=== PATIENT | female | born 1970 | race Hispanic/Latino ===

== ENCOUNTER 2023-11-03 17:12 | Emergency (ER) | payer BC ==
--- OUTSIDE RECORDS SUMMARY | 2023-11-03 17:32 | XMS REPORT | Continuity of Care Document ---
Author Name Unknown Address [address] [facility] [address] [place] [address] [facility] thconnect Address [address] [facility] [place] [address] Care Team Providers Care [employer] Lead Name Role Phone PCP, PATIENT DOES NOT HAVE A Primary Care Physic alida Unavailable DERRICK JIN Attending Clinician Unavailable Derrick Jin NP Attending Clinician SUDHA REICH Attending Clinician Unavailable DERRICK JIN Admitting Clinician Unavailable Payers Payer Name Policy Type Policy Number Effective Date Expirati on Date Source [employer] OUT OF NETWORK [id number] 2020 00:00:00 [employer] [place] - OUT OF STATE [id number] 2018 00:00:00 Problems Condition Name Condition Details Condition Category Status Onset Date Resolution Date Last Treatment Date Treating Clinician Comments Source Pain in or around eye left eye Pain in or around eye left eye Disease Active 2016-06 00:00: 00 [facility] Glaucoma suspect of both eyes Glaucoma suspect of both eyes Disease Active 2016-06 00:00: 00 [facility] Refractive error Refractive error Disease Active 2016-06 00:00: 00 [facility] Bone marrow donor Bone marrow donor Disease Active 2-13 00:00: 00 [facility] Need for prophylact ic immunother apy Need for prophylact ic immunother apy Disease Active 20 00:00: 00 [facility] Multiparit y Multiparit y Disease Active 10-28 00:00: 00 [facility] First degree perineal laceration during delivery First degree perineal laceration during delivery Disease Active 10-27 00:00: 00 Overview: Formattin g of this note might be different from the original. ICD10 Diagnosis Term Shirt Folder Utility [facility] Allergies, Adverse Reactions, Alerts Allergy Name Allergy Type Status Severity Reaction(s) Onset Date Inactive Date Treating Clinician Comments Source Jardianc e - Oral Propensi ty to adverse reaction to drug Active 02-15 00:00: 00 Eduardo Love Mesna - Intraven ous Propensi ty to adverse reaction to drug Active 12-19 00:00: 00 Eduardo Love NO KNOWN ALLERGIE S Drug Class Active [facility] Social History Social Habit Start Date Stop Date Quantity Comments [facility] 2023-03-18 00:00:00 2023-03-18 00:00:00 Current non-drinker of alcohol (finding) [facility] History of Social function 2018-12-19 00:00:00 2018-12-19 00:00:00 [facility] Tobacco use and exposure 2017-12-06 00:00:00 2017-12-06 00:00:00 Smokeless tobacco non-user [facility] Sex Assigned At 1970 00:00:00 1970 00:00:00 [facility] Smoking Status Start Date Stop Date Source Never smoked tobacco [facility] Medications Ordered Medication Name Filled Medication Name Start Date Stop Date Current Medication? Ordering Clinician Indication Dosage Frequency Signature (SIG) Comments Components Source Macrobid 100 mg capsule 10-25 00:00: 00 Yes 1mg Eduardo Love TAKE 1 TABLET AT BEDTIME. 09-05 00:00: 00 Yes 80 Eduardo Love Farxiga 5 mg tablet - 00:00: 00 Yes 1mg Eduardo Love TAKE 1 TABLET EVERY 6 TO 8 HOURS NEEDED. -16 00:00: 09-13 00:00 :00 No 600 Eduardo Love TAKE 1 TABLET 3 TIMES DAILY NEEDED FOR MUSCLE SPASM. 07-17 00:00: 00 09-13 00:00 :00 No 10 Eduardo Efren Love TAKE 1 TABLET BY MOUTH EVERY MORNING 2022-06 00:00: 00 09-13 00:00 :00 No 5 Eduardo F Ivan START 0.6 MG SC QD X1WK, THEN INCREASE TO 1.2 MG SC QD 2022-06 00:00: 00 09-13 00:00 :00 No 183 Eduardo F Ivan TAKE 1 TABLET BY MOUTH AT BEDTIME 2022-06 00:00: 00 09-13 00:00 :00 No 40 Eduardo F Ivan TAKE 1 TABLET BY MOUTH AT BEDTIME 2022-06 00:00: 00 09-13 00:00 :00 No 40 Eduardo F Ivan TAKE 1 TABLET BY MOUTH EVERY MORNING 2022-06 00:00: 00 09-13 00:00 :00 No 5 Eduardo Efren Love APPLY SPARINGLY TO AFFECTED AREA(S) TWICE DAILY 2022-06 00:00: 00 09-13 00:00 :00 No 2 Eduardo Love TAKE 1 TABLET 3 TIMES DAILY WITH FOOD NEEDED. 2022-06 0- 00:00: 00 09-13 00:00 :00 No 800 Eduardo Love ibuprofen (IBU) tablet 600 mg 2022-06 20:30: 00 03-18 20:37 :00 No 600mg 600 mg, Oral, ONCE, 1 dose[facility], extended release 24 hr 2022-06 00:00: 00 Yes mg Eduardo Love TAKE 1 TABLET DAILY. 2022-06 00:00: 00 09-13 00:00 :00 No 10 Eduardo Love TAKE 5 ML BY MOUTH EVERY 6 HOURS NEEDED 03-09 00:00: 00 Yes Eduardo F Ivan TAKE DIRECTED. 03-09 00:00: 00 09-13 00:00 :00 No Eduardo Love TAKE 5 ML EVERY 6 HOURS NEEDED. 9-29 00:00: 00 09-13 00:00 :00 No [id number] Eduardo Love CLINDAMYCIN PHOSPHATE 2 % CREAM 8-15 00:00: 00 Yes Eduardo Love ATORVASTATI N CALCIUM 40 MG 815 00:00: 00 Yes Eduardo Love GLIPIZIDE ER 10 MG EXTENDED RELEASE 24 HOUR 815 00:00: 00 Yes Eduardo Love TAKE 1 TABLET BY MOUTH EVERY MORNING 815 00:00: 00 09-13 00:00 :00 No 5 Eduardo Love INSERT 1 APPLICATORF UL INTRAVAGINA LLY AT BEDTIME NIGHTLY. 01-23 00:00: 00 09-13 00:00 :00 No 2 Eduardo Love TAKE ONE NOW AND REPEAT IN 3 DAYS 01-23 00:00: 00 09-13 00:00 :00 No 150 Eduardo Love GLIPIZIDE ER 10 MG EXTENDED RELEASE 24 HOUR 7- 00:00: 00 Yes Eduardo Love TAKE 1 CAPSULE AT BEDTIME. 4-27 00:00: 00 09-13 00:00 :00 No 300 Eduardo Love TAKE 1 TABLET BY MOUTH EVERY MORNING 0 4-24 00:00: 00 09-13 00:00 :00 No 5 Eduardo Love TAKE 1 TABLET BY MOUTH TWICE DAILY 0 3-10 00:00: 00 Yes Eduardo Love TAKE 1 TWICE A DAY 0 3-08 00:00: 00 09-13 00:00 :00 No 10 Eduardo Love TAKE 1 TABLET BID NEEDED 1-21 00:00: 00 09-13 00:00 :00 No 600 Eduardo Love TAKE 1 TABLET BY MOUTH AT BEDTIME 0 1-11 00:00: 00 09-13 00:00 :00 No 40 Eduardo Efren Love RINSE WITH 5 MILLILITERS BY MOUTH TWICE A DAY DIRECTED. SPIT DO NOT SWALLOW 2021-06 2-16 00:00: 00 Yes Eduardo Love TAKE 1 TWICE A DAY 2021-06 216 00:00: 00 09-13 00:00 :00 No Eduardo Efren Love 1 TABLET BY MOUTH TWICE DAILY 2021-06 216 00:00: 00 09-13 00:00 :00 No 5unit Eduardo Efren Love APPLY SPARINGLY TO THE AFFECTED AREA(S) TWICE DAILY. 2021-06 00:00: 00 09-13 00:00 :00 No unit Eduardo Efren Love TAKE 1 TABLET BY MOUTH ONCE DAILY 2021-06 00:00: 00 09-13 00:00 :00 No Eduardo Efren Love TAKE 1 TABLET BY MOUTH EVERY NIGHT 2021-06 00:00: 00 09-13 00:00 :00 No 40 Eduardo Efren Love TAKE 1 TABLET BY MOUTH TWICE DAILY 2021-06 00:00: 00 09-13 00:00 :00 No 5 Eduardo Efren Love TAKE 1 CAPSULE BY MOUTH 2 TIMES A DAY FOR 10 DAYS 2021-0616 00:00: 00 09-13 00:00 :00 No 100 Eduardo Efren Love Dose Unknown 2021-06 00:00: 00 09-13 00:00 :00 No Eduardo Efren Love APPLY TO LIDS 2 TIMES A DAY IN BOTH EYES FOR 1 WEEK 2021-06 00:00: 00 09-13 00:00 :00 No Eduardo Efren Ivan METFORMIN HYDROCHLORI DE E 750 MG EXTENDED RELEASE 24 HOUR 2021-06-14 00:00: 00 Yes Eduardo Efren Love ATORVASTATI N CALCIUM 40 MG 2021-06 1-14 00:00: 00 Yes Eduardo Efren Ivan METFORMIN HYDROCHLORI DE E 750 MG EXTENDED RELEASE 24 HOUR 2021-06 0-21 00:00: 00 Yes Eduardo Efren Love ATORVASTATI N CALCIUM 40 MG 2021-06 0-18 00:00: 00 Yes Eduardo Efren Love METFORMIN HYDROCHLORI DE E 500 MG EXTENDED RELEASE 24 HOUR 2021-06 0-13 00:00: 00 Yes Eduardo Efren Love TAKE 1 TABLET BY MOUTH TWICE A DAY TAKE 30 MINUTES BEFORE BREAKFAST AND DINNER. STOP ATORVASTATI N 03-08 00:00: 00 No TAKE 1 TABLET BY MOUTH TWICE A DAY TAKE 30 MINUTES BEFORE BREAKFAST AND DINNER. STOP ATORVASTATI N 03-08 00:00: 00 09-13 00:00 :00 No Eduardo Love TAKE 1 TABLET BY MOUTH TWICE A DAY TAKE 30 MINUTES BEFORE BREAKFAST AND DINNER. STOP ATORVASTATI N 01-31 00:00: 00 Yes 600 Eduardo Love TAKE 1 TABLET BY MOUTH TWICE A DAY TAKE 30 MINUTES BEFORE BREAKFAST AND DINNER. STOP ATORVASTATI N 01-31 00:00: 00 No 600 TAKE 1 TABLET BY MOUTH TWICE A DAY TAKE 30 MINUTES BEFORE BREAKFAST AND DINNER. STOP ATORVASTATI N 01-31 00:00: 00 No 600 TAKE 1 TABLET BY MOUTH TWICE A DAY TAKE 30 MINUTES BEFORE BREAKFAST AND DINNER. STOP ATORVASTATI N 01-31 00:00: 00 No 600 TAKE 1 TABLET BY MOUTH TWICE A DAY TAKE 30 MINUTES BEFORE BREAKFAST AND DINNER. STOP ATORVASTATI N 01-31 00:00: 00 No 600 prednisone 20 mg tablet 12-19 00:00: 00 Yes mg Eduardo Love azithromyci n 250 mg tablet 12-19 00:00: 00 Yes mg Eduardo Love prednisone 20 mg tablet 12-19 00:00: 00 No mg azithromyci n 250 mg tablet 12-19 00:00: 00 No mg prednisone 20 mg tablet 12-19 00:00: 00 No mg azithromyci n 250 mg tablet 12-19 00:00: 00 No mg prednisone 20 mg tablet 12-19 00:00: 00 No mg azithromyci n 250 mg tablet 12-19 00:00: 00 No mg prednisone 20 mg tablet 12-19 00:00: 00 No mg azithromyci n 250 mg tablet 12-19 00:00: 00 No mg ATORVASTATI N CALCIUM 40 MG 12-09 00:00: 00 Yes Eduardo Love bupropion HCl 150 mg tablet,12 hr sustained-r elease(smok ing deterrent) 0 - 00:00: 00 Yes 1mg Eduardo Love glipizide ER 5 mg tablet, extended release 24 hr 0 -18 00:00: 00 Yes 1mg Edurado Love atorvastati n 40 mg tablet 0 - 00:00: 00 Yes 1mg Eduardo Love bupropion HCl 150 mg tablet,12 hr sustained-r elease(smok ing deterrent) 0 - 00:00: 00 No 1mg glipizide ER 5 mg tablet, extended release 24 hr 0 10-26 00:00: 00 No 1mg atorvastati n 40 mg tablet 10-26 00:00: 00 No 1mg bupropion HCl 150 mg tablet,12 hr sustained-r elease(smok ing deterrent) 10-26 00:00: 00 No 1mg glipizide ER 5 mg tablet, extended release 24 hr 0 10-26 00:00: 00 No 1mg atorvastati n 40 mg tablet 0 10-26 00:00: 00 No 1mg bupropion HCl 150 mg tablet,12 hr sustained-r elease(smok ing deterrent) 10-26 00:00: 00 No 1mg glipizide ER 5 mg tablet, extended release 24 hr 10-26 00:00: 00 No 1mg atorvastati n 40 mg tablet 0 - 00:00: 00 No 1mg bupropion HCl 150 mg tablet,12 hr sustained-r elease(smok ing deterrent) 10-26 00:00: 00 No 1mg glipizide ER 5 mg tablet, extended release 24 hr 0 10-26 00:00: 00 No 1mg atorvastati n 40 mg tablet 0 -18 00:00: 00 No 1mg atorvastati n 40 mg tablet 0 - 00:00: 00 No 1mg atorvastati n 40 mg tablet 0 - 00:00: 00 No 1mg atorvastati n 40 mg tablet 2022-0 5-06 00:00: 00 No 1mg atorvastati n 40 mg tablet 2-0 5-06 00:00: 00 No 1mg atorvastati n 40 mg tablet 2-0 5-06 00:00: 00 Yes 1mg Eduardo Love glipizide ER 5 mg tablet, extended release 24 hr 2-0 4-29 00:00: 00 No 1mg glipizide ER 5 mg tablet, extended release 24 hr 2022-0 4-29 00:00: 00 No 1mg glipizide ER 5 mg tablet, extended release 24 hr 2022-0 4-29 00:00: 00 No 1mg glipizide ER 5 mg tablet, extended release 24 hr 2022-0 4-29 00:00: 00 No 1mg glipizide ER 5 mg tablet, extended release 24 hr 2022-0 4-29 00:00: 00 Yes 1mg Eduardo Love NEOMYCIN/PO LYMYXIN/DEX CARMEL [id number] .[id number] OINTMENT 2021-0 4-27 00:00: 00 Yes Eduardo Love DOXYCYCLINE HYCLATE 100 MG CAPSULE 2021-0 4-27 00:00: 00 Yes Eduardo Love Dose Unknown 2021-0 4-14 00:00: 00 No Dose Unknown 2-0 4-14 00:00: 00 No Dose Unknown 2-0 4-14 00:00: 00 No Dose Unknown 2-0 4-14 00:00: 00 No Dose Unknown 2-0 4-14 00:00: 00 No Dose Unknown 2022-0 4-14 00:00: 00 No Dose Unknown 2-0 4-14 00:00: 00 No Dose Unknown 2022-0 4-14 00:00: 00 No Dose Unknown 2022-0 4-14 00:00: 00 Yes Eduardo Love Dose Unknown 2-0 4-14 00:00: 00 Yes Eduardo Love Dose Unknown 2021-0 4-13 00:00: 00 No Dose Unknown 2022-0 4-13 00:00: 00 No Dose Unknown 2022-0 4-13 00:00: 00 No Dose Unknown 2-0 4-13 00:00: 00 No Dose Unknown 2022-0 4-13 00:00: 00 No Dose Unknown 0 4-13 00:00: 00 No Dose Unknown 0 4-13 00:00: 00 No Dose Unknown 0 4- 00:00: 00 No Dose Unknown 0 4- 00:00: 00 Yes Eduardo Love Dose Unknown 0 4-13 00:00: 00 Yes Eduardo Love atorvastati n 40 mg tablet 0 4-05 00:00: 00 No 1mg atorvastati n 40 mg tablet 0 4-05 00:00: 00 No 1mg atorvastati n 40 mg tablet 0 4-05 00:00: 00 No 1mg atorvastati n 40 mg tablet 0 4-05 00:00: 00 No 1mg atorvastati n 40 mg tablet 0 4-05 00:00: 00 Yes 1mg Eduardo Love glipizide ER 5 mg tablet, extended release 24 hr 2021-0 2-12 00:00: 00 No 1mg atorvastati n 40 mg tablet 0 2-12 00:00: 00 No 1mg glipizide ER 5 mg tablet, extended release 24 hr 2021-0 2-12 00:00: 00 No 1mg atorvastati n 40 mg tablet 0 2-12 00:00: 00 No 1mg glipizide ER 5 mg tablet, extended release 24 hr 2021-0 2-12 00:00: 00 No 1mg atorvastati n 40 mg tablet 2021-0 2-12 00:00: 00 No 1mg glipizide ER 5 mg tablet, extended release 24 hr 2021-0 2-12 00:00: 00 No 1mg atorvastati n 40 mg tablet 2021-0 2-12 00:00: 00 No 1mg glipizide ER 5 mg tablet, extended release 24 hr 2021-0 2-12 00:00: 00 Yes 1mg Eduardo Love atorvastati n 40 mg tablet 2021-0 2-12 00:00: 00 Yes 1mg Eduardo Love atorvastati n 40 mg tablet 2021-0 1-31 00:00: 00 No 1mg atorvastati n 40 mg tablet 07-11 00:00: 00 No 1mg atorvastati n 40 mg tablet 07-11 00:00: 00 No 1mg atorvastati n 40 mg tablet 07-11 00:00: 00 No 1mg atorvastati n 40 mg tablet 07-11 00:00: 00 Yes 1mg Eduardo Love atorvastati n 40 mg tablet 2020-06 00:00: 00 No 1mg atorvastati n 40 mg tablet 2020-06 00:00: 00 No 1mg atorvastati n 40 mg tablet 2020-06 00:00: 00 No 1mg atorvastati n 40 mg tablet 2020-06 00:00: 00 No 1mg atorvastati n 40 mg tablet 2020-06 00:00: 00 Yes 1mg Eduardo Love glipizide ER 5 mg tablet, extended release 24 hr 2020-06 00:00: 00 No 1mg gemfibrozil 600 mg tablet 2020-06 00:00: 00 No 1mg glipizide ER 5 mg tablet, extended release 24 hr 2020-06 00:00: 00 No 1mg gemfibrozil 600 mg tablet 2020-06 00:00: 00 No 1mg glipizide ER 5 mg tablet, extended release 24 hr 2020-06 00:00: 00 No 1mg gemfibrozil 600 mg tablet 2020-06 00:00: 00 No 1mg glipizide ER 5 mg tablet, extended release 24 hr 2020-06 00:00: 00 No 1mg gemfibrozil 600 mg tablet 2020-06 00:00: 00 No 1mg glipizide ER 5 mg tablet, extended release 24 hr 2020-06 00:00: 00 Yes 1mg Eduardo Love gemfibrozil 600 mg tablet 2020-06 00:00: 00 Yes 1mg Eduardo Love triamcinolo ne acetonide 0.1 % topical cream 11-17 00:00: 00 No 1% triamcinolo ne acetonide 0.1 % topical cream 11-17 00:00: 00 No 1% triamcinolo ne acetonide 0.1 % topical cream 11-17 00:00: 00 No 1% Dose Unknown 11-17 00:00: 00 No triamcinolo ne acetonide 0.1 % topical cream 11-17 00:00: 00 Yes 1% Eduardo Love glipizide ER 5 mg tablet, extended release 24 hr 11-11 00:00: 00 No 1mg gemfibrozil 600 mg tablet 11-11 00:00: 00 No 1mg glipizide ER 5 mg tablet, extended release 24 hr 11-11 00:00: 00 No 1mg gemfibrozil 600 mg tablet 11-11 00:00: 00 No 1mg glipizide ER 5 mg tablet, extended release 24 hr 11-11 00:00: 00 No 1mg gemfibrozil 600 mg tablet 11-11 00:00: 00 No 1mg glipizide ER 5 mg tablet, extended release 24 hr 11-11 00:00: 00 No 1mg gemfibrozil 600 mg tablet 11-11 00:00: 00 No 1mg glipizide ER 5 mg tablet, extended release 24 hr 11-11 00:00: 00 Yes 1mg Eduardo Love gemfibrozil 600 mg tablet 11-11 00:00: 00 Yes 1mg Eduardo Efren Ivan gemfibrozil 600 mg tablet 08-04 00:00: 00 No 1mg cholecalcif telma (vitamin D3) 1,250 mcg (50,000 unit) capsule 2-24 00:00: 00 No 1(50,00 0 unit) gemfibrozil 600 mg tablet 2- 00:00: 00 No 1mg cholecalcif telma (vitamin D3) 1,250 mcg (50,000 unit) capsule 2-24 00:00: 00 No 1(50,00 0 unit) gemfibrozil 600 mg tablet 2-24 00:00: 00 No 1mg cholecalcif telma (vitamin D3) 1,250 mcg (50,000 unit) capsule 2-24 00:00: 00 No 1(50,00 0 unit) gemfibrozil 600 mg tablet 2-24 00:00: 00 No 1mg cholecalcif telma (vitamin D3) 1,250 mcg (50,000 unit) capsule 2-24 00:00: 00 No 1(50,00 0 unit) gemfibrozil 600 mg tablet 2-24 00:00: 00 Yes 1mg Eduardo Love cholecalcif telma (vitamin D3) 1,250 mcg (50,000 unit) capsule - 00:00: 00 Yes 1(50,00 0 unit) Eduardo Efren Ivan glipizide ER 5 mg tablet, extended release 24 hr - 00:00: 00 No 1mg glipizide ER 5 mg tablet, extended release 24 hr - 00:00: 00 No 1mg glipizide ER 5 mg tablet, extended release 24 hr - 00:00: 00 No 1mg glipizide ER 5 mg tablet, extended release 24 hr - 00:00: 00 No 1mg glipizide ER 5 mg tablet, extended release 24 hr - 00:00: 00 Yes 1mg Eduardo Love atorvastati n 40 mg tablet 2019-06 2 00:00: 00 No 1mg atorvastati n 40 mg tablet 2019-06 00:00: 00 No 1mg atorvastati n 40 mg tablet 2019-06 2 00:00: 00 No 1mg atorvastati n 40 mg tablet 2019-06- 00:00: 00 No 1mg atorvastati n 40 mg tablet 2019-06 00:00: 00 Yes 1mg Eduardo Love metformin 500 mg tablet 2019-06- 00:00: 00 No 1mg metformin 500 mg tablet 2019-06- 00:00: 00 No 1mg metformin 500 mg tablet 2019-06 00:00: 00 No 1mg metformin 500 mg tablet 2019-06 00:00: 00 No 1mg metformin 500 mg tablet 2019-06 00:00: 00 Yes 1mg Eduardo Love atorvastati n 40 mg tablet 2019-06 00:00: 00 No 1mg atorvastati n 40 mg tablet 2019-06 00:00: 00 No 1mg atorvastati n 40 mg tablet 2019-06 00:00: 00 No 1mg atorvastati n 40 mg tablet 2019-06 00:00: 00 No 1mg atorvastati n 40 mg tablet 2019-06 00:00: 00 Yes 1mg Eduardo Love atorvastati n 40 mg tablet 11-25 00:00: 00 No 1mg atorvastati n 40 mg tablet 11-25 00:00: 00 No 1mg atorvastati n 40 mg tablet 11-25 00:00: 00 No 1mg atorvastati n 40 mg tablet 11-25 00:00: 00 No 1mg atorvastati n 40 mg tablet 11-25 00:00: 00 Yes 1mg Eduardo Love diclofenac 1 % topical gel 11-19 00:00: 00 No % triamcinolo ne acetonide 0.1 % topical cream 11-19 00:00: 00 No 1% diclofenac 1 % topical gel 11-19 00:00: 00 No % triamcinolo ne acetonide 0.1 % topical cream 11-19 00:00: 00 No 1% diclofenac 1 % topical gel 11-19 00:00: 00 No % triamcinolo ne acetonide 0.1 % topical cream 11-19 00:00: 00 No 1% diclofenac 1 % topical gel 11-19 00:00: 00 No % triamcinolo ne acetonide 0.1 % topical cream 11-19 00:00: 00 No 1% diclofenac 1 % topical gel 11-19 00:00: 00 Yes % Eduardo Efren Ivan triamcinolo ne acetonide 0.1 % topical cream 11-19 00:00: 00 Yes 1% Eduardo Love clindamycin HCl 300 mg capsule 10-19 00:00: 00 No 1mg clindamycin HCl 300 mg capsule 10-19 00:00: 00 No 1mg clindamycin HCl 300 mg capsule 10-19 00:00: 00 No 1mg clindamycin HCl 300 mg capsule 10-19 00:00: 00 No 1mg clindamycin HCl 300 mg capsule 10-19 00:00: 00 Yes 1mg Eduardo Love sertraline 25 mg tablet 10-17 00:00: 00 No 1mg Flagyl 500 mg tablet 10-17 00:00: 00 No 1mg sertraline 25 mg tablet 10-17 00:00: 00 No 1mg Flagyl 500 mg tablet 10-17 00:00: 00 No 1mg sertraline 25 mg tablet 10-17 00:00: 00 No 1mg Flagyl 500 mg tablet 10-17 00:00: 00 No 1mg sertraline 25 mg tablet 10-17 00:00: 00 No 1mg Flagyl 500 mg tablet 10-17 00:00: 00 No 1mg sertraline 25 mg tablet 10-17 00:00: 00 Yes 1mg Eduardo Love Flagyl 500 mg tablet 10-17 00:00: 00 Yes 1mg Eduardo Love pravastatin 20 mg tablet 09-09 00:00: 00 No 1mg pravastatin 20 mg tablet 09-09 00:00: 00 No 1mg pravastatin 20 mg tablet 09-09 00:00: 00 No 1mg pravastatin 20 mg tablet 09-09 00:00: 00 No 1mg pravastatin 20 mg tablet 09-09 00:00: 00 Yes 1mg Eduardo Love pravastatin 20 mg tablet 07-13 00:00: 00 No 1mg pravastatin 20 mg tablet 07-13 00:00: 00 No 1mg pravastatin 20 mg tablet 07-13 00:00: 00 No 1mg pravastatin 20 mg tablet 07-13 00:00: 00 No 1mg pravastatin 20 mg tablet 07-13 00:00: 00 Yes 1mg Eduardo Love methylPREDN ISolone (MEDROL, ARSLAN,) 4 mg tablets 12-06 00:00: 00 Yes 84mg Take 21 tablets by mouth SEE-INSTRU CTIONS. follow package directions [facility] naproxen 500 mg tablet 11-21 00:00: 00 No 1mg naproxen 500 mg tablet 11-21 00:00: 00 No 1mg naproxen 500 mg tablet 11-21 00:00: 00 No 1mg naproxen 500 mg tablet 11-21 00:00: 00 No 1mg naproxen 500 mg tablet 11-21 00:00: 00 Yes 1mg Eduardo Love Tamiflu 75 mg capsule 08-08 00:00: 00 No 1mg Tamiflu 75 mg capsule 08-08 00:00: 00 No 1mg Tamiflu 75 mg capsule 08-08 00:00: 00 No 1mg Tamiflu 75 mg capsule 08-08 00:00: 00 No 1mg Tamiflu 75 mg capsule 08-08 00:00: 00 Yes 1mg Eduardo Love Vitamin D2 50,000 unit capsule 2016-06 00:00: 00 No 1unit Vitamin D2 50,000 unit capsule 2016-06 00:00: 00 No 1unit Vitamin D2 50,000 unit capsule 2016-06 00:00: 00 No 1unit Vitamin D2 50,000 unit capsule 2016-06 00:00: 00 No 1unit Vitamin D2 50,000 unit capsule 2016-06 00:00: 00 Yes 1unit Eduardo Love fluorometho lone 0.1 % ophthalmic suspension drops 2016-06 00:00: 00 Yes 1[drp] Place 1 Drop in left eye 3 (three) times daily. [facility] prednisone 10 mg tablet 02-14 00:00: 00 No mg azithromyci n 250 mg tablet 02-14 00:00: 00 No mg promethazin e-DM 6.25 mg-15 mg/5 mL syrup 02-14 00:00: 00 No 5mg/5 mL prednisone 10 mg tablet 02-14 00:00: 00 No mg azithromyci n 250 mg tablet 02-14 00:00: 00 No mg promethazin e-DM 6.25 mg-15 mg/5 mL syrup 02-14 00:00: 00 No 5mg/5 mL prednisone 10 mg tablet 02-14 00:00: 00 No mg azithromyci n 250 mg tablet 02-14 00:00: 00 No mg promethazin e-DM 6.25 mg-15 mg/5 mL syrup 02-14 00:00: 00 No 5mg/5 mL prednisone 10 mg tablet 02-14 00:00: 00 No mg azithromyci n 250 mg tablet 02-14 00:00: 00 No mg promethazin e-DM 6.25 mg-15 mg/5 mL syrup 02-14 00:00: 00 No 5mg/5 mL prednisone 10 mg tablet 02-14 00:00: 00 Yes mg Eduardo Love azithromyci n 250 mg tablet 02-14 00:00: 00 Yes mg Eduardo Love promethazin e-DM 6.25 mg-15 mg/5 mL syrup 02-14 00:00: 00 Yes 5mg/5 mL Eduardo Love triamcinolo ne acetonide 0.1 % cream 01-15 00:00: 00 Yes Apply to area(s) 2 (two) times daily. [facility] azithromyci n 250 mg tablet 07-28 00:00: 00 No mg azithromyci n 250 mg tablet 07-28 00:00: 00 No mg azithromyci n 250 mg tablet 07-28 00:00: 00 No mg azithromyci n 250 mg tablet 07-28 00:00: 00 No mg azithromyci n 250 mg tablet 07-28 00:00: 00 Yes mg Eduardo Love meclizine (MOTION SICKNESS RELIEF II) 25 mg tablet 2015-06 00:00: 00 Yes 25mg Take 1 tablet by mouth every 6 (six) hours. [facility] cyclobenzap rine 10 mg tablet 2015-06 00:00: 00 No 1mg Bactrim DS 800 mg-160 mg tablet 2015-06 00:00: 00 No 1mg cyclobenzap rine 10 mg tablet 2015-06 00:00: 00 No 1mg Bactrim DS 800 mg-160 mg tablet 2015-06 00:00: 00 No 1mg cyclobenzap rine 10 mg tablet 2015-06 00:00: 00 No 1mg Bactrim DS 800 mg-160 mg tablet 2015-06 00:00: 00 No 1mg cyclobenzap rine 10 mg tablet 2015-06 00:00: 00 No 1mg Bactrim DS 800 mg-160 mg tablet 2015-06 00:00: 00 No 1mg cyclobenzap rine 10 mg tablet 2015-06 00:00: 00 Yes 1mg Eduardo Love Bactrim DS 800 mg-160 mg tablet 2015-06 00:00: 00 Yes 1mg Eduardo Love amoxicillin 500 mg tablet 02-27 00:00: 00 No 1mg amoxicillin 500 mg tablet 02-27 00:00: 00 No 1mg amoxicillin 500 mg tablet 02-27 00:00: 00 No 1mg amoxicillin 500 mg tablet 02-27 00:00: 00 No 1mg amoxicillin 500 mg tablet 02-27 00:00: 00 Yes 1mg Eduardo Love azithromyci n 250 mg tablet 09-22 00:00: 00 No 1mg azithromyci n 250 mg tablet 09-22 00:00: 00 No 1mg azithromyci n 250 mg tablet 09-22 00:00: 00 No 1mg azithromyci n 250 mg tablet 09-22 00:00: 00 No 1mg azithromyci n 250 mg tablet 09-22 00:00: 00 Yes 1mg Eduardo Love Bromfed DM 2 mg-30 mg-10 mg/5 mL syrup 07-16 00:00: 00 No 10mg/5 mL Bromfed DM 2 mg-30 mg-10 mg/5 mL syrup 07-16 00:00: 00 No 10mg/5 mL Bromfed DM 2 mg-30 mg-10 mg/5 mL syrup 07-16 00:00: 00 No 10mg/5 mL Bromfed DM 2 mg-30 mg-10 mg/5 mL syrup 07-16 00:00: 00 No 10mg/5 mL Bromfed DM 2 mg-30 mg-10 mg/5 mL syrup 07-16 00:00: 00 Yes 10mg/5 mL Eduardo Love Macrobid 100 mg capsule 2014-06 00:00: 00 No 1mg Macrobid 100 mg capsule 2014-06 00:00: 00 No 1mg Macrobid 100 mg capsule 2014-06 00:00: 00 No 1mg Macrobid 100 mg capsule 2014-06 00:00: 00 No 1mg Macrobid 100 mg capsule 2014-06 00:00: 00 Yes 1mg Eduardo Efren Ivan Cipro 500 mg tablet 2014-06 00:00: 00 No 1mg Cipro 500 mg tablet 2014-06 00:00: 00 No 1mg Cipro 500 mg tablet 2014-06 00:00: 00 No 1mg Cipro 500 mg tablet 2014-06 00:00: 00 No 1mg Cipro 500 mg tablet 2014-06 00:00: 00 Yes 1mg Eduardo Love cetirizine 10 mg tablet 10-01 00:00: 00 No 1mg cetirizine 10 mg tablet 10-01 00:00: 00 No 1mg cetirizine 10 mg tablet 10-01 00:00: 00 No 1mg cetirizine 10 mg tablet 10-01 00:00: 00 No 1mg cetirizine 10 mg tablet 10-01 00:00: 00 Yes 1mg Eduardo Love Immunizations Ordered Immunization Name Filled Immunization Name Date Status Comments Source Influenza, injectable, [place] [place] Canine Kidney, preservative-free, quadrivalent Influenza, injectable, [facility] [place] Canine Kidney, preservative-free, quadrivalent 2023-03-25 00:00:00 Completed Eduardo Love influenza, injectable influenza, injectable 2022-02-23 00:00:00 Completed Eduardo Love SHINGRIX VACCINE 2022-02-03 00:00:00 Completed SHINGRIX VACCINE 2022-02-03 00:00:00 Completed SHINGRIX VACCINE 2022-02-03 00:00:00 Completed SH[facility]RI[facility] VACCINE SHINGRIX VACCINE 2022-02-03 00:00:00 Completed Eduardo Love SHINGRIX VACCINE 2021-07-28 00:00:00 Completed SHINGRIX VACCINE 2021-07-28 00:00:00 Completed SHINGRIX VACCINE 2021-07-28 00:00:00 Completed SHINGRIX VACCINE 2021-07-28 00:00:00 Completed SHINGRIX VACCINE SHINGRIX VACCINE 2021-07-28 00:00:00 Completed Eduardo Love influenza, injectable influenza, injectable 2021-04-01 00:00:00 Completed Eduardo Love Moderna COVID-19 Vaccine 2020-08-21 00:00:00 Completed Moderna COVID-19 Vaccine 2020-08-21 00:00:00 Completed Moderna COVID-19 Vaccine 2020-08-21 00:00:00 Completed Moderna COVID-19 Vaccine 2020-08-21 00:00:00 Completed Moderna COVID-19 Vaccine Moderna COVID-19 Vaccine 2020-08-21 00:00:00 Completed Eduardo Love Moderna COVID-19 Vaccine 2020-07-16 00:00:00 Completed Moderna COVID-19 Vaccine 2020-07-16 00:00:00 Completed Moderna COVID-19 Vaccine 2020-07-16 00:00:00 Completed Moderna COVID-19 Vaccine 2020-07-16 00:00:00 Completed Moderna COVID-19 Vaccine Moderna COVID-19 Vaccine 2020-07-16 00:00:00 Completed Eduardo Love Influenza, seasonal, inj 2020-04-12 00:00:00 Completed Influenza, seasonal, inj 2020-04-12 00:00:00 Completed Influenza, seasonal, inj 2020-04-12 00:00:00 Completed Influenza, seasonal, inj 2020-04-12 00:00:00 Completed Influenza, seasonal, inj Influenza, seasonal, inj 2020-04-12 00:00:00 Completed Eduardo Efren Love Influenza, seasonal, inj 2018-07-12 00:00:00 Completed Tdap 2018-07-12 00:00:00 Completed Influenza, seasonal, inj 2018-07-12 00:00:00 Completed Tdap 2018-07-12 00:00:00 Completed Influenza, seasonal, inj 2018-07-12 00:00:00 Completed Tdap 2018-07-12 00:00:00 Completed Influenza, seasonal, inj 2018-07-12 00:00:00 Completed Tdap 2018-07-12 00:00:00 Completed Influenza, seasonal, inj Influenza, seasonal, inj 2018-07-12 00:00:00 Completed Eduardo Schwartz Ivan Tdap Tdap 2018-07-12 00:00:00 Completed Eduardomariam Love Influenza, seasonal, inj 2017-04-09 00:00:00 Completed Influenza, seasonal, inj 2017-04-09 00:00:00 Completed Influenza, seasonal, inj 2017-04-09 00:00:00 Completed Influenza, seasonal, inj 2017-04-09 00:00:00 Completed Influenza, seasonal, inj Influenza, seasonal, inj 2017-04-09 00:00:00 Completed Eduardo Love Tdap 2016-08-01 00:00:00 Completed Tdap 2016-08-01 00:00:00 Completed Tdap 2016-08-01 00:00:00 Completed Tdap 2016-08-01 00:00:00 Completed Tdap Tdap 2016-08-01 00:00:00 Completed Eduardo Efren Ivan Influenza Virus Vaccine Quad .5 mL IM 6+ MO (FLUZONE/FLULAVAL/F LUARIX) Unknown Completed [facility] Rho (d) Immune Globulin Unknown Completed [facility] Rho (d) Immune Globulin Unknown Completed [facility] Vital Signs Vital Name Observation Time Observation Value Comments S ource Systolic blood pressure 2023-03-18 20:17:00 161 mm[Hg] [facility] Diastolic blood pressure 2023-03-18 20:17:00 97 mm[Hg] [facility] Heart rate 2023-03-18 20:17:00 100 /min [facility] Body temperature 2023-03-18 20:17:00 37.28 Sugey [facility] Respiratory rate 2023-03-18 20:17:00 16 /min [facility] Body weight 2023-03-18 20:17:00 70.308 kg [facility] BMI 2023-03-18 20:17:00 28.35 kg/m2 [facility] Oxygen saturation in Arterial blood by Pulse oximetry 2023-03-18 20:17:00 99 /min [facility] BP Systolic 2023-09-03 08:18:00 129 mm[Hg] Step hen F Ivan BP Diastolic 2023-09-03 08:18:00 87 mm[Hg] Levi phen F Ivan Weight Measured 2023-09-03 08:18:00 150.20 pounds Eduardo F Ivan Height Measured 2023-09-03 08:18:00 62.00 inches Eduardo F Ivan Body Temperature 2023-09-03 08:18:00 98.20 degrees Eduardo F Ivan Heart Rate 2023-09-03 08:18:00 72.00 /min Madelyn en F Ivan Respiratory Rate 2023-09-03 08:18:00 18.00 /min Eduardo F Ivan BP Systolic 2023-08-27 16:50:00 132 mm[Hg] Step hen F Ivan BP Diastolic 2023-08-27 16:50:00 90 mm[Hg] Levi phen F Ivan Weight Measured 2023-08-27 16:50:00 150.80 pounds Eduardo F Ivan Height Measured 2023-08-27 16:50:00 62.00 inches Eduardo F Ivan Body Temperature 2023-08-27 16:50:00 98.10 degrees Eduardo F Ivan Heart Rate 2023-08-27 16:50:00 72.00 /min Madelyn en F Ivan Respiratory Rate 2023-08-27 16:50:00 Eduardo F Ivan BP Systolic 2023-07-27 08:58:00 135 mm[Hg] Step hen F Ivan BP Diastolic 2023-07-27 08:58:00 88 mm[Hg] Levi phen F Ivan Weight Measured 2023-07-27 08:58:00 144.60 pounds Eduardo F Ivan Height Measured 2023-07-27 08:58:00 62.00 inches Eduardo F Ivan Body Temperature 2023-07-27 08:58:00 98.30 degrees Eduardo F Ivan Heart Rate 2023-07-27 08:58:00 60.00 /min Madelyn en F Ivan Respiratory Rate 2023-07-27 08:58:00 18.00 /min Eduardo F Ivan BP Systolic 2023-07-17 10:15:00 131 mm[Hg] Step hen F Ivan BP Diastolic 2023-07-17 10:15:00 87 mm[Hg] Levi phen F Ivan Weight Measured 2023-07-17 10:15:00 151.80 pounds Eduardo F Ivan Height Measured 2023-07-17 10:15:00 62.00 inches Eduardo F Ivan Body Temperature 2023-07-17 10:15:00 98.30 degrees Eduardo F Ivan Heart Rate 2023-07-17 10:15:00 72.00 /min Madelyn en F Ivan Respiratory Rate 2023-07-17 10:15:00 18.00 /min Eduardo F Ivan BP Systolic 2023-05-14 09:58:00 120 mm[Hg] Step hen F Ivan BP Diastolic 2023-05-14 09:58:00 81 mm[Hg] Levi phen F Ivan Weight Measured 2023-05-14 09:58:00 153.00 pounds Eduardo F Ivan Height Measured 2023-05-14 09:58:00 62.00 inches Eduardo F Ivan Body Temperature 2023-05-14 09:58:00 98.10 degrees Eduardo F Ivan Heart Rate 2023-05-14 09:58:00 68.00 /min Madelyn en F Iavn Respiratory Rate 2023-05-14 09:58:00 Eduardo F Ivan BP Systolic 2023-04-12 09:12:00 121 mm[Hg] Step hen F Ivan BP Diastolic 2023-04-12 09:12:00 84 mm[Hg] Levi phen F Ivan Weight Measured 2023-04-12 09:12:00 152.00 pounds Eduardo F Ivan Height Measured 2023-04-12 09:12:00 62.00 inches Eduardo F Ivan Body Temperature 2023-04-12 09:12:00 98.30 degrees Eduardo F Ivan Heart Rate 2023-04-12 09:12:00 67.00 /min Madelyn en F Ivan Respiratory Rate 2023-04-12 09:12:00 Eduardo F Ivan BP Systolic 2023-04-09 08:53:00 124 mm[Hg] Step hen F Ivan BP Diastolic 2023-04-09 08:53:00 82 mm[Hg] Levi phen F Ivan Weight Measured 2023-04-09 08:53:00 153.00 pounds Eduardo F Ivan Height Measured 2023-04-09 08:53:00 62.00 inches Eduardo F Ivan Body Temperature 2023-04-09 08:53:00 98.10 degrees Eduardo F Ivan Heart Rate 2023-04-09 08:53:00 64.00 /min Madelyn en F Ivan Respiratory Rate 2023-04-09 08:53:00 18.00 /min Eduardo F Ivan BP Systolic 2023-03-30 09:16:00 123 mm[Hg] Step hen F Ivan BP Diastolic 2023-03-30 09:16:00 88 mm[Hg] Levi phen F Ivan Weight Measured 2023-03-30 09:16:00 153.80 pounds Eduardo F Ivan Height Measured 2023-03-30 09:16:00 62.00 inches Eduardo F Ivan Body Temperature 2023-03-30 09:16:00 98.30 degrees Eduardo F Ivan Heart Rate 2023-03-30 09:16:00 78.00 /min Madelyn en F Ivan Respiratory Rate 2023-03-30 09:16:00 18.00 /min Eduardo F Ivan BP Systolic 2023-03-09 10:08:00 124 mm[Hg] Step hen F Ivan BP Diastolic 2023-03-09 10:08:00 79 mm[Hg] Levi phen F Ivan Weight Measured 2023-03-09 10:08:00 155.00 pounds Eduardo F Ivan Height Measured 2023-03-09 10:08:00 62.00 inches Eduardo F Ivan Body Temperature 2023-03-09 10:08:00 99.00 degrees Eduardo F Ivan Heart Rate 2023-03-09 10:08:00 99.00 /min Madelyn en F Ivan Respiratory Rate 2023-03-09 10:08:00 18.00 /min Eduardo F Ivan BP Systolic 2023-01-23 15:37:00 141 mm[Hg] Step hen F Ivan BP Diastolic 2023-01-23 15:37:00 86 mm[Hg] Levi phen F Ivan Weight Measured 2023-01-23 15:37:00 156.40 pounds Eduardo F Ivan Height Measured 2023-01-23 15:37:00 62.00 inches Eduardo F Ivan Body Temperature 2023-01-23 15:37:00 98.20 degrees Eduardo F Ivan Heart Rate 2023-01-23 15:37:00 76.00 /min Madelyn en F Ivan Respiratory Rate 2023-01-23 15:37:00 19.00 /min Eduardo F Ivan BP Systolic 2022-03-28 15:47:00 146 mm[Hg] BP Diastolic 2022-03-28 15:47:00 88 mm[Hg] Weight Measured 2022-03-28 15:47:00 160.00 pounds Height Measured 2022-03-28 15:47:00 62.00 inches Body Temperature 2022-03-28 15:47:00 98.70 degrees Heart Rate 2022-03-28 15:47:00 81.00 /min Respiratory Rate 2022-03-28 15:47:00 19.00 /min BP Systolic 2022-02-13 14:41:00 129 mm[Hg] BP Diastolic 2022-02-13 14:41:00 86 mm[Hg] Weight Measured 2022-02-13 14:41:00 160.00 pounds Height Measured 2022-02-13 14:41:00 62.00 inches Body Temperature 2022-02-13 14:41:00 98.10 degrees Heart Rate 2022-02-13 14:41:00 74.00 /min Respiratory Rate 2022-02-13 14:41:00 BP Systolic 2022-02-03 10:36:00 130 mm[Hg] BP Diastolic 2022-02-03 10:36:00 86 mm[Hg] Weight Measured 2022-02-03 10:36:00 160.40 pounds Height Measured 2022-02-03 10:36:00 62.00 inches Body Temperature 2022-02-03 10:36:00 98.50 degrees Heart Rate 2022-02-03 10:36:00 74.00 /min Respiratory Rate 2022-02-03 10:36:00 20.00 /min BP Systolic 2021-10-26 09:10:00 122 mm[Hg] BP Diastolic 2021-10-26 09:10:00 88 mm[Hg] Weight Measured 2021-10-26 09:10:00 165.80 pounds Height Measured 2021-10-26 09:10:00 62.00 inches Body Temperature 2021-10-26 09:10:00 98.30 degrees Heart Rate 2021-10-26 09:10:00 74.00 /min Respiratory Rate 2021-10-26 09:10:00 17.00 /min BP Systolic 2021-07-28 14:32:00 132 mm[Hg] BP Diastolic 2021-07-28 14:32:00 86 mm[Hg] Weight Measured 2021-07-28 14:32:00 164.40 pounds Height Measured 2021-07-28 14:32:00 62.00 inches Body Temperature 2021-07-28 14:32:00 98.00 degrees Heart Rate 2021-07-28 14:32:00 72.00 /min Respiratory Rate 2021-07-28 14:32:00 16.00 /min BP Systolic 2021-07-23 09:31:00 126 mm[Hg] BP Diastolic 2021-07-23 09:31:00 86 mm[Hg] Weight Measured 2021-07-23 09:31:00 164.40 pounds Height Measured 2021-07-23 09:31:00 62.00 inches Body Temperature 2021-07-23 09:31:00 98.40 degrees Heart Rate 2021-07-23 09:31:00 76.00 /min Respiratory Rate 2021-07-23 09:31:00 16.00 /min BP Systolic 2021-04-15 16:15:00 144 mm[Hg] BP Diastolic 2021-04-15 16:15:00 86 mm[Hg] Weight Measured 2021-04-15 16:15:00 161.80 pounds Height Measured 2021-04-15 16:15:00 62.00 inches Body Temperature 2021-04-15 16:15:00 98.30 degrees Heart Rate 2021-04-15 16:15:00 66.00 /min Respiratory Rate 2021-04-15 16:15:00 17.00 /min BP Systolic 2020-11-11 14:37:00 138 mm[Hg] BP Diastolic 2020-11-11 14:37:00 92 mm[Hg] Weight Measured 2020-11-11 14:37:00 162.40 pounds Height Measured 2020-11-11 14:37:00 62.00 inches Body Temperature 2020-11-11 14:37:00 98.60 degrees Heart Rate 2020-11-11 14:37:00 77.00 /min Respiratory Rate 2020-11-11 14:37:00 17.00 /min BP Systolic 2020-07-31 13:45:00 134 mm[Hg] BP Diastolic 2020-07-31 13:45:00 88 mm[Hg] Weight Measured 2020-07-31 13:45:00 161.40 pounds Height Measured 2020-07-31 13:45:00 62.00 inches Body Temperature 2020-07-31 13:45:00 98.20 degrees Heart Rate 2020-07-31 13:45:00 65.00 /min Respiratory Rate 2020-07-31 13:45:00 18.00 /min BP Systolic 2020-06-26 11:36:00 121 mm[Hg] BP Diastolic 2020-06-26 11:36:00 81 mm[Hg] Weight Measured 2020-06-26 11:36:00 158.60 pounds Height Measured 2020-06-26 11:36:00 62.00 inches Body Temperature 2020-06-26 11:36:00 98.30 degrees Heart Rate 2020-06-26 11:36:00 71.00 /min Respiratory Rate 2020-06-26 11:36:00 16.00 /min BP Systolic 2020-04-17 14:40:00 138 mm[Hg] BP Diastolic 2020-04-17 14:40:00 89 mm[Hg] Weight Measured 2020-04-17 14:40:00 162.00 pounds Height Measured 2020-04-17 14:40:00 62.00 inches Body Temperature 2020-04-17 14:40:00 98.10 degrees Heart Rate 2020-04-17 14:40:00 72.00 /min Respiratory Rate 2020-04-17 14:40:00 16.00 /min BP Systolic 2019-11-20 11:36:00 127 mm[Hg] BP Diastolic 2019-11-20 11:36:00 86 mm[Hg] Weight Measured 2019-11-20 11:36:00 162.80 pounds Height Measured 2019-11-20 11:36:00 62.00 inches Body Temperature 2019-11-20 11:36:00 98.30 degrees Heart Rate 2019-11-20 11:36:00 73.00 /min Respiratory Rate 2019-11-20 11:36:00 16.00 /min BP Systolic 2019-11-20 11:07:00 127 mm[Hg] BP Diastolic 2019-11-20 11:07:00 86 mm[Hg] Weight Measured 2019-11-20 11:07:00 162.80 pounds Height Measured 2019-11-20 11:07:00 62.00 inches Body Temperature 2019-11-20 11:07:00 98.30 degrees Heart Rate 2019-11-20 11:07:00 73.00 /min Respiratory Rate 2019-11-20 11:07:00 16.00 /min Procedures Procedure Date / Time Performed Performing Clinicia n Source XR LUMBAR SPINE 3 VW 2023-03-18 21:28:13 Jabier Jin [facility] XR CLAVICLE COMP RIGHT 2023-03-18 21:28:13 Derrick Jin [facility] XR ELBOW <3 VW RIGHT 2023-03-18 21:28:13 Jabier Jin [facility] XR HUMERUS 2 VW RIGHT 2023-03-18 21:28:13 Josue Jin [facility] XR KNEE <3 VW RIGHT 2023-03-18 21:28:13 Derrick Jin [facility] XR SHOULDER 2+ VW RIGHT 2023-03-18 21:28:13 Derrick Jin [facility] CONSENT/REFUSAL FOR DIAGNOSIS AND TREATMENT 2023-03-18 20:00:08 Doctor Unassigned, [facility] [address] Ecg Routine Ecg W/least 12 Lds W/i r 2016-03-30 00:00:00 Eduardo Love Plan of Care Planned Activity Planned Date Details Comments Source Goal Plan of Care Note [code = 38454-7] Goal Plan of Care Note [code = 96763-6] Goal Plan of Care Note [code = 56214-4] Goal Plan of Care Note [code = 09047-7] Goal Plan of Care Note [code = 21347-3] Goal Plan of Care Note [code = 26097-2] Goal Plan of Care Note [code = 22265-5] Goal Plan of Care Note [code = 93511-0] Goal Plan of Care Note [code = 89004-1] Goal Plan of Care Note [code = 20368-7] Goal Plan of Care Note [code = 96192-5] Goal Plan of Care Note [code = 09941-1] Goal Plan of Care Note [code = 95044-1] Goal Plan of Care Note [code = 13930-6] Goal Plan of Care Note [code = 33074-8] Goal Plan of Care Note [code = 55826-8] Goal Plan of Care Note [code = 77378-2] Goal Plan of Care Note [code = 30665-8] Goal Plan of Care Note [code = 67663-3] Goal Plan of Care Note [code = 39601-1] Goal Plan of Care Note [code = 09509-5] Goal Plan of Care Note [code = 16242-5] Goal Plan of Care Note [code = 76022-8] Goal Plan of Care Note [code = 09129-6] Goal Plan of Care Note [code = 38374-0] Goal Plan of Care Note [code = 23566-3] Goal Plan of Care Note [code = 53809-7] Goal Plan of Care Note [code = 06835-0] Goal Plan of Care Note [code = 03810-3] Goal Plan of Care Note [code = 67961-2] Goal Plan of Care Note [code = 15429-9] Goal Plan of Care Note [code = 31212-7] Goal Plan of Care Note [code = 25207-5] Goal Plan of Care Note [code = 52169-1] Goal Plan of Care Note [code = 60683-3] Goal Plan of Care Note [code = 22141-4] Goal Plan of Care Note [code = 41721-1] Goal Plan of Care Note [code = 14297-2] Goal Plan of Care Note [code = 57684-1] Goal Plan of Care Note [code = 88539-1] Goal Plan of Care Note [code = 11110-2] Goal Plan of Care Note [code = 32738-6] Goal Plan of Care Note [code = 70967-9] Goal Plan of Care Note [code = 84649-7] Goal Plan of Care Note [code = 19618-0] Goal Plan of Care Note [code = 01492-5] Goal Plan of Care Note [code = 93376-6] Goal Plan of Care Note [code = 81258-9] Goal Plan of Care Note [code = 95089-5] Goal Plan of Care Note [code = 75422-8] Goal Plan of Care Note [code = 64529-5] Goal Plan of Care Note [code = 81313-7] Goal Plan of Care Note [code = 47962-3] Goal Plan of Care Note [code = 32408-4] Goal Plan of Care Note [code = 22770-6] Goal Plan of Care Note [code = 91931-2] Goal Plan of Care Note [code = 66398-1] Goal Plan of Care Note [code = 83630-0] Goal Plan of Care Note [code = 68735-5] Goal Plan of Care Note [code = 65120-0] Goal Plan of Care Note [code = 98514-2] Goal Plan of Care Note [code = 95099-1] Goal Plan of Care Note [code = 51472-8] Goal Plan of Care Note [code = 87289-3] Goal Plan of Care Note [code = 00956-0] Goal Plan of Care Note [code = 12406-4] Goal Plan of Care Note [code = 49886-4] Goal Plan of Care Note [code = 11281-9] Goal Plan of Care Note [code = 77231-8] Goal Plan of Care Note [code = 18153-2] Goal Plan of Care Note [code = 85539-5] Goal Plan of Care Note [code = 97467-7] Goal Plan of Care Note [code = 83804-6] Goal Plan of Care Note [code = 43378-5] Goal Plan of Care Note [code = 18122-3] Goal Plan of Care Note [code = 62834-1] Goal Plan of Care Note [code = 78958-3] Goal Plan of Care Note [code = 59509-7] Goal Plan of Care Note [code = 49795-3] Goal Plan of Care Note [code = 83767-8] Goal Plan of Care Note [code = 42493-8] Goal Plan of Care Note [code = 15005-7] Encounters Start Date/Time End Date/Time Encounter Type Admission Type Attending [facility] Care Department Encounter ID Source 2023-10-26 17:31:41 2023-10-26 17:31:41 Outpatient SFA SFA [id number] Eduardo Love 2023-10-26 00:00:00 2023-10-26 00:00:00 Outpatient Visit SFA [id number] Eduardo Love 2023-09-03 08:06:07 2023-09-03 08:06:07 Outpatient SFA SFA [id number] Eduardo Love 2023-08-27 16:43:19 2023-08-27 16:43:19 Outpatient SFA SFA [id number] Eduardo Love 2023-07-27 08:49:18 2023-07-27 08:49:18 Outpatient SFA SFA [id number] Eduardo Love 2023-07-17 10:01:27 2023-07-17 10:01:27 Outpatient SFA SFA [id number] Eduardo Love 2023-05-14 09:46:47 2023-05-14 09:46:47 Outpatient SFA SFA [id number] Eduardo Love 2023-04-12 09:06:43 2023-04-12 09:06:43 Outpatient SFA SFA [id number] Eduardo Love 2023-04-09 08:48:29 2023-04-09 08:48:29 Outpatient SFA SFA [id number] Eduardo Love 2023-03-30 09:09:20 2023-03-30 09:09:20 Outpatient SFA SFA [id number] Eduardo Love 2023-03-18 15:25:00 2023-03-18 17:30:00 Emergency X DERRICK JIN [facility] [id number] [facility] 2023-03-18 15:25:00 2023-03-18 17:30:00 Emergency Derrick Jin [facility] [id number] [facility] 2023-03-09 09:56:35 2023-03-09 09:56:35 Outpatient SFA SFA [id number] Eduardo Love 2023-01-25 15:39:53 2023-01-25 15:39:53 Outpatient SFA SFA [id number] Eduardo Love 2023-01-23 15:20:56 2023-01-23 15:20:56 Outpatient SFA SFA [id number] Eduardo Love 2022-10-02 14:47:45 2022-10-02 14:47:45 Outpatient SFA SFA [id number] Eduardo Love 2022-07-01 10:51:21 2022-07-01 10:51:21 Outpatient SFA SFA [id number] Eduardo Love 2022-06-06 10:37:33 2022-06-06 10:37:33 Outpatient SFA SFA [id number] Eduardo Love 2022-03-29 08:49:53 2022-03-29 08:49:53 Outpatient SFA SFA [id number] Eduardo Love 2022-03-28 15:40:49 2022-03-28 15:40:49 Outpatient SFA SFA [id number] Eduardo Love 2022-03-28 00:00:00 2022-03-28 00:00:00 Outpatient Visit [id number] 2022-02-13 00:00:00 2022-02-13 00:00:00 Outpatient Visit [id number] 2022-02-03 00:00:00 2022-02-03 00:00:00 Outpatient Visit [id number] 2021-12-19 00:00:00 2021-12-19 00:00:00 Outpatient Visit [id number] 2020-12-29 09:20:00 2020-12-29 09:20:00 [facility] [id number] [facility] 2020-12-24 15:00:00 2020-12-24 15:00:00 Outpatient [facility] [id number] [facility] Results Test Description Test Time Test Comments Results Result Co mments Source HIV 1/2 4TH GEN, RFLX [id number] 03:59:13* Test Item Value Reference Range Interpretation Comme [facility] HIV 1/2 4TH GEN, RFLX CONF ( test code = 3514) NON-REACTIVE NON-REACTIVE HEMOGLOBIN [id number] 03:58:10* Test Item Value Reference Range Interpretation Comme [facility] HEMOGLOBIN A1c (test code = 31984) 8.0 % 4.2-5.6 H [employer] GUIDELINES FOR HGB A1C: PREDIABETES/INCREASED RISK . . . . . . . 5.7-6.4% DIAGNOSIS OF DIABETES . . . . . . . . . >=6.5% WITH CONFIRMATION OR APPROPRIATE SYMPTOMS NOTE: ASSAY MAY BE AFFECTED BY HEMOGLOBINOPATHIES (SICKLE CELL ANEMIA, S-C DISEASE, OTHERS) OR ARTIFICIALLY LOWERED BY DECREASED RED CELL SURVIVAL (HEMOLYTIC ANEMIAS, BLOOD LOSS, ETC.). CONSIDER ALTERNATE TESTING OR LABORATORY CONSULTATION. COMPREHENSIVE METABOLIC [id number] 03:48:55* Test Item Value Reference Range Interpretation Comme nts GLUCOSE (test code = 2216) 183 MG/DL 70-99 H BUN (test code = 2207) 15 MG/DL 6-20 CREATININE (test code = 2213) 0.67 MG/DL 0.60-1.30 eGFR (2020 CKD-EPI) (test code = ) 105 ML/MIN/1.73 >60 CALC BUN/CREAT (test code = 2234) 22 RATIO 6-28 SODIUM (test code = 2230) 139 MEQ/L 133-146 POTASSIUM (test code = 2227) 4.3 MEQ/L 3.5-5.4 CHLORIDE (test code = 2214) 102 MEQ/L 95-107 CARBON DIOXIDE (test code = 2205) 25 MEQ/L 19-31 CALCIUM (test code = 2208) 9.8 MG/DL 8.5-10.5 PROTEIN, TOTAL (test code = 2228) 7.1 G/DL 6.1-8.3 ALBUMIN (test code = 2200) 4.5 G/DL 3.5-5.2 CALC GLOBULIN (test code = 2239) 2.6 G/DL 1.9-3.7 CALC A/G RATIO (test code = 2233) 1.7 RATIO 1.0-2.6 BILIRUBIN, TOTAL (test code = 2206) 0.5 MG/DL <=1.2 ALKALINE PHOSPHATASE (test code = 2203) 143 U/L 40-132 H AST (test code = 2217) 17 U/L 9-40 ALT (test code = 2218) 31 U/L 5-40 LIPID [id number] 03:48:55* Test Item Value Reference Range Interpretation Comme nts CHOLESTEROL (test code = 2209) 314 MG/DL <200 H TRIGLYCERIDES (test code = 223) 211 MG/DL <150 H HDL CHOLESTEROL (test code = 2219) 42 MG/DL >39 CALC LDL CHOL (test code = 2236) 232 MG/DL <100 H NOTE: CALCULATED LDL IS BASED ON HOLLIE-CHIANG METHOD WHICHINCLUDES ADJUSTABLE TRIGLYCERIDE:VLDL CHOLESTEROL RATIO.THIS FACTOR VARIES BY MEASURED TRIGLYCERIDE AND NON-HDLCHOLESTEROL CONCENTRATIONS WITH INCREASED CALCULATED LDL SEENIN HIGHER TRIGLYCERIDE OR LOWER NON-HDL SPECIMENS. FOR MOREINFORMATION, SEE CLIENT ANNOUNCEMENT AT [email or web address] RISK RATIO LDL/HDL (test code = 2238) 5.52 RATIO <3.22 H CBC W/AUTO DIFF WITH [id number] 02:19:26* Test Item Value Reference Range Interpretation Comme nts WBC (test code = 1001) 8.3 K/UL 3.5-11.0 RBC (test code = 1002) 5.34 M/UL 3.80-5.40 HEMOGLOBIN (test code = 1003) 15.4 G/DL 11.5-15.5 HEMATOCRIT (test code = 1004) 46.4 % 34.0-45.0 H MCV (test code = 1005) 86.9 fL 80.0-99.0 MCH (test code = 1006) 28.8 PG 25.0-33.0 MCHC (test code = 1007) 33.2 G/DL 31.0-36.0 RDW (test code = 1038) 12.1 % 11.5-15.0 NEUTROPHILS (test code = 1008) 54.8 % LYMPHOCYTES (test code = 1010) 35.3 % MONOCYTES (test code = 1011) 7.5 % EOSINOPHILS (test code = 1012) 1.8 % BASOPHILS (test code = 1013) 0.4 % IMMATURE GRANULOCYTES (test code = 1036) 0.2 % NUCLEATED RBCS (test code = 1065) 0.0 /100 WBC'S See_Comment [Automated messa ge] The system which generated this result transmitted reference range: 0.0. The reference range was not used to interpret this result as normal/abnormal. PLATELET COUNT (test code = 1015) 315 K/UL 130-400 ABSOLUTE NEUTROPHILS (test code = 1066) 4.52 K/UL 1.50-7.50 ABSOLUTE LYMPHOCYTES (test code = 1067) 2.91 K/UL 1.00-4.00 ABSOLUTE MONOCYTES (test code = 1068) 0.62 K/UL 0.20-1.00 ABSOLUTE EOSINOPHILS (test code = 1040) 0.15 K/UL 0.00-0.50 ABSOLUTE BASOPHILS (test code = 1069) 0.03 K/UL 0.00-0.20 ABS IMMATURE GRANULOCYTES (test code = 1020) 0.02 K/UL 0.00-0.10 ABS NUCLEATED RBCS (test code = 48241) 0.00 K/UL 0.00-0.11 CBC W/AUTO [id number] 00:00:00* Test Item Value Reference Range Interpretation Comme nts WBC (test code = 1001) 8.3 K/UL RBC (test code = 1002) 5.34 M/UL HEMOGLOBIN (test code = 1003) 15.4 G/DL HEMATOCRIT (test code = 1004) 46.4 % MCV (test code = 1005) 86.9 fL MCH (test code = 1006) 28.8 PG MCHC (test code = 1007) 33.2 G/DL RDW (test code = 1038) 12.1 % NEUTROPHILS (test code = 1008) 54.8 % LYMPHOCYTES (test code = 1010) 35.3 % MONOCYTES (test code = 1011) 7.5 % EOSINOPHILS (test code = 1012) 1.8 % BASOPHILS (test code = 1013) 0.4 % IMMATURE GRANULOCYTES (test code = 1036) 0.2 % NUCLEATED RBCS (test code = 1065) 0.0 /100WBC'S PLATELET COUNT (test code = 1015) 315 K/UL ABSOLUTE NEUTROPHILS (test c ode = 1066) 4.52 K/UL ABSOLUTE LYMPHOCYTES (test c ode = 1067) 2.91 K/UL ABSOLUTE MONOCYTES (test cod e = 1068) 0.62 K/UL ABSOLUTE EOSINOPHILS (test c ode = 1040) 0.15 K/UL ABSOLUTE BASOPHILS (test cod e = 1069) 0.03 K/UL ABS IMMATURE GRANULOCYTES (t est code = 1020) 0.02 K/UL ABS NUCLEATED RBCS (test cod e = 89228) 0.00 K/UL Eduardo F AustinCOMPREHENSIVE METABOLIC [id number] 00:00:00* Test Item Value Reference Range Interpretation Comme nts GLUCOSE (test code = 2217) 183 MG/DL BUN (test code = 2208) 15 MG/DL CREATININE (test code = 2214) 0.67 MG/DL eGFR (2020 CKD-EPI) (test code = 29319) 105 ML/MIN/1.73 CALC BUN/CREAT (test code = 2235) 22 RATIO SODIUM (test code = 2231) 139 MEQ/L POTASSIUM (test code = 2228) 4.3 MEQ/L CHLORIDE (test code = 2215) 102 MEQ/L CARBON DIOXIDE (test code = 2206) 25 MEQ/L CALCIUM (test code = 2209) 9.8 MG/DL PROTEIN, TOTAL (test code = 2229) 7.1 G/DL ALBUMIN (test code = 2201) 4.5 G/DL CALC GLOBULIN (test code = 2240) 2.6 G/DL CALC A/G RATIO (test code = 2234) 1.7 RATIO BILIRUBIN, TOTAL (test code = 2207) 0.5 MG/DL ALKALINE PHOSPHATASE (test code = 2204) 143 U/L AST (test code = 2218) 17 U/L ALT (test code = 2219) 31 U/L Eduardo LoveHEMOGLOBIN [id number] 00:00:00* Test Item Value Reference Range Interpretation Comme jason HEMOGLOBIN A1c (test code = 18628) 8.0 % Eduardo LoveLIPID [id number] 00:00:00* Test Item Value Reference Range Interpretation Comme nts CHOLESTEROL (test code = 2210) 314 MG/DL TRIGLYCERIDES (test code = 2232) 211 MG/DL HDL CHOLESTEROL (test code = 2220) 42 MG/DL CALC LDL CHOL (test code = 2237) 232 MG/DL RISK RATIO LDL/HDL (test cod e = 2238) 5.52 RATIO Eduardo LoveHIV 1/2 4TH GEN, RFLX [id number] 00:00:00* Test Item Value Reference Range Interpretation Comme [facility] HIV 1/2 4TH GEN, RFLX CONF ( test code = 3514) NON-REACTIVE Eduardo LoveVITAMIN D, 25 [id number] 00:00:00* Test Item Value Reference Range Interpretation Comme [facility] VITAMIN D, 25 OH (test code = 4958) 23 NG/ML Eduardo LoveCOMPREHENSIVE METABOLIC [id number] 05:11:39* Test Item Value Reference Range Interpretation Comme nts GLUCOSE (test code = 2217) 110 MG/DL 70-99 H BUN (test code = 2208) 15 MG/DL 6-20 CREATININE (test code = 2214) 0.73 MG/DL 0.60-1.30 eGFR (2020 CKD-EPI) (test co de = 14824) 99 ML/MIN/1.73 >60 CALC BUN/CREAT (test code = 2235) 21 RATIO 6-28 SODIUM (test code = 2230) 144 MEQ/L 133-146 POTASSIUM (test code = 2228) 4.3 MEQ/L 3.5-5.4 CHLORIDE (test code = 221) 106 MEQ/L 95-107 CARBON DIOXIDE (test code = 2206) 27 MEQ/L 19-31 CALCIUM (test code = 2208) 9.9 MG/DL 8.5-10.5 PROTEIN, TOTAL (test code = 2228) 7.3 G/DL 6.1-8.3 ALBUMIN (test code = 2200) 4.5 G/DL 3.5-5.2 CALC GLOBULIN (test code = 2240) 2.8 G/DL 1.9-3.7 CALC A/G RATIO (test code = 2233) 1.6 RATIO 1.0-2.6 BILIRUBIN, TOTAL (test code = 2206) 0.5 MG/DL <=1.2 ALKALINE PHOSPHATASE (test code = 2203) 136 U/L 40-132 H AST (test code = 2217) 18 U/L 9-40 ALT (test code = 221) 35 U/L 5-40 LIPID [id number] 05:11:39* Test Item Value Reference Range Interpretation Comme nts CHOLESTEROL (test code = 2210) 173 MG/DL <200 TRIGLYCERIDES (test code = 2232) 119 MG/DL <150 HDL CHOLESTEROL (test code = 0) 42 MG/DL >39 CALC LDL CHOL (test code = 2236) 108 MG/DL <100 H NOTE: CALCULATED LDL IS BASED ON HOLLIE-CHIANG METHOD WHICHINCLUDES ADJUSTABLE TRIGLYCERIDE:VLDL CHOLESTEROL RATIO.THIS FACTOR VARIES BY MEASURED TRIGLYCERIDE AND NON-HDLCHOLESTEROL CONCENTRATIONS WITH INCREASED CALCULATED LDL SEENIN HIGHER TRIGLYCERIDE OR LOWER NON-HDL SPECIMENS. FOR MOREINFORMATION, SEE CLIENT ANNOUNCEMENT AT [email or web address] RISK RATIO LDL/HDL (test code = 2238) 2.57 RATIO <3.22 UNLESS OTHERW ISE INDICATED, ALL TESTING PERFORMED AT [facility] [address] [place] [address] ASSOCIATE PROFESSOR OF AUTOMATION: JORGE SKELTON M.D. CLIA NUMBER [id number] [place]. [id number] HEMOGLOBIN [id number] 04:32:38* Test Item Value Reference Range Interpretation Comme [facility] HEMOGLOBIN A1c (test code = 23824) 7.1 % 4.2-5.6 H [employer]IATION GUIDELINES FOR HGB A1C: PREDIABETES/INCREASED RISK . . . . . . . 5.7-6.4% DIAGNOSIS OF DIABETES . . . . . . . . . >=6.5% WITH CONFIRMATION OR APPROPRIATE SYMPTOMS NOTE: ASSAY MAY BE AFFECTED BY HEMOGLOBINOPATHIES (SICKLE CELL ANEMIA, S-C DISEASE, OTHERS) OR ARTIFICIALLY LOWERED BY DECREASED RED CELL SURVIVAL (HEMOLYTIC ANEMIAS, BLOOD LOSS, ETC.). CONSIDER ALTERNATE TESTING OR LABORATORY CONSULTATION. COMPREHENSIVE METABOLIC [id number] 00:00:00* Test Item Value Reference Range Interpretation Comme nts GLUCOSE (test code = 2217) 110 MG/DL BUN (test code = 2208) 15 MG/DL CREATININE (test code = 2214) 0.73 MG/DL eGFR (2020 CKD-EPI) (test co de = 82065) 99 ML/MIN/1.73 CALC BUN/CREAT (test code = 2235) 21 RATIO SODIUM (test code = 2231) 144 MEQ/L POTASSIUM (test code = 2228) 4.3 MEQ/L CHLORIDE (test code = 2215) 106 MEQ/L CARBON DIOXIDE (test code = 2206) 27 MEQ/L CALCIUM (test code = 2209) 9.9 MG/DL PROTEIN, TOTAL (test code = 2229) 7.3 G/DL ALBUMIN (test code = 2201) 4.5 G/DL CALC GLOBULIN (test code = 2240) 2.8 G/DL CALC A/G RATIO (test code = 2234) 1.6 RATIO BILIRUBIN, TOTAL (test code = 2207) 0.5 MG/DL ALKALINE PHOSPHATASE (test code = 2204) 136 U/L AST (test code = 2218) 18 U/L ALT (test code = 2219) 35 U/L Eduardo Schwartz AustinLIPID [id number] 00:00:00* Test Item Value Reference Range Interpretation Comme nts CHOLESTEROL (test code = 2210) 173 MG/DL TRIGLYCERIDES (test code = 2232) 119 MG/DL HDL CHOLESTEROL (test code = 2220) 42 MG/DL CALC LDL CHOL (test code = 2237) 108 MG/DL RISK RATIO LDL/HDL (test cod e = 2238) 2.57 RATIO Eduardo LoveHEMOGLOBIN [id number] 00:00:00* Test Item Value Reference Range Interpretation Comme jason HEMOGLOBIN A1c (test code = 70289) 7.1 % Eduardo FortuneLTCARLOS, [id number] 10:29:00SPECIMEN NUMBER: [id number] CULTURE, URINE SPECIMEN NUMBER: [id number] SPECIMEN COMMENT: URINE SOURCE: URINE REPORT STATUS: FINAL FINAL REPORT: 01/26/2023 <10,000 CFU/ML UROGENITAL DANIELLE PRESENT NO COMMON PATHOGENSCULTURE, [id number] 00:00:00* Test Item Value Reference Range Interpretation Comme jason CULTURE, URINE (test code = 54283) SPECIMEN NUMBER: [id number] Eduardo LoveVAGINAL PATHOGENS DNA [id number] 14:48:10* Test Item Value Reference Range Interpretation Comme nts KANIKA SPECIES (test code = 21870) NEGATIVE NEGATIVE G. VAGINALIS (test code = 91213) NEGATIVE NEGATIVE T. VAGINALIS (test code = 00029) NEGATIVE NEGATIVE Note: The [employer] VPIII Microbial Identification Testis a DNA probe test intended for use in the detectionand identification of Kanika species, Gardnerellavaginalis and Trichomonas vaginalis nucleic acid. UNLESS OTHERWISE INDICATED, ALL TESTING PERFORMED AT [facility] [address] [place] [address] ASSOCIATE PROFESSOR OF AUTOMATION: JORGE SKELTON M.D. CLIA NUMBER [id number] [place]. [id number] ALBUMIN/CREATININE RATIO, URINE, [id number] 04:03:56* Test Item Value Reference Range Interpretation Comme nts CREATININE, URINE, CONC. (test code = 2072) 65.4 MG/DL NOT ESTAB ALBUMIN, URINE, RANDOM (test code = 98188) <0.2 MG/DL NOT ESTAB CALC ALBUMIN/CREAT, RND (test code = 97936) <3 MG/G <30 Note: Albumin/Cr eatinine ratio reference interval reflects ADA and NKF guidelines. UNLESS OTHERWISE INDICATED, ALL TESTING PERFORMED AT [facility] [address] [place] [address] ASSOCIATE PROFESSOR OF AUTOMATION: JORGE SKELTON M.D. CLIA NUMBER [id number] [place]. [id number] COMPREHENSIVE METABOLIC [id number] 03:30:00* Test Item Value Reference Range Interpretation Comme nts GLUCOSE (test code = 2216) 123 MG/DL 70-99 H BUN (test code = 2207) 17 MG/DL 6-20 CREATININE (test code = 2213) 0.91 MG/DL 0.60-1.30 eGFR (2020 CKD-EPI) (test code = ) 76 ML/MIN/1.73 >60 CALC BUN/CREAT (test code = 2234) 19 RATIO 6-28 SODIUM (test code = 2230) 144 MEQ/L 133-146 POTASSIUM (test code = 2227) 4.5 MEQ/L 3.5-5.4 CHLORIDE (test code = 2214) 106 MEQ/L 95-107 CARBON DIOXIDE (test code = 2205) 26 MEQ/L 19-31 CALCIUM (test code = 2208) 10.3 MG/DL 8.5-10.5 PROTEIN, TOTAL (test code = 2228) 7.6 G/DL 6.1-8.3 ALBUMIN (test code = 2200) 4.7 G/DL 3.5-5.2 CALC GLOBULIN (test code = 2240) 2.9 G/DL 1.9-3.7 CALC A/G RATIO (test code = 2233) 1.6 RATIO 1.0-2.6 BILIRUBIN, TOTAL (test code = 2206) 0.4 MG/DL See_Comment [Automated me ssage] The system which generated this result transmitted reference range: <=1.2. The reference range was not used to interpret this result as normal/abnormal. ALKALINE PHOSPHATASE (test code = 2203) 131 U/L 40-132 AST (test code = 8) 14 U/L 9-40 ALT (test code = 2219) 34 U/L 5-40 LIPID [id number] 03:30:00* Test Item Value Reference Range Interpretation Comme nts CHOLESTEROL (test code = 2210) 260 MG/DL <200 H TRIGLYCERIDES (test code = 2232) 343 MG/DL <150 H HDL CHOLESTEROL (test code = 2219) 40 MG/DL >39 CALC LDL CHOL (test code = 2236) 162 MG/DL <100 H NOTE: CALCULATED LDL IS BASED ON HOLLIE-CHIANG METHOD WHICHINCLUDES ADJUSTABLE TRIGLYCERIDE:VLDL CHOLESTEROL RATIO.THIS FACTOR VARIES BY MEASURED TRIGLYCERIDE AND NON-HDLCHOLESTEROL CONCENTRATIONS WITH INCREASED CALCULATED LDL SEENIN HIGHER TRIGLYCERIDE OR LOWER NON-HDL SPECIMENS. FOR MOREINFORMATION, SEE CLIENT ANNOUNCEMENT AT [email or web address] RISK RATIO LDL/HDL (test code = 2238) 4.05 RATIO <3.22 H HEMOGLOBIN [id number] 02:34:24* Test Item Value Reference Range Interpretation Comme nts HEMOGLOBIN A1c (test code = 25827) 7.4 % 4.2-5.6 H [employer]IATION GUIDELINES FOR HGB A1C: PREDIABETES/INCREASED RISK . . . . . . . 5.7-6.4% DIAGNOSIS OF DIABETES . . . . . . . . . >=6.5% WITH CONFIRMATION OR APPROPRIATE SYMPTOMS NOTE: ASSAY MAY BE AFFECTED BY HEMOGLOBINOPATHIES (SICKLE CELL ANEMIA, S-C DISEASE, OTHERS) OR ARTIFICIALLY LOWERED BY DECREASED RED CELL SURVIVAL (HEMOLYTIC ANEMIAS, BLOOD LOSS, ETC.). CONSIDER ALTERNATE TESTING OR LABORATORY CONSULTATION. HEMOGLOBIN [id number] 00:00:00* Test Item Value Reference Range Interpretation Comme [facility] HEMOGLOBIN A1c (test code = 25643) 7.4 % Eduardo Efren AustinLIPID [id number] 00:00:00* Test Item Value Reference Range Interpretation Comme nts CHOLESTEROL (test code = 2210) 260 MG/DL TRIGLYCERIDES (test code = 2232) 343 MG/DL HDL CHOLESTEROL (test code = 2220) 40 MG/DL CALC LDL CHOL (test code = 2237) 162 MG/DL RISK RATIO LDL/HDL (test cod e = 2238) 4.05 RATIO Eduardo Schwartz IvanCOMPREHENSIVE METABOLIC [id number] 00:00:00* Test Item Value Reference Range Interpretation Comme nts GLUCOSE (test code = 2217) 123 MG/DL BUN (test code = 2208) 17 MG/DL CREATININE (test code = 2214) 0.91 MG/DL eGFR (2020 CKD-EPI) (test co de = 33028) 76 ML/MIN/1.73 CALC BUN/CREAT (test code = 2235) 19 RATIO SODIUM (test code = 2231) 144 MEQ/L POTASSIUM (test code = 2228) 4.5 MEQ/L CHLORIDE (test code = 2215) 106 MEQ/L CARBON DIOXIDE (test code = 2206) 26 MEQ/L CALCIUM (test code = 2209) 10.3 MG/DL PROTEIN, TOTAL (test code = 2229) 7.6 G/DL ALBUMIN (test code = 2201) 4.7 G/DL CALC GLOBULIN (test code = 2240) 2.9 G/DL CALC A/G RATIO (test code = 2234) 1.6 RATIO BILIRUBIN, TOTAL (test code = 2207) 0.4 MG/DL ALKALINE PHOSPHATASE (test code = 2204) 131 U/L AST (test code = 2218) 14 U/L ALT (test code = 2219) 34 U/L Eduardo LoveALBUMIN/CREATININE RATIO, RANDOM [id number] 00:00:00* Test Item Value Reference Range Interpretation Comme [facility] CREATININE, URINE, CONC. (te st code = 2072) 65.4 MG/DL ALBUMIN, URINE, RANDOM (test code = 00068) <0.2 MG/DL CALC ALBUMIN/CREAT, RND (katerina t code = 40404) <3 MG/G Eduardo LoveVAGINAL PATHOGENS DNA [id number] 00:00:00* Test Item Value Reference Range Interpretation Comme nts KANIKA SPECIES (test code = 41252) NEGATIVE G. VAGINALIS (test code = 82323) NEGATIVE T. VAGINALIS (test code = 50231) NEGATIVE Eduardo LoveHEMOGLOBIN [id number] 08:03:24* Test Item Value Reference Range Interpretation Comme nts HEMOGLOBIN A1c (test code = 60479) 7.7 % 4.2-5.6 H [employer]IATION GUIDELINES FOR HGB A1C: PREDIABETES/INCREASED RISK . . . . . . . 5.7-6.4% DIAGNOSIS OF DIABETES . . . . . . . . . >=6.5% WITH CONFIRMATION OR APPROPRIATE SYMPTOMS NOTE: ASSAY MAY BE AFFECTED BY HEMOGLOBINOPATHIES (SICKLE CELL ANEMIA, S-C DISEASE, OTHERS) OR ARTIFICIALLY LOWERED BY DECREASED RED CELL SURVIVAL (HEMOLYTIC ANEMIAS, BLOOD LOSS, ETC.). CONSIDER ALTERNATE TESTING OR LABORATORY CONSULTATION. LIPID [id number] 04:29:34* Test Item Value Reference Range Interpretation Comme nts CHOLESTEROL (test code = 2210) 153 MG/DL <200 TRIGLYCERIDES (test code = 2232) 173 MG/DL <150 H HDL CHOLESTEROL (test code = 2220) 33 MG/DL >39 L CALC LDL CHOL (test code = 2237) 93 MG/DL <100 NOTE: CALCULATED LDL IS BASED ON HOLLIE-CHIANG METHOD WHICHINCLUDES ADJUSTABLE TRIGLYCERIDE:VLDL CHOLESTEROL RATIO.THIS FACTOR VARIES BY MEASURED TRIGLYCERIDE AND NON-HDLCHOLESTEROL CONCENTRATIONS WITH INCREASED CALCULATED LDL SEENIN HIGHER TRIGLYCERIDE OR LOWER NON-HDL SPECIMENS. FOR MOREINFORMATION, SEE CLIENT ANNOUNCEMENT AT [email or web address]-C RISK RATIO LDL/HDL (test code = 2238) 2.82 RATIO <3.22 COMPREHENSIVE METABOLIC [id number] 04:29:34* Test Item Value Reference Range Interpretation Comme nts GLUCOSE (test code = 221) 95 MG/DL 70-99 BUN (test code = 220) 16 MG/DL 6-20 CREATININE (test code = 2214) 0.69 MG/DL 0.60-1.30 eGFR (2020 CKD-EPI) (test code = 70442) 105 ML/MIN/1.73 >60 CALC BUN/CREAT (test code = 2235) 23 RATIO 6-28 SODIUM (test code = 223) 146 MEQ/L 133-146 POTASSIUM (test code = 2228) 4.3 MEQ/L 3.5-5.4 CHLORIDE (test code = 2215) 107 MEQ/L 95-107 CARBON DIOXIDE (test code = 2206) 28 MEQ/L 19-31 CALCIUM (test code = 2209) 9.9 MG/DL 8.5-10.5 PROTEIN, TOTAL (test code = 222) 7.4 G/DL 6.1-8.3 ALBUMIN (test code = 2201) 4.5 G/DL 3.5-5.2 CALC GLOBULIN (test code = 2240) 2.9 G/DL 1.9-3.7 CALC A/G RATIO (test code = 2234) 1.6 RATIO 1.0-2.6 BILIRUBIN, TOTAL (test code = 2207) 0.4 MG/DL See_Comment [Automated me ssage] The system which generated this result transmitted reference range: <=1.2. The reference range was not used to interpret this result as normal/abnormal. ALKALINE PHOSPHATASE (test code = 2204) 123 U/L 40-130 AST (test code = 2218) 21 U/L 9-40 ALT (test code = 2219) 41 U/L 5-40 H UNLESS OTHERWISE INDICATED, ALL TESTING PERFORMED [facility] [address] [place] [address] ASSOCIATE PROFESSOR OF AUTOMATION: HILL BLAS M.D. IA NUMBER [id number] [place]. [id number] LIPID [id number] 00:00:00* Test Item Value Reference Range Interpretation Comme nts CHOLESTEROL (test code = 2210) 153 MG/DL TRIGLYCERIDES (test code = 2232) 173 MG/DL HDL CHOLESTEROL (test code = 2220) 33 MG/DL CALC LDL CHOL (test code = 2237) 93 MG/DL RISK RATIO LDL/HDL (test cod e = 2238) 2.82 RATIO Eduardo LoveCOMPREHENSIVE METABOLIC [id number] 00:00:00* Test Item Value Reference Range Interpretation Comme nts GLUCOSE (test code = 2217) 95 MG/DL BUN (test code = 2208) 16 MG/DL CREATININE (test code = 2214) 0.69 MG/DL eGFR (2020 CKD-EPI) (test code = 90980) 105 ML/MIN/1.73 CALC BUN/CREAT (test code = 2235) 23 RATIO SODIUM (test code = 2231) 146 MEQ/L POTASSIUM (test code = 2228) 4.3 MEQ/L CHLORIDE (test code = 2215) 107 MEQ/L CARBON DIOXIDE (test code = 2206) 28 MEQ/L CALCIUM (test code = 2209) 9.9 MG/DL PROTEIN, TOTAL (test code = 2229) 7.4 G/DL ALBUMIN (test code = 2201) 4.5 G/DL CALC GLOBULIN (test code = 2240) 2.9 G/DL CALC A/G RATIO (test code = 2234) 1.6 RATIO BILIRUBIN, TOTAL (test code = 2207) 0.4 MG/DL ALKALINE PHOSPHATASE (test code = 2204) 123 U/L AST (test code = 2218) 21 U/L ALT (test code = 2219) 41 U/L Eduardo LoveHEMOGLOBIN [id number] 00:00:00* Test Item Value Reference Range Interpretation Comme nts HEMOGLOBIN A1c (test code = 52126) 7.7 % Eduardo Schwartz AustinVAGINAL PATHOGENS DNA [id number] 14:34:15* Test Item Value Reference Range Interpretation Comme nts KANIKA SPECIES (test code = 53313) NEGATIVE NEGATIVE G. VAGINALIS (test code = 68610) NEGATIVE NEGATIVE T. VAGINALIS (test code = 34324) NEGATIVE NEGATIVE UNLESS OTHERWISE INDICATED, ALL TESTING PERFORMED [facility] [address] [place] [address] ASSOCIATE PROFESSOR OF AUTOMATION: HILL BLAS M.D. IA NUMBER [id number] [place]. [id number] VAGINAL PATHOGENS DNA [id number] 00:00:00* Test Item Value Reference Range Interpretation Comme nts KANIKA SPECIES (test code = 58759) NEGATIVE G. VAGINALIS (test code = 57688) NEGATIVE T. VAGINALIS (test code = 79803) NEGATIVE Eduardo LoveVAGINAL PATHOGENS DNA [id number] 00:00:00* Test Item Value Reference Range Interpretation Comme nts KANIKA SPECIES (test code = 93866) NEGATIVE G. VAGINALIS (test code = 71291) NEGATIVE T. VAGINALIS (test code = 16264) NEGATIVE VAGINAL PATHOGENS DNA [id number] 00:00:00* Test Item Value Reference Range Interpretation Comme nts KANIKA SPECIES (test code = 65630) NEGATIVE G. VAGINALIS (test code = 25801) NEGATIVE T. VAGINALIS (test code = 17316) NEGATIVE LIPID [id number] 07:00:04* Test Item Value Reference Range Interpretation Comme nts CHOLESTEROL (test code = 2210) 167 MG/DL <200 TRIGLYCERIDES (test code = 2232) 134 MG/DL <150 HDL CHOLESTEROL (test code = 2220) 41 MG/DL >39 CALC LDL CHOL (test code = 2237) 103 MG/DL <100 H NOTE: CALCULATED LDL IS BASED ON HOLLIE-CHIANG METHOD WHICHINCLUDES ADJUSTABLE TRIGLYCERIDE:VLDL CHOLESTEROL RATIO.THIS FACTOR VARIES BY MEASURED TRIGLYCERIDE AND NON-HDLCHOLESTEROL CONCENTRATIONS WITH INCREASED CALCULATED LDL SEENIN HIGHER TRIGLYCERIDE OR LOWER NON-HDL SPECIMENS. FOR MOREINFORMATION, SEE CLIENT ANNOUNCEMENT AT [email or web address] RISK RATIO LDL/HDL (test code = 2238) 2.51 RATIO <3.22 ALBUMIN/CREATININE RATIO, URINE, [id number] 04:58:24* Test Item Value Reference Range Interpretation Comme nts CREATININE, URINE, RANDOM (test code = 207) 122.7 MG/DL NOT ESTAB ALBUMIN, URINE, RANDOM (test code = 15896) 1.0 MG/DL NOT ESTAB CALC ALBUMIN/CREAT, RND (test code = 66347) 8 MG/G <30 Note: Albumin/Cr eatinine ratio reference interval reflects ADA and NKF guidelines. UNLESS OTHERWISE INDICATED, ALL TESTING PERFORMED [facility] [address] [place] [address] ASSOCIATE PROFESSOR OF AUTOMATION: HILL BLAS M.D. IA NUMBER [id number] [place]. [id number] HEMOGLOBIN [id number] 04:53:55* Test Item Value Reference Range Interpretation Comme nts HEMOGLOBIN A1c (test code = 78583) 9.1 % 4.2-5.6 H [employer]IATION GUIDELINES FOR HGB A1C: PREDIABETES/INCREASED RISK . . . . . . . 5.7-6.4% DIAGNOSIS OF DIABETES . . . . . . . . . >=6.5% WITH CONFIRMATION OR APPROPRIATE SYMPTOMS NOTE: ASSAY MAY BE AFFECTED BY HEMOGLOBINOPATHIES (SICKLE CELL ANEMIA, S-C DISEASE, OTHERS) OR ARTIFICIALLY LOWERED BY DECREASED RED CELL SURVIVAL (HEMOLYTIC ANEMIAS, BLOOD LOSS, ETC.). CONSIDER ALTERNATE TESTING OR LABORATORY CONSULTATION. HEMOGLOBIN [id number] 00:00:00* Test Item Value Reference Range Interpretation Comme nts HEMOGLOBIN A1c (test code = 66054) 9.1 % Eduardo LoveLIPID [id number] 00:00:00* Test Item Value Reference Range Interpretation Comme nts CHOLESTEROL (test code = 2210) 167 MG/DL TRIGLYCERIDES (test code = 2232) 134 MG/DL HDL CHOLESTEROL (test code = 2220) 41 MG/DL CALC LDL CHOL (test code = 2237) 103 MG/DL RISK RATIO LDL/HDL (test cod e = 2238) 2.51 RATIO Eduardo LoveALBUMIN/CREATININE RATIO, RANDOM [id number] 00:00:00* Test Item Value Reference Range Interpretation Comme nts CREATININE, URINE, RANDOM (t est code = 207) 122.7 MG/DL ALBUMIN, URINE, RANDOM (test code = 36944) 1.0 MG/DL CALC ALBUMIN/CREAT, RND (katerina t code = 50918) 8 MG/G Eduardo Schwartz AustinHEMOGLOBIN [id number] 00:00:00* Test Item Value Reference Range Interpretation Comme nts HEMOGLOBIN A1c (test code = 34482) 9.1 % HEMOGLOBIN [id number] 00:00:00* Test Item Value Reference Range Interpretation Comme nts HEMOGLOBIN A1c (test code = 60227) 9.1 % HEMOGLOBIN [id number] 00:00:00* Test Item Value Reference Range Interpretation Comme nts HEMOGLOBIN A1c (test code = 78783) 9.1 % LIPID [id number] 00:00:00* Test Item Value Reference Range Interpretation Comme nts CHOLESTEROL (test code = 2210) 167 MG/DL TRIGLYCERIDES (test code = 2232) 134 MG/DL HDL CHOLESTEROL (test code = 2220) 41 MG/DL CALC LDL CHOL (test code = 2237) 103 MG/DL RISK RATIO LDL/HDL (test cod e = 2238) 2.51 RATIO LIPID [id number] 00:00:00* Test Item Value Reference Range Interpretation Comme nts CHOLESTEROL (test code = 2210) 167 MG/DL TRIGLYCERIDES (test code = 2232) 134 MG/DL HDL CHOLESTEROL (test code = 2220) 41 MG/DL CALC LDL CHOL (test code = 2237) 103 MG/DL RISK RATIO LDL/HDL (test cod e = 2238) 2.51 RATIO ALBUMIN/CREATININE RATIO, RANDOM [id number] 00:00:00* Test Item Value Reference Range Interpretation Comme nts CREATININE, URINE, RANDOM (t est code = 2072) 122.7 MG/DL ALBUMIN, URINE, RANDOM (test code = 40992) 1.0 MG/DL CALC ALBUMIN/CREAT, RND (katerina t code = 95156) 8 MG/G ALBUMIN/CREATININE RATIO, RANDOM [id number] 00:00:00* Test Item Value Reference Range Interpretation Comme nts CREATININE, URINE, RANDOM (t est code = 2072) 122.7 MG/DL ALBUMIN, URINE, RANDOM (test code = 21377) 1.0 MG/DL CALC ALBUMIN/CREAT, RND (kaetrina t code = 95180) 8 MG/G HEMOGLOBIN [id number] 00:00:00* Test Item Value Reference Range Interpretation Comme nts HEMOGLOBIN A1c (test code = 90295) 9.1 % HEMOGLOBIN [id number] 00:00:00* Test Item Value Reference Range Interpretation Comme nts HEMOGLOBIN A1c (test code = 65859) 9.1 % HEMOGLOBIN [id number] 00:00:00* Test Item Value Reference Range Interpretation Comme nts HEMOGLOBIN A1c (test code = 66609) 9.1 % LIPID [id number] 00:00:00* Test Item Value Reference Range Interpretation Comme nts CHOLESTEROL (test code = 2210) 167 MG/DL TRIGLYCERIDES (test code = 2232) 134 MG/DL HDL CHOLESTEROL (test code = 2220) 41 MG/DL CALC LDL CHOL (test code = 2237) 103 MG/DL RISK RATIO LDL/HDL (test cod e = 2238) 2.51 RATIO LIPID [id number] 00:00:00* Test Item Value Reference Range Interpretation Comme nts CHOLESTEROL (test code = 2210) 167 MG/DL TRIGLYCERIDES (test code = 2232) 134 MG/DL HDL CHOLESTEROL (test code = 2220) 41 MG/DL CALC LDL CHOL (test code = 2237) 103 MG/DL RISK RATIO LDL/HDL (test cod e = 2238) 2.51 RATIO ALBUMIN/CREATININE RATIO, RANDOM [id number] 00:00:00* Test Item Value Reference Range Interpretation Comme nts CREATININE, URINE, RANDOM (t est code = 2072) 122.7 MG/DL ALBUMIN, URINE, RANDOM (test code = 33952) 1.0 MG/DL CALC ALBUMIN/CREAT, RND (katerina t code = 60795) 8 MG/G ALBUMIN/CREATININE RATIO, RANDOM [id number] 00:00:00* Test Item Value Reference Range Interpretation Comme nts CREATININE, URINE, RANDOM (t est code = 2072) 122.7 MG/DL ALBUMIN, URINE, RANDOM (test code = 06142) 1.0 MG/DL CALC ALBUMIN/CREAT, RND (katerina t code = 51007) 8 MG/G OCCULT BLD,FECAL,IMMUNOASSAY [id number] 10:53:23* Test Item Value Reference Range Interpretation Comme nts OCCULT BLD, FECAL (test code = 53398) NEGATIVE NEGATIVE UNLABELLED [id number] 06:04:26* Test Item Value Reference Range Interpretation Comme nts NOTE: (test code = 50892) SPECIMEN RECEIVE D WITHOUT PATIENT'S NAME. UNLESS OTHERWISE INDICATED, ALL TESTING PERFORMED [facility] [employer] [address] [place] [address] ASSOCIATE PROFESSOR OF AUTOMATION: HILL BLAS M.D. IA NUMBER [id number] [place] [id number] OCCULT BLD,FECAL,IMMUNOASSAY [facility] [id number] 00:00:00* Test Item Value Reference Range Interpretation Comme nts OCCULT BLD, FECAL (test code = 85466) NEGATIVE Eduardo F AustinUNLABELLED SPECIMEN [ADDED]2021-11-09 00:00:00* Test Item Value Reference Range Interpretation Comme nts NOTE: (test code = 76835) Eduardo F AustinUNLABELLED SPECIMEN [ADDED]2021-11-09 00:00:00* Test Item Value Reference Range Interpretation Comme nts NOTE: (test code = 94236) OCCULT BLD,FECAL,IMMUNOASSAY [id number] 00:00:00* Test Item Value Reference Range Interpretation Comme nts OCCULT BLD, FECAL (test code = 83977) NEGATIVE OCCULT BLD,FECAL,IMMUNOASSAY [facility] [id number] 00:00:00* Test Item Value Reference Range Interpretation Comme nts OCCULT BLD, FECAL (test code = 54424) NEGATIVE UNLABELLED SPECIMEN [ADDED]2021-11-09 00:00:00* Test Item Value Reference Range Interpretation Comme nts NOTE: (test code = 73902) OCCULT BLD,FECAL,IMMUNOASSAY [id number] 00:00:00* Test Item Value Reference Range Interpretation Comme nts OCCULT BLD, FECAL (test code = 95493) NEGATIVE OCCULT BLD,FECAL,IMMUNOASSAY [id number] 00:00:00* Test Item Value Reference Range Interpretation Comme nts OCCULT BLD, FECAL (test code = 75563) NEGATIVE UNLABELLED SPECIMEN [ADDED]2021-11-09 00:00:00* Test Item Value Reference Range Interpretation Comme nts NOTE: (test code = 77365) OCCULT BLD,FECAL,IMMUNOASSAY [id number] 00:00:00* Test Item Value Reference Range Interpretation Comme nts OCCULT BLD, FECAL (test code = 34437) NEGATIVE OCCULT BLD,FECAL,IMMUNOASSAY [id number] 00:00:00* Test Item Value Reference Range Interpretation Comme nts OCCULT BLD, FECAL (test code = 74086) NEGATIVE OCCULT BLD,FECAL,IMMUNOASSAY [id number] 00:00:00* Test Item Value Reference Range Interpretation Comme nts OCCULT BLD, FECAL (test code = 98957) NEGATIVE UNLABELLED SPECIMEN [ADDED]2021-11-09 00:00:00* Test Item Value Reference Range Interpretation Comme nts NOTE: (test code = 50358) OCCULT BLD,FECAL,IMMUNOASSAY [id number] 00:00:00* Test Item Value Reference Range Interpretation Comme nts OCCULT BLD, FECAL (test code = 73156) NEGATIVE COMPREHENSIVE METABOLIC [id number] 05:43:41* Test Item Value Reference Range Interpretation Comme nts GLUCOSE (test code = 221) 174 MG/DL 70-99 H BUN (test code = 2207) 19 MG/DL 6-20 CREATININE (test code = 2214) 0.76 MG/DL 0.60-1.30 eGFR (2020 CKD-EPI) (test code = 05190) 95 ML/MIN/1.73 >60 CALC BUN/CREAT (test code = 2235) 25 RATIO 6-28 SODIUM (test code = 2231) 139 MEQ/L 133-146 POTASSIUM (test code = 2228) 4.5 MEQ/L 3.5-5.4 CHLORIDE (test code = 2215) 101 MEQ/L 95-107 CARBON DIOXIDE (test code = 2206) 25 MEQ/L 19-31 CALCIUM (test code = 2209) 10.1 MG/DL 8.5-10.5 PROTEIN, TOTAL (test code = 222) 7.5 G/DL 6.1-8.3 ALBUMIN (test code = 1) 4.7 G/DL 3.5-5.2 CALC GLOBULIN (test code = 2240) 2.8 G/DL 1.9-3.7 CALC A/G RATIO (test code = 2234) 1.7 RATIO 1.0-2.6 BILIRUBIN, TOTAL (test code = 2206) 0.8 MG/DL See_Comment [Automated me ssage] The system which generated this result transmitted reference range: <=1.2. The reference range was not used to interpret this result as normal/abnormal. ALKALINE PHOSPHATASE (test code = 2204) 119 U/L 40-128 AST (test code = 2218) 19 U/L 9-40 ALT (test code = 2219) 45 U/L 5-40 H LIPID PANEL WITH REFLEX DIRECT [id number] 05:43:41* Test Item Value Reference Range Interpretation Comme nts CHOLESTEROL (test code = 2210) 194 MG/DL <200 TRIGLYCERIDES (test code = 2232) 168 MG/DL <150 H HDL CHOLESTEROL (test code = 2220) 38 MG/DL >39 L CALC LDL CHOL (test code = 2237) 128 MG/DL <100 H NOTE: CALCULATED LDL IS BASED ON HOLLIE-CHIANG METHOD WHICHINCLUDES ADJUSTABLE TRIGLYCERIDE:VLDL CHOLESTEROL RATIO.THIS FACTOR VARIES BY MEASURED TRIGLYCERIDE AND NON-HDLCHOLESTEROL CONCENTRATIONS WITH INCREASED CALCULATED LDL SEENIN HIGHER TRIGLYCERIDE OR LOWER NON-HDL SPECIMENS. FOR MOREINFORMATION, SEE CLIENT ANNOUNCEMENT AT [email or web address] RISK RATIO LDL/HDL (test code = 2238) 3.37 RATIO <3.22 H HEMOGLOBIN [id number] 04:42:54* Test Item Value Reference Range Interpretation Comme nts HEMOGLOBIN A1c (test code = 53977) 7.8 % 4.2-5.6 H [employer] GUIDELINES FOR HGB A1C: PREDIABETES/INCREASED RISK . . . . . . . 5.7-6.4% DIAGNOSIS OF DIABETES . . . . . . . . . >=6.5% WITH CONFIRMATION OR APPROPRIATE SYMPTOMS NOTE: ASSAY MAY BE AFFECTED BY HEMOGLOBINOPATHIES (SICKLE CELL ANEMIA, S-C DISEASE, OTHERS) OR ARTIFICIALLY LOWERED BY DECREASED RED CELL SURVIVAL (HEMOLYTIC ANEMIAS, BLOOD LOSS, ETC.). CONSIDER ALTERNATE TESTING OR LABORATORY CONSULTATION. CBC W/AUTO DIFF WITH [id number] 04:13:42* Test Item Value Reference Range Interpretation Comme nts WBC (test code = 1001) 8.9 K/UL 3.5-11.0 RBC (test code = 1002) 5.07 M/UL 3.80-5.40 HEMOGLOBIN (test code = 1003) 15.1 G/DL 11.5-15.5 HEMATOCRIT (test code = 1004) 43.5 % 34.0-45.0 MCV (test code = 1005) 85.8 fL 80.0-99.0 MCH (test code = 1006) 29.8 PG 25.0-33.0 MCHC (test code = 1007) 34.7 G/DL 31.0-36.0 RDW (test code = 1038) 12.0 % 11.5-15.0 NEUTROPHILS (test code = 1008) 51.9 % LYMPHOCYTES (test code = 1010) 36.8 % MONOCYTES (test code = 1011) 7.9 % EOSINOPHILS (test code = 1012) 2.8 % BASOPHILS (test code = 1013) 0.3 % IMMATURE GRANULOCYTES (test code = 1036) 0.3 % NUCLEATED RBCS (test code = 1065) 0.0 /100 WBC'S See_Comment [Automated [employer] ge] The system which generated this result transmitted reference range: 0.0. The reference range was not used to interpret this result as normal/abnormal. PLATELET COUNT (test code = 1015) 314 K/UL 130-400 ABSOLUTE NEUTROPHILS (test code = 1066) 4.60 K/UL 1.50-7.50 ABSOLUTE LYMPHOCYTES (test code = 1067) 3.27 K/UL 1.00-4.00 ABSOLUTE MONOCYTES (test code = 1068) 0.70 K/UL 0.20-1.00 ABSOLUTE EOSINOPHILS (test code = 1040) 0.25 K/UL 0.00-0.50 ABSOLUTE BASOPHILS (test code = 1069) 0.03 K/UL 0.00-0.20 ABS IMMATURE GRANULOCYTES (test code = 1020) 0.03 K/UL 0.00-0.10 ABS NUCLEATED RBCS (test code = 97628) 0.00 K/UL 0.00-0.11 VITAMIN D, 25 [id number] 04:03:58* Test Item Value Reference Range Interpretation Comme nts VITAMIN D, 25 OH (test code = 4958) 26 NG/ML SEE BELOW L NOTE: 25-HYDR OXYVITAMIN D ASSAY INCLUDES 25-HYDROXYVITAMIN D2 AND D3. METHODOLOGY IS CHEMILUMINESCENT IMMUNOASSAY. INTERPRETIVE RANGES PEDIATRIC (<17 YEARS) . . . . . . . . . . . NG/ML 20-100ADULT: INSUFFICIENT . . . . . . . . . . . . . . NG/ML <20 SUBOPTIMAL . . . . . . . . . . . . . . . NG/ML 20-29 OPTIMAL . . . . . . . . . . . . . . . . . NG/ML 30-100 UNLESS OTHERWISE INDICATED, ALL TESTING PERFORMED [facility] [employer] [address] [place] [id number] ASSOCIATE PROFESSOR OF AUTOMATION: HILL BLAS M.D. [place] NUMBER [id number] [place]. [id number] CBC W/AUTO [id number] 00:00:00* Test Item Value Reference Range Interpretation Comme nts WBC (test code = 1001) 8.9 K/UL RBC (test code = 1002) 5.07 M/UL HEMOGLOBIN (test code = 1003) 15.1 G/DL HEMATOCRIT (test code = 1004) 43.5 % MCV (test code = 1005) 85.8 fL MCH (test code = 1006) 29.8 PG MCHC (test code = 1007) 34.7 G/DL RDW (test code = 1038) 12.0 % NEUTROPHILS (test code = 1008) 51.9 % LYMPHOCYTES (test code = 1010) 36.8 % MONOCYTES (test code = 1011) 7.9 % EOSINOPHILS (test code = 1012) 2.8 % BASOPHILS (test code = 1013) 0.3 % IMMATURE GRANULOCYTES (test code = 1036) 0.3 % NUCLEATED RBCS (test code = 1065) 0.0 /100WBC'S PLATELET COUNT (test code = 1015) 314 K/UL ABSOLUTE NEUTROPHILS (test c ode = 1066) 4.60 K/UL ABSOLUTE LYMPHOCYTES (test c ode = 1067) 3.27 K/UL ABSOLUTE MONOCYTES (test cod e = 1068) 0.70 K/UL ABSOLUTE EOSINOPHILS (test c ode = 1040) 0.25 K/UL ABSOLUTE BASOPHILS (test cod e = 1069) 0.03 K/UL ABS IMMATURE GRANULOCYTES (t est code = 1020) 0.03 K/UL ABS NUCLEATED RBCS (test cod e = 31968) 0.00 K/UL Eduardo LoveCOMPREHENSIVE METABOLIC [id number] 00:00:00* Test Item Value Reference Range Interpretation Comme nts GLUCOSE (test code = 2217) 174 MG/DL BUN (test code = 2208) 19 MG/DL CREATININE (test code = 2214) 0.76 MG/DL eGFR (2020 CKD-EPI) (test co de = 40907) 95 ML/MIN/1.73 CALC BUN/CREAT (test code = 2235) 25 RATIO SODIUM (test code = 2231) 139 MEQ/L POTASSIUM (test code = 2228) 4.5 MEQ/L CHLORIDE (test code = 2215) 101 MEQ/L CARBON DIOXIDE (test code = 2206) 25 MEQ/L CALCIUM (test code = 2209) 10.1 MG/DL PROTEIN, TOTAL (test code = 2229) 7.5 G/DL ALBUMIN (test code = 2201) 4.7 G/DL CALC GLOBULIN (test code = 2240) 2.8 G/DL CALC A/G RATIO (test code = 2234) 1.7 RATIO BILIRUBIN, TOTAL (test code = 2207) 0.8 MG/DL ALKALINE PHOSPHATASE (test code = 2204) 119 U/L AST (test code = 2218) 19 U/L ALT (test code = 2219) 45 U/L Eduardo LoveHEMOGLOBIN [id number] 00:00:00* Test Item Value Reference Range Interpretation Comme [facility] HEMOGLOBIN A1c (test code = 37362) 7.8 % Eduardo LoveLIPID PANEL WITH REFLEX DIRECT [id number] 00:00:00* Test Item Value Reference Range Interpretation Comme nts CHOLESTEROL (test code = 2210) 194 MG/DL TRIGLYCERIDES (test code = 2232) 168 MG/DL HDL CHOLESTEROL (test code = 2220) 38 MG/DL CALC LDL CHOL (test code = 2237) 128 MG/DL RISK RATIO LDL/HDL (test cod e = 2238) 3.37 RATIO Eduardo LoveVITAMIN D, 25 [id number] 00:00:00* Test Item Value Reference Range Interpretation Comme [facility] VITAMIN D, 25 OH (test code = 4958) 26 NG/ML Eduardo Schwartz IvanCBC W/AUTO [id number] 00:00:00* Test Item Value Reference Range Interpretation Comme nts WBC (test code = 1001) 8.9 K/UL RBC (test code = 1002) 5.07 M/UL HEMOGLOBIN (test code = 1003) 15.1 G/DL HEMATOCRIT (test code = 1004) 43.5 % MCV (test code = 1005) 85.8 fL MCH (test code = 1006) 29.8 PG MCHC (test code = 1007) 34.7 G/DL RDW (test code = 1038) 12.0 % NEUTROPHILS (test code = 1008) 51.9 % LYMPHOCYTES (test code = 1010) 36.8 % MONOCYTES (test code = 1011) 7.9 % EOSINOPHILS (test code = 1012) 2.8 % BASOPHILS (test code = 1013) 0.3 % IMMATURE GRANULOCYTES (test code = 1036) 0.3 % NUCLEATED RBCS (test code = 1065) 0.0 /100WBC'S PLATELET COUNT (test code = 1015) 314 K/UL ABSOLUTE NEUTROPHILS (test c ode = 1066) 4.60 K/UL ABSOLUTE LYMPHOCYTES (test c ode = 1067) 3.27 K/UL ABSOLUTE MONOCYTES (test cod e = 1068) 0.70 K/UL ABSOLUTE EOSINOPHILS (test c ode = 1040) 0.25 K/UL ABSOLUTE BASOPHILS (test cod e = 1069) 0.03 K/UL ABS IMMATURE GRANULOCYTES (t est code = 1020) 0.03 K/UL ABS NUCLEATED RBCS (test cod e = 58936) 0.00 K/UL COMPREHENSIVE METABOLIC [id number] 00:00:00* Test Item Value Reference Range Interpretation Comme nts GLUCOSE (test code = 2217) 174 MG/DL BUN (test code = 2208) 19 MG/DL CREATININE (test code = 2214) 0.76 MG/DL eGFR (2020 CKD-EPI) (test co de = 26119) 95 ML/MIN/1.73 CALC BUN/CREAT (test code = 2235) 25 RATIO SODIUM (test code = 2231) 139 MEQ/L POTASSIUM (test code = 2228) 4.5 MEQ/L CHLORIDE (test code = 2215) 101 MEQ/L CARBON DIOXIDE (test code = 2206) 25 MEQ/L CALCIUM (test code = 2209) 10.1 MG/DL PROTEIN, TOTAL (test code = 2229) 7.5 G/DL ALBUMIN (test code = 2201) 4.7 G/DL CALC GLOBULIN (test code = 2240) 2.8 G/DL CALC A/G RATIO (test code = 2234) 1.7 RATIO BILIRUBIN, TOTAL (test code = 2207) 0.8 MG/DL ALKALINE PHOSPHATASE (test code = 2204) 119 U/L AST (test code = 2218) 19 U/L ALT (test code = 2219) 45 U/L COMPREHENSIVE METABOLIC [id number] 00:00:00* Test Item Value Reference Range Interpretation Comme nts GLUCOSE (test code = 2217) 174 MG/DL BUN (test code = 2208) 19 MG/DL CREATININE (test code = 2214) 0.76 MG/DL eGFR (2020 CKD-EPI) (test co de = 25022) 95 ML/MIN/1.73 CALC BUN/CREAT (test code = 2235) 25 RATIO SODIUM (test code = 2231) 139 MEQ/L POTASSIUM (test code = 2228) 4.5 MEQ/L CHLORIDE (test code = 2215) 101 MEQ/L CARBON DIOXIDE (test code = 2206) 25 MEQ/L CALCIUM (test code = 2209) 10.1 MG/DL PROTEIN, TOTAL (test code = 2229) 7.5 G/DL ALBUMIN (test code = 2201) 4.7 G/DL CALC GLOBULIN (test code = 2240) 2.8 G/DL CALC A/G RATIO (test code = 2234) 1.7 RATIO BILIRUBIN, TOTAL (test code = 2207) 0.8 MG/DL ALKALINE PHOSPHATASE (test code = 2204) 119 U/L AST (test code = 2218) 19 U/L ALT (test code = 2219) 45 U/L HEMOGLOBIN [id number] 00:00:00* Test Item Value Reference Range Interpretation Comme nts HEMOGLOBIN A1c (test code = 17111) 7.8 % HEMOGLOBIN [id number] 00:00:00* Test Item Value Reference Range Interpretation Comme nts HEMOGLOBIN A1c (test code = 32078) 7.8 % HEMOGLOBIN [id number] 00:00:00* Test Item Value Reference Range Interpretation Comme [facility] HEMOGLOBIN A1c (test code = 30561) 7.8 % LIPID PANEL WITH REFLEX DIRECT [id number] 00:00:00* Test Item Value Reference Range Interpretation Comme nts CHOLESTEROL (test code = 2210) 194 MG/DL TRIGLYCERIDES (test code = 2232) 168 MG/DL HDL CHOLESTEROL (test code = 2220) 38 MG/DL CALC LDL CHOL (test code = 2237) 128 MG/DL RISK RATIO LDL/HDL (test cod e = 2238) 3.37 RATIO LIPID PANEL WITH REFLEX DIRECT [id number] 00:00:00* Test Item Value Reference Range Interpretation Comme nts CHOLESTEROL (test code = 2210) 194 MG/DL TRIGLYCERIDES (test code = 2232) 168 MG/DL HDL CHOLESTEROL (test code = 2220) 38 MG/DL CALC LDL CHOL (test code = 2237) 128 MG/DL RISK RATIO LDL/HDL (test cod e = 2238) 3.37 RATIO VITAMIN D, 25 [id number] 00:00:00* Test Item Value Reference Range Interpretation Comme nts VITAMIN D, 25 OH (test code = 4958) 26 NG/ML VITAMIN D, 25 [id number] 00:00:00* Test Item Value Reference Range Interpretation Comme nts VITAMIN D, 25 OH (test code = 4958) 26 NG/ML CBC W/AUTO [id number] 00:00:00* Test Item Value Reference Range Interpretation Comme nts WBC (test code = 1001) 8.9 K/UL RBC (test code = 1002) 5.07 M/UL HEMOGLOBIN (test code = 1003) 15.1 G/DL HEMATOCRIT (test code = 1004) 43.5 % MCV (test code = 1005) 85.8 fL MCH (test code = 1006) 29.8 PG MCHC (test code = 1007) 34.7 G/DL RDW (test code = 1038) 12.0 % NEUTROPHILS (test code = 1008) 51.9 % LYMPHOCYTES (test code = 1010) 36.8 % MONOCYTES (test code = 1011) 7.9 % EOSINOPHILS (test code = 1012) 2.8 % BASOPHILS (test code = 1013) 0.3 % IMMATURE GRANULOCYTES (test code = 1036) 0.3 % NUCLEATED RBCS (test code = 1065) 0.0 /100WBC'S PLATELET COUNT (test code = 1015) 314 K/UL ABSOLUTE NEUTROPHILS (test c ode = 1066) 4.60 K/UL ABSOLUTE LYMPHOCYTES (test c ode = 1067) 3.27 K/UL ABSOLUTE MONOCYTES (test cod e = 1068) 0.70 K/UL ABSOLUTE EOSINOPHILS (test c ode = 1040) 0.25 K/UL ABSOLUTE BASOPHILS (test cod e = 1069) 0.03 K/UL ABS IMMATURE GRANULOCYTES (t est code = 1020) 0.03 K/UL ABS NUCLEATED RBCS (test cod e = 82699) 0.00 K/UL CBC W/AUTO [id number] 00:00:00* Test Item Value Reference Range Interpretation Comme nts WBC (test code = 1001) 8.9 K/UL RBC (test code = 1002) 5.07 M/UL HEMOGLOBIN (test code = 1003) 15.1 G/DL HEMATOCRIT (test code = 1004) 43.5 % MCV (test code = 1005) 85.8 fL MCH (test code = 1006) 29.8 PG MCHC (test code = 1007) 34.7 G/DL RDW (test code = 1038) 12.0 % NEUTROPHILS (test code = 1008) 51.9 % LYMPHOCYTES (test code = 1010) 36.8 % MONOCYTES (test code = 1011) 7.9 % EOSINOPHILS (test code = 1012) 2.8 % BASOPHILS (test code = 1013) 0.3 % IMMATURE GRANULOCYTES (test code = 1036) 0.3 % NUCLEATED RBCS (test code = 1065) 0.0 /100WBC'S PLATELET COUNT (test code = 1015) 314 K/UL ABSOLUTE NEUTROPHILS (test c ode = 1066) 4.60 K/UL ABSOLUTE LYMPHOCYTES (test c ode = 1067) 3.27 K/UL ABSOLUTE MONOCYTES (test cod e = 1068) 0.70 K/UL ABSOLUTE EOSINOPHILS (test c ode = 1040) 0.25 K/UL ABSOLUTE BASOPHILS (test cod e = 1069) 0.03 K/UL ABS IMMATURE GRANULOCYTES (t est code = 1020) 0.03 K/UL ABS NUCLEATED RBCS (test cod e = 47771) 0.00 K/UL CBC W/AUTO [id number] 00:00:00* Test Item Value Reference Range Interpretation Comme nts WBC (test code = 1001) 8.9 K/UL RBC (test code = 1002) 5.07 M/UL HEMOGLOBIN (test code = 1003) 15.1 G/DL HEMATOCRIT (test code = 1004) 43.5 % MCV (test code = 1005) 85.8 fL MCH (test code = 1006) 29.8 PG MCHC (test code = 1007) 34.7 G/DL RDW (test code = 1038) 12.0 % NEUTROPHILS (test code = 1008) 51.9 % LYMPHOCYTES (test code = 1010) 36.8 % MONOCYTES (test code = 1011) 7.9 % EOSINOPHILS (test code = 1012) 2.8 % BASOPHILS (test code = 1013) 0.3 % IMMATURE GRANULOCYTES (test code = 1036) 0.3 % NUCLEATED RBCS (test code = 1065) 0.0 /100WBC'S PLATELET COUNT (test code = 1015) 314 K/UL ABSOLUTE NEUTROPHILS (test c ode = 1066) 4.60 K/UL ABSOLUTE LYMPHOCYTES (test c ode = 1067) 3.27 K/UL ABSOLUTE MONOCYTES (test cod e = 1068) 0.70 K/UL ABSOLUTE EOSINOPHILS (test c ode = 1040) 0.25 K/UL ABSOLUTE BASOPHILS (test cod e = 1069) 0.03 K/UL ABS IMMATURE GRANULOCYTES (t est code = 1020) 0.03 K/UL ABS NUCLEATED RBCS (test cod e = 66543) 0.00 K/UL COMPREHENSIVE METABOLIC [id number] 00:00:00* Test Item Value Reference Range Interpretation Comme nts GLUCOSE (test code = 2217) 174 MG/DL BUN (test code = 2208) 19 MG/DL CREATININE (test code = 2214) 0.76 MG/DL eGFR (2020 CKD-EPI) (test co de = 78042) 95 ML/MIN/1.73 CALC BUN/CREAT (test code = 2235) 25 RATIO SODIUM (test code = 2231) 139 MEQ/L POTASSIUM (test code = 2228) 4.5 MEQ/L CHLORIDE (test code = 2215) 101 MEQ/L CARBON DIOXIDE (test code = 2206) 25 MEQ/L CALCIUM (test code = 2209) 10.1 MG/DL PROTEIN, TOTAL (test code = 2229) 7.5 G/DL ALBUMIN (test code = 2201) 4.7 G/DL CALC GLOBULIN (test code = 2240) 2.8 G/DL CALC A/G RATIO (test code = 2234) 1.7 RATIO BILIRUBIN, TOTAL (test code = 2207) 0.8 MG/DL ALKALINE PHOSPHATASE (test code = 2204) 119 U/L AST (test code = 2218) 19 U/L ALT (test code = 2219) 45 U/L COMPREHENSIVE METABOLIC [id number] 00:00:00* Test Item Value Reference Range Interpretation Comme nts GLUCOSE (test code = 2217) 174 MG/DL BUN (test code = 2208) 19 MG/DL CREATININE (test code = 2214) 0.76 MG/DL eGFR (2020 CKD-EPI) (test co de = 11844) 95 ML/MIN/1.73 CALC BUN/CREAT (test code = 2235) 25 RATIO SODIUM (test code = 2231) 139 MEQ/L POTASSIUM (test code = 2228) 4.5 MEQ/L CHLORIDE (test code = 2215) 101 MEQ/L CARBON DIOXIDE (test code = 2206) 25 MEQ/L CALCIUM (test code = 2209) 10.1 MG/DL PROTEIN, TOTAL (test code = 2229) 7.5 G/DL ALBUMIN (test code = 2201) 4.7 G/DL CALC GLOBULIN (test code = 2240) 2.8 G/DL CALC A/G RATIO (test code = 2234) 1.7 RATIO BILIRUBIN, TOTAL (test code = 2207) 0.8 MG/DL ALKALINE PHOSPHATASE (test code = 2204) 119 U/L AST (test code = 2218) 19 U/L ALT (test code = 2219) 45 U/L HEMOGLOBIN [id number] 00:00:00* Test Item Value Reference Range Interpretation Comme nts HEMOGLOBIN A1c (test code = 73474) 7.8 % HEMOGLOBIN [id number] 00:00:00* Test Item Value Reference Range Interpretation Comme nts HEMOGLOBIN A1c (test code = 89346) 7.8 % HEMOGLOBIN [id number] 00:00:00* Test Item Value Reference Range Interpretation Comme nts HEMOGLOBIN A1c (test code = 39476) 7.8 % LIPID PANEL WITH REFLEX DIRECT [id number] 00:00:00* Test Item Value Reference Range Interpretation Comme nts CHOLESTEROL (test code = 2210) 194 MG/DL TRIGLYCERIDES (test code = 2232) 168 MG/DL HDL CHOLESTEROL (test code = 2220) 38 MG/DL CALC LDL CHOL (test code = 2237) 128 MG/DL RISK RATIO LDL/HDL (test cod e = 2238) 3.37 RATIO LIPID PANEL WITH REFLEX DIRECT [id number] 00:00:00* Test Item Value Reference Range Interpretation Comme nts CHOLESTEROL (test code = 2210) 194 MG/DL TRIGLYCERIDES (test code = 2232) 168 MG/DL HDL CHOLESTEROL (test code = 2220) 38 MG/DL CALC LDL CHOL (test code = 2237) 128 MG/DL RISK RATIO LDL/HDL (test cod e = 2238) 3.37 RATIO VITAMIN D, 25 [id number] 00:00:00* Test Item Value Reference Range Interpretation Comme nts VITAMIN D, 25 OH (test code = 4958) 26 NG/ML VITAMIN D, 25 [id number] 00:00:00* Test Item Value Reference Range Interpretation Comme nts VITAMIN D, 25 OH (test code = 4958) 26 NG/ML CBC W/AUTO [id number] 00:00:00* Test Item Value Reference Range Interpretation Comme nts WBC (test code = 1001) 8.9 K/UL RBC (test code = 1002) 5.07 M/UL HEMOGLOBIN (test code = 1003) 15.1 G/DL HEMATOCRIT (test code = 1004) 43.5 % MCV (test code = 1005) 85.8 fL MCH (test code = 1006) 29.8 PG MCHC (test code = 1007) 34.7 G/DL RDW (test code = 1038) 12.0 % NEUTROPHILS (test code = 1008) 51.9 % LYMPHOCYTES (test code = 1010) 36.8 % MONOCYTES (test code = 1011) 7.9 % EOSINOPHILS (test code = 1012) 2.8 % BASOPHILS (test code = 1013) 0.3 % IMMATURE GRANULOCYTES (test code = 1036) 0.3 % NUCLEATED RBCS (test code = 1065) 0.0 /100WBC'S PLATELET COUNT (test code = 1015) 314 K/UL ABSOLUTE NEUTROPHILS (test c ode = 1066) 4.60 K/UL ABSOLUTE LYMPHOCYTES (test c ode = 1067) 3.27 K/UL ABSOLUTE MONOCYTES (test cod e = 1068) 0.70 K/UL ABSOLUTE EOSINOPHILS (test c ode = 1040) 0.25 K/UL ABSOLUTE BASOPHILS (test cod e = 1069) 0.03 K/UL ABS IMMATURE GRANULOCYTES (t est code = 1020) 0.03 K/UL ABS NUCLEATED RBCS (test cod e = 13241) 0.00 K/UL CBC W/AUTO [id number] 00:00:00* Test Item Value Reference Range Interpretation Comme nts WBC (test code = 1001) 8.9 K/UL RBC (test code = 1002) 5.07 M/UL HEMOGLOBIN (test code = 1003) 15.1 G/DL HEMATOCRIT (test code = 1004) 43.5 % MCV (test code = 1005) 85.8 fL MCH (test code = 1006) 29.8 PG MCHC (test code = 1007) 34.7 G/DL RDW (test code = 1038) 12.0 % NEUTROPHILS (test code = 1008) 51.9 % LYMPHOCYTES (test code = 1010) 36.8 % MONOCYTES (test code = 1011) 7.9 % EOSINOPHILS (test code = 1012) 2.8 % BASOPHILS (test code = 1013) 0.3 % IMMATURE GRANULOCYTES (test code = 1036) 0.3 % NUCLEATED RBCS (test code = 1065) 0.0 /100WBC'S PLATELET COUNT (test code = 1015) 314 K/UL ABSOLUTE NEUTROPHILS (test c ode = 1066) 4.60 K/UL ABSOLUTE LYMPHOCYTES (test c ode = 1067) 3.27 K/UL ABSOLUTE MONOCYTES (test cod e = 1068) 0.70 K/UL ABSOLUTE EOSINOPHILS (test c ode = 1040) 0.25 K/UL ABSOLUTE BASOPHILS (test cod e = 1069) 0.03 K/UL ABS IMMATURE GRANULOCYTES (t est code = 1020) 0.03 K/UL ABS NUCLEATED RBCS (test cod e = 21640) 0.00 K/UL CBC W/AUTO [id number] 00:00:00* Test Item Value Reference Range Interpretation Comme nts WBC (test code = 1001) 8.9 K/UL RBC (test code = 1002) 5.07 M/UL HEMOGLOBIN (test code = 1003) 15.1 G/DL HEMATOCRIT (test code = 1004) 43.5 % MCV (test code = 1005) 85.8 fL MCH (test code = 1006) 29.8 PG MCHC (test code = 1007) 34.7 G/DL RDW (test code = 1038) 12.0 % NEUTROPHILS (test code = 1008) 51.9 % LYMPHOCYTES (test code = 1010) 36.8 % MONOCYTES (test code = 1011) 7.9 % EOSINOPHILS (test code = 1012) 2.8 % BASOPHILS (test code = 1013) 0.3 % IMMATURE GRANULOCYTES (test code = 1036) 0.3 % NUCLEATED RBCS (test code = 1065) 0.0 /100WBC'S PLATELET COUNT (test code = 1015) 314 K/UL ABSOLUTE NEUTROPHILS (test c ode = 1066) 4.60 K/UL ABSOLUTE LYMPHOCYTES (test c ode = 1067) 3.27 K/UL ABSOLUTE MONOCYTES (test cod e = 1068) 0.70 K/UL ABSOLUTE EOSINOPHILS (test c ode = 1040) 0.25 K/UL ABSOLUTE BASOPHILS (test cod e = 1069) 0.03 K/UL ABS IMMATURE GRANULOCYTES (t est code = 1020) 0.03 K/UL ABS NUCLEATED RBCS (test cod e = [id number]) 0.00 K/UL COMPREHENSIVE METABOLIC [id number] 00:00:00* Test Item Value Reference Range Interpretation Comme nts GLUCOSE (test code = 2217) 174 MG/DL BUN (test code = 2208) 19 MG/DL CREATININE (test code = 2214) 0.76 MG/DL eGFR (2020 CKD-EPI) (test co de = 44269) 95 ML/MIN/1.73 CALC BUN/CREAT (test code = 2235) 25 RATIO SODIUM (test code = 2231) 139 MEQ/L POTASSIUM (test code = 2228) 4.5 MEQ/L CHLORIDE (test code = 2215) 101 MEQ/L CARBON DIOXIDE (test code = 2206) 25 MEQ/L CALCIUM (test code = 2209) 10.1 MG/DL PROTEIN, TOTAL (test code = 2229) 7.5 G/DL ALBUMIN (test code = 2201) 4.7 G/DL CALC GLOBULIN (test code = 2240) 2.8 G/DL CALC A/G RATIO (test code = 2234) 1.7 RATIO BILIRUBIN, TOTAL (test code = 2207) 0.8 MG/DL ALKALINE PHOSPHATASE (test code = 2204) 119 U/L AST (test code = 2218) 19 U/L ALT (test code = 2219) 45 U/L COMPREHENSIVE METABOLIC [id number] 00:00:00* Test Item Value Reference Range Interpretation Comme nts GLUCOSE (test code = 2217) 174 MG/DL BUN (test code = 2208) 19 MG/DL CREATININE (test code = 2214) 0.76 MG/DL eGFR (2020 CKD-EPI) (test co de = 29839) 95 ML/MIN/1.73 CALC BUN/CREAT (test code = 2235) 25 RATIO SODIUM (test code = 2231) 139 MEQ/L POTASSIUM (test code = 2228) 4.5 MEQ/L CHLORIDE (test code = 2215) 101 MEQ/L CARBON DIOXIDE (test code = 2206) 25 MEQ/L CALCIUM (test code = 2209) 10.1 MG/DL PROTEIN, TOTAL (test code = 2229) 7.5 G/DL ALBUMIN (test code = 2201) 4.7 G/DL CALC GLOBULIN (test code = 2240) 2.8 G/DL CALC A/G RATIO (test code = 2234) 1.7 RATIO BILIRUBIN, TOTAL (test code = 2207) 0.8 MG/DL ALKALINE PHOSPHATASE (test code = 2204) 119 U/L AST (test code = 2218) 19 U/L ALT (test code = 2219) 45 U/L HEMOGLOBIN [id number] 00:00:00* Test Item Value Reference Range Interpretation Comme nts HEMOGLOBIN A1c (test code = 36625) 7.8 % HEMOGLOBIN [id number] 00:00:00* Test Item Value Reference Range Interpretation Comme nts HEMOGLOBIN A1c (test code = 47313) 7.8 % HEMOGLOBIN [id number] 00:00:00* Test Item Value Reference Range Interpretation Comme nts HEMOGLOBIN A1c (test code = 66610) 7.8 % LIPID PANEL WITH REFLEX DIRECT [id number] 00:00:00* Test Item Value Reference Range Interpretation Comme nts CHOLESTEROL (test code = 2210) 194 MG/DL TRIGLYCERIDES (test code = 2232) 168 MG/DL HDL CHOLESTEROL (test code = 2220) 38 MG/DL CALC LDL CHOL (test code = 2237) 128 MG/DL RISK RATIO LDL/HDL (test cod e = 2238) 3.37 RATIO LIPID PANEL WITH REFLEX DIRECT [id number] 00:00:00* Test Item Value Reference Range Interpretation Comme nts CHOLESTEROL (test code = 2210) 194 MG/DL TRIGLYCERIDES (test code = 2232) 168 MG/DL HDL CHOLESTEROL (test code = 2220) 38 MG/DL CALC LDL CHOL (test code = 2237) 128 MG/DL RISK RATIO LDL/HDL (test cod e = 2238) 3.37 RATIO VITAMIN D, 25 [id number] 00:00:00* Test Item Value Reference Range Interpretation Comme nts VITAMIN D, 25 OH (test code = 4958) 26 NG/ML VITAMIN D, 25 [id number] 00:00:00* Test Item Value Reference Range Interpretation Comme nts VITAMIN D, 25 OH (test code = 4958) 26 NG/ML CBC W/AUTO [id number] 00:00:00* Test Item Value Reference Range Interpretation Comme nts WBC (test code = 1001) 8.9 K/UL RBC (test code = 1002) 5.07 M/UL HEMOGLOBIN (test code = 1003) 15.1 G/DL HEMATOCRIT (test code = 1004) 43.5 % MCV (test code = 1005) 85.8 fL MCH (test code = 1006) 29.8 PG MCHC (test code = 1007) 34.7 G/DL RDW (test code = 1038) 12.0 % NEUTROPHILS (test code = 1008) 51.9 % LYMPHOCYTES (test code = 1010) 36.8 % MONOCYTES (test code = 1011) 7.9 % EOSINOPHILS (test code = 1012) 2.8 % BASOPHILS (test code = 1013) 0.3 % IMMATURE GRANULOCYTES (test code = 1036) 0.3 % NUCLEATED RBCS (test code = 1065) 0.0 /100WBC'S PLATELET COUNT (test code = 1015) 314 K/UL ABSOLUTE NEUTROPHILS (test c ode = 1066) 4.60 K/UL ABSOLUTE LYMPHOCYTES (test c ode = 1067) 3.27 K/UL ABSOLUTE MONOCYTES (test cod e = 1068) 0.70 K/UL ABSOLUTE EOSINOPHILS (test c ode = 1040) 0.25 K/UL ABSOLUTE BASOPHILS (test cod e = 1069) 0.03 K/UL ABS IMMATURE GRANULOCYTES (t est code = 1020) 0.03 K/UL ABS NUCLEATED RBCS (test cod e = 44367) 0.00 K/UL CBC W/AUTO [id number] 00:00:00* Test Item Value Reference Range Interpretation Comme nts WBC (test code = 1001) 8.9 K/UL RBC (test code = 1002) 5.07 M/UL HEMOGLOBIN (test code = 1003) 15.1 G/DL HEMATOCRIT (test code = 1004) 43.5 % MCV (test code = 1005) 85.8 fL MCH (test code = 1006) 29.8 PG MCHC (test code = 1007) 34.7 G/DL RDW (test code = 1038) 12.0 % NEUTROPHILS (test code = 1008) 51.9 % LYMPHOCYTES (test code = 1010) 36.8 % MONOCYTES (test code = 1011) 7.9 % EOSINOPHILS (test code = 1012) 2.8 % BASOPHILS (test code = 1013) 0.3 % IMMATURE GRANULOCYTES (test code = 1036) 0.3 % NUCLEATED RBCS (test code = 1065) 0.0 /100WBC'S PLATELET COUNT (test code = 1015) 314 K/UL ABSOLUTE NEUTROPHILS (test c ode = 1066) 4.60 K/UL ABSOLUTE LYMPHOCYTES (test c ode = 1067) 3.27 K/UL ABSOLUTE MONOCYTES (test cod e = 1068) 0.70 K/UL ABSOLUTE EOSINOPHILS (test c ode = 1040) 0.25 K/UL ABSOLUTE BASOPHILS (test cod e = 1069) 0.03 K/UL ABS IMMATURE GRANULOCYTES (t est code = 1020) 0.03 K/UL ABS NUCLEATED RBCS (test cod e = 33742) 0.00 K/UL CBC W/AUTO [id number] 00:00:00* Test Item Value Reference Range Interpretation Comme nts WBC (test code = 1001) 8.9 K/UL RBC (test code = 1002) 5.07 M/UL HEMOGLOBIN (test code = 1003) 15.1 G/DL HEMATOCRIT (test code = 1004) 43.5 % MCV (test code = 1005) 85.8 fL MCH (test code = 1006) 29.8 PG MCHC (test code = 1007) 34.7 G/DL RDW (test code = 1038) 12.0 % NEUTROPHILS (test code = 1008) 51.9 % LYMPHOCYTES (test code = 1010) 36.8 % MONOCYTES (test code = 1011) 7.9 % EOSINOPHILS (test code = 1012) 2.8 % BASOPHILS (test code = 1013) 0.3 % IMMATURE GRANULOCYTES (test code = 1036) 0.3 % NUCLEATED RBCS (test code = 1065) 0.0 /100WBC'S PLATELET COUNT (test code = 1015) 314 K/UL ABSOLUTE NEUTROPHILS (test c ode = 1066) 4.60 K/UL ABSOLUTE LYMPHOCYTES (test c ode = 1067) 3.27 K/UL ABSOLUTE MONOCYTES (test cod e = 1068) 0.70 K/UL ABSOLUTE EOSINOPHILS (test c ode = 1040) 0.25 K/UL ABSOLUTE BASOPHILS (test cod e = 1069) 0.03 K/UL ABS IMMATURE GRANULOCYTES (t est code = 1020) 0.03 K/UL ABS NUCLEATED RBCS (test cod e = 41900) 0.00 K/UL CBC W/AUTO [id number] 00:00:00* Test Item Value Reference Range Interpretation Comme nts WBC (test code = 1001) 8.9 K/UL RBC (test code = 1002) 5.07 M/UL HEMOGLOBIN (test code = 1003) 15.1 G/DL HEMATOCRIT (test code = 1004) 43.5 % MCV (test code = 1005) 85.8 fL MCH (test code = 1006) 29.8 PG MCHC (test code = 1007) 34.7 G/DL RDW (test code = 1038) 12.0 % NEUTROPHILS (test code = 1008) 51.9 % LYMPHOCYTES (test code = 1010) 36.8 % MONOCYTES (test code = 1011) 7.9 % EOSINOPHILS (test code = 1012) 2.8 % BASOPHILS (test code = 1013) 0.3 % IMMATURE GRANULOCYTES (test code = 1036) 0.3 % NUCLEATED RBCS (test code = 1065) 0.0 /100WBC'S PLATELET COUNT (test code = 1015) 314 K/UL ABSOLUTE NEUTROPHILS (test c ode = 1066) 4.60 K/UL ABSOLUTE LYMPHOCYTES (test c ode = 1067) 3.27 K/UL ABSOLUTE MONOCYTES (test cod e = 1068) 0.70 K/UL ABSOLUTE EOSINOPHILS (test c ode = 1040) 0.25 K/UL ABSOLUTE BASOPHILS (test cod e = 1069) 0.03 K/UL ABS IMMATURE GRANULOCYTES (t est code = 1020) 0.03 K/UL ABS NUCLEATED RBCS (test cod e = 66912) 0.00 K/UL COMPREHENSIVE METABOLIC [id number] 00:00:00* Test Item Value Reference Range Interpretation Comme nts GLUCOSE (test code = 2217) 174 MG/DL BUN (test code = 2208) 19 MG/DL CREATININE (test code = 2214) 0.76 MG/DL eGFR (2020 CKD-EPI) (test co de = 39066) 95 ML/MIN/1.73 CALC BUN/CREAT (test code = 2235) 25 RATIO SODIUM (test code = 2231) 139 MEQ/L POTASSIUM (test code = 2228) 4.5 MEQ/L CHLORIDE (test code = 2215) 101 MEQ/L CARBON DIOXIDE (test code = 2206) 25 MEQ/L CALCIUM (test code = 2209) 10.1 MG/DL PROTEIN, TOTAL (test code = 2229) 7.5 G/DL ALBUMIN (test code = 2201) 4.7 G/DL CALC GLOBULIN (test code = 2240) 2.8 G/DL CALC A/G RATIO (test code = 2234) 1.7 RATIO BILIRUBIN, TOTAL (test code = 2207) 0.8 MG/DL ALKALINE PHOSPHATASE (test code = 2204) 119 U/L AST (test code = 2218) 19 U/L ALT (test code = 2219) 45 U/L COMPREHENSIVE METABOLIC [id number] 00:00:00* Test Item Value Reference Range Interpretation Comme nts GLUCOSE (test code = 2217) 174 MG/DL BUN (test code = 2208) 19 MG/DL CREATININE (test code = 2214) 0.76 MG/DL eGFR (2020 CKD-EPI) (test co de = 95885) 95 ML/MIN/1.73 CALC BUN/CREAT (test code = 2235) 25 RATIO SODIUM (test code = 2231) 139 MEQ/L POTASSIUM (test code = 2228) 4.5 MEQ/L CHLORIDE (test code = 2215) 101 MEQ/L CARBON DIOXIDE (test code = 2206) 25 MEQ/L CALCIUM (test code = 2209) 10.1 MG/DL PROTEIN, TOTAL (test code = 2229) 7.5 G/DL ALBUMIN (test code = 2201) 4.7 G/DL CALC GLOBULIN (test code = 2240) 2.8 G/DL CALC A/G RATIO (test code = 2234) 1.7 RATIO BILIRUBIN, TOTAL (test code = 2207) 0.8 MG/DL ALKALINE PHOSPHATASE (test code = 2204) 119 U/L AST (test code = 2218) 19 U/L ALT (test code = 2219) 45 U/L HEMOGLOBIN [id number] 00:00:00* Test Item Value Reference Range Interpretation Comme nts HEMOGLOBIN A1c (test code = 46744) 7.8 % HEMOGLOBIN [id number] 00:00:00* Test Item Value Reference Range Interpretation Comme nts HEMOGLOBIN A1c (test code = 44811) 7.8 % HEMOGLOBIN [id number] 00:00:00* Test Item Value Reference Range Interpretation Comme nts HEMOGLOBIN A1c (test code = 66708) 7.8 % LIPID PANEL WITH REFLEX DIRECT [id number] 00:00:00* Test Item Value Reference Range Interpretation Comme nts CHOLESTEROL (test code = 2210) 194 MG/DL TRIGLYCERIDES (test code = 2232) 168 MG/DL HDL CHOLESTEROL (test code = 2220) 38 MG/DL CALC LDL CHOL (test code = 2237) 128 MG/DL RISK RATIO LDL/HDL (test cod e = 2238) 3.37 RATIO LIPID PANEL WITH REFLEX DIRECT [id number] 00:00:00* Test Item Value Reference Range Interpretation Comme nts CHOLESTEROL (test code = 2210) 194 MG/DL TRIGLYCERIDES (test code = 2232) 168 MG/DL HDL CHOLESTEROL (test code = 2220) 38 MG/DL CALC LDL CHOL (test code = 2237) 128 MG/DL RISK RATIO LDL/HDL (test cod e = 2238) 3.37 RATIO VITAMIN D, 25 [id number] 00:00:00* Test Item Value Reference Range Interpretation Comme nts VITAMIN D, 25 OH (test code = 4958) 26 NG/ML VITAMIN D, 25 [id number] 00:00:00* Test Item Value Reference Range Interpretation Comme nts VITAMIN D, 25 OH (test code = 4958) 26 NG/ML CBC W/AUTO [id number] 00:00:00* Test Item Value Reference Range Interpretation Comme nts WBC (test code = 1001) 8.9 K/UL RBC (test code = 1002) 5.07 M/UL HEMOGLOBIN (test code = 1003) 15.1 G/DL HEMATOCRIT (test code = 1004) 43.5 % MCV (test code = 1005) 85.8 fL MCH (test code = 1006) 29.8 PG MCHC (test code = 1007) 34.7 G/DL RDW (test code = 1038) 12.0 % NEUTROPHILS (test code = 1008) 51.9 % LYMPHOCYTES (test code = 1010) 36.8 % MONOCYTES (test code = 1011) 7.9 % EOSINOPHILS (test code = 1012) 2.8 % BASOPHILS (test code = 1013) 0.3 % IMMATURE GRANULOCYTES (test code = 1036) 0.3 % NUCLEATED RBCS (test code = 1065) 0.0 /100WBC'S PLATELET COUNT (test code = 1015) 314 K/UL ABSOLUTE NEUTROPHILS (test c ode = 1066) 4.60 K/UL ABSOLUTE LYMPHOCYTES (test c ode = 1067) 3.27 K/UL ABSOLUTE MONOCYTES (test cod e = 1068) 0.70 K/UL ABSOLUTE EOSINOPHILS (test c ode = 1040) 0.25 K/UL ABSOLUTE BASOPHILS (test cod e = 1069) 0.03 K/UL ABS IMMATURE GRANULOCYTES (t est code = 1020) 0.03 K/UL ABS NUCLEATED RBCS (test cod e = 36729) 0.00 K/UL SCR MAMM BILATERAL SEFERINO CAD [id number] 09:31:06 Name: Enmanuel : 1970 Sex: F - SCR MAMM BILATERAL SEFERINO CAD DIGITALBILATERAL DIGITAL SCREENING MAMMOGRAM 3D/2D WITH CAD: 09/02/2021LINICAL: Asymptomatic. Digital breasttomosynthesis was performed in addition to routine CC and MLO views. Current mammographic images were evaluated by [employer] CAD (computer-aided detection) software. Comparison is made to exam dated 04/20/2017 mammogram - [facility]. The tissue of both breasts is heterogeneously dense. This may lower the sensitivity of mammography. There are benign appearing densities in both breasts. No suspicious mass, architectural distortion, malignant type calcification, or lymph node abnormality detected. Breast architecture is stable compared to prior exams.IMPRESSION: BENIGNThere is no mammographic evidence of malignancy. Resume annual screening mammography in one year. Iraida romo/penrad:09/19/2021 09:31:06 Track Moving Machine Operator: Medina Ontiveros MM, [facility] sent: BIRADS 1-2 Normal Mammogram BI-RADS: 2 BenignLIPID [id number] 00:44:37* Test Item Value Reference Range Interpretation Comme nts CHOLESTEROL (test code = 2210) 163 MG/DL <200 TRIGLYCERIDES (test code = 2232) 144 MG/DL <150 HDL CHOLESTEROL (test code = 2220) 40 MG/DL >39 CALC LDL CHOL (test code = 2237) 99 MG/DL <100 NOTE: CALCULATED LDL IS BASED ON HOLLIE-CHIANG METHOD WHICHINCLUDES ADJUSTABLE TRIGLYCERIDE:VLDL CHOLESTEROL RATIO.THIS FACTOR VARIES BY MEASURED TRIGLYCERIDE AND NON-HDLCHOLESTEROL CONCENTRATIONS WITH INCREASED CALCULATED LDL SEENIN HIGHER TRIGLYCERIDE OR LOWER NON-HDL SPECIMENS. FOR MOREINFORMATION, SEE CLIENT ANNOUNCEMENT AT [email or web address] RISK RATIO LDL/HDL (test code = 2238) 2.48 RATIO <3.22 COMPREHENSIVE METABOLIC [id number] 00:44:37* Test Item Value Reference Range Interpretation Comme nts GLUCOSE (test code = 2216) 125 MG/DL 70-99 H BUN (test code = 2207) 17 MG/DL 6-20 CREATININE (test code = 2213) 0.74 MG/DL 0.60-1.30 eGFR (2020 CKD-EPI) (test code = 53451) 99 ML/MIN/1.73 >60 CALC BUN/CREAT (test code = 2234) 23 RATIO 6-28 SODIUM (test code = 223) 142 MEQ/L 133-146 POTASSIUM (test code = 222) 4.1 MEQ/L 3.5-5.4 CHLORIDE (test code = 2214) 104 MEQ/L 95-107 CARBON DIOXIDE (test code = 2205) 24 MEQ/L 19-31 CALCIUM (test code = 2208) 9.4 MG/DL 8.5-10.5 PROTEIN, TOTAL (test code = 2228) 7.5 G/DL 6.1-8.3 ALBUMIN (test code = 2200) 4.5 G/DL 3.5-5.2 CALC GLOBULIN (test code = 2240) 3.0 G/DL 1.9-3.7 CALC A/G RATIO (test code = 2233) 1.5 RATIO 1.0-2.6 BILIRUBIN, TOTAL (test code = 2206) 0.6 MG/DL See_Comment [Automated me ssage] The system which generated this result transmitted reference range: <=1.2. The reference range was not used to interpret this result as normal/abnormal. ALKALINE PHOSPHATASE (test code = 2203) 123 U/L 40-128 AST (test code = 2218) 29 U/L 9-40 ALT (test code = 2219) 55 U/L 5-40 H UNLESS OTHERWISE INDICATED, ALL TESTING PERFORMED [facility] [address] [place] [id number] ASSOCIATE PROFESSOR OF AUTOMATION: HILL BLAS M.D. CLIA NUMBER [id number] [place]. [id number] LIPID [id number] 00:00:00* Test Item Value Reference Range Interpretation Comme nts CHOLESTEROL (test code = 2209) 163 MG/DL TRIGLYCERIDES (test code = 2232) 144 MG/DL HDL CHOLESTEROL (test code = 2220) 40 MG/DL CALC LDL CHOL (test code = 2237) 99 MG/DL RISK RATIO LDL/HDL (test cod e = 2238) 2.48 RATIO Eduardo LoveCOMPREHENSIVE METABOLIC [id number] 00:00:00* Test Item Value Reference Range Interpretation Comme nts GLUCOSE (test code = 2217) 125 MG/DL BUN (test code = 2208) 17 MG/DL CREATININE (test code = 2214) 0.74 MG/DL eGFR (2020 CKD-EPI) (test co de = 64286) 99 ML/MIN/1.73 CALC BUN/CREAT (test code = 2235) 23 RATIO SODIUM (test code = 2231) 142 MEQ/L POTASSIUM (test code = 2228) 4.1 MEQ/L CHLORIDE (test code = 2215) 104 MEQ/L CARBON DIOXIDE (test code = 2206) 24 MEQ/L CALCIUM (test code = 2209) 9.4 MG/DL PROTEIN, TOTAL (test code = 2229) 7.5 G/DL ALBUMIN (test code = 2201) 4.5 G/DL CALC GLOBULIN (test code = 2240) 3.0 G/DL CALC A/G RATIO (test code = 2234) 1.5 RATIO BILIRUBIN, TOTAL (test code = 2207) 0.6 MG/DL ALKALINE PHOSPHATASE (test code = 2204) 123 U/L AST (test code = 2218) 29 U/L ALT (test code = 2219) 55 U/L Eduardo Schwartz AustinLIPID [id number] 00:00:00* Test Item Value Reference Range Interpretation Comme nts CHOLESTEROL (test code = 2210) 163 MG/DL TRIGLYCERIDES (test code = 2232) 144 MG/DL HDL CHOLESTEROL (test code = 2220) 40 MG/DL CALC LDL CHOL (test code = 2237) 99 MG/DL RISK RATIO LDL/HDL (test cod e = 2238) 2.48 RATIO LIPID [id number] 00:00:00* Test Item Value Reference Range Interpretation Comme nts CHOLESTEROL (test code = 2210) 163 MG/DL TRIGLYCERIDES (test code = 2232) 144 MG/DL HDL CHOLESTEROL (test code = 2220) 40 MG/DL CALC LDL CHOL (test code = 2237) 99 MG/DL RISK RATIO LDL/HDL (test cod e = 2238) 2.48 RATIO COMPREHENSIVE METABOLIC [id number] 00:00:00* Test Item Value Reference Range Interpretation Comme nts GLUCOSE (test code = 2217) 125 MG/DL BUN (test code = 2208) 17 MG/DL CREATININE (test code = 2214) 0.74 MG/DL eGFR (2020 CKD-EPI) (test co de = 17523) 99 ML/MIN/1.73 CALC BUN/CREAT (test code = 2235) 23 RATIO SODIUM (test code = 2231) 142 MEQ/L POTASSIUM (test code = 2228) 4.1 MEQ/L CHLORIDE (test code = 2215) 104 MEQ/L CARBON DIOXIDE (test code = 2206) 24 MEQ/L CALCIUM (test code = 2209) 9.4 MG/DL PROTEIN, TOTAL (test code = 2229) 7.5 G/DL ALBUMIN (test code = 2201) 4.5 G/DL CALC GLOBULIN (test code = 2240) 3.0 G/DL CALC A/G RATIO (test code = 2234) 1.5 RATIO BILIRUBIN, TOTAL (test code = 2207) 0.6 MG/DL ALKALINE PHOSPHATASE (test code = 2204) 123 U/L AST (test code = 2218) 29 U/L ALT (test code = 2219) 55 U/L COMPREHENSIVE METABOLIC [id number] 00:00:00* Test Item Value Reference Range Interpretation Comme nts GLUCOSE (test code = 2217) 125 MG/DL BUN (test code = 2208) 17 MG/DL CREATININE (test code = 2214) 0.74 MG/DL eGFR (2020 CKD-EPI) (test co de = 33062) 99 ML/MIN/1.73 CALC BUN/CREAT (test code = 2235) 23 RATIO SODIUM (test code = 2231) 142 MEQ/L POTASSIUM (test code = 2228) 4.1 MEQ/L CHLORIDE (test code = 2215) 104 MEQ/L CARBON DIOXIDE (test code = 2206) 24 MEQ/L CALCIUM (test code = 2209) 9.4 MG/DL PROTEIN, TOTAL (test code = 2229) 7.5 G/DL ALBUMIN (test code = 2201) 4.5 G/DL CALC GLOBULIN (test code = 2240) 3.0 G/DL CALC A/G RATIO (test code = 2234) 1.5 RATIO BILIRUBIN, TOTAL (test code = 2207) 0.6 MG/DL ALKALINE PHOSPHATASE (test code = 2204) 123 U/L AST (test code = 2218) 29 U/L ALT (test code = 2219) 55 U/L LIPID [id number] 00:00:00* Test Item Value Reference Range Interpretation Comme nts CHOLESTEROL (test code = 2210) 163 MG/DL TRIGLYCERIDES (test code = 2232) 144 MG/DL HDL CHOLESTEROL (test code = 2220) 40 MG/DL CALC LDL CHOL (test code = 2237) 99 MG/DL RISK RATIO LDL/HDL (test cod e = 2238) 2.48 RATIO LIPID [id number] 00:00:00* Test Item Value Reference Range Interpretation Comme nts CHOLESTEROL (test code = 2210) 163 MG/DL TRIGLYCERIDES (test code = 2232) 144 MG/DL HDL CHOLESTEROL (test code = 2220) 40 MG/DL CALC LDL CHOL (test code = 2237) 99 MG/DL RISK RATIO LDL/HDL (test cod e = 2238) 2.48 RATIO COMPREHENSIVE METABOLIC [id number] 00:00:00* Test Item Value Reference Range Interpretation Comme nts GLUCOSE (test code = 2217) 125 MG/DL BUN (test code = 2208) 17 MG/DL CREATININE (test code = 2214) 0.74 MG/DL eGFR (2020 CKD-EPI) (test co de = 24416) 99 ML/MIN/1.73 CALC BUN/CREAT (test code = 2235) 23 RATIO SODIUM (test code = 2231) 142 MEQ/L POTASSIUM (test code = 2228) 4.1 MEQ/L CHLORIDE (test code = 2215) 104 MEQ/L CARBON DIOXIDE (test code = 2206) 24 MEQ/L CALCIUM (test code = 2209) 9.4 MG/DL PROTEIN, TOTAL (test code = 2229) 7.5 G/DL ALBUMIN (test code = 2201) 4.5 G/DL CALC GLOBULIN (test code = 2240) 3.0 G/DL CALC A/G RATIO (test code = 2234) 1.5 RATIO BILIRUBIN, TOTAL (test code = 2207) 0.6 MG/DL ALKALINE PHOSPHATASE (test code = 2204) 123 U/L AST (test code = 2218) 29 U/L ALT (test code = 2219) 55 U/L COMPREHENSIVE METABOLIC [id number] 00:00:00* Test Item Value Reference Range Interpretation Comme nts GLUCOSE (test code = 2217) 125 MG/DL BUN (test code = 2208) 17 MG/DL CREATININE (test code = 2214) 0.74 MG/DL eGFR (2020 CKD-EPI) (test co de = 17464) 99 ML/MIN/1.73 CALC BUN/CREAT (test code = 2235) 23 RATIO SODIUM (test code = 2231) 142 MEQ/L POTASSIUM (test code = 2228) 4.1 MEQ/L CHLORIDE (test code = 2215) 104 MEQ/L CARBON DIOXIDE (test code = 2206) 24 MEQ/L CALCIUM (test code = 2209) 9.4 MG/DL PROTEIN, TOTAL (test code = 2229) 7.5 G/DL ALBUMIN (test code = 2201) 4.5 G/DL CALC GLOBULIN (test code = 2240) 3.0 G/DL CALC A/G RATIO (test code = 2234) 1.5 RATIO BILIRUBIN, TOTAL (test code = 2207) 0.6 MG/DL ALKALINE PHOSPHATASE (test code = 2204) 123 U/L AST (test code = 2218) 29 U/L ALT (test code = 2219) 55 U/L LIPID [id number] 00:00:00* Test Item Value Reference Range Interpretation Comme nts CHOLESTEROL (test code = 2210) 163 MG/DL TRIGLYCERIDES (test code = 2232) 144 MG/DL HDL CHOLESTEROL (test code = 2220) 40 MG/DL CALC LDL CHOL (test code = 2237) 99 MG/DL RISK RATIO LDL/HDL (test cod e = 2238) 2.48 RATIO LIPID [id number] 00:00:00* Test Item Value Reference Range Interpretation Comme nts CHOLESTEROL (test code = 2210) 163 MG/DL TRIGLYCERIDES (test code = 2232) 144 MG/DL HDL CHOLESTEROL (test code = 2220) 40 MG/DL CALC LDL CHOL (test code = 2237) 99 MG/DL RISK RATIO LDL/HDL (test cod e = 2238) 2.48 RATIO COMPREHENSIVE METABOLIC [id number] 00:00:00* Test Item Value Reference Range Interpretation Comme nts GLUCOSE (test code = 2217) 125 MG/DL BUN (test code = 2208) 17 MG/DL CREATININE (test code = 2214) 0.74 MG/DL eGFR (2020 CKD-EPI) (test co de = 44493) 99 ML/MIN/1.73 CALC BUN/CREAT (test code = 2235) 23 RATIO SODIUM (test code = 2231) 142 MEQ/L POTASSIUM (test code = 2228) 4.1 MEQ/L CHLORIDE (test code = 2215) 104 MEQ/L CARBON DIOXIDE (test code = 2206) 24 MEQ/L CALCIUM (test code = 2209) 9.4 MG/DL PROTEIN, TOTAL (test code = 2229) 7.5 G/DL ALBUMIN (test code = 2201) 4.5 G/DL CALC GLOBULIN (test code = 2240) 3.0 G/DL CALC A/G RATIO (test code = 2234) 1.5 RATIO BILIRUBIN, TOTAL (test code = 2207) 0.6 MG/DL ALKALINE PHOSPHATASE (test code = 2204) 123 U/L AST (test code = 2218) 29 U/L ALT (test code = 2219) 55 U/L COMPREHENSIVE METABOLIC [id number] 00:00:00* Test Item Value Reference Range Interpretation Comme nts GLUCOSE (test code = 2217) 125 MG/DL BUN (test code = 2208) 17 MG/DL CREATININE (test code = 2214) 0.74 MG/DL eGFR (2020 CKD-EPI) (test co de = 04282) 99 ML/MIN/1.73 CALC BUN/CREAT (test code = 2235) 23 RATIO SODIUM (test code = 2231) 142 MEQ/L POTASSIUM (test code = 2228) 4.1 MEQ/L CHLORIDE (test code = 2215) 104 MEQ/L CARBON DIOXIDE (test code = 2206) 24 MEQ/L CALCIUM (test code = 2209) 9.4 MG/DL PROTEIN, TOTAL (test code = 2229) 7.5 G/DL ALBUMIN (test code = 2201) 4.5 G/DL CALC GLOBULIN (test code = 2240) 3.0 G/DL CALC A/G RATIO (test code = 2234) 1.5 RATIO BILIRUBIN, TOTAL (test code = 2207) 0.6 MG/DL ALKALINE PHOSPHATASE (test code = 2204) 123 U/L AST (test code = 2218) 29 U/L ALT (test code = 2219) 55 U/L LIPID [id number] 00:00:00* Test Item Value Reference Range Interpretation Comme nts CHOLESTEROL (test code = 2210) 163 MG/DL TRIGLYCERIDES (test code = 2232) 144 MG/DL HDL CHOLESTEROL (test code = 2220) 40 MG/DL CALC LDL CHOL (test code = 2237) 99 MG/DL RISK RATIO LDL/HDL (test cod e = 2238) 2.48 RATIO LIPID [id number] 00:00:00* Test Item Value Reference Range Interpretation Comme nts CHOLESTEROL (test code = 2210) 163 MG/DL TRIGLYCERIDES (test code = 2232) 144 MG/DL HDL CHOLESTEROL (test code = 2220) 40 MG/DL CALC LDL CHOL (test code = 2237) 99 MG/DL RISK RATIO LDL/HDL (test cod e = 2238) 2.48 RATIO COMPREHENSIVE METABOLIC [id number] 00:00:00* Test Item Value Reference Range Interpretation Comme nts GLUCOSE (test code = 2217) 125 MG/DL BUN (test code = 2208) 17 MG/DL CREATININE (test code = 2214) 0.74 MG/DL eGFR (2020 CKD-EPI) (test co de = 43220) 99 ML/MIN/1.73 CALC BUN/CREAT (test code = 2235) 23 RATIO SODIUM (test code = 2231) 142 MEQ/L POTASSIUM (test code = 2228) 4.1 MEQ/L CHLORIDE (test code = 2215) 104 MEQ/L CARBON DIOXIDE (test code = 2206) 24 MEQ/L CALCIUM (test code = 2209) 9.4 MG/DL PROTEIN, TOTAL (test code = 2229) 7.5 G/DL ALBUMIN (test code = 2201) 4.5 G/DL CALC GLOBULIN (test code = 2240) 3.0 G/DL CALC A/G RATIO (test code = 2234) 1.5 RATIO BILIRUBIN, TOTAL (test code = 2207) 0.6 MG/DL ALKALINE PHOSPHATASE (test code = 2204) 123 U/L AST (test code = 2218) 29 U/L ALT (test code = 2219) 55 U/L COMPREHENSIVE METABOLIC [id number] 00:00:00* Test Item Value Reference Range Interpretation Comme nts GLUCOSE (test code = 2217) 125 MG/DL BUN (test code = 2208) 17 MG/DL CREATININE (test code = 2214) 0.74 MG/DL eGFR (2020 CKD-EPI) (test co de = 13764) 99 ML/MIN/1.73 CALC BUN/CREAT (test code = 2235) 23 RATIO SODIUM (test code = 2231) 142 MEQ/L POTASSIUM (test code = 2228) 4.1 MEQ/L CHLORIDE (test code = 2215) 104 MEQ/L CARBON DIOXIDE (test code = 2206) 24 MEQ/L CALCIUM (test code = 2209) 9.4 MG/DL PROTEIN, TOTAL (test code = 2229) 7.5 G/DL ALBUMIN (test code = 2201) 4.5 G/DL CALC GLOBULIN (test code = 2240) 3.0 G/DL CALC A/G RATIO (test code = 2234) 1.5 RATIO BILIRUBIN, TOTAL (test code = 2207) 0.6 MG/DL ALKALINE PHOSPHATASE (test code = 2204) 123 U/L AST (test code = 2218) 29 U/L ALT (test code = 2219) 55 U/L HEMOGLOBIN [id number] 05:41:17* Test Item Value Reference Range Interpretation Comme nts HEMOGLOBIN A1c (test code = 44192) 7.0 % 4.2-5.6 H [employer] GUIDELINES FOR HGB A1C: PREDIABETES/INCREASED RISK . . . . . . . 5.7-6.4% DIAGNOSIS OF DIABETES . . . . . . . . . >=6.5% WITH CONFIRMATION OR APPROPRIATE SYMPTOMS NOTE: ASSAY MAY BE AFFECTED BY HEMOGLOBINOPATHIES (SICKLE CELL ANEMIA, S-C DISEASE, OTHERS) OR ARTIFICIALLY LOWERED BY DECREASED RED CELL SURVIVAL (HEMOLYTIC ANEMIAS, BLOOD LOSS, ETC.). CONSIDER ALTERNATE TESTING OR LABORATORY CONSULTATION. CBC W/AUTO DIFF WITH [id number] 03:40:33* Test Item Value Reference Range Interpretation Comme nts WBC (test code = 1001) 10.6 K/UL 3.5-11.0 RBC (test code = 1002) 4.93 M/UL 3.80-5.40 HEMOGLOBIN (test code = 1003) 15.1 G/DL 11.5-15.5 HEMATOCRIT (test code = 1004) 43.3 % 34.0-45.0 MCV (test code = 1005) 87.8 fL 80.0-99.0 MCH (test code = 1006) 30.6 PG 25.0-33.0 MCHC (test code = 1007) 34.9 G/DL 31.0-36.0 RDW (test code = 1038) 11.9 % 11.5-15.0 NEUTROPHILS (test code = 1008) 58.8 % LYMPHOCYTES (test code = 1010) 32.0 % MONOCYTES (test code = 1011) 6.7 % EOSINOPHILS (test code = 1012) 2.0 % BASOPHILS (test code = 1013) 0.3 % IMMATURE GRANULOCYTES (test code = 1036) 0.2 % NUCLEATED RBCS (test code = 1065) 0.0 /100 WBC'S See_Comment [Automated messa ge] The system which generated this result transmitted reference range: 0.0. The reference range was not used to interpret this result as normal/abnormal. PLATELET COUNT (test code = 1015) 294 K/UL 130-400 ABSOLUTE NEUTROPHILS (test code = 1066) 6.24 K/UL 1.50-7.50 ABSOLUTE LYMPHOCYTES (test code = 1067) 3.39 K/UL 1.00-4.00 ABSOLUTE MONOCYTES (test code = 1068) 0.71 K/UL 0.20-1.00 ABSOLUTE EOSINOPHILS (test code = 1040) 0.21 K/UL 0.00-0.50 ABSOLUTE BASOPHILS (test code = 1069) 0.03 K/UL 0.00-0.20 ABS IMMATURE GRANULOCYTES (test code = 1020) 0.02 K/UL 0.00-0.10 ABS NUCLEATED RBCS (test code = 28260) 0.00 K/UL 0.00-0.11 CBC W/AUTO [id number] 00:00:00* Test Item Value Reference Range Interpretation Comme nts WBC (test code = 1001) 10.6 K/UL RBC (test code = 1002) 4.93 M/UL HEMOGLOBIN (test code = 1003) 15.1 G/DL HEMATOCRIT (test code = 1004) 43.3 % MCV (test code = 1005) 87.8 fL MCH (test code = 1006) 30.6 PG MCHC (test code = 1007) 34.9 G/DL RDW (test code = 1038) 11.9 % NEUTROPHILS (test code = 1008) 58.8 % LYMPHOCYTES (test code = 1010) 32.0 % MONOCYTES (test code = 1011) 6.7 % EOSINOPHILS (test code = 1012) 2.0 % BASOPHILS (test code = 1013) 0.3 % IMMATURE GRANULOCYTES (test code = 1036) 0.2 % NUCLEATED RBCS (test code = 1065) 0.0 /100WBC'S PLATELET COUNT (test code = 1015) 294 K/UL ABSOLUTE NEUTROPHILS (test c ode = 1066) 6.24 K/UL ABSOLUTE LYMPHOCYTES (test c ode = 1067) 3.39 K/UL ABSOLUTE MONOCYTES (test cod e = 1068) 0.71 K/UL ABSOLUTE EOSINOPHILS (test c ode = 1040) 0.21 K/UL ABSOLUTE BASOPHILS (test cod e = 1069) 0.03 K/UL ABS IMMATURE GRANULOCYTES (t est code = 1020) 0.02 K/UL ABS NUCLEATED RBCS (test cod e = 57643) 0.00 K/UL Eduardo Schwartz [place] [id number] 00:00:00* Test Item Value Reference Range Interpretation Comme nts HEMOGLOBIN A1c (test code = 24480) 7.0 % Eduardo Schwartz [place] [id number] 00:00:00* Test Item Value Reference Range Interpretation Comme nts HEMOGLOBIN A1c (test code = 49516) 7.0 % HEMOGLOBIN [id number] 00:00:00* Test Item Value Reference Range Interpretation Comme nts HEMOGLOBIN A1c (test code = 59715) 7.0 % HEMOGLOBIN [id number] 00:00:00* Test Item Value Reference Range Interpretation Comme nts HEMOGLOBIN A1c (test code = 06157) 7.0 % CBC W/AUTO [id number] 00:00:00* Test Item Value Reference Range Interpretation Comme nts WBC (test code = 1001) 10.6 K/UL RBC (test code = 1002) 4.93 M/UL HEMOGLOBIN (test code = 1003) 15.1 G/DL HEMATOCRIT (test code = 1004) 43.3 % MCV (test code = 1005) 87.8 fL MCH (test code = 1006) 30.6 PG MCHC (test code = 1007) 34.9 G/DL RDW (test code = 1038) 11.9 % NEUTROPHILS (test code = 1008) 58.8 % LYMPHOCYTES (test code = 1010) 32.0 % MONOCYTES (test code = 1011) 6.7 % EOSINOPHILS (test code = 1012) 2.0 % BASOPHILS (test code = 1013) 0.3 % IMMATURE GRANULOCYTES (test code = 1036) 0.2 % NUCLEATED RBCS (test code = 1065) 0.0 /100WBC'S PLATELET COUNT (test code = 1015) 294 K/UL ABSOLUTE NEUTROPHILS (test c ode = 1066) 6.24 K/UL ABSOLUTE LYMPHOCYTES (test c ode = 1067) 3.39 K/UL ABSOLUTE MONOCYTES (test cod e = 1068) 0.71 K/UL ABSOLUTE EOSINOPHILS (test c ode = 1040) 0.21 K/UL ABSOLUTE BASOPHILS (test cod e = 1069) 0.03 K/UL ABS IMMATURE GRANULOCYTES (t est code = 1020) 0.02 K/UL ABS NUCLEATED RBCS (test cod e = 07347) 0.00 K/UL CBC W/AUTO [id number] 00:00:00* Test Item Value Reference Range Interpretation Comme nts WBC (test code = 1001) 10.6 K/UL RBC (test code = 1002) 4.93 M/UL HEMOGLOBIN (test code = 1003) 15.1 G/DL HEMATOCRIT (test code = 1004) 43.3 % MCV (test code = 1005) 87.8 fL MCH (test code = 1006) 30.6 PG MCHC (test code = 1007) 34.9 G/DL RDW (test code = 1038) 11.9 % NEUTROPHILS (test code = 1008) 58.8 % LYMPHOCYTES (test code = 1010) 32.0 % MONOCYTES (test code = 1011) 6.7 % EOSINOPHILS (test code = 1012) 2.0 % BASOPHILS (test code = 1013) 0.3 % IMMATURE GRANULOCYTES (test code = 1036) 0.2 % NUCLEATED RBCS (test code = 1065) 0.0 /100WBC'S PLATELET COUNT (test code = 1015) 294 K/UL ABSOLUTE NEUTROPHILS (test c ode = 1066) 6.24 K/UL ABSOLUTE LYMPHOCYTES (test c ode = 1067) 3.39 K/UL ABSOLUTE MONOCYTES (test cod e = 1068) 0.71 K/UL ABSOLUTE EOSINOPHILS (test c ode = 1040) 0.21 K/UL ABSOLUTE BASOPHILS (test cod e = 1069) 0.03 K/UL ABS IMMATURE GRANULOCYTES (t est code = 1020) 0.02 K/UL ABS NUCLEATED RBCS (test cod e = 90214) 0.00 K/UL CBC W/AUTO [id number] 00:00:00* Test Item Value Reference Range Interpretation Comme nts WBC (test code = 1001) 10.6 K/UL RBC (test code = 1002) 4.93 M/UL HEMOGLOBIN (test code = 1003) 15.1 G/DL HEMATOCRIT (test code = 1004) 43.3 % MCV (test code = 1005) 87.8 fL MCH (test code = 1006) 30.6 PG MCHC (test code = 1007) 34.9 G/DL RDW (test code = 1038) 11.9 % NEUTROPHILS (test code = 1008) 58.8 % LYMPHOCYTES (test code = 1010) 32.0 % MONOCYTES (test code = 1011) 6.7 % EOSINOPHILS (test code = 1012) 2.0 % BASOPHILS (test code = 1013) 0.3 % IMMATURE GRANULOCYTES (test code = 1036) 0.2 % NUCLEATED RBCS (test code = 1065) 0.0 /100WBC'S PLATELET COUNT (test code = 1015) 294 K/UL ABSOLUTE NEUTROPHILS (test c ode = 1066) 6.24 K/UL ABSOLUTE LYMPHOCYTES (test c ode = 1067) 3.39 K/UL ABSOLUTE MONOCYTES (test cod e = 1068) 0.71 K/UL ABSOLUTE EOSINOPHILS (test c ode = 1040) 0.21 K/UL ABSOLUTE BASOPHILS (test cod e = 1069) 0.03 K/UL ABS IMMATURE GRANULOCYTES (t est code = 1020) 0.02 K/UL ABS NUCLEATED RBCS (test cod e = 62394) 0.00 K/UL HEMOGLOBIN [id number] 00:00:00* Test Item Value Reference Range Interpretation Comme nts HEMOGLOBIN A1c (test code = 02423) 7.0 % HEMOGLOBIN [id number] 00:00:00* Test Item Value Reference Range Interpretation Comme nts HEMOGLOBIN A1c (test code = 17531) 7.0 % HEMOGLOBIN [id number] 00:00:00* Test Item Value Reference Range Interpretation Comme nts HEMOGLOBIN A1c (test code = 69546) 7.0 % CBC W/AUTO [id number] 00:00:00* Test Item Value Reference Range Interpretation Comme nts WBC (test code = 1001) 10.6 K/UL RBC (test code = 1002) 4.93 M/UL HEMOGLOBIN (test code = 1003) 15.1 G/DL HEMATOCRIT (test code = 1004) 43.3 % MCV (test code = 1005) 87.8 fL MCH (test code = 1006) 30.6 PG MCHC (test code = 1007) 34.9 G/DL RDW (test code = 1038) 11.9 % NEUTROPHILS (test code = 1008) 58.8 % LYMPHOCYTES (test code = 1010) 32.0 % MONOCYTES (test code = 1011) 6.7 % EOSINOPHILS (test code = 1012) 2.0 % BASOPHILS (test code = 1013) 0.3 % IMMATURE GRANULOCYTES (test code = 1036) 0.2 % NUCLEATED RBCS (test code = 1065) 0.0 /100WBC'S PLATELET COUNT (test code = 1015) 294 K/UL ABSOLUTE NEUTROPHILS (test c ode = 1066) 6.24 K/UL ABSOLUTE LYMPHOCYTES (test c ode = 1067) 3.39 K/UL ABSOLUTE MONOCYTES (test cod e = 1068) 0.71 K/UL ABSOLUTE EOSINOPHILS (test c ode = 1040) 0.21 K/UL ABSOLUTE BASOPHILS (test cod e = 1069) 0.03 K/UL ABS IMMATURE GRANULOCYTES (t est code = 1020) 0.02 K/UL ABS NUCLEATED RBCS (test cod e = 50527) 0.00 K/UL CBC W/AUTO [id number] 00:00:00* Test Item Value Reference Range Interpretation Comme nts WBC (test code = 1001) 10.6 K/UL RBC (test code = 1002) 4.93 M/UL HEMOGLOBIN (test code = 1003) 15.1 G/DL HEMATOCRIT (test code = 1004) 43.3 % MCV (test code = 1005) 87.8 fL MCH (test code = 1006) 30.6 PG MCHC (test code = 1007) 34.9 G/DL RDW (test code = 1038) 11.9 % NEUTROPHILS (test code = 1008) 58.8 % LYMPHOCYTES (test code = 1010) 32.0 % MONOCYTES (test code = 1011) 6.7 % EOSINOPHILS (test code = 1012) 2.0 % BASOPHILS (test code = 1013) 0.3 % IMMATURE GRANULOCYTES (test code = 1036) 0.2 % NUCLEATED RBCS (test code = 1065) 0.0 /100WBC'S PLATELET COUNT (test code = 1015) 294 K/UL ABSOLUTE NEUTROPHILS (test c ode = 1066) 6.24 K/UL ABSOLUTE LYMPHOCYTES (test c ode = 1067) 3.39 K/UL ABSOLUTE MONOCYTES (test cod e = 1068) 0.71 K/UL ABSOLUTE EOSINOPHILS (test c ode = 1040) 0.21 K/UL ABSOLUTE BASOPHILS (test cod e = 1069) 0.03 K/UL ABS IMMATURE GRANULOCYTES (t est code = 1020) 0.02 K/UL ABS NUCLEATED RBCS (test cod e = 33877) 0.00 K/UL CBC W/AUTO [id number] 00:00:00* Test Item Value Reference Range Interpretation Comme nts WBC (test code = 1001) 10.6 K/UL RBC (test code = 1002) 4.93 M/UL HEMOGLOBIN (test code = 1003) 15.1 G/DL HEMATOCRIT (test code = 1004) 43.3 % MCV (test code = 1005) 87.8 fL MCH (test code = 1006) 30.6 PG MCHC (test code = 1007) 34.9 G/DL RDW (test code = 1038) 11.9 % NEUTROPHILS (test code = 1008) 58.8 % LYMPHOCYTES (test code = 1010) 32.0 % MONOCYTES (test code = 1011) 6.7 % EOSINOPHILS (test code = 1012) 2.0 % BASOPHILS (test code = 1013) 0.3 % IMMATURE GRANULOCYTES (test code = 1036) 0.2 % NUCLEATED RBCS (test code = 1065) 0.0 /100WBC'S PLATELET COUNT (test code = 1015) 294 K/UL ABSOLUTE NEUTROPHILS (test c ode = 1066) 6.24 K/UL ABSOLUTE LYMPHOCYTES (test c ode = 1067) 3.39 K/UL ABSOLUTE MONOCYTES (test cod e = 1068) 0.71 K/UL ABSOLUTE EOSINOPHILS (test c ode = 1040) 0.21 K/UL ABSOLUTE BASOPHILS (test cod e = 1069) 0.03 K/UL ABS IMMATURE GRANULOCYTES (t est code = 1020) 0.02 K/UL ABS NUCLEATED RBCS (test cod e = 06161) 0.00 K/UL HEMOGLOBIN [id number] 00:00:00* Test Item Value Reference Range Interpretation Comme nts HEMOGLOBIN A1c (test code = 98433) 7.0 % HEMOGLOBIN [id number] 00:00:00* Test Item Value Reference Range Interpretation Comme nts HEMOGLOBIN A1c (test code = 54592) 7.0 % HEMOGLOBIN [id number] 00:00:00* Test Item Value Reference Range Interpretation Comme nts HEMOGLOBIN A1c (test code = 21028) 7.0 % CBC W/AUTO [id number] 00:00:00* Test Item Value Reference Range Interpretation Comme nts WBC (test code = 1001) 10.6 K/UL RBC (test code = 1002) 4.93 M/UL HEMOGLOBIN (test code = 1003) 15.1 G/DL HEMATOCRIT (test code = 1004) 43.3 % MCV (test code = 1005) 87.8 fL MCH (test code = 1006) 30.6 PG MCHC (test code = 1007) 34.9 G/DL RDW (test code = 1038) 11.9 % NEUTROPHILS (test code = 1008) 58.8 % LYMPHOCYTES (test code = 1010) 32.0 % MONOCYTES (test code = 1011) 6.7 % EOSINOPHILS (test code = 1012) 2.0 % BASOPHILS (test code = 1013) 0.3 % IMMATURE GRANULOCYTES (test code = 1036) 0.2 % NUCLEATED RBCS (test code = 1065) 0.0 /100WBC'S PLATELET COUNT (test code = 1015) 294 K/UL ABSOLUTE NEUTROPHILS (test c ode = 1066) 6.24 K/UL ABSOLUTE LYMPHOCYTES (test c ode = 1067) 3.39 K/UL ABSOLUTE MONOCYTES (test cod e = 1068) 0.71 K/UL ABSOLUTE EOSINOPHILS (test c ode = 1040) 0.21 K/UL ABSOLUTE BASOPHILS (test cod e = 1069) 0.03 K/UL ABS IMMATURE GRANULOCYTES (t est code = 1020) 0.02 K/UL ABS NUCLEATED RBCS (test cod e = 79498) 0.00 K/UL CBC W/AUTO [id number] 00:00:00* Test Item Value Reference Range Interpretation Comme nts WBC (test code = 1001) 10.6 K/UL RBC (test code = 1002) 4.93 M/UL HEMOGLOBIN (test code = 1003) 15.1 G/DL HEMATOCRIT (test code = 1004) 43.3 % MCV (test code = 1005) 87.8 fL MCH (test code = 1006) 30.6 PG MCHC (test code = 1007) 34.9 G/DL RDW (test code = 1038) 11.9 % NEUTROPHILS (test code = 1008) 58.8 % LYMPHOCYTES (test code = 1010) 32.0 % MONOCYTES (test code = 1011) 6.7 % EOSINOPHILS (test code = 1012) 2.0 % BASOPHILS (test code = 1013) 0.3 % IMMATURE GRANULOCYTES (test code = 1036) 0.2 % NUCLEATED RBCS (test code = 1065) 0.0 /100WBC'S PLATELET COUNT (test code = 1015) 294 K/UL ABSOLUTE NEUTROPHILS (test c ode = 1066) 6.24 K/UL ABSOLUTE LYMPHOCYTES (test c ode = 1067) 3.39 K/UL ABSOLUTE MONOCYTES (test cod e = 1068) 0.71 K/UL ABSOLUTE EOSINOPHILS (test c ode = 1040) 0.21 K/UL ABSOLUTE BASOPHILS (test cod e = 1069) 0.03 K/UL ABS IMMATURE GRANULOCYTES (t est code = 1020) 0.02 K/UL ABS NUCLEATED RBCS (test cod e = 70621) 0.00 K/UL CBC W/AUTO [id number] 00:00:00* Test Item Value Reference Range Interpretation Comme nts WBC (test code = 1001) 10.6 K/UL RBC (test code = 1002) 4.93 M/UL HEMOGLOBIN (test code = 1003) 15.1 G/DL HEMATOCRIT (test code = 1004) 43.3 % MCV (test code = 1005) 87.8 fL MCH (test code = 1006) 30.6 PG MCHC (test code = 1007) 34.9 G/DL RDW (test code = 1038) 11.9 % NEUTROPHILS (test code = 1008) 58.8 % LYMPHOCYTES (test code = 1010) 32.0 % MONOCYTES (test code = 1011) 6.7 % EOSINOPHILS (test code = 1012) 2.0 % BASOPHILS (test code = 1013) 0.3 % IMMATURE GRANULOCYTES (test code = 1036) 0.2 % NUCLEATED RBCS (test code = 1065) 0.0 /100WBC'S PLATELET COUNT (test code = 1015) 294 K/UL ABSOLUTE NEUTROPHILS (test c ode = 1066) 6.24 K/UL ABSOLUTE LYMPHOCYTES (test c ode = 1067) 3.39 K/UL ABSOLUTE MONOCYTES (test cod e = 1068) 0.71 K/UL ABSOLUTE EOSINOPHILS (test c ode = 1040) 0.21 K/UL ABSOLUTE BASOPHILS (test cod e = 1069) 0.03 K/UL ABS IMMATURE GRANULOCYTES (t est code = 1020) 0.02 K/UL ABS NUCLEATED RBCS (test cod e = 19766) 0.00 K/UL CBC W/AUTO [id number] 00:00:00* Test Item Value Reference Range Interpretation Comme nts WBC (test code = 1001) 10.6 K/UL RBC (test code = 1002) 4.93 M/UL HEMOGLOBIN (test code = 1003) 15.1 G/DL HEMATOCRIT (test code = 1004) 43.3 % MCV (test code = 1005) 87.8 fL MCH (test code = 1006) 30.6 PG MCHC (test code = 1007) 34.9 G/DL RDW (test code = 1038) 11.9 % NEUTROPHILS (test code = 1008) 58.8 % LYMPHOCYTES (test code = 1010) 32.0 % MONOCYTES (test code = 1011) 6.7 % EOSINOPHILS (test code = 1012) 2.0 % BASOPHILS (test code = 1013) 0.3 % IMMATURE GRANULOCYTES (test code = 1036) 0.2 % NUCLEATED RBCS (test code = 1065) 0.0 /100WBC'S PLATELET COUNT (test code = 1015) 294 K/UL ABSOLUTE NEUTROPHILS (test c ode = 1066) 6.24 K/UL ABSOLUTE LYMPHOCYTES (test c ode = 1067) 3.39 K/UL ABSOLUTE MONOCYTES (test cod e = 1068) 0.71 K/UL ABSOLUTE EOSINOPHILS (test c ode = 1040) 0.21 K/UL ABSOLUTE BASOPHILS (test cod e = 1069) 0.03 K/UL ABS IMMATURE GRANULOCYTES (t est code = 1020) 0.02 K/UL ABS NUCLEATED RBCS (test cod e = 33288) 0.00 K/UL HEMOGLOBIN [id number] 00:00:00* Test Item Value Reference Range Interpretation Comme nts HEMOGLOBIN A1c (test code = 83464) 7.0 % HEMOGLOBIN [id number] 00:00:00* Test Item Value Reference Range Interpretation Comme nts HEMOGLOBIN A1c (test code = 22257) 7.0 % CBC W/AUTO [id number] 00:00:00* Test Item Value Reference Range Interpretation Comme nts WBC (test code = 1001) 10.6 K/UL RBC (test code = 1002) 4.93 M/UL HEMOGLOBIN (test code = 1003) 15.1 G/DL HEMATOCRIT (test code = 1004) 43.3 % MCV (test code = 1005) 87.8 fL MCH (test code = 1006) 30.6 PG MCHC (test code = 1007) 34.9 G/DL RDW (test code = 1038) 11.9 % NEUTROPHILS (test code = 1008) 58.8 % LYMPHOCYTES (test code = 1010) 32.0 % MONOCYTES (test code = 1011) 6.7 % EOSINOPHILS (test code = 1012) 2.0 % BASOPHILS (test code = 1013) 0.3 % IMMATURE GRANULOCYTES (test code = 1036) 0.2 % NUCLEATED RBCS (test code = 1065) 0.0 /100WBC'S PLATELET COUNT (test code = 1015) 294 K/UL ABSOLUTE NEUTROPHILS (test c ode = 1066) 6.24 K/UL ABSOLUTE LYMPHOCYTES (test c ode = 1067) 3.39 K/UL ABSOLUTE MONOCYTES (test cod e = 1068) 0.71 K/UL ABSOLUTE EOSINOPHILS (test c ode = 1040) 0.21 K/UL ABSOLUTE BASOPHILS (test cod e = 1069) 0.03 K/UL ABS IMMATURE GRANULOCYTES (t est code = 1020) 0.02 K/UL ABS NUCLEATED RBCS (test cod e = 25076) 0.00 K/UL HEMOGLOBIN [id number] 00:00:00* Test Item Value Reference Range Interpretation Comme nts HEMOGLOBIN A1c (test code = 52524) 7.0 % CBC W/AUTO [id number] 00:00:00* Test Item Value Reference Range Interpretation Comme nts WBC (test code = 1001) 10.6 K/UL RBC (test code = 1002) 4.93 M/UL HEMOGLOBIN (test code = 1003) 15.1 G/DL HEMATOCRIT (test code = 1004) 43.3 % MCV (test code = 1005) 87.8 fL MCH (test code = 1006) 30.6 PG MCHC (test code = 1007) 34.9 G/DL RDW (test code = 1038) 11.9 % NEUTROPHILS (test code = 1008) 58.8 % LYMPHOCYTES (test code = 1010) 32.0 % MONOCYTES (test code = 1011) 6.7 % EOSINOPHILS (test code = 1012) 2.0 % BASOPHILS (test code = 1013) 0.3 % IMMATURE GRANULOCYTES (test code = 1036) 0.2 % NUCLEATED RBCS (test code = 1065) 0.0 /100WBC'S PLATELET COUNT (test code = 1015) 294 K/UL ABSOLUTE NEUTROPHILS (test c ode = 1066) 6.24 K/UL ABSOLUTE LYMPHOCYTES (test c ode = 1067) 3.39 K/UL ABSOLUTE MONOCYTES (test cod e = 1068) 0.71 K/UL ABSOLUTE EOSINOPHILS (test c ode = 1040) 0.21 K/UL ABSOLUTE BASOPHILS (test cod e = 1069) 0.03 K/UL ABS IMMATURE GRANULOCYTES (t est code = 1020) 0.02 K/UL ABS NUCLEATED RBCS (test cod e = 66924) 0.00 K/UL MICROALBUMIN, [id number] 00:00:00* Test Item Value Reference Range Interpretation Comme nts ALBUMIN, URINE, RANDOM (test code = 66346) 0.5 MG/DL Eduardo LoveMICROALBUMIN, [id number] 00:00:00* Test Item Value Reference Range Interpretation Comme nts ALBUMIN, URINE, RANDOM (test code = 23795) 0.5 MG/DL MICROALBUMIN, [id number] 00:00:00* Test Item Value Reference Range Interpretation Comme nts ALBUMIN, URINE, RANDOM (test code = 42828) 0.5 MG/DL MICROALBUMIN, [id number] 00:00:00* Test Item Value Reference Range Interpretation Comme nts ALBUMIN, URINE, RANDOM (test code = 22469) 0.5 MG/DL MICROALBUMIN, [id number] 00:00:00* Test Item Value Reference Range Interpretation Comme nts ALBUMIN, URINE, RANDOM (test code = 38719) 0.5 MG/DL MICROALBUMIN, [id number] 00:00:00* Test Item Value Reference Range Interpretation Comme nts ALBUMIN, URINE, RANDOM (test code = 36665) 0.5 MG/DL MICROALBUMIN, [id number] 00:00:00* Test Item Value Reference Range Interpretation Comme nts ALBUMIN, URINE, RANDOM (test code = 20329) 0.5 MG/DL MICROALBUMIN, [id number] 00:00:00* Test Item Value Reference Range Interpretation Comme nts ALBUMIN, URINE, RANDOM (test code = 72493) 0.5 MG/DL MICROALBUMIN, [id number] 00:00:00* Test Item Value Reference Range Interpretation Comme nts ALBUMIN, URINE, RANDOM (test code = 77862) 0.5 MG/DL LIPID [id number] 00:00:00* Test Item Value Reference Range Interpretation Comme nts CHOLESTEROL (test code = 2210) 215 MG/DL TRIGLYCERIDES (test code = 2232) 138 MG/DL HDL CHOLESTEROL (test code = 2220) 39 MG/DL CALC LDL CHOL (test code = 2237) 149 MG/DL RISK RATIO LDL/HDL (test cod e = 2238) 3.82 RATIO Eduardo [id number] 00:00:00* Test Item Value Reference Range Interpretation Comme nts TSH, THIRD GENERATION (test code = 2821) 2.300 UIU/ML Eduardo LoveLIPID [id number] 00:00:00* Test Item Value Reference Range Interpretation Comme nts CHOLESTEROL (test code = 2210) 215 MG/DL TRIGLYCERIDES (test code = 2232) 138 MG/DL HDL CHOLESTEROL (test code = 2220) 39 MG/DL CALC LDL CHOL (test code = 2237) 149 MG/DL RISK RATIO LDL/HDL (test cod e = 2238) 3.82 RATIO LIPID [id number] 00:00:00* Test Item Value Reference Range Interpretation Comme nts CHOLESTEROL (test code = 2210) 215 MG/DL TRIGLYCERIDES (test code = 2232) 138 MG/DL HDL CHOLESTEROL (test code = 2220) 39 MG/DL CALC LDL CHOL (test code = 2237) 149 MG/DL RISK RATIO LDL/HDL (test cod e = 2238) 3.82 RATIO [id number] 00:00:00* Test Item Value Reference Range Interpretation Comme nts TSH, THIRD GENERATION (test code = 2821) 2.300 UIU/ML [id number] 00:00:00* Test Item Value Reference Range Interpretation Comme nts TSH, THIRD GENERATION (test code = 2821) 2.300 UIU/ML [id number] 00:00:00* Test Item Value Reference Range Interpretation Comme nts TSH, THIRD GENERATION (test code = 2821) 2.300 UIU/ML LIPID [id number] 00:00:00* Test Item Value Reference Range Interpretation Comme nts CHOLESTEROL (test code = 2210) 215 MG/DL TRIGLYCERIDES (test code = 2232) 138 MG/DL HDL CHOLESTEROL (test code = 2220) 39 MG/DL CALC LDL CHOL (test code = 2237) 149 MG/DL RISK RATIO LDL/HDL (test cod e = 2238) 3.82 RATIO LIPID [id number] 00:00:00* Test Item Value Reference Range Interpretation Comme nts CHOLESTEROL (test code = 2210) 215 MG/DL TRIGLYCERIDES (test code = 2232) 138 MG/DL HDL CHOLESTEROL (test code = 2220) 39 MG/DL CALC LDL CHOL (test code = 2237) 149 MG/DL RISK RATIO LDL/HDL (test cod e = 2238) 3.82 RATIO [id number] 00:00:00* Test Item Value Reference Range Interpretation Comme nts TSH, THIRD GENERATION (test code = 2821) 2.300 UIU/ML [id number] 00:00:00* Test Item Value Reference Range Interpretation Comme nts TSH, THIRD GENERATION (test code = 2821) 2.300 UIU/ML [id number] 00:00:00* Test Item Value Reference Range Interpretation Comme nts TSH, THIRD GENERATION (test code = 2821) 2.300 UIU/ML LIPID [id number] 00:00:00* Test Item Value Reference Range Interpretation Comme nts CHOLESTEROL (test code = 2210) 215 MG/DL TRIGLYCERIDES (test code = 2232) 138 MG/DL HDL CHOLESTEROL (test code = 2220) 39 MG/DL CALC LDL CHOL (test code = 2237) 149 MG/DL RISK RATIO LDL/HDL (test cod e = 2238) 3.82 RATIO LIPID [id number] 00:00:00* Test Item Value Reference Range Interpretation Comme nts CHOLESTEROL (test code = 2210) 215 MG/DL TRIGLYCERIDES (test code = 2232) 138 MG/DL HDL CHOLESTEROL (test code = 2220) 39 MG/DL CALC LDL CHOL (test code = 2237) 149 MG/DL RISK RATIO LDL/HDL (test cod e = 2238) 3.82 RATIO [id number] 00:00:00* Test Item Value Reference Range Interpretation Comme nts TSH, THIRD GENERATION (test code = 2821) 2.300 UIU/ML [id number] 00:00:00* Test Item Value Reference Range Interpretation Comme nts TSH, THIRD GENERATION (test code = 2821) 2.300 UIU/ML [id number] 00:00:00* Test Item Value Reference Range Interpretation Comme nts TSH, THIRD GENERATION (test code = 2821) 2.300 UIU/ML LIPID [id number] 00:00:00* Test Item Value Reference Range Interpretation Comme nts CHOLESTEROL (test code = 2210) 215 MG/DL TRIGLYCERIDES (test code = 2232) 138 MG/DL HDL CHOLESTEROL (test code = 2220) 39 MG/DL CALC LDL CHOL (test code = 2237) 149 MG/DL RISK RATIO LDL/HDL (test cod e = 2238) 3.82 RATIO LIPID [id number] 00:00:00* Test Item Value Reference Range Interpretation Comme nts CHOLESTEROL (test code = 2210) 215 MG/DL TRIGLYCERIDES (test code = 2232) 138 MG/DL HDL CHOLESTEROL (test code = 2220) 39 MG/DL CALC LDL CHOL (test code = 2237) 149 MG/DL RISK RATIO LDL/HDL (test cod e = 2238) 3.82 RATIO [id number] 00:00:00* Test Item Value Reference Range Interpretation Comme nts TSH, THIRD GENERATION (test code = 2821) 2.300 UIU/ML [id number] 00:00:00* Test Item Value Reference Range Interpretation Comme nts TSH, THIRD GENERATION (test code = 2821) 2.300 UIU/ML [id number] 00:00:00* Test Item Value Reference Range Interpretation Comme nts TSH, THIRD GENERATION (test code = 2821) 2.300 UIU/ML HEMOGLOBIN [id number] 00:00:00* Test Item Value Reference Range Interpretation Comme nts HEMOGLOBIN A1c (test code = 96754) 7.5 % Eduardo F AustinHEMOGLOBIN [id number] 00:00:00* Test Item Value Reference Range Interpretation Comme nts HEMOGLOBIN A1c (test code = 65059) 7.5 % HEMOGLOBIN [id number] 00:00:00* Test Item Value Reference Range Interpretation Comme nts HEMOGLOBIN A1c (test code = 57714) 7.5 % HEMOGLOBIN [id number] 00:00:00* Test Item Value Reference Range Interpretation Comme nts HEMOGLOBIN A1c (test code = 74905) 7.5 % HEMOGLOBIN [id number] 00:00:00* Test Item Value Reference Range Interpretation Comme nts HEMOGLOBIN A1c (test code = 38249) 7.5 % HEMOGLOBIN [id number] 00:00:00* Test Item Value Reference Range Interpretation Comme nts HEMOGLOBIN A1c (test code = 23382) 7.5 % HEMOGLOBIN [id number] 00:00:00* Test Item Value Reference Range Interpretation Comme nts HEMOGLOBIN A1c (test code = 08150) 7.5 % HEMOGLOBIN [id number] 00:00:00* Test Item Value Reference Range Interpretation Comme nts HEMOGLOBIN A1c (test code = 83771) 7.5 % HEMOGLOBIN [id number] 00:00:00* Test Item Value Reference Range Interpretation Comme nts HEMOGLOBIN A1c (test code = 99784) 7.5 % HEMOGLOBIN [id number] 00:00:00* Test Item Value Reference Range Interpretation Comme nts HEMOGLOBIN A1c (test code = 08644) 7.5 % HEMOGLOBIN [id number] 00:00:00* Test Item Value Reference Range Interpretation Comme nts HEMOGLOBIN A1c (test code = 50233) 7.5 % HEMOGLOBIN [id number] 00:00:00* Test Item Value Reference Range Interpretation Comme nts HEMOGLOBIN A1c (test code = 34982) 7.5 % HEMOGLOBIN [id number] 00:00:00* Test Item Value Reference Range Interpretation Comme nts HEMOGLOBIN A1c (test code = 10762) 7.5 % LIPID [id number] 00:00:00* Test Item Value Reference Range Interpretation Comme nts CHOLESTEROL (test code = 2210) 219 MG/DL TRIGLYCERIDES (test code = 2232) 108 MG/DL HDL CHOLESTEROL (test code = 2220) 38 MG/DL CALC LDL CHOL (test code = 2237) 159 MG/DL RISK RATIO LDL/HDL (test cod e = 2238) 4.18 RATIO Eduardo LoveVITAMIN D, 25 [id number] 00:00:00* Test Item Value Reference Range Interpretation Comme nts VITAMIN D, 25 OH (test code = 4958) 22 NG/ML Edaurdo Schwartz [place]HEMOGLOBIN [id number] 00:00:00* Test Item Value Reference Range Interpretation Comme nts HEMOGLOBIN A1c (test code = 44712) 6.6 % Eduardo Schwartz [place]HEMOGLOBIN [id number] 00:00:00* Test Item Value Reference Range Interpretation Comme nts HEMOGLOBIN A1c (test code = 53627) 6.6 % LIPID [id number] 00:00:00* Test Item Value Reference Range Interpretation Comme nts CHOLESTEROL (test code = 2210) 219 MG/DL TRIGLYCERIDES (test code = 2232) 108 MG/DL HDL CHOLESTEROL (test code = 2220) 38 MG/DL CALC LDL CHOL (test code = 2237) 159 MG/DL RISK RATIO LDL/HDL (test cod e = 2238) 4.18 RATIO LIPID [id number] 00:00:00* Test Item Value Reference Range Interpretation Comme nts CHOLESTEROL (test code = 2210) 219 MG/DL TRIGLYCERIDES (test code = 2232) 108 MG/DL HDL CHOLESTEROL (test code = 2220) 38 MG/DL CALC LDL CHOL (test code = 2237) 159 MG/DL RISK RATIO LDL/HDL (test cod e = 2238) 4.18 RATIO VITAMIN D, 25 [id number] 00:00:00* Test Item Value Reference Range Interpretation Comme nts VITAMIN D, 25 OH (test code = 4958) 22 NG/ML VITAMIN D, 25 [id number] 00:00:00* Test Item Value Reference Range Interpretation Comme nts VITAMIN D, 25 OH (test code = 4958) 22 NG/ML HEMOGLOBIN [id number] 00:00:00* Test Item Value Reference Range Interpretation Comme nts HEMOGLOBIN A1c (test code = 34665) 6.6 % HEMOGLOBIN [id number] 00:00:00* Test Item Value Reference Range Interpretation Comme nts HEMOGLOBIN A1c (test code = 22284) 6.6 % HEMOGLOBIN [id number] 00:00:00* Test Item Value Reference Range Interpretation Comme nts HEMOGLOBIN A1c (test code = 97777) 6.6 % LIPID [id number] 00:00:00* Test Item Value Reference Range Interpretation Comme nts CHOLESTEROL (test code = 2210) 219 MG/DL TRIGLYCERIDES (test code = 2232) 108 MG/DL HDL CHOLESTEROL (test code = 2220) 38 MG/DL CALC LDL CHOL (test code = 2237) 159 MG/DL RISK RATIO LDL/HDL (test cod e = 2238) 4.18 RATIO LIPID [id number] 00:00:00* Test Item Value Reference Range Interpretation Comme nts CHOLESTEROL (test code = 2210) 219 MG/DL TRIGLYCERIDES (test code = 2232) 108 MG/DL HDL CHOLESTEROL (test code = 2220) 38 MG/DL CALC LDL CHOL (test code = 2237) 159 MG/DL RISK RATIO LDL/HDL (test cod e = 2238) 4.18 RATIO VITAMIN D, 25 [id number] 00:00:00* Test Item Value Reference Range Interpretation Comme nts VITAMIN D, 25 OH (test code = 4958) 22 NG/ML VITAMIN D, 25 [id number] 00:00:00* Test Item Value Reference Range Interpretation Comme nts VITAMIN D, 25 OH (test code = 4958) 22 NG/ML HEMOGLOBIN [id number] 00:00:00* Test Item Value Reference Range Interpretation Comme nts HEMOGLOBIN A1c (test code = 19675) 6.6 % HEMOGLOBIN [id number] 00:00:00* Test Item Value Reference Range Interpretation Comme nts HEMOGLOBIN A1c (test code = 67966) 6.6 % HEMOGLOBIN [id number] 00:00:00* Test Item Value Reference Range Interpretation Comme nts HEMOGLOBIN A1c (test code = 65585) 6.6 % LIPID [id number] 00:00:00* Test Item Value Reference Range Interpretation Comme nts CHOLESTEROL (test code = 2210) 219 MG/DL TRIGLYCERIDES (test code = 2232) 108 MG/DL HDL CHOLESTEROL (test code = 2220) 38 MG/DL CALC LDL CHOL (test code = 2237) 159 MG/DL RISK RATIO LDL/HDL (test cod e = 2238) 4.18 RATIO LIPID [id number] 00:00:00* Test Item Value Reference Range Interpretation Comme nts CHOLESTEROL (test code = 2210) 219 MG/DL TRIGLYCERIDES (test code = 2232) 108 MG/DL HDL CHOLESTEROL (test code = 2220) 38 MG/DL CALC LDL CHOL (test code = 2237) 159 MG/DL RISK RATIO LDL/HDL (test cod e = 2238) 4.18 RATIO VITAMIN D, 25 [id number] 00:00:00* Test Item Value Reference Range Interpretation Comme nts VITAMIN D, 25 OH (test code = 4958) 22 NG/ML VITAMIN D, 25 [id number] 00:00:00* Test Item Value Reference Range Interpretation Comme nts VITAMIN D, 25 OH (test code = 4958) 22 NG/ML HEMOGLOBIN [id number] 00:00:00* Test Item Value Reference Range Interpretation Comme nts HEMOGLOBIN A1c (test code = 71490) 6.6 % HEMOGLOBIN [id number] 00:00:00* Test Item Value Reference Range Interpretation Comme nts HEMOGLOBIN A1c (test code = 06188) 6.6 % HEMOGLOBIN [id number] 00:00:00* Test Item Value Reference Range Interpretation Comme nts HEMOGLOBIN A1c (test code = 63798) 6.6 % HEMOGLOBIN [id number] 00:00:00* Test Item Value Reference Range Interpretation Comme nts HEMOGLOBIN A1c (test code = 53938) 6.6 % LIPID [id number] 00:00:00* Test Item Value Reference Range Interpretation Comme nts CHOLESTEROL (test code = 2210) 219 MG/DL TRIGLYCERIDES (test code = 2232) 108 MG/DL HDL CHOLESTEROL (test code = 2220) 38 MG/DL CALC LDL CHOL (test code = 2237) 159 MG/DL RISK RATIO LDL/HDL (test cod e = 2238) 4.18 RATIO LIPID [id number] 00:00:00* Test Item Value Reference Range Interpretation Comme nts CHOLESTEROL (test code = 2210) 219 MG/DL TRIGLYCERIDES (test code = 2232) 108 MG/DL HDL CHOLESTEROL (test code = 2220) 38 MG/DL CALC LDL CHOL (test code = 2237) 159 MG/DL RISK RATIO LDL/HDL (test cod e = 2238) 4.18 RATIO VITAMIN D, 25 [id number] 00:00:00* Test Item Value Reference Range Interpretation Comme [facility] VITAMIN D, 25 OH (test code = 4958) 22 NG/ML VITAMIN D, 25 [id number] 00:00:00* Test Item Value Reference Range Interpretation Comme [facility] VITAMIN D, 25 OH (test code = 4958) 22 NG/ML HEMOGLOBIN [id number] 00:00:00* Test Item Value Reference Range Interpretation Comme [facility] HEMOGLOBIN A1c (test code = 29811) 6.6 % VITAMIN D, 25 [id number] 00:00:00* Test Item Value Reference Range Interpretation Comme [facility] VITAMIN D, 25 OH (test code = 4958) 14 NG/ML Eduardo F AustinVITAMIN D, 25 [id number] 00:00:00* Test Item Value Reference Range Interpretation Comme [facility] VITAMIN D, 25 OH (test code = 4958) 14 NG/ML VITAMIN D, 25 [id number] 00:00:00* Test Item Value Reference Range Interpretation Comme [facility] VITAMIN D, 25 OH (test code = 4958) 14 NG/ML VITAMIN D, 25 [id number] 00:00:00* Test Item Value Reference Range Interpretation Comme nts VITAMIN D, 25 OH (test code = 4958) 14 NG/ML VITAMIN D, 25 [id number] 00:00:00* Test Item Value Reference Range Interpretation Comme nts VITAMIN D, 25 OH (test code = 4958) 14 NG/ML VITAMIN D, 25 [id number] 00:00:00* Test Item Value Reference Range Interpretation Comme nts VITAMIN D, 25 OH (test code = 4958) 14 NG/ML VITAMIN D, 25 [id number] 00:00:00* Test Item Value Reference Range Interpretation Comme nts VITAMIN D, 25 OH (test code = 4958) 14 NG/ML VITAMIN D, 25 [id number] 00:00:00* Test Item Value Reference Range Interpretation Comme nts VITAMIN D, 25 OH (test code = 4958) 14 NG/ML VITAMIN D, 25 [id number] 00:00:00* Test Item Value Reference Range Interpretation Comme nts VITAMIN D, 25 OH (test code = 4958) 14 NG/ML LIPID [id number] 00:00:00* Test Item Value Reference Range Interpretation Comme nts CHOLESTEROL (test code = 2210) 210 MG/DL TRIGLYCERIDES (test code = 2232) 381 MG/DL HDL CHOLESTEROL (test code = 2220) 37 MG/DL CALC LDL CHOL (test code = 2237) 119 MG/DL RISK RATIO LDL/HDL (test cod e = 2238) 3.22 RATIO Eduardo F AustinLIPID [id number] 00:00:00* Test Item Value Reference Range Interpretation Comme nts CHOLESTEROL (test code = 2210) 210 MG/DL TRIGLYCERIDES (test code = 2232) 381 MG/DL HDL CHOLESTEROL (test code = 2220) 37 MG/DL CALC LDL CHOL (test code = 2237) 119 MG/DL RISK RATIO LDL/HDL (test cod e = 2238) 3.22 RATIO LIPID [id number] 00:00:00* Test Item Value Reference Range Interpretation Comme nts CHOLESTEROL (test code = 2210) 210 MG/DL TRIGLYCERIDES (test code = 2232) 381 MG/DL HDL CHOLESTEROL (test code = 2220) 37 MG/DL CALC LDL CHOL (test code = 2237) 119 MG/DL RISK RATIO LDL/HDL (test cod e = 2238) 3.22 RATIO LIPID [id number] 00:00:00* Test Item Value Reference Range Interpretation Comme nts CHOLESTEROL (test code = 2210) 210 MG/DL TRIGLYCERIDES (test code = 2232) 381 MG/DL HDL CHOLESTEROL (test code = 2220) 37 MG/DL CALC LDL CHOL (test code = 2237) 119 MG/DL RISK RATIO LDL/HDL (test cod e = 2238) 3.22 RATIO LIPID [id number] 00:00:00* Test Item Value Reference Range Interpretation Comme nts CHOLESTEROL (test code = 2210) 210 MG/DL TRIGLYCERIDES (test code = 2232) 381 MG/DL HDL CHOLESTEROL (test code = 2220) 37 MG/DL CALC LDL CHOL (test code = 2237) 119 MG/DL RISK RATIO LDL/HDL (test cod e = 2238) 3.22 RATIO LIPID [id number] 00:00:00* Test Item Value Reference Range Interpretation Comme nts CHOLESTEROL (test code = 2210) 210 MG/DL TRIGLYCERIDES (test code = 2232) 381 MG/DL HDL CHOLESTEROL (test code = 2220) 37 MG/DL CALC LDL CHOL (test code = 2237) 119 MG/DL RISK RATIO LDL/HDL (test cod e = 2238) 3.22 RATIO LIPID [id number] 00:00:00* Test Item Value Reference Range Interpretation Comme nts CHOLESTEROL (test code = 2210) 210 MG/DL TRIGLYCERIDES (test code = 2232) 381 MG/DL HDL CHOLESTEROL (test code = 2220) 37 MG/DL CALC LDL CHOL (test code = 2237) 119 MG/DL RISK RATIO LDL/HDL (test cod e = 2238) 3.22 RATIO LIPID [id number] 00:00:00* Test Item Value Reference Range Interpretation Comme nts CHOLESTEROL (test code = 2210) 210 MG/DL TRIGLYCERIDES (test code = 2232) 381 MG/DL HDL CHOLESTEROL (test code = 2220) 37 MG/DL CALC LDL CHOL (test code = 2237) 119 MG/DL RISK RATIO LDL/HDL (test cod e = 2238) 3.22 RATIO LIPID [id number] 00:00:00* Test Item Value Reference Range Interpretation Comme nts CHOLESTEROL (test code = 2210) 210 MG/DL TRIGLYCERIDES (test code = 2232) 381 MG/DL HDL CHOLESTEROL (test code = 2220) 37 MG/DL CALC LDL CHOL (test code = 2237) 119 MG/DL RISK RATIO LDL/HDL (test cod e = 2238) 3.22 RATIO HEMOGLOBIN [id number] 00:00:00* Test Item Value Reference Range Interpretation Comme nts HEMOGLOBIN A1c (test code = 31068) 6.2 % Eduardo F AustinHEMOGLOBIN [id number] 00:00:00* Test Item Value Reference Range Interpretation Comme nts HEMOGLOBIN A1c (test code = 33781) 6.2 % HEMOGLOBIN [id number] 00:00:00* Test Item Value Reference Range Interpretation Comme nts HEMOGLOBIN A1c (test code = 28398) 6.2 % HEMOGLOBIN [id number] 00:00:00* Test Item Value Reference Range Interpretation Comme nts HEMOGLOBIN A1c (test code = 93381) 6.2 % HEMOGLOBIN [id number] 00:00:00* Test Item Value Reference Range Interpretation Comme nts HEMOGLOBIN A1c (test code = 80204) 6.2 % HEMOGLOBIN [id number] 00:00:00* Test Item Value Reference Range Interpretation Comme nts HEMOGLOBIN A1c (test code = 40070) 6.2 % HEMOGLOBIN [id number] 00:00:00* Test Item Value Reference Range Interpretation Comme nts HEMOGLOBIN A1c (test code = 17078) 6.2 % HEMOGLOBIN [id number] 00:00:00* Test Item Value Reference Range Interpretation Comme nts HEMOGLOBIN A1c (test code = 17585) 6.2 % HEMOGLOBIN [id number] 00:00:00* Test Item Value Reference Range Interpretation Comme nts HEMOGLOBIN A1c (test code = 29807) 6.2 % HEMOGLOBIN [id number] 00:00:00* Test Item Value Reference Range Interpretation Comme nts HEMOGLOBIN A1c (test code = 79237) 6.2 % HEMOGLOBIN [id number] 00:00:00* Test Item Value Reference Range Interpretation Comme nts HEMOGLOBIN A1c (test code = 70879) 6.2 % HEMOGLOBIN [id number] 00:00:00* Test Item Value Reference Range Interpretation Comme nts HEMOGLOBIN A1c (test code = 78027) 6.2 % HEMOGLOBIN [id number] 00:00:00* Test Item Value Reference Range Interpretation Comme nts HEMOGLOBIN A1c (test code = 65883) 6.2 % ACUTE HEPATITIS [id number] 00:00:00* Test Item Value Reference Range Interpretation Comme nts HEPATITIS A IgM (test code = 39414) NON-REACTIVE HEPATITIS B CORE IgM (test c ode = 4644) NON-REACTIVE HEPATITIS B SURF AG (test co de = 2739) NON-REACTIVE HEPATITIS C ANTIBODY (test c ode = 4675) NON-REACTIVE INTERPRETATION HEPATITIS A: (test code = 2552) (NOTE) INTERPRETATION HEPATITIS B: (test code = 95614) (NOTE) INTERPRETATION HEPATITIS C: (test code = 57456) (NOTE) Eduardo Schwartz AustinHEMOGLOBIN [id number] 00:00:00* Test Item Value Reference Range Interpretation Comme nts HEMOGLOBIN A1c (test code = 59776) 7.6 % Eduardo Schwartz [place]HEMOGLOBIN [id number] 00:00:00* Test Item Value Reference Range Interpretation Comme nts HEMOGLOBIN A1c (test code = 82353) 7.6 % HEMOGLOBIN [id number] 00:00:00* Test Item Value Reference Range Interpretation Comme nts HEMOGLOBIN A1c (test code = 35516) 7.6 % HEMOGLOBIN [id number] 00:00:00* Test Item Value Reference Range Interpretation Comme nts HEMOGLOBIN A1c (test code = 65800) 7.6 % ACUTE HEPATITIS [id number] 00:00:00* Test Item Value Reference Range Interpretation Comme nts HEPATITIS A IgM (test code = 49519) NON-REACTIVE HEPATITIS B CORE IgM (test c ode = 4644) NON-REACTIVE HEPATITIS B SURF AG (test co de = 2739) NON-REACTIVE HEPATITIS C ANTIBODY (test c ode = 4675) NON-REACTIVE INTERPRETATION HEPATITIS A: (test code = 2552) (NOTE) INTERPRETATION HEPATITIS B: (test code = 27932) (NOTE) INTERPRETATION HEPATITIS C: (test code = 25557) (NOTE) ACUTE HEPATITIS [id number] 00:00:00* Test Item Value Reference Range Interpretation Comme nts HEPATITIS A IgM (test code = 93231) NON-REACTIVE HEPATITIS B CORE IgM (test c ode = 4644) NON-REACTIVE HEPATITIS B SURF AG (test co de = 2739) NON-REACTIVE HEPATITIS C ANTIBODY (test c ode = 4675) NON-REACTIVE INTERPRETATION HEPATITIS A: (test code = 2552) (NOTE) INTERPRETATION HEPATITIS B: (test code = 17140) (NOTE) INTERPRETATION HEPATITIS C: (test code = 00246) (NOTE) HEMOGLOBIN [id number] 00:00:00* Test Item Value Reference Range Interpretation Comme nts HEMOGLOBIN A1c (test code = 54330) 7.6 % HEMOGLOBIN [id number] 00:00:00* Test Item Value Reference Range Interpretation Comme nts HEMOGLOBIN A1c (test code = 25441) 7.6 % HEMOGLOBIN [id number] 00:00:00* Test Item Value Reference Range Interpretation Comme nts HEMOGLOBIN A1c (test code = 73355) 7.6 % ACUTE HEPATITIS [id number] 00:00:00* Test Item Value Reference Range Interpretation Comme nts HEPATITIS A IgM (test code = 62149) NON-REACTIVE HEPATITIS B CORE IgM (test c ode = 4644) NON-REACTIVE HEPATITIS B SURF AG (test co de = 2739) NON-REACTIVE HEPATITIS C ANTIBODY (test c ode = 4675) NON-REACTIVE INTERPRETATION HEPATITIS A: (test code = 2552) (NOTE) INTERPRETATION HEPATITIS B: (test code = 02447) (NOTE) INTERPRETATION HEPATITIS C: (test code = 02550) (NOTE) ACUTE HEPATITIS [id number] 00:00:00* Test Item Value Reference Range Interpretation Comme nts HEPATITIS A IgM (test code = 43859) NON-REACTIVE HEPATITIS B CORE IgM (test c ode = 4644) NON-REACTIVE HEPATITIS B SURF AG (test co de = 2739) NON-REACTIVE HEPATITIS C ANTIBODY (test c ode = 4675) NON-REACTIVE INTERPRETATION HEPATITIS A: (test code = 2552) (NOTE) INTERPRETATION HEPATITIS B: (test code = 63249) (NOTE) INTERPRETATION HEPATITIS C: (test code = 53058) (NOTE) HEMOGLOBIN [id number] 00:00:00* Test Item Value Reference Range Interpretation Comme nts HEMOGLOBIN A1c (test code = 24243) 7.6 % HEMOGLOBIN [id number] 00:00:00* Test Item Value Reference Range Interpretation Comme nts HEMOGLOBIN A1c (test code = 64497) 7.6 % HEMOGLOBIN [id number] 00:00:00* Test Item Value Reference Range Interpretation Comme nts HEMOGLOBIN A1c (test code = 02222) 7.6 % ACUTE HEPATITIS [id number] 00:00:00* Test Item Value Reference Range Interpretation Comme nts HEPATITIS A IgM (test code = 17957) NON-REACTIVE HEPATITIS B CORE IgM (test c ode = 4644) NON-REACTIVE HEPATITIS B SURF AG (test co de = 2739) NON-REACTIVE HEPATITIS C ANTIBODY (test c ode = 4675) NON-REACTIVE INTERPRETATION HEPATITIS A: (test code = 2552) (NOTE) INTERPRETATION HEPATITIS B: (test code = 68094) (NOTE) INTERPRETATION HEPATITIS C: (test code = 67706) (NOTE) ACUTE HEPATITIS [id number] 00:00:00* Test Item Value Reference Range Interpretation Comme nts HEPATITIS A IgM (test code = 93626) NON-REACTIVE HEPATITIS B CORE IgM (test c ode = 4644) NON-REACTIVE HEPATITIS B SURF AG (test co de = 2739) NON-REACTIVE HEPATITIS C ANTIBODY (test c ode = 4675) NON-REACTIVE INTERPRETATION HEPATITIS A: (test code = 2552) (NOTE) INTERPRETATION HEPATITIS B: (test code = 91099) (NOTE) INTERPRETATION HEPATITIS C: (test code = 95716) (NOTE) ACUTE HEPATITIS [id number] 00:00:00* Test Item Value Reference Range Interpretation Comme nts HEPATITIS A IgM (test code = 09372) NON-REACTIVE HEPATITIS B CORE IgM (test c ode = 4644) NON-REACTIVE HEPATITIS B SURF AG (test co de = 2739) NON-REACTIVE HEPATITIS C ANTIBODY (test c ode = 4675) NON-REACTIVE INTERPRETATION HEPATITIS A: (test code = 2552) (NOTE) INTERPRETATION HEPATITIS B: (test code = 15231) (NOTE) INTERPRETATION HEPATITIS C: (test code = 13712) (NOTE) HEMOGLOBIN [id number] 00:00:00* Test Item Value Reference Range Interpretation Comme nts HEMOGLOBIN A1c (test code = 29070) 7.6 % HEMOGLOBIN [id number] 00:00:00* Test Item Value Reference Range Interpretation Comme nts HEMOGLOBIN A1c (test code = 89789) 7.6 % HEMOGLOBIN [id number] 00:00:00* Test Item Value Reference Range Interpretation Comme nts HEMOGLOBIN A1c (test code = 26793) 7.6 % ACUTE HEPATITIS [id number] 00:00:00* Test Item Value Reference Range Interpretation Comme nts HEPATITIS A IgM (test code = 72511) NON-REACTIVE HEPATITIS B CORE IgM (test c ode = 4644) NON-REACTIVE HEPATITIS B SURF AG (test co de = 2739) NON-REACTIVE HEPATITIS C ANTIBODY (test c ode = 4607) NON-REACTIVE INTERPRETATION HEPATITIS A: (test code = 2552) (NOTE) INTERPRETATION HEPATITIS B: (test code = 74683) (NOTE) INTERPRETATION HEPATITIS C: (test code = 20787) (NOTE) [id number] 00:00:00* Test Item Value Reference Range Interpretation Comme nts TSH, THIRD GENERATION (test code = 2821) 1.970 UIU/ML Eduardo LoveLIPID [id number] 00:00:00* Test Item Value Reference Range Interpretation Comme nts CHOLESTEROL (test code = 2210) 259 MG/DL TRIGLYCERIDES (test code = 2232) 209 MG/DL HDL CHOLESTEROL (test code = 2220) 35 MG/DL CALC LDL CHOL (test code = 2237) 185 MG/DL RISK RATIO LDL/HDL (test cod e = 2238) 5.29 RATIO Eduardo LoveCOMPREHENSIVE METABOLIC [id number] 00:00:00* Test Item Value Reference Range Interpretation Comme nts GLUCOSE (test code = 2217) 148 MG/DL BUN (test code = 2208) 13 MG/DL CREATININE (test code = 2214) 0.77 MG/DL eGFR AMER. (test cod e = 06032) 105 ML/MIN/1.73 eGFR NON- AMER. (test code = 66345) 91 ML/MIN/1.73 CALC BUN/CREAT (test code = 2235) 17 RATIO SODIUM (test code = 2231) 138 MEQ/L POTASSIUM (test code = 2228) 4.3 MEQ/L CHLORIDE (test code = 2215) 101 MEQ/L CARBON DIOXIDE (test code = 2206) 27 MEQ/L CALCIUM (test code = 2209) 9.8 MG/DL PROTEIN, TOTAL (test code = 2229) 7.1 G/DL ALBUMIN (test code = 2201) 4.4 G/DL CALC GLOBULIN (test code = 2240) 2.7 G/DL CALC A/G RATIO (test code = 2234) 1.6 RATIO BILIRUBIN, TOTAL (test code = 2207) 0.6 MG/DL ALKALINE PHOSPHATASE (test code = 2204) 120 U/L AST (test code = 2218) 28 U/L ALT (test code = 2219) 72 U/L Eduardo Schwartz [id number] 00:00:00* Test Item Value Reference Range Interpretation Comme nts TSH, THIRD GENERATION (test code = 2821) 1.970 UIU/ML LIPID [id number] 00:00:00* Test Item Value Reference Range Interpretation Comme nts CHOLESTEROL (test code = 2210) 259 MG/DL TRIGLYCERIDES (test code = 2232) 209 MG/DL HDL CHOLESTEROL (test code = 2220) 35 MG/DL CALC LDL CHOL (test code = 2237) 185 MG/DL RISK RATIO LDL/HDL (test cod e = 2238) 5.29 RATIO LIPID [id number] 00:00:00* Test Item Value Reference Range Interpretation Comme nts CHOLESTEROL (test code = 2210) 259 MG/DL TRIGLYCERIDES (test code = 2232) 209 MG/DL HDL CHOLESTEROL (test code = 2220) 35 MG/DL CALC LDL CHOL (test code = 2237) 185 MG/DL RISK RATIO LDL/HDL (test cod e = 2238) 5.29 RATIO COMPREHENSIVE METABOLIC [id number] 00:00:00* Test Item Value Reference Range Interpretation Comme nts GLUCOSE (test code = 2217) 148 MG/DL BUN (test code = 2208) 13 MG/DL CREATININE (test code = 2214) 0.77 MG/DL eGFR AMER. (test cod e = 13129) 105 ML/MIN/1.73 eGFR NON- AMER. (test code = 14394) 91 ML/MIN/1.73 CALC BUN/CREAT (test code = 2235) 17 RATIO SODIUM (test code = 2231) 138 MEQ/L POTASSIUM (test code = 2228) 4.3 MEQ/L CHLORIDE (test code = 2215) 101 MEQ/L CARBON DIOXIDE (test code = 2206) 27 MEQ/L CALCIUM (test code = 2209) 9.8 MG/DL PROTEIN, TOTAL (test code = 2229) 7.1 G/DL ALBUMIN (test code = 2201) 4.4 G/DL CALC GLOBULIN (test code = 2240) 2.7 G/DL CALC A/G RATIO (test code = 2234) 1.6 RATIO BILIRUBIN, TOTAL (test code = 2207) 0.6 MG/DL ALKALINE PHOSPHATASE (test code = 2204) 120 U/L AST (test code = 2218) 28 U/L ALT (test code = 2219) 72 U/L COMPREHENSIVE METABOLIC [id number] 00:00:00* Test Item Value Reference Range Interpretation Comme nts GLUCOSE (test code = 2217) 148 MG/DL BUN (test code = 2208) 13 MG/DL CREATININE (test code = 2214) 0.77 MG/DL eGFR AMER. (test cod e = 53403) 105 ML/MIN/1.73 eGFR NON- AMER. (test code = 28977) 91 ML/MIN/1.73 CALC BUN/CREAT (test code = 2235) 17 RATIO SODIUM (test code = 2231) 138 MEQ/L POTASSIUM (test code = 2228) 4.3 MEQ/L CHLORIDE (test code = 2215) 101 MEQ/L CARBON DIOXIDE (test code = 2206) 27 MEQ/L CALCIUM (test code = 2209) 9.8 MG/DL PROTEIN, TOTAL (test code = 2229) 7.1 G/DL ALBUMIN (test code = 2201) 4.4 G/DL CALC GLOBULIN (test code = 2240) 2.7 G/DL CALC A/G RATIO (test code = 2234) 1.6 RATIO BILIRUBIN, TOTAL (test code = 2207) 0.6 MG/DL ALKALINE PHOSPHATASE (test code = 2204) 120 U/L AST (test code = 2218) 28 U/L ALT (test code = 2219) 72 U/L [id number] 00:00:00* Test Item Value Reference Range Interpretation Comme nts TSH, THIRD GENERATION (test code = 2821) 1.970 UIU/ML [id number] 00:00:00* Test Item Value Reference Range Interpretation Comme nts TSH, THIRD GENERATION (test code = 2821) 1.970 UIU/ML [id number] 00:00:00* Test Item Value Reference Range Interpretation Comme nts TSH, THIRD GENERATION (test code = 2821) 1.970 UIU/ML LIPID [id number] 00:00:00* Test Item Value Reference Range Interpretation Comme nts CHOLESTEROL (test code = 2210) 259 MG/DL TRIGLYCERIDES (test code = 2232) 209 MG/DL HDL CHOLESTEROL (test code = 2220) 35 MG/DL CALC LDL CHOL (test code = 2237) 185 MG/DL RISK RATIO LDL/HDL (test cod e = 2238) 5.29 RATIO LIPID [id number] 00:00:00* Test Item Value Reference Range Interpretation Comme nts CHOLESTEROL (test code = 2210) 259 MG/DL TRIGLYCERIDES (test code = 2232) 209 MG/DL HDL CHOLESTEROL (test code = 2220) 35 MG/DL CALC LDL CHOL (test code = 2237) 185 MG/DL RISK RATIO LDL/HDL (test cod e = 2238) 5.29 RATIO COMPREHENSIVE METABOLIC [id number] 00:00:00* Test Item Value Reference Range Interpretation Comme nts GLUCOSE (test code = 2217) 148 MG/DL BUN (test code = 2208) 13 MG/DL CREATININE (test code = 2214) 0.77 MG/DL eGFR AMER. (test cod e = 14094) 105 ML/MIN/1.73 eGFR NON- AMER. (test code = 76560) 91 ML/MIN/1.73 CALC BUN/CREAT (test code = 2235) 17 RATIO SODIUM (test code = 2231) 138 MEQ/L POTASSIUM (test code = 2228) 4.3 MEQ/L CHLORIDE (test code = 2215) 101 MEQ/L CARBON DIOXIDE (test code = 2206) 27 MEQ/L CALCIUM (test code = 2209) 9.8 MG/DL PROTEIN, TOTAL (test code = 2229) 7.1 G/DL ALBUMIN (test code = 2201) 4.4 G/DL CALC GLOBULIN (test code = 2240) 2.7 G/DL CALC A/G RATIO (test code = 2234) 1.6 RATIO BILIRUBIN, TOTAL (test code = 2207) 0.6 MG/DL ALKALINE PHOSPHATASE (test code = 2204) 120 U/L AST (test code = 2218) 28 U/L ALT (test code = 2219) 72 U/L COMPREHENSIVE METABOLIC [id number] 00:00:00* Test Item Value Reference Range Interpretation Comme nts GLUCOSE (test code = 2217) 148 MG/DL BUN (test code = 2208) 13 MG/DL CREATININE (test code = 2214) 0.77 MG/DL eGFR AMER. (test cod e = 83325) 105 ML/MIN/1.73 eGFR NON- AMER. (test code = 42925) 91 ML/MIN/1.73 CALC BUN/CREAT (test code = 2235) 17 RATIO SODIUM (test code = 2231) 138 MEQ/L POTASSIUM (test code = 2228) 4.3 MEQ/L CHLORIDE (test code = 2215) 101 MEQ/L CARBON DIOXIDE (test code = 2206) 27 MEQ/L CALCIUM (test code = 2209) 9.8 MG/DL PROTEIN, TOTAL (test code = 2229) 7.1 G/DL ALBUMIN (test code = 2201) 4.4 G/DL CALC GLOBULIN (test code = 2240) 2.7 G/DL CALC A/G RATIO (test code = 2234) 1.6 RATIO BILIRUBIN, TOTAL (test code = 2207) 0.6 MG/DL ALKALINE PHOSPHATASE (test code = 2204) 120 U/L AST (test code = 2218) 28 U/L ALT (test code = 2219) 72 U/L [id number] 00:00:00* Test Item Value Reference Range Interpretation Comme nts TSH, THIRD GENERATION (test code = 2821) 1.970 UIU/ML [id number] 00:00:00* Test Item Value Reference Range Interpretation Comme nts TSH, THIRD GENERATION (test code = 2821) 1.970 UIU/ML [id number] 00:00:00* Test Item Value Reference Range Interpretation Comme nts TSH, THIRD GENERATION (test code = 2821) 1.970 UIU/ML LIPID [id number] 00:00:00* Test Item Value Reference Range Interpretation Comme nts CHOLESTEROL (test code = 2210) 259 MG/DL TRIGLYCERIDES (test code = 2232) 209 MG/DL HDL CHOLESTEROL (test code = 2220) 35 MG/DL CALC LDL CHOL (test code = 2237) 185 MG/DL RISK RATIO LDL/HDL (test cod e = 2238) 5.29 RATIO LIPID [id number] 00:00:00* Test Item Value Reference Range Interpretation Comme nts CHOLESTEROL (test code = 2210) 259 MG/DL TRIGLYCERIDES (test code = 2232) 209 MG/DL HDL CHOLESTEROL (test code = 2220) 35 MG/DL CALC LDL CHOL (test code = 2237) 185 MG/DL RISK RATIO LDL/HDL (test cod e = 2238) 5.29 RATIO COMPREHENSIVE METABOLIC [id number] 00:00:00* Test Item Value Reference Range Interpretation Comme nts GLUCOSE (test code = 2217) 148 MG/DL BUN (test code = 2208) 13 MG/DL CREATININE (test code = 2214) 0.77 MG/DL eGFR AMER. (test cod e = 60815) 105 ML/MIN/1.73 eGFR NON- AMER. (test code = 96804) 91 ML/MIN/1.73 CALC BUN/CREAT (test code = 2235) 17 RATIO SODIUM (test code = 2231) 138 MEQ/L POTASSIUM (test code = 2228) 4.3 MEQ/L CHLORIDE (test code = 2215) 101 MEQ/L CARBON DIOXIDE (test code = 2206) 27 MEQ/L CALCIUM (test code = 2209) 9.8 MG/DL PROTEIN, TOTAL (test code = 2229) 7.1 G/DL ALBUMIN (test code = 2201) 4.4 G/DL CALC GLOBULIN (test code = 2240) 2.7 G/DL CALC A/G RATIO (test code = 2234) 1.6 RATIO BILIRUBIN, TOTAL (test code = 2207) 0.6 MG/DL ALKALINE PHOSPHATASE (test code = 2204) 120 U/L AST (test code = 2218) 28 U/L ALT (test code = 2219) 72 U/L COMPREHENSIVE METABOLIC [id number] 00:00:00* Test Item Value Reference Range Interpretation Comme nts GLUCOSE (test code = 2217) 148 MG/DL BUN (test code = 2208) 13 MG/DL CREATININE (test code = 2214) 0.77 MG/DL eGFR AMER. (test cod e = 37170) 105 ML/MIN/1.73 eGFR NON- AMER. (test code = 22224) 91 ML/MIN/1.73 CALC BUN/CREAT (test code = 2235) 17 RATIO SODIUM (test code = 223) 138 MEQ/L POTASSIUM (test code = 2228) 4.3 MEQ/L CHLORIDE (test code = 2215) 101 MEQ/L CARBON DIOXIDE (test code = 2206) 27 MEQ/L CALCIUM (test code = 2209) 9.8 MG/DL PROTEIN, TOTAL (test code = 2229) 7.1 G/DL ALBUMIN (test code = 2201) 4.4 G/DL CALC GLOBULIN (test code = 2240) 2.7 G/DL CALC A/G RATIO (test code = 2234) 1.6 RATIO BILIRUBIN, TOTAL (test code = 220) 0.6 MG/DL ALKALINE PHOSPHATASE (test code = 2203) 120 U/L AST (test code = 221) 28 U/L ALT (test code = 2218) 72 U/L [id number] 00:00:00* Test Item Value Reference Range Interpretation Comme nts TSH, THIRD GENERATION (test code = 2821) 1.970 UIU/ML [id number] 00:00:00* Test Item Value Reference Range Interpretation Comme nts TSH, THIRD GENERATION (test code = 2821) 1.970 UIU/ML [id number] 00:00:00* Test Item Value Reference Range Interpretation Comme nts TSH, THIRD GENERATION (test code = 2821) 1.970 UIU/ML [id number] 00:00:00* Test Item Value Reference Range Interpretation Comme nts TSH, THIRD GENERATION (test code = 2821) 1.970 UIU/ML LIPID [id number] 00:00:00* Test Item Value Reference Range Interpretation Comme nts CHOLESTEROL (test code = 2210) 259 MG/DL TRIGLYCERIDES (test code = 2232) 209 MG/DL HDL CHOLESTEROL (test code = 2220) 35 MG/DL CALC LDL CHOL (test code = 2237) 185 MG/DL RISK RATIO LDL/HDL (test cod e = 2238) 5.29 RATIO LIPID [id number] 00:00:00* Test Item Value Reference Range Interpretation Comme nts CHOLESTEROL (test code = 2210) 259 MG/DL TRIGLYCERIDES (test code = 2232) 209 MG/DL HDL CHOLESTEROL (test code = 2220) 35 MG/DL CALC LDL CHOL (test code = 2237) 185 MG/DL RISK RATIO LDL/HDL (test cod e = 2238) 5.29 RATIO COMPREHENSIVE METABOLIC [id number] 00:00:00* Test Item Value Reference Range Interpretation Comme nts GLUCOSE (test code = 2217) 148 MG/DL BUN (test code = 2208) 13 MG/DL CREATININE (test code = 2214) 0.77 MG/DL eGFR AMER. (test cod e = 38368) 105 ML/MIN/1.73 eGFR NON- AMER. (test code = 17604) 91 ML/MIN/1.73 CALC BUN/CREAT (test code = 2235) 17 RATIO SODIUM (test code = 2231) 138 MEQ/L POTASSIUM (test code = 2228) 4.3 MEQ/L CHLORIDE (test code = 2215) 101 MEQ/L CARBON DIOXIDE (test code = 2206) 27 MEQ/L CALCIUM (test code = 2209) 9.8 MG/DL PROTEIN, TOTAL (test code = 2229) 7.1 G/DL ALBUMIN (test code = 2201) 4.4 G/DL CALC GLOBULIN (test code = 2240) 2.7 G/DL CALC A/G RATIO (test code = 2234) 1.6 RATIO BILIRUBIN, TOTAL (test code = 2207) 0.6 MG/DL ALKALINE PHOSPHATASE (test code = 2204) 120 U/L AST (test code = 2218) 28 U/L ALT (test code = 2219) 72 U/L COMPREHENSIVE METABOLIC [id number] 00:00:00* Test Item Value Reference Range Interpretation Comme nts GLUCOSE (test code = 2217) 148 MG/DL BUN (test code = 2208) 13 MG/DL CREATININE (test code = 2214) 0.77 MG/DL eGFR AMER. (test cod e = 08991) 105 ML/MIN/1.73 eGFR NON- AMER. (test code = 68084) 91 ML/MIN/1.73 CALC BUN/CREAT (test code = 2235) 17 RATIO SODIUM (test code = 2231) 138 MEQ/L POTASSIUM (test code = 2228) 4.3 MEQ/L CHLORIDE (test code = 2215) 101 MEQ/L CARBON DIOXIDE (test code = 2206) 27 MEQ/L CALCIUM (test code = 2209) 9.8 MG/DL PROTEIN, TOTAL (test code = 2229) 7.1 G/DL ALBUMIN (test code = 2201) 4.4 G/DL CALC GLOBULIN (test code = 2240) 2.7 G/DL CALC A/G RATIO (test code = 2234) 1.6 RATIO BILIRUBIN, TOTAL (test code = 2207) 0.6 MG/DL ALKALINE PHOSPHATASE (test code = 2204) 120 U/L AST (test code = 2218) 28 U/L ALT (test code = 2219) 72 U/L [id number] 00:00:00* Test Item Value Reference Range Interpretation Comme nts TSH, THIRD GENERATION (test code = 2821) 1.970 UIU/ML CBC W/AUTO [id number] 00:00:00* Test Item Value Reference Range Interpretation Comme nts WBC (test code = 1001) 8.9 K/UL RBC (test code = 1002) 4.91 M/UL HEMOGLOBIN (test code = 1003) 14.3 G/DL HEMATOCRIT (test code = 1004) 42.4 % MCV (test code = 1005) 86.4 fL MCH (test code = 1006) 29.1 PG MCHC (test code = 1007) 33.7 G/DL RDW (test code = 1038) 12.3 % NEUTROPHILS (test code = 1008) 57.3 % LYMPHOCYTES (test code = 1010) 32.8 % MONOCYTES (test code = 1011) 8.2 % EOSINOPHILS (test code = 1012) 1.3 % BASOPHILS (test code = 1013) 0.4 % PLATELET COUNT (test code = 1015) 308 K/UL Eduardo LoveLIPID [id number] 00:00:00* Test Item Value Reference Range Interpretation Comme nts CHOLESTEROL (test code = 2210) 287 MG/DL TRIGLYCERIDES (test code = 2232) 307 MG/DL HDL CHOLESTEROL (test code = 2220) 36 MG/DL CALC LDL CHOL (test code = 2237) 199 MG/DL RISK RATIO LDL/HDL (test cod e = 2238) 5.53 RATIO Eduardo LoveCOMPREHENSIVE METABOLIC [id number] 00:00:00* Test Item Value Reference Range Interpretation Comme nts GLUCOSE (test code = 2217) 124 MG/DL BUN (test code = 2208) 12 MG/DL CREATININE (test code = 2214) 0.66 MG/DL eGFR AMER. (test cod e = 15654) 120 ML/MIN/1.73 eGFR NON- AMER. (test code = 12575) 104 ML/MIN/1.73 CALC BUN/CREAT (test code = 2235) 18 RATIO SODIUM (test code = 2231) 137 MEQ/L POTASSIUM (test code = 2228) 4.1 MEQ/L CHLORIDE (test code = 2215) 103 MEQ/L CARBON DIOXIDE (test code = 2206) 25 MEQ/L CALCIUM (test code = 2209) 9.2 MG/DL PROTEIN, TOTAL (test code = 2229) 7.3 G/DL ALBUMIN (test code = 2201) 4.4 G/DL CALC GLOBULIN (test code = 2240) 2.9 G/DL CALC A/G RATIO (test code = 2234) 1.5 RATIO BILIRUBIN, TOTAL (test code = 2207) 0.5 MG/DL ALKALINE PHOSPHATASE (test code = 2204) 105 U/L AST (test code = 2218) 34 U/L ALT (test code = 2219) 76 U/L Eduardo [id number] 00:00:00* Test Item Value Reference Range Interpretation Comme nts TSH, THIRD GENERATION (test code = 2821) 1.940 UIU/ML Eduardo LoveLIPID [id number] 00:00:00* Test Item Value Reference Range Interpretation Comme nts CHOLESTEROL (test code = 2210) 287 MG/DL TRIGLYCERIDES (test code = 2232) 307 MG/DL HDL CHOLESTEROL (test code = 2220) 36 MG/DL CALC LDL CHOL (test code = 2237) 199 MG/DL RISK RATIO LDL/HDL (test cod e = 2238) 5.53 RATIO LIPID [id number] 00:00:00* Test Item Value Reference Range Interpretation Comme nts CHOLESTEROL (test code = 2210) 287 MG/DL TRIGLYCERIDES (test code = 2232) 307 MG/DL HDL CHOLESTEROL (test code = 2220) 36 MG/DL CALC LDL CHOL (test code = 2237) 199 MG/DL RISK RATIO LDL/HDL (test cod e = 2238) 5.53 RATIO COMPREHENSIVE METABOLIC [id number] 00:00:00* Test Item Value Reference Range Interpretation Comme nts GLUCOSE (test code = 2217) 124 MG/DL BUN (test code = 2208) 12 MG/DL CREATININE (test code = 2214) 0.66 MG/DL eGFR AMER. (test cod e = 77871) 120 ML/MIN/1.73 eGFR NON- AMER. (test code = 63768) 104 ML/MIN/1.73 CALC BUN/CREAT (test code = 2235) 18 RATIO SODIUM (test code = 2231) 137 MEQ/L POTASSIUM (test code = 2228) 4.1 MEQ/L CHLORIDE (test code = 2215) 103 MEQ/L CARBON DIOXIDE (test code = 2206) 25 MEQ/L CALCIUM (test code = 2209) 9.2 MG/DL PROTEIN, TOTAL (test code = 2229) 7.3 G/DL ALBUMIN (test code = 2201) 4.4 G/DL CALC GLOBULIN (test code = 2240) 2.9 G/DL CALC A/G RATIO (test code = 2234) 1.5 RATIO BILIRUBIN, TOTAL (test code = 2207) 0.5 MG/DL ALKALINE PHOSPHATASE (test code = 2204) 105 U/L AST (test code = 2218) 34 U/L ALT (test code = 2219) 76 U/L COMPREHENSIVE METABOLIC [id number] 00:00:00* Test Item Value Reference Range Interpretation Comme nts GLUCOSE (test code = 2217) 124 MG/DL BUN (test code = 2208) 12 MG/DL CREATININE (test code = 2214) 0.66 MG/DL eGFR AMER. (test cod e = 38866) 120 ML/MIN/1.73 eGFR NON- AMER. (test code = 47805) 104 ML/MIN/1.73 CALC BUN/CREAT (test code = 2235) 18 RATIO SODIUM (test code = 2231) 137 MEQ/L POTASSIUM (test code = 2228) 4.1 MEQ/L CHLORIDE (test code = 2215) 103 MEQ/L CARBON DIOXIDE (test code = 2206) 25 MEQ/L CALCIUM (test code = 2209) 9.2 MG/DL PROTEIN, TOTAL (test code = 2229) 7.3 G/DL ALBUMIN (test code = 2201) 4.4 G/DL CALC GLOBULIN (test code = 2240) 2.9 G/DL CALC A/G RATIO (test code = 2234) 1.5 RATIO BILIRUBIN, TOTAL (test code = 2207) 0.5 MG/DL ALKALINE PHOSPHATASE (test code = 2204) 105 U/L AST (test code = 2218) 34 U/L ALT (test code = 2219) 76 U/L [id number] 00:00:00* Test Item Value Reference Range Interpretation Comme nts TSH, THIRD GENERATION (test code = 2821) 1.940 UIU/ML [id number] 00:00:00* Test Item Value Reference Range Interpretation Comme nts TSH, THIRD GENERATION (test code = 2821) 1.940 UIU/ML [id number] 00:00:00* Test Item Value Reference Range Interpretation Comme nts TSH, THIRD GENERATION (test code = 2821) 1.940 UIU/ML CBC W/AUTO [id number] 00:00:00* Test Item Value Reference Range Interpretation Comme nts WBC (test code = 1001) 8.9 K/UL RBC (test code = 1002) 4.91 M/UL HEMOGLOBIN (test code = 1003) 14.3 G/DL HEMATOCRIT (test code = 1004) 42.4 % MCV (test code = 1005) 86.4 fL MCH (test code = 1006) 29.1 PG MCHC (test code = 1007) 33.7 G/DL RDW (test code = 1038) 12.3 % NEUTROPHILS (test code = 1008) 57.3 % LYMPHOCYTES (test code = 1010) 32.8 % MONOCYTES (test code = 1011) 8.2 % EOSINOPHILS (test code = 1012) 1.3 % BASOPHILS (test code = 1013) 0.4 % PLATELET COUNT (test code = 1015) 308 K/UL CBC W/AUTO [id number] 00:00:00* Test Item Value Reference Range Interpretation Comme nts WBC (test code = 1001) 8.9 K/UL RBC (test code = 1002) 4.91 M/UL HEMOGLOBIN (test code = 1003) 14.3 G/DL HEMATOCRIT (test code = 1004) 42.4 % MCV (test code = 1005) 86.4 fL MCH (test code = 1006) 29.1 PG MCHC (test code = 1007) 33.7 G/DL RDW (test code = 1038) 12.3 % NEUTROPHILS (test code = 1008) 57.3 % LYMPHOCYTES (test code = 1010) 32.8 % MONOCYTES (test code = 1011) 8.2 % EOSINOPHILS (test code = 1012) 1.3 % BASOPHILS (test code = 1013) 0.4 % PLATELET COUNT (test code = 1015) 308 K/UL CBC W/AUTO [id number] 00:00:00* Test Item Value Reference Range Interpretation Comme nts WBC (test code = 1001) 8.9 K/UL RBC (test code = 1002) 4.91 M/UL HEMOGLOBIN (test code = 1003) 14.3 G/DL HEMATOCRIT (test code = 1004) 42.4 % MCV (test code = 1005) 86.4 fL MCH (test code = 1006) 29.1 PG MCHC (test code = 1007) 33.7 G/DL RDW (test code = 1038) 12.3 % NEUTROPHILS (test code = 1008) 57.3 % LYMPHOCYTES (test code = 1010) 32.8 % MONOCYTES (test code = 1011) 8.2 % EOSINOPHILS (test code = 1012) 1.3 % BASOPHILS (test code = 1013) 0.4 % PLATELET COUNT (test code = 1015) 308 K/UL LIPID [id number] 00:00:00* Test Item Value Reference Range Interpretation Comme nts CHOLESTEROL (test code = 2210) 287 MG/DL TRIGLYCERIDES (test code = 2232) 307 MG/DL HDL CHOLESTEROL (test code = 2220) 36 MG/DL CALC LDL CHOL (test code = 2237) 199 MG/DL RISK RATIO LDL/HDL (test cod e = 2238) 5.53 RATIO LIPID [id number] 00:00:00* Test Item Value Reference Range Interpretation Comme nts CHOLESTEROL (test code = 2210) 287 MG/DL TRIGLYCERIDES (test code = 2232) 307 MG/DL HDL CHOLESTEROL (test code = 2220) 36 MG/DL CALC LDL CHOL (test code = 2237) 199 MG/DL RISK RATIO LDL/HDL (test cod e = 2238) 5.53 RATIO COMPREHENSIVE METABOLIC [id number] 00:00:00* Test Item Value Reference Range Interpretation Comme nts GLUCOSE (test code = 2217) 124 MG/DL BUN (test code = 2208) 12 MG/DL CREATININE (test code = 2214) 0.66 MG/DL eGFR AMER. (test cod e = 48524) 120 ML/MIN/1.73 eGFR NON- AMER. (test code = 42618) 104 ML/MIN/1.73 CALC BUN/CREAT (test code = 2235) 18 RATIO SODIUM (test code = 2231) 137 MEQ/L POTASSIUM (test code = 2228) 4.1 MEQ/L CHLORIDE (test code = 2215) 103 MEQ/L CARBON DIOXIDE (test code = 2206) 25 MEQ/L CALCIUM (test code = 2209) 9.2 MG/DL PROTEIN, TOTAL (test code = 2229) 7.3 G/DL ALBUMIN (test code = 2201) 4.4 G/DL CALC GLOBULIN (test code = 2240) 2.9 G/DL CALC A/G RATIO (test code = 2234) 1.5 RATIO BILIRUBIN, TOTAL (test code = 2207) 0.5 MG/DL ALKALINE PHOSPHATASE (test code = 2204) 105 U/L AST (test code = 2218) 34 U/L ALT (test code = 2219) 76 U/L COMPREHENSIVE METABOLIC [id number] 00:00:00* Test Item Value Reference Range Interpretation Comme nts GLUCOSE (test code = 2217) 124 MG/DL BUN (test code = 2208) 12 MG/DL CREATININE (test code = 2214) 0.66 MG/DL eGFR AMER. (test cod e = 55412) 120 ML/MIN/1.73 eGFR NON- AMER. (test code = 24243) 104 ML/MIN/1.73 CALC BUN/CREAT (test code = 2235) 18 RATIO SODIUM (test code = 2231) 137 MEQ/L POTASSIUM (test code = 2228) 4.1 MEQ/L CHLORIDE (test code = 2215) 103 MEQ/L CARBON DIOXIDE (test code = 2206) 25 MEQ/L CALCIUM (test code = 2209) 9.2 MG/DL PROTEIN, TOTAL (test code = 2229) 7.3 G/DL ALBUMIN (test code = 2201) 4.4 G/DL CALC GLOBULIN (test code = 2240) 2.9 G/DL CALC A/G RATIO (test code = 2234) 1.5 RATIO BILIRUBIN, TOTAL (test code = 2207) 0.5 MG/DL ALKALINE PHOSPHATASE (test code = 2204) 105 U/L AST (test code = 2218) 34 U/L ALT (test code = 2219) 76 U/L [id number] 00:00:00* Test Item Value Reference Range Interpretation Comme nts TSH, THIRD GENERATION (test code = 2821) 1.940 UIU/ML [id number] 00:00:00* Test Item Value Reference Range Interpretation Comme nts TSH, THIRD GENERATION (test code = 2821) 1.940 UIU/ML [id number] 00:00:00* Test Item Value Reference Range Interpretation Comme nts TSH, THIRD GENERATION (test code = 2821) 1.940 UIU/ML CBC W/AUTO [id number] 00:00:00* Test Item Value Reference Range Interpretation Comme nts WBC (test code = 1001) 8.9 K/UL RBC (test code = 1002) 4.91 M/UL HEMOGLOBIN (test code = 1003) 14.3 G/DL HEMATOCRIT (test code = 1004) 42.4 % MCV (test code = 1005) 86.4 fL MCH (test code = 1006) 29.1 PG MCHC (test code = 1007) 33.7 G/DL RDW (test code = 1038) 12.3 % NEUTROPHILS (test code = 1008) 57.3 % LYMPHOCYTES (test code = 1010) 32.8 % MONOCYTES (test code = 1011) 8.2 % EOSINOPHILS (test code = 1012) 1.3 % BASOPHILS (test code = 1013) 0.4 % PLATELET COUNT (test code = 1015) 308 K/UL CBC W/AUTO [id number] 00:00:00* Test Item Value Reference Range Interpretation Comme nts WBC (test code = 1001) 8.9 K/UL RBC (test code = 1002) 4.91 M/UL HEMOGLOBIN (test code = 1003) 14.3 G/DL HEMATOCRIT (test code = 1004) 42.4 % MCV (test code = 1005) 86.4 fL MCH (test code = 1006) 29.1 PG MCHC (test code = 1007) 33.7 G/DL RDW (test code = 1038) 12.3 % NEUTROPHILS (test code = 1008) 57.3 % LYMPHOCYTES (test code = 1010) 32.8 % MONOCYTES (test code = 1011) 8.2 % EOSINOPHILS (test code = 1012) 1.3 % BASOPHILS (test code = 1013) 0.4 % PLATELET COUNT (test code = 1015) 308 K/UL CBC W/AUTO [id number] 00:00:00* Test Item Value Reference Range Interpretation Comme nts WBC (test code = 1001) 8.9 K/UL RBC (test code = 1002) 4.91 M/UL HEMOGLOBIN (test code = 1003) 14.3 G/DL HEMATOCRIT (test code = 1004) 42.4 % MCV (test code = 1005) 86.4 fL MCH (test code = 1006) 29.1 PG MCHC (test code = 1007) 33.7 G/DL RDW (test code = 1038) 12.3 % NEUTROPHILS (test code = 1008) 57.3 % LYMPHOCYTES (test code = 1010) 32.8 % MONOCYTES (test code = 1011) 8.2 % EOSINOPHILS (test code = 1012) 1.3 % BASOPHILS (test code = 1013) 0.4 % PLATELET COUNT (test code = 1015) 308 K/UL LIPID [id number] 00:00:00* Test Item Value Reference Range Interpretation Comme nts CHOLESTEROL (test code = 2210) 287 MG/DL TRIGLYCERIDES (test code = 2232) 307 MG/DL HDL CHOLESTEROL (test code = 2220) 36 MG/DL CALC LDL CHOL (test code = 2237) 199 MG/DL RISK RATIO LDL/HDL (test cod e = 2238) 5.53 RATIO LIPID [id number] 00:00:00* Test Item Value Reference Range Interpretation Comme nts CHOLESTEROL (test code = 2210) 287 MG/DL TRIGLYCERIDES (test code = 2232) 307 MG/DL HDL CHOLESTEROL (test code = 2220) 36 MG/DL CALC LDL CHOL (test code = 2237) 199 MG/DL RISK RATIO LDL/HDL (test cod e = 2238) 5.53 RATIO COMPREHENSIVE METABOLIC [id number] 00:00:00* Test Item Value Reference Range Interpretation Comme nts GLUCOSE (test code = 2217) 124 MG/DL BUN (test code = 2208) 12 MG/DL CREATININE (test code = 2214) 0.66 MG/DL eGFR AMER. (test cod e = 37355) 120 ML/MIN/1.73 eGFR NON- AMER. (test code = 85797) 104 ML/MIN/1.73 CALC BUN/CREAT (test code = 2235) 18 RATIO SODIUM (test code = 2231) 137 MEQ/L POTASSIUM (test code = 2228) 4.1 MEQ/L CHLORIDE (test code = 2215) 103 MEQ/L CARBON DIOXIDE (test code = 2206) 25 MEQ/L CALCIUM (test code = 2209) 9.2 MG/DL PROTEIN, TOTAL (test code = 2229) 7.3 G/DL ALBUMIN (test code = 2201) 4.4 G/DL CALC GLOBULIN (test code = 2240) 2.9 G/DL CALC A/G RATIO (test code = 2234) 1.5 RATIO BILIRUBIN, TOTAL (test code = 2207) 0.5 MG/DL ALKALINE PHOSPHATASE (test code = 2204) 105 U/L AST (test code = 2218) 34 U/L ALT (test code = 2219) 76 U/L COMPREHENSIVE METABOLIC [id number] 00:00:00* Test Item Value Reference Range Interpretation Comme nts GLUCOSE (test code = 2217) 124 MG/DL BUN (test code = 2208) 12 MG/DL CREATININE (test code = 2214) 0.66 MG/DL eGFR AMER. (test cod e = 45294) 120 ML/MIN/1.73 eGFR NON- AMER. (test code = 64942) 104 ML/MIN/1.73 CALC BUN/CREAT (test code = 2235) 18 RATIO SODIUM (test code = 2231) 137 MEQ/L POTASSIUM (test code = 2228) 4.1 MEQ/L CHLORIDE (test code = 2215) 103 MEQ/L CARBON DIOXIDE (test code = 2206) 25 MEQ/L CALCIUM (test code = 2209) 9.2 MG/DL PROTEIN, TOTAL (test code = 2229) 7.3 G/DL ALBUMIN (test code = 2201) 4.4 G/DL CALC GLOBULIN (test code = 2240) 2.9 G/DL CALC A/G RATIO (test code = 2234) 1.5 RATIO BILIRUBIN, TOTAL (test code = 2207) 0.5 MG/DL ALKALINE PHOSPHATASE (test code = 2204) 105 U/L AST (test code = 2218) 34 U/L ALT (test code = 2219) 76 U/L [id number] 00:00:00* Test Item Value Reference Range Interpretation Comme nts TSH, THIRD GENERATION (test code = 2821) 1.940 UIU/ML [id number] 00:00:00* Test Item Value Reference Range Interpretation Comme nts TSH, THIRD GENERATION (test code = 2821) 1.940 UIU/ML [id number] 00:00:00* Test Item Value Reference Range Interpretation Comme nts TSH, THIRD GENERATION (test code = 2821) 1.940 UIU/ML CBC W/AUTO [id number] 00:00:00* Test Item Value Reference Range Interpretation Comme nts WBC (test code = 1001) 8.9 K/UL RBC (test code = 1002) 4.91 M/UL HEMOGLOBIN (test code = 1003) 14.3 G/DL HEMATOCRIT (test code = 1004) 42.4 % MCV (test code = 1005) 86.4 fL MCH (test code = 1006) 29.1 PG MCHC (test code = 1007) 33.7 G/DL RDW (test code = 1038) 12.3 % NEUTROPHILS (test code = 1008) 57.3 % LYMPHOCYTES (test code = 1010) 32.8 % MONOCYTES (test code = 1011) 8.2 % EOSINOPHILS (test code = 1012) 1.3 % BASOPHILS (test code = 1013) 0.4 % PLATELET COUNT (test code = 1015) 308 K/UL CBC W/AUTO [id number] 00:00:00* Test Item Value Reference Range Interpretation Comme nts WBC (test code = 1001) 8.9 K/UL RBC (test code = 1002) 4.91 M/UL HEMOGLOBIN (test code = 1003) 14.3 G/DL HEMATOCRIT (test code = 1004) 42.4 % MCV (test code = 1005) 86.4 fL MCH (test code = 1006) 29.1 PG MCHC (test code = 1007) 33.7 G/DL RDW (test code = 1038) 12.3 % NEUTROPHILS (test code = 1008) 57.3 % LYMPHOCYTES (test code = 1010) 32.8 % MONOCYTES (test code = 1011) 8.2 % EOSINOPHILS (test code = 1012) 1.3 % BASOPHILS (test code = 1013) 0.4 % PLATELET COUNT (test code = 1015) 308 K/UL CBC W/AUTO [id number] 00:00:00* Test Item Value Reference Range Interpretation Comme nts WBC (test code = 1001) 8.9 K/UL RBC (test code = 1002) 4.91 M/UL HEMOGLOBIN (test code = 1003) 14.3 G/DL HEMATOCRIT (test code = 1004) 42.4 % MCV (test code = 1005) 86.4 fL MCH (test code = 1006) 29.1 PG MCHC (test code = 1007) 33.7 G/DL RDW (test code = 1038) 12.3 % NEUTROPHILS (test code = 1008) 57.3 % LYMPHOCYTES (test code = 1010) 32.8 % MONOCYTES (test code = 1011) 8.2 % EOSINOPHILS (test code = 1012) 1.3 % BASOPHILS (test code = 1013) 0.4 % PLATELET COUNT (test code = 1015) 308 K/UL CBC W/AUTO [id number] 00:00:00* Test Item Value Reference Range Interpretation Comme nts WBC (test code = 1001) 8.9 K/UL RBC (test code = 1002) 4.91 M/UL HEMOGLOBIN (test code = 1003) 14.3 G/DL HEMATOCRIT (test code = 1004) 42.4 % MCV (test code = 1005) 86.4 fL MCH (test code = 1006) 29.1 PG MCHC (test code = 1007) 33.7 G/DL RDW (test code = 1038) 12.3 % NEUTROPHILS (test code = 1008) 57.3 % LYMPHOCYTES (test code = 1010) 32.8 % MONOCYTES (test code = 1011) 8.2 % EOSINOPHILS (test code = 1012) 1.3 % BASOPHILS (test code = 1013) 0.4 % PLATELET COUNT (test code = 1015) 308 K/UL LIPID [id number] 00:00:00* Test Item Value Reference Range Interpretation Comme nts CHOLESTEROL (test code = 2210) 287 MG/DL TRIGLYCERIDES (test code = 2232) 307 MG/DL HDL CHOLESTEROL (test code = 2220) 36 MG/DL CALC LDL CHOL (test code = 2237) 199 MG/DL RISK RATIO LDL/HDL (test cod e = 2238) 5.53 RATIO LIPID [id number] 00:00:00* Test Item Value Reference Range Interpretation Comme nts CHOLESTEROL (test code = 2210) 287 MG/DL TRIGLYCERIDES (test code = 2232) 307 MG/DL HDL CHOLESTEROL (test code = 2220) 36 MG/DL CALC LDL CHOL (test code = 2237) 199 MG/DL RISK RATIO LDL/HDL (test cod e = 2238) 5.53 RATIO COMPREHENSIVE METABOLIC [id number] 00:00:00* Test Item Value Reference Range Interpretation Comme nts GLUCOSE (test code = 2217) 124 MG/DL BUN (test code = 2208) 12 MG/DL CREATININE (test code = 2214) 0.66 MG/DL eGFR AMER. (test cod e = 33816) 120 ML/MIN/1.73 eGFR NON- AMER. (test code = 28551) 104 ML/MIN/1.73 CALC BUN/CREAT (test code = 2235) 18 RATIO SODIUM (test code = 2231) 137 MEQ/L POTASSIUM (test code = 2228) 4.1 MEQ/L CHLORIDE (test code = 2215) 103 MEQ/L CARBON DIOXIDE (test code = 2206) 25 MEQ/L CALCIUM (test code = 2209) 9.2 MG/DL PROTEIN, TOTAL (test code = 2229) 7.3 G/DL ALBUMIN (test code = 2201) 4.4 G/DL CALC GLOBULIN (test code = 2240) 2.9 G/DL CALC A/G RATIO (test code = 2234) 1.5 RATIO BILIRUBIN, TOTAL (test code = 2207) 0.5 MG/DL ALKALINE PHOSPHATASE (test code = 2204) 105 U/L AST (test code = 2218) 34 U/L ALT (test code = 2219) 76 U/L COMPREHENSIVE METABOLIC [id number] 00:00:00* Test Item Value Reference Range Interpretation Comme nts GLUCOSE (test code = 2217) 124 MG/DL BUN (test code = 2208) 12 MG/DL CREATININE (test code = 2214) 0.66 MG/DL eGFR AMER. (test cod e = 33759) 120 ML/MIN/1.73 eGFR NON- AMER. (test code = 48604) 104 ML/MIN/1.73 CALC BUN/CREAT (test code = 2235) 18 RATIO SODIUM (test code = 2231) 137 MEQ/L POTASSIUM (test code = 2228) 4.1 MEQ/L CHLORIDE (test code = 2215) 103 MEQ/L CARBON DIOXIDE (test code = 2206) 25 MEQ/L CALCIUM (test code = 2209) 9.2 MG/DL PROTEIN, TOTAL (test code = 2229) 7.3 G/DL ALBUMIN (test code = 2201) 4.4 G/DL CALC GLOBULIN (test code = 2240) 2.9 G/DL CALC A/G RATIO (test code = 2234) 1.5 RATIO BILIRUBIN, TOTAL (test code = 2207) 0.5 MG/DL ALKALINE PHOSPHATASE (test code = 2204) 105 U/L AST (test code = 2218) 34 U/L ALT (test code = 2219) 76 U/L CBC W/AUTO [id number] 00:00:00* Test Item Value Reference Range Interpretation Comme nts WBC (test code = 1001) 8.9 K/UL RBC (test code = 1002) 4.91 M/UL HEMOGLOBIN (test code = 1003) 14.3 G/DL HEMATOCRIT (test code = 1004) 42.4 % MCV (test code = 1005) 86.4 fL MCH (test code = 1006) 29.1 PG MCHC (test code = 1007) 33.7 G/DL RDW (test code = 1038) 12.3 % NEUTROPHILS (test code = 1008) 57.3 % LYMPHOCYTES (test code = 1010) 32.8 % MONOCYTES (test code = 1011) 8.2 % EOSINOPHILS (test code = 1012) 1.3 % BASOPHILS (test code = 1013) 0.4 % PLATELET COUNT (test code = 1015) 308 K/UL [id number] 00:00:00* Test Item Value Reference Range Interpretation Comme nts TSH, THIRD GENERATION (test code = 2821) 1.940 UIU/ML [id number] 00:00:00* Test Item Value Reference Range Interpretation Comme nts TSH, THIRD GENERATION (test code = 2821) 1.940 UIU/ML [id number] 00:00:00* Test Item Value Reference Range Interpretation Comme nts TSH, THIRD GENERATION (test code = 2821) 1.940 UIU/ML CBC W/AUTO [id number] 00:00:00* Test Item Value Reference Range Interpretation Comme nts WBC (test code = 1001) 8.9 K/UL RBC (test code = 1002) 4.91 M/UL HEMOGLOBIN (test code = 1003) 14.3 G/DL HEMATOCRIT (test code = 1004) 42.4 % MCV (test code = 1005) 86.4 fL MCH (test code = 1006) 29.1 PG MCHC (test code = 1007) 33.7 G/DL RDW (test code = 1038) 12.3 % NEUTROPHILS (test code = 1008) 57.3 % LYMPHOCYTES (test code = 1010) 32.8 % MONOCYTES (test code = 1011) 8.2 % EOSINOPHILS (test code = 1012) 1.3 % BASOPHILS (test code = 1013) 0.4 % PLATELET COUNT (test code = 1015) 308 K/UL VAGINAL PATHOGENS DNA PANEL [ADDED]2019-10-22 00:00:00* Test Item Value Reference Range Interpretation Comme nts KANIKA SPECIES (test code = ) NEGATIVE G. VAGINALIS (test code = ) NEGATIVE T. VAGINALIS (test code = ) NEGATIVE Eduardo Schwartz AustinVAGINAL PATHOGENS DNA PANEL [ADDED]2019-10-22 00:00:00* Test Item Value Reference Range Interpretation Comme nts KANIKA SPECIES (test code = ) NEGATIVE G. VAGINALIS (test code = ) NEGATIVE T. VAGINALIS (test code = 10510) NEGATIVE VAGINAL PATHOGENS DNA PANEL [ADDED]2019-10-22 00:00:00* Test Item Value Reference Range Interpretation Comme nts KANIKA SPECIES (test code = 00841) NEGATIVE G. VAGINALIS (test code = 94777) NEGATIVE T. VAGINALIS (test code = 90080) NEGATIVE VAGINAL PATHOGENS DNA PANEL [ADDED]2019-10-22 00:00:00* Test Item Value Reference Range Interpretation Comme nts KANIKA SPECIES (test code = 34408) NEGATIVE G. VAGINALIS (test code = 27919) NEGATIVE T. VAGINALIS (test code = 24212) NEGATIVE VAGINAL PATHOGENS DNA PANEL [ADDED]2019-10-22 00:00:00* Test Item Value Reference Range Interpretation Comme nts KANIKA SPECIES (test code = 50573) NEGATIVE G. VAGINALIS (test code = 11872) NEGATIVE T. VAGINALIS (test code = 56127) NEGATIVE VAGINAL PATHOGENS DNA PANEL [ADDED]2019-10-22 00:00:00* Test Item Value Reference Range Interpretation Comme nts KANIKA SPECIES (test code = 86159) NEGATIVE G. VAGINALIS (test code = 65621) NEGATIVE T. VAGINALIS (test code = 73334) NEGATIVE VAGINAL PATHOGENS DNA PANEL [ADDED]2019-10-22 00:00:00* Test Item Value Reference Range Interpretation Comme nts KANIKA SPECIES (test code = 85298) NEGATIVE G. VAGINALIS (test code = 77130) NEGATIVE T. VAGINALIS (test code = 54196) NEGATIVE VAGINAL PATHOGENS DNA PANEL [ADDED]2019-10-22 00:00:00* Test Item Value Reference Range Interpretation Comme nts KANIKA SPECIES (test code = 90379) NEGATIVE G. VAGINALIS (test code = 30176) NEGATIVE T. VAGINALIS (test code = 19620) NEGATIVE VAGINAL PATHOGENS DNA PANEL [ADDED]2019-10-22 00:00:00* Test Item Value Reference Range Interpretation Comme nts KANIKA SPECIES (test code = 71627) NEGATIVE G. VAGINALIS (test code = 78293) NEGATIVE T. VAGINALIS (test code = 14961) NEGATIVE COMPREHENSIVE METABOLIC [id number] 00:00:00* Test Item Value Reference Range Interpretation Comme nts GLUCOSE (test code = 2217) 104 MG/DL BUN (test code = 2208) 16 MG/DL CREATININE (test code = 2214) 0.73 MG/DL eGFR AMER. (test cod e = 50661) 114 ML/MIN/1.73 eGFR NON- AMER. (test code = 39213) 98 ML/MIN/1.73 CALC BUN/CREAT (test code = 2235) 22 RATIO SODIUM (test code = 2231) 138 MEQ/L POTASSIUM (test code = 2228) 4.1 MEQ/L CHLORIDE (test code = 2215) 102 MEQ/L CARBON DIOXIDE (test code = 2206) 25 MEQ/L CALCIUM (test code = 2209) 9.1 MG/DL PROTEIN, TOTAL (test code = 2229) 7.2 G/DL ALBUMIN (test code = 2201) 4.2 G/DL CALC GLOBULIN (test code = 2240) 3.0 G/DL CALC A/G RATIO (test code = 2234) 1.4 RATIO BILIRUBIN, TOTAL (test code = 2207) 0.4 MG/DL ALKALINE PHOSPHATASE (test code = 2204) 84 U/L AST (test code = 2218) 18 U/L ALT (test code = 2219) 30 U/L Eduardo Schwartz AustinLIPID [id number] 00:00:00* Test Item Value Reference Range Interpretation Comme nts CHOLESTEROL (test code = 2210) 243 MG/DL TRIGLYCERIDES (test code = 2232) 158 MG/DL HDL CHOLESTEROL (test code = 2220) 44 MG/DL CALC LDL CHOL (test code = 2237) 167 MG/DL RISK RATIO LDL/HDL (test cod e = 2238) 3.80 RATIO Eduardo Efren AustinLIPID [id number] 00:00:00* Test Item Value Reference Range Interpretation Comme nts CHOLESTEROL (test code = 2210) 243 MG/DL TRIGLYCERIDES (test code = 2232) 158 MG/DL HDL CHOLESTEROL (test code = 2220) 44 MG/DL CALC LDL CHOL (test code = 2237) 167 MG/DL RISK RATIO LDL/HDL (test cod e = 2238) 3.80 RATIO COMPREHENSIVE METABOLIC [id number] 00:00:00* Test Item Value Reference Range Interpretation Comme nts GLUCOSE (test code = 2217) 104 MG/DL BUN (test code = 2208) 16 MG/DL CREATININE (test code = 2214) 0.73 MG/DL eGFR AMER. (test cod e = 85600) 114 ML/MIN/1.73 eGFR NON- AMER. (test code = 66834) 98 ML/MIN/1.73 CALC BUN/CREAT (test code = 2235) 22 RATIO SODIUM (test code = 2231) 138 MEQ/L POTASSIUM (test code = 2228) 4.1 MEQ/L CHLORIDE (test code = 2215) 102 MEQ/L CARBON DIOXIDE (test code = 2206) 25 MEQ/L CALCIUM (test code = 2209) 9.1 MG/DL PROTEIN, TOTAL (test code = 2229) 7.2 G/DL ALBUMIN (test code = 2201) 4.2 G/DL CALC GLOBULIN (test code = 2240) 3.0 G/DL CALC A/G RATIO (test code = 2234) 1.4 RATIO BILIRUBIN, TOTAL (test code = 2207) 0.4 MG/DL ALKALINE PHOSPHATASE (test code = 2204) 84 U/L AST (test code = 2218) 18 U/L ALT (test code = 2219) 30 U/L COMPREHENSIVE METABOLIC [id number] 00:00:00* Test Item Value Reference Range Interpretation Comme nts GLUCOSE (test code = 2217) 104 MG/DL BUN (test code = 2208) 16 MG/DL CREATININE (test code = 2214) 0.73 MG/DL eGFR AMER. (test cod e = 48893) 114 ML/MIN/1.73 eGFR NON- AMER. (test code = 89577) 98 ML/MIN/1.73 CALC BUN/CREAT (test code = 2235) 22 RATIO SODIUM (test code = 2231) 138 MEQ/L POTASSIUM (test code = 2228) 4.1 MEQ/L CHLORIDE (test code = 2215) 102 MEQ/L CARBON DIOXIDE (test code = 2206) 25 MEQ/L CALCIUM (test code = 2209) 9.1 MG/DL PROTEIN, TOTAL (test code = 2229) 7.2 G/DL ALBUMIN (test code = 2201) 4.2 G/DL CALC GLOBULIN (test code = 2240) 3.0 G/DL CALC A/G RATIO (test code = 2234) 1.4 RATIO BILIRUBIN, TOTAL (test code = 2207) 0.4 MG/DL ALKALINE PHOSPHATASE (test code = 2204) 84 U/L AST (test code = 2218) 18 U/L ALT (test code = 2219) 30 U/L LIPID [id number] 00:00:00* Test Item Value Reference Range Interpretation Comme nts CHOLESTEROL (test code = 2210) 243 MG/DL TRIGLYCERIDES (test code = 2232) 158 MG/DL HDL CHOLESTEROL (test code = 2220) 44 MG/DL CALC LDL CHOL (test code = 2237) 167 MG/DL RISK RATIO LDL/HDL (test cod e = 2238) 3.80 RATIO LIPID [id number] 00:00:00* Test Item Value Reference Range Interpretation Comme nts CHOLESTEROL (test code = 2210) 243 MG/DL TRIGLYCERIDES (test code = 2232) 158 MG/DL HDL CHOLESTEROL (test code = 2220) 44 MG/DL CALC LDL CHOL (test code = 2237) 167 MG/DL RISK RATIO LDL/HDL (test cod e = 2238) 3.80 RATIO COMPREHENSIVE METABOLIC [id number] 00:00:00* Test Item Value Reference Range Interpretation Comme nts GLUCOSE (test code = 2217) 104 MG/DL BUN (test code = 2208) 16 MG/DL CREATININE (test code = 2214) 0.73 MG/DL eGFR AMER. (test cod e = 77967) 114 ML/MIN/1.73 eGFR NON- AMER. (test code = 75182) 98 ML/MIN/1.73 CALC BUN/CREAT (test code = 2235) 22 RATIO SODIUM (test code = 2231) 138 MEQ/L POTASSIUM (test code = 2228) 4.1 MEQ/L CHLORIDE (test code = 2215) 102 MEQ/L CARBON DIOXIDE (test code = 2206) 25 MEQ/L CALCIUM (test code = 2209) 9.1 MG/DL PROTEIN, TOTAL (test code = 2229) 7.2 G/DL ALBUMIN (test code = 2201) 4.2 G/DL CALC GLOBULIN (test code = 2240) 3.0 G/DL CALC A/G RATIO (test code = 2234) 1.4 RATIO BILIRUBIN, TOTAL (test code = 2207) 0.4 MG/DL ALKALINE PHOSPHATASE (test code = 2204) 84 U/L AST (test code = 2218) 18 U/L ALT (test code = 2219) 30 U/L COMPREHENSIVE METABOLIC [id number] 00:00:00* Test Item Value Reference Range Interpretation Comme nts GLUCOSE (test code = 2217) 104 MG/DL BUN (test code = 2208) 16 MG/DL CREATININE (test code = 2214) 0.73 MG/DL eGFR AMER. (test cod e = 04044) 114 ML/MIN/1.73 eGFR NON- AMER. (test code = 55892) 98 ML/MIN/1.73 CALC BUN/CREAT (test code = 2235) 22 RATIO SODIUM (test code = 2231) 138 MEQ/L POTASSIUM (test code = 2228) 4.1 MEQ/L CHLORIDE (test code = 2215) 102 MEQ/L CARBON DIOXIDE (test code = 2206) 25 MEQ/L CALCIUM (test code = 2209) 9.1 MG/DL PROTEIN, TOTAL (test code = 2229) 7.2 G/DL ALBUMIN (test code = 2201) 4.2 G/DL CALC GLOBULIN (test code = 2240) 3.0 G/DL CALC A/G RATIO (test code = 2234) 1.4 RATIO BILIRUBIN, TOTAL (test code = 2207) 0.4 MG/DL ALKALINE PHOSPHATASE (test code = 2204) 84 U/L AST (test code = 2218) 18 U/L ALT (test code = 2219) 30 U/L LIPID [id number] 00:00:00* Test Item Value Reference Range Interpretation Comme nts CHOLESTEROL (test code = 2210) 243 MG/DL TRIGLYCERIDES (test code = 2232) 158 MG/DL HDL CHOLESTEROL (test code = 2220) 44 MG/DL CALC LDL CHOL (test code = 2237) 167 MG/DL RISK RATIO LDL/HDL (test cod e = 2238) 3.80 RATIO LIPID [id number] 00:00:00* Test Item Value Reference Range Interpretation Comme nts CHOLESTEROL (test code = 2210) 243 MG/DL TRIGLYCERIDES (test code = 2232) 158 MG/DL HDL CHOLESTEROL (test code = 2220) 44 MG/DL CALC LDL CHOL (test code = 2237) 167 MG/DL RISK RATIO LDL/HDL (test cod e = 2238) 3.80 RATIO COMPREHENSIVE METABOLIC [id number] 00:00:00* Test Item Value Reference Range Interpretation Comme nts GLUCOSE (test code = 2217) 104 MG/DL BUN (test code = 2208) 16 MG/DL CREATININE (test code = 2214) 0.73 MG/DL eGFR AMER. (test cod e = 78488) 114 ML/MIN/1.73 eGFR NON- AMER. (test code = 19193) 98 ML/MIN/1.73 CALC BUN/CREAT (test code = 2235) 22 RATIO SODIUM (test code = 2231) 138 MEQ/L POTASSIUM (test code = 2228) 4.1 MEQ/L CHLORIDE (test code = 2215) 102 MEQ/L CARBON DIOXIDE (test code = 2206) 25 MEQ/L CALCIUM (test code = 2209) 9.1 MG/DL PROTEIN, TOTAL (test code = 2229) 7.2 G/DL ALBUMIN (test code = 2201) 4.2 G/DL CALC GLOBULIN (test code = 2240) 3.0 G/DL CALC A/G RATIO (test code = 2234) 1.4 RATIO BILIRUBIN, TOTAL (test code = 2207) 0.4 MG/DL ALKALINE PHOSPHATASE (test code = 2204) 84 U/L AST (test code = 2218) 18 U/L ALT (test code = 2219) 30 U/L COMPREHENSIVE METABOLIC [id number] 00:00:00* Test Item Value Reference Range Interpretation Comme nts GLUCOSE (test code = 2217) 104 MG/DL BUN (test code = 2208) 16 MG/DL CREATININE (test code = 2214) 0.73 MG/DL eGFR AMER. (test cod e = 16889) 114 ML/MIN/1.73 eGFR NON- AMER. (test code = 63375) 98 ML/MIN/1.73 CALC BUN/CREAT (test code = 2235) 22 RATIO SODIUM (test code = 2231) 138 MEQ/L POTASSIUM (test code = 2228) 4.1 MEQ/L CHLORIDE (test code = 2215) 102 MEQ/L CARBON DIOXIDE (test code = 2206) 25 MEQ/L CALCIUM (test code = 2209) 9.1 MG/DL PROTEIN, TOTAL (test code = 2229) 7.2 G/DL ALBUMIN (test code = 2201) 4.2 G/DL CALC GLOBULIN (test code = 2240) 3.0 G/DL CALC A/G RATIO (test code = 2234) 1.4 RATIO BILIRUBIN, TOTAL (test code = 2207) 0.4 MG/DL ALKALINE PHOSPHATASE (test code = 2204) 84 U/L AST (test code = 2218) 18 U/L ALT (test code = 2219) 30 U/L LIPID [id number] 00:00:00* Test Item Value Reference Range Interpretation Comme nts CHOLESTEROL (test code = 2210) 243 MG/DL TRIGLYCERIDES (test code = 2232) 158 MG/DL HDL CHOLESTEROL (test code = 2220) 44 MG/DL CALC LDL CHOL (test code = 2237) 167 MG/DL RISK RATIO LDL/HDL (test cod e = 2238) 3.80 RATIO LIPID [id number] 00:00:00* Test Item Value Reference Range Interpretation Comme nts CHOLESTEROL (test code = 2210) 243 MG/DL TRIGLYCERIDES (test code = 2232) 158 MG/DL HDL CHOLESTEROL (test code = 2220) 44 MG/DL CALC LDL CHOL (test code = 2237) 167 MG/DL RISK RATIO LDL/HDL (test cod e = 2238) 3.80 RATIO LIPID [id number] 00:00:00* Test Item Value Reference Range Interpretation Comme nts CHOLESTEROL (test code = 2210) 243 MG/DL TRIGLYCERIDES (test code = 2232) 158 MG/DL HDL CHOLESTEROL (test code = 2220) 44 MG/DL CALC LDL CHOL (test code = 2237) 167 MG/DL RISK RATIO LDL/HDL (test cod e = 2238) 3.80 RATIO COMPREHENSIVE METABOLIC [id number] 00:00:00* Test Item Value Reference Range Interpretation Comme nts GLUCOSE (test code = 2217) 104 MG/DL BUN (test code = 2208) 16 MG/DL CREATININE (test code = 2214) 0.73 MG/DL eGFR AMER. (test cod e = 09938) 114 ML/MIN/1.73 eGFR NON- AMER. (test code = 69743) 98 ML/MIN/1.73 CALC BUN/CREAT (test code = 2235) 22 RATIO SODIUM (test code = 2231) 138 MEQ/L POTASSIUM (test code = 2228) 4.1 MEQ/L CHLORIDE (test code = 2215) 102 MEQ/L CARBON DIOXIDE (test code = 2206) 25 MEQ/L CALCIUM (test code = 2209) 9.1 MG/DL PROTEIN, TOTAL (test code = 2229) 7.2 G/DL ALBUMIN (test code = 2201) 4.2 G/DL CALC GLOBULIN (test code = 2240) 3.0 G/DL CALC A/G RATIO (test code = 2234) 1.4 RATIO BILIRUBIN, TOTAL (test code = 2207) 0.4 MG/DL ALKALINE PHOSPHATASE (test code = 2204) 84 U/L AST (test code = 2218) 18 U/L ALT (test code = 2219) 30 U/L COMPREHENSIVE METABOLIC [id number] 00:00:00* Test Item Value Reference Range Interpretation Comme nts GLUCOSE (test code = 2217) 104 MG/DL BUN (test code = 2208) 16 MG/DL CREATININE (test code = 2214) 0.73 MG/DL eGFR AMER. (test cod e = 23539) 114 ML/MIN/1.73 eGFR NON- AMER. (test code = 52681) 98 ML/MIN/1.73 CALC BUN/CREAT (test code = 2235) 22 RATIO SODIUM (test code = 2231) 138 MEQ/L POTASSIUM (test code = 2228) 4.1 MEQ/L CHLORIDE (test code = 2215) 102 MEQ/L CARBON DIOXIDE (test code = 2206) 25 MEQ/L CALCIUM (test code = 2209) 9.1 MG/DL PROTEIN, TOTAL (test code = 2229) 7.2 G/DL ALBUMIN (test code = 2201) 4.2 G/DL CALC GLOBULIN (test code = 2240) 3.0 G/DL CALC A/G RATIO (test code = 2234) 1.4 RATIO BILIRUBIN, TOTAL (test code = 2207) 0.4 MG/DL ALKALINE PHOSPHATASE (test code = 2204) 84 U/L AST (test code = 2218) 18 U/L ALT (test code = 2219) 30 U/L GC AND CHLAMYDIA, AMPLIFIED, [id number] 00:00:00* Test Item Value Reference Range Interpretation Comme nts GONORRHEA, TMA (test code = 03729) TEST NOT PERFORMED CHLAMYDIA, TMA (test code = 15605) TEST NOT PERFORMED Eduardo F AustinGC AND CHLAMYDIA, AMPLIFIED, [id number] 00:00:00* Test Item Value Reference Range Interpretation Comme nts GONORRHEA, TMA (test code = 86659) TEST NOT PERFORMED CHLAMYDIA, TMA (test code = 07206) TEST NOT PERFORMED GC AND CHLAMYDIA, AMPLIFIED, [id number] 00:00:00* Test Item Value Reference Range Interpretation Comme nts GONORRHEA, TMA (test code = 32009) TEST NOT PERFORMED CHLAMYDIA, TMA (test code = 02164) TEST NOT PERFORMED GC AND CHLAMYDIA, AMPLIFIED, [id number] 00:00:00* Test Item Value Reference Range Interpretation Comme nts GONORRHEA, TMA (test code = 15238) TEST NOT PERFORMED CHLAMYDIA, TMA (test code = 70227) TEST NOT PERFORMED GC AND CHLAMYDIA, AMPLIFIED, [id number] 00:00:00* Test Item Value Reference Range Interpretation Comme nts GONORRHEA, TMA (test code = 21369) TEST NOT PERFORMED CHLAMYDIA, TMA (test code = 34889) TEST NOT PERFORMED GC AND CHLAMYDIA, AMPLIFIED, [id number] 00:00:00* Test Item Value Reference Range Interpretation Comme nts GONORRHEA, TMA (test code = 69148) TEST NOT PERFORMED CHLAMYDIA, TMA (test code = 38635) TEST NOT PERFORMED GC AND CHLAMYDIA, AMPLIFIED, [id number] 00:00:00* Test Item Value Reference Range Interpretation Comme nts GONORRHEA, TMA (test code = 15981) TEST NOT PERFORMED CHLAMYDIA, TMA (test code = 40337) TEST NOT PERFORMED GC AND CHLAMYDIA, AMPLIFIED, [id number] 00:00:00* Test Item Value Reference Range Interpretation Comme nts GONORRHEA, TMA (test code = 56504) TEST NOT PERFORMED CHLAMYDIA, TMA (test code = 92596) TEST NOT PERFORMED GC AND CHLAMYDIA, AMPLIFIED, [id number] 00:00:00* Test Item Value Reference Range Interpretation Comme nts GONORRHEA, TMA (test code = 95992) TEST NOT PERFORMED CHLAMYDIA, TMA (test code = 87533) TEST NOT PERFORMED VAGINAL PATHOGENS DNA [id number] 00:00:00* Test Item Value Reference Range Interpretation Comme nts KANIKA SPECIES (test code = 49407) NEGATIVE G. VAGINALIS (test code = 41330) NEGATIVE T. VAGINALIS (test code = 29968) NEGATIVE Eduardo [id number] 00:00:00* Test Item Value Reference Range Interpretation Comme nts RPR RESULT (test code = 3501) NON-REACTIVE RPR TITER (test code = 3500) NOT INDIC. TITER Eduardo LoveACUTE HEPATITIS [id number] 00:00:00* Test Item Value Reference Range Interpretation Comme nts HEPATITIS A IgM (test code = 54312) NON-REACTIVE HEPATITIS B CORE IgM (test c ode = 4644) NON-REACTIVE HEPATITIS B SURF AG (test co de = 2739) NON-REACTIVE HEPATITIS C ANTIBODY (test c ode = 4675) NON-REACTIVE HCV INDEX (test code = 71036) 0.06 INTERPRETATION HEPATITIS A: (test code = 2552) (NOTE) INTERPRETATION HEPATITIS B: (test code = 65106) (NOTE) INTERPRETATION HEPATITIS C: (test code = 20244) (NOTE) Eduardo LoveHIV AB/AG COMBO RFLX [id number] 00:00:00* Test Item Value Reference Range Interpretation Comme nts HIV 1/2 4TH GEN, RFLX CONF ( test code = 3514) NON-REACTIVE Eduardo [id number] 00:00:00* Test Item Value Reference Range Interpretation Comme nts RPR RESULT (test code = 3501) NON-REACTIVE RPR TITER (test code = 3500) NOT INDIC. TITER [id number] 00:00:00* Test Item Value Reference Range Interpretation Comme nts RPR RESULT (test code = 3501) NON-REACTIVE RPR TITER (test code = 3500) NOT INDIC. TITER [id number] 00:00:00* Test Item Value Reference Range Interpretation Comme nts RPR RESULT (test code = 3501) NON-REACTIVE RPR TITER (test code = 3500) NOT INDIC. TITER ACUTE HEPATITIS [id number] 00:00:00* Test Item Value Reference Range Interpretation Comme nts HEPATITIS A IgM (test code = 94063) NON-REACTIVE HEPATITIS B CORE IgM (test c ode = 4644) NON-REACTIVE HEPATITIS B SURF AG (test co de = 2739) NON-REACTIVE HEPATITIS C ANTIBODY (test c ode = 4675) NON-REACTIVE HCV INDEX (test code = 68608) 0.06 INTERPRETATION HEPATITIS A: (test code = 2552) (NOTE) INTERPRETATION HEPATITIS B: (test code = 61684) (NOTE) INTERPRETATION HEPATITIS C: (test code = 05658) (NOTE) ACUTE HEPATITIS [id number] 00:00:00* Test Item Value Reference Range Interpretation Comme nts HEPATITIS A IgM (test code = 66260) NON-REACTIVE HEPATITIS B CORE IgM (test c ode = 4644) NON-REACTIVE HEPATITIS B SURF AG (test co de = 2739) NON-REACTIVE HEPATITIS C ANTIBODY (test c ode = 4675) NON-REACTIVE HCV INDEX (test code = 22062) 0.06 INTERPRETATION HEPATITIS A: (test code = 2552) (NOTE) INTERPRETATION HEPATITIS B: (test code = 03788) (NOTE) INTERPRETATION HEPATITIS C: (test code = 56447) (NOTE) HIV AB/AG COMBO RFLX [id number] 00:00:00* Test Item Value Reference Range Interpretation Comme nts HIV 1/2 4TH GEN, RFLX CONF ( test code = 3514) NON-REACTIVE HIV AB/AG COMBO RFLX [id number] 00:00:00* Test Item Value Reference Range Interpretation Comme nts HIV 1/2 4TH GEN, RFLX CONF ( test code = 3514) NON-REACTIVE VAGINAL PATHOGENS DNA [id number] 00:00:00* Test Item Value Reference Range Interpretation Comme nts KANIKA SPECIES (test code = 72662) NEGATIVE G. VAGINALIS (test code = 17541) NEGATIVE T. VAGINALIS (test code = 88718) NEGATIVE VAGINAL PATHOGENS DNA [id number] 00:00:00* Test Item Value Reference Range Interpretation Comme nts KANIKA SPECIES (test code = 65621) NEGATIVE G. VAGINALIS (test code = 70751) NEGATIVE T. VAGINALIS (test code = 47283) NEGATIVE [id number] 00:00:00* Test Item Value Reference Range Interpretation Comme nts RPR RESULT (test code = 3501) NON-REACTIVE RPR TITER (test code = 3500) NOT INDIC. TITER [id number] 00:00:00* Test Item Value Reference Range Interpretation Comme nts RPR RESULT (test code = 3501) NON-REACTIVE RPR TITER (test code = 3500) NOT INDIC. TITER [id number] 00:00:00* Test Item Value Reference Range Interpretation Comme nts RPR RESULT (test code = 3501) NON-REACTIVE RPR TITER (test code = 3500) NOT INDIC. TITER ACUTE HEPATITIS [id number] 00:00:00* Test Item Value Reference Range Interpretation Comme nts HEPATITIS A IgM (test code = 70914) NON-REACTIVE HEPATITIS B CORE IgM (test c ode = 4644) NON-REACTIVE HEPATITIS B SURF AG (test co de = 2739) NON-REACTIVE HEPATITIS C ANTIBODY (test c ode = 4675) NON-REACTIVE HCV INDEX (test code = 89506) 0.06 INTERPRETATION HEPATITIS A: (test code = 2552) (NOTE) INTERPRETATION HEPATITIS B: (test code = 27867) (NOTE) INTERPRETATION HEPATITIS C: (test code = 31473) (NOTE) ACUTE HEPATITIS [id number] 00:00:00* Test Item Value Reference Range Interpretation Comme nts HEPATITIS A IgM (test code = 46132) NON-REACTIVE HEPATITIS B CORE IgM (test c ode = 4644) NON-REACTIVE HEPATITIS B SURF AG (test co de = 2739) NON-REACTIVE HEPATITIS C ANTIBODY (test c ode = 4675) NON-REACTIVE HCV INDEX (test code = 90007) 0.06 INTERPRETATION HEPATITIS A: (test code = 2552) (NOTE) INTERPRETATION HEPATITIS B: (test code = 16361) (NOTE) INTERPRETATION HEPATITIS C: (test code = 76378) (NOTE) HIV AB/AG COMBO RFLX [id number] 00:00:00* Test Item Value Reference Range Interpretation Comme nts HIV 1/2 4TH GEN, RFLX CONF ( test code = 3514) NON-REACTIVE HIV AB/AG COMBO RFLX [id number] 00:00:00* Test Item Value Reference Range Interpretation Comme nts HIV 1/2 4TH GEN, RFLX CONF ( test code = 3514) NON-REACTIVE VAGINAL PATHOGENS DNA [id number] 00:00:00* Test Item Value Reference Range Interpretation Comme nts KANIKA SPECIES (test code = 68644) NEGATIVE G. VAGINALIS (test code = 73356) NEGATIVE T. VAGINALIS (test code = 98292) NEGATIVE VAGINAL PATHOGENS DNA [id number] 00:00:00* Test Item Value Reference Range Interpretation Comme nts KANIKA SPECIES (test code = 47819) NEGATIVE G. VAGINALIS (test code = ) NEGATIVE T. VAGINALIS (test code = 68602) NEGATIVE [id number] 00:00:00* Test Item Value Reference Range Interpretation Comme nts RPR RESULT (test code = 3501) NON-REACTIVE RPR TITER (test code = 3500) NOT INDIC. TITER [id number] 00:00:00* Test Item Value Reference Range Interpretation Comme nts RPR RESULT (test code = 3501) NON-REACTIVE RPR TITER (test code = 3500) NOT INDIC. TITER [id number] 00:00:00* Test Item Value Reference Range Interpretation Comme nts RPR RESULT (test code = 3501) NON-REACTIVE RPR TITER (test code = 3500) NOT INDIC. TITER ACUTE HEPATITIS [id number] 00:00:00* Test Item Value Reference Range Interpretation Comme nts HEPATITIS A IgM (test code = 46944) NON-REACTIVE HEPATITIS B CORE IgM (test c ode = 4644) NON-REACTIVE HEPATITIS B SURF AG (test co de = 2739) NON-REACTIVE HEPATITIS C ANTIBODY (test c ode = 4675) NON-REACTIVE HCV INDEX (test code = 09083) 0.06 INTERPRETATION HEPATITIS A: (test code = 2552) (NOTE) INTERPRETATION HEPATITIS B: (test code = 91908) (NOTE) INTERPRETATION HEPATITIS C: (test code = 48482) (NOTE) ACUTE HEPATITIS [id number] 00:00:00* Test Item Value Reference Range Interpretation Comme nts HEPATITIS A IgM (test code = 08155) NON-REACTIVE HEPATITIS B CORE IgM (test c ode = 4644) NON-REACTIVE HEPATITIS B SURF AG (test co de = 2739) NON-REACTIVE HEPATITIS C ANTIBODY (test c ode = 4675) NON-REACTIVE HCV INDEX (test code = 19672) 0.06 INTERPRETATION HEPATITIS A: (test code = 2552) (NOTE) INTERPRETATION HEPATITIS B: (test code = 74812) (NOTE) INTERPRETATION HEPATITIS C: (test code = 36577) (NOTE) HIV AB/AG COMBO RFLX [id number] 00:00:00* Test Item Value Reference Range Interpretation Comme nts HIV 1/2 4TH GEN, RFLX CONF ( test code = 3514) NON-REACTIVE HIV AB/AG COMBO RFLX [id number] 00:00:00* Test Item Value Reference Range Interpretation Comme nts HIV 1/2 4TH GEN, RFLX CONF ( test code = 3514) NON-REACTIVE VAGINAL PATHOGENS DNA [id number] 00:00:00* Test Item Value Reference Range Interpretation Comme nts KANIKA SPECIES (test code = 48727) NEGATIVE G. VAGINALIS (test code = 08671) NEGATIVE T. VAGINALIS (test code = 15691) NEGATIVE VAGINAL PATHOGENS DNA [id number] 00:00:00* Test Item Value Reference Range Interpretation Comme nts KANIKA SPECIES (test code = 38200) NEGATIVE G. VAGINALIS (test code = 52710) NEGATIVE T. VAGINALIS (test code = 94555) NEGATIVE [id number] 00:00:00* Test Item Value Reference Range Interpretation Comme nts RPR RESULT (test code = 3501) NON-REACTIVE RPR TITER (test code = 3500) NOT INDIC. TITER [id number] 00:00:00* Test Item Value Reference Range Interpretation Comme nts RPR RESULT (test code = 3501) NON-REACTIVE RPR TITER (test code = 3500) NOT INDIC. TITER [id number] 00:00:00* Test Item Value Reference Range Interpretation Comme nts RPR RESULT (test code = 3501) NON-REACTIVE RPR TITER (test code = 3500) NOT INDIC. TITER VAGINAL PATHOGENS DNA [id number] 00:00:00* Test Item Value Reference Range Interpretation Comme nts KANIKA SPECIES (test code = ) NEGATIVE G. VAGINALIS (test code = 62739) NEGATIVE T. VAGINALIS (test code = 18680) NEGATIVE ACUTE HEPATITIS [id number] 00:00:00* Test Item Value Reference Range Interpretation Comme nts HEPATITIS A IgM (test code = 97003) NON-REACTIVE HEPATITIS B CORE IgM (test c ode = 4644) NON-REACTIVE HEPATITIS B SURF AG (test co de = 7559) NON-REACTIVE HEPATITIS C ANTIBODY (test c ode = 4675) NON-REACTIVE HCV INDEX (test code = 81207) 0.06 INTERPRETATION HEPATITIS A: (test code = 2552) (NOTE) INTERPRETATION HEPATITIS B: (test code = 69434) (NOTE) INTERPRETATION HEPATITIS C: (test code = 94680) (NOTE) ACUTE HEPATITIS [id number] 00:00:00* Test Item Value Reference Range Interpretation Comme nts HEPATITIS A IgM (test code = 78536) NON-REACTIVE HEPATITIS B CORE IgM (test c ode = 4644) NON-REACTIVE HEPATITIS B SURF AG (test co de = 2739) NON-REACTIVE HEPATITIS C ANTIBODY (test c ode = 4675) NON-REACTIVE HCV INDEX (test code = 88669) 0.06 INTERPRETATION HEPATITIS A: (test code = 2552) (NOTE) INTERPRETATION HEPATITIS B: (test code = 14909) (NOTE) INTERPRETATION HEPATITIS C: (test code = 88932) (NOTE) HIV AB/AG COMBO RFLX [id number] 00:00:00* Test Item Value Reference Range Interpretation Comme nts HIV 1/2 4TH GEN, RFLX CONF ( test code = 3514) NON-REACTIVE HIV AB/AG COMBO RFLX [id number] 00:00:00* Test Item Value Reference Range Interpretation Comme nts HIV 1/2 4TH GEN, RFLX CONF ( test code = 3514) NON-REACTIVE VAGINAL PATHOGENS DNA [id number] 00:00:00* Test Item Value Reference Range Interpretation Comme nts KANIKA SPECIES (test code = 79615) NEGATIVE G. VAGINALIS (test code = 34953) NEGATIVE T. VAGINALIS (test code = 52425) NEGATIVE HEMOGLOBIN [id number] 00:00:00* Test Item Value Reference Range Interpretation Comme nts HEMOGLOBIN A1c (test code = 69399) 5.6 % Eduardo Schwartz AustinLIPID [id number] 00:00:00* Test Item Value Reference Range Interpretation Comme nts CHOLESTEROL (test code = 2210) 263 MG/DL TRIGLYCERIDES (test code = 2232) 288 MG/DL HDL CHOLESTEROL (test code = 2220) 40 MG/DL CALC LDL CHOL (test code = 2237) 165 MG/DL RISK RATIO LDL/HDL (test cod e = 2238) 4.14 RATIO Eduardo LoveCOMPREHENSIVE METABOLIC [id number] 00:00:00* Test Item Value Reference Range Interpretation Comme nts GLUCOSE (test code = 2217) 78 MG/DL BUN (test code = 2208) 14 MG/DL CREATININE (test code = 2214) 0.66 MG/DL eGFR AMER. (test cod e = 04454) 122 ML/MIN/1.73 eGFR NON- AMER. (test code = 18880) 105 ML/MIN/1.73 CALC BUN/CREAT (test code = 2235) 21 RATIO SODIUM (test code = 2231) 141 MEQ/L POTASSIUM (test code = 2228) 4.2 MEQ/L CHLORIDE (test code = 2215) 101 MEQ/L CARBON DIOXIDE (test code = 2206) 26 MEQ/L CALCIUM (test code = 2209) 9.7 MG/DL PROTEIN, TOTAL (test code = 2229) 7.5 G/DL ALBUMIN (test code = 2201) 4.6 G/DL CALC GLOBULIN (test code = 2240) 2.9 G/DL CALC A/G RATIO (test code = 2234) 1.6 RATIO BILIRUBIN, TOTAL (test code = 2207) 0.3 MG/DL ALKALINE PHOSPHATASE (test code = 2204) 108 U/L AST (test code = 2218) 39 U/L ALT (test code = 2219) 80 U/L Eduardo Schwartz ScriptRx W/AUTO [id number] 00:00:00* Test Item Value Reference Range Interpretation Comme nts WBC (test code = 1001) 9.2 K/UL RBC (test code = 1002) 4.96 M/UL HEMOGLOBIN (test code = 1003) 14.7 G/DL HEMATOCRIT (test code = 1004) 42.6 % MCV (test code = 1005) 85.9 fL MCH (test code = 1006) 29.6 PG MCHC (test code = 1007) 34.5 G/DL RDW (test code = 1038) 12.4 % NEUTROPHILS (test code = 1008) 56.1 % LYMPHOCYTES (test code = 1010) 31.8 % MONOCYTES (test code = 1011) 9.8 % EOSINOPHILS (test code = 1012) 2.0 % BASOPHILS (test code = 1013) 0.3 % PLATELET COUNT (test code = 1015) 335 K/UL Eduardo Schwartz AustinCBC W/AUTO [id number] 00:00:00* Test Item Value Reference Range Interpretation Comme nts WBC (test code = 1001) 9.2 K/UL RBC (test code = 1002) 4.96 M/UL HEMOGLOBIN (test code = 1003) 14.7 G/DL HEMATOCRIT (test code = 1004) 42.6 % MCV (test code = 1005) 85.9 fL MCH (test code = 1006) 29.6 PG MCHC (test code = 1007) 34.5 G/DL RDW (test code = 1038) 12.4 % NEUTROPHILS (test code = 1008) 56.1 % LYMPHOCYTES (test code = 1010) 31.8 % MONOCYTES (test code = 1011) 9.8 % EOSINOPHILS (test code = 1012) 2.0 % BASOPHILS (test code = 1013) 0.3 % PLATELET COUNT (test code = 1015) 335 K/UL HEMOGLOBIN [id number] 00:00:00* Test Item Value Reference Range Interpretation Comme nts HEMOGLOBIN A1c (test code = 67092) 5.6 % HEMOGLOBIN [id number] 00:00:00* Test Item Value Reference Range Interpretation Comme nts HEMOGLOBIN A1c (test code = 13205) 5.6 % HEMOGLOBIN [id number] 00:00:00* Test Item Value Reference Range Interpretation Comme nts HEMOGLOBIN A1c (test code = 15983) 5.6 % LIPID [id number] 00:00:00* Test Item Value Reference Range Interpretation Comme nts CHOLESTEROL (test code = 2210) 263 MG/DL TRIGLYCERIDES (test code = 2232) 288 MG/DL HDL CHOLESTEROL (test code = 2220) 40 MG/DL CALC LDL CHOL (test code = 2237) 165 MG/DL RISK RATIO LDL/HDL (test cod e = 2238) 4.14 RATIO LIPID [id number] 00:00:00* Test Item Value Reference Range Interpretation Comme nts CHOLESTEROL (test code = 2210) 263 MG/DL TRIGLYCERIDES (test code = 2232) 288 MG/DL HDL CHOLESTEROL (test code = 2220) 40 MG/DL CALC LDL CHOL (test code = 2237) 165 MG/DL RISK RATIO LDL/HDL (test cod e = 2238) 4.14 RATIO COMPREHENSIVE METABOLIC [id number] 00:00:00* Test Item Value Reference Range Interpretation Comme nts GLUCOSE (test code = 2217) 78 MG/DL BUN (test code = 2208) 14 MG/DL CREATININE (test code = 2214) 0.66 MG/DL eGFR AMER. (test cod e = 88039) 122 ML/MIN/1.73 eGFR NON- AMER. (test code = 41283) 105 ML/MIN/1.73 CALC BUN/CREAT (test code = 2235) 21 RATIO SODIUM (test code = 2231) 141 MEQ/L POTASSIUM (test code = 2228) 4.2 MEQ/L CHLORIDE (test code = 2215) 101 MEQ/L CARBON DIOXIDE (test code = 2206) 26 MEQ/L CALCIUM (test code = 2209) 9.7 MG/DL PROTEIN, TOTAL (test code = 2229) 7.5 G/DL ALBUMIN (test code = 2201) 4.6 G/DL CALC GLOBULIN (test code = 2240) 2.9 G/DL CALC A/G RATIO (test code = 2234) 1.6 RATIO BILIRUBIN, TOTAL (test code = 2207) 0.3 MG/DL ALKALINE PHOSPHATASE (test code = 2204) 108 U/L AST (test code = 2218) 39 U/L ALT (test code = 2219) 80 U/L COMPREHENSIVE METABOLIC [id number] 00:00:00* Test Item Value Reference Range Interpretation Comme nts GLUCOSE (test code = 2217) 78 MG/DL BUN (test code = 2208) 14 MG/DL CREATININE (test code = 2214) 0.66 MG/DL eGFR AMER. (test cod e = 37425) 122 ML/MIN/1.73 eGFR NON- AMER. (test code = 97894) 105 ML/MIN/1.73 CALC BUN/CREAT (test code = 2235) 21 RATIO SODIUM (test code = 2231) 141 MEQ/L POTASSIUM (test code = 2228) 4.2 MEQ/L CHLORIDE (test code = 2215) 101 MEQ/L CARBON DIOXIDE (test code = 2206) 26 MEQ/L CALCIUM (test code = 2209) 9.7 MG/DL PROTEIN, TOTAL (test code = 2229) 7.5 G/DL ALBUMIN (test code = 2201) 4.6 G/DL CALC GLOBULIN (test code = 2240) 2.9 G/DL CALC A/G RATIO (test code = 2234) 1.6 RATIO BILIRUBIN, TOTAL (test code = 2207) 0.3 MG/DL ALKALINE PHOSPHATASE (test code = 2204) 108 U/L AST (test code = 2218) 39 U/L ALT (test code = 2219) 80 U/L CBC W/AUTO [id number] 00:00:00* Test Item Value Reference Range Interpretation Comme nts WBC (test code = 1001) 9.2 K/UL RBC (test code = 1002) 4.96 M/UL HEMOGLOBIN (test code = 1003) 14.7 G/DL HEMATOCRIT (test code = 1004) 42.6 % MCV (test code = 1005) 85.9 fL MCH (test code = 1006) 29.6 PG MCHC (test code = 1007) 34.5 G/DL RDW (test code = 1038) 12.4 % NEUTROPHILS (test code = 1008) 56.1 % LYMPHOCYTES (test code = 1010) 31.8 % MONOCYTES (test code = 1011) 9.8 % EOSINOPHILS (test code = 1012) 2.0 % BASOPHILS (test code = 1013) 0.3 % PLATELET COUNT (test code = 1015) 335 K/UL CBC W/AUTO [id number] 00:00:00* Test Item Value Reference Range Interpretation Comme nts WBC (test code = 1001) 9.2 K/UL RBC (test code = 1002) 4.96 M/UL HEMOGLOBIN (test code = 1003) 14.7 G/DL HEMATOCRIT (test code = 1004) 42.6 % MCV (test code = 1005) 85.9 fL MCH (test code = 1006) 29.6 PG MCHC (test code = 1007) 34.5 G/DL RDW (test code = 1038) 12.4 % NEUTROPHILS (test code = 1008) 56.1 % LYMPHOCYTES (test code = 1010) 31.8 % MONOCYTES (test code = 1011) 9.8 % EOSINOPHILS (test code = 1012) 2.0 % BASOPHILS (test code = 1013) 0.3 % PLATELET COUNT (test code = 1015) 335 K/UL CBC W/AUTO [id number] 00:00:00* Test Item Value Reference Range Interpretation Comme nts WBC (test code = 1001) 9.2 K/UL RBC (test code = 1002) 4.96 M/UL HEMOGLOBIN (test code = 1003) 14.7 G/DL HEMATOCRIT (test code = 1004) 42.6 % MCV (test code = 1005) 85.9 fL MCH (test code = 1006) 29.6 PG MCHC (test code = 1007) 34.5 G/DL RDW (test code = 1038) 12.4 % NEUTROPHILS (test code = 1008) 56.1 % LYMPHOCYTES (test code = 1010) 31.8 % MONOCYTES (test code = 1011) 9.8 % EOSINOPHILS (test code = 1012) 2.0 % BASOPHILS (test code = 1013) 0.3 % PLATELET COUNT (test code = 1015) 335 K/UL HEMOGLOBIN [id number] 00:00:00* Test Item Value Reference Range Interpretation Comme nts HEMOGLOBIN A1c (test code = 47872) 5.6 % HEMOGLOBIN [id number] 00:00:00* Test Item Value Reference Range Interpretation Comme nts HEMOGLOBIN A1c (test code = 62563) 5.6 % HEMOGLOBIN [id number] 00:00:00* Test Item Value Reference Range Interpretation Comme nts HEMOGLOBIN A1c (test code = 54537) 5.6 % LIPID [id number] 00:00:00* Test Item Value Reference Range Interpretation Comme nts CHOLESTEROL (test code = 2210) 263 MG/DL TRIGLYCERIDES (test code = 2232) 288 MG/DL HDL CHOLESTEROL (test code = 2220) 40 MG/DL CALC LDL CHOL (test code = 2237) 165 MG/DL RISK RATIO LDL/HDL (test cod e = 2238) 4.14 RATIO LIPID [id number] 00:00:00* Test Item Value Reference Range Interpretation Comme nts CHOLESTEROL (test code = 2210) 263 MG/DL TRIGLYCERIDES (test code = 2232) 288 MG/DL HDL CHOLESTEROL (test code = 2220) 40 MG/DL CALC LDL CHOL (test code = 2237) 165 MG/DL RISK RATIO LDL/HDL (test cod e = 2238) 4.14 RATIO COMPREHENSIVE METABOLIC [id number] 00:00:00* Test Item Value Reference Range Interpretation Comme nts GLUCOSE (test code = 2217) 78 MG/DL BUN (test code = 2208) 14 MG/DL CREATININE (test code = 2214) 0.66 MG/DL eGFR AMER. (test cod e = 08629) 122 ML/MIN/1.73 eGFR NON- AMER. (test code = 33667) 105 ML/MIN/1.73 CALC BUN/CREAT (test code = 2235) 21 RATIO SODIUM (test code = 2231) 141 MEQ/L POTASSIUM (test code = 2228) 4.2 MEQ/L CHLORIDE (test code = 2215) 101 MEQ/L CARBON DIOXIDE (test code = 2206) 26 MEQ/L CALCIUM (test code = 2209) 9.7 MG/DL PROTEIN, TOTAL (test code = 2229) 7.5 G/DL ALBUMIN (test code = 2201) 4.6 G/DL CALC GLOBULIN (test code = 2240) 2.9 G/DL CALC A/G RATIO (test code = 2234) 1.6 RATIO BILIRUBIN, TOTAL (test code = 2207) 0.3 MG/DL ALKALINE PHOSPHATASE (test code = 2204) 108 U/L AST (test code = 2218) 39 U/L ALT (test code = 2219) 80 U/L COMPREHENSIVE METABOLIC [id number] 00:00:00* Test Item Value Reference Range Interpretation Comme nts GLUCOSE (test code = 2217) 78 MG/DL BUN (test code = 2208) 14 MG/DL CREATININE (test code = 2214) 0.66 MG/DL eGFR AMER. (test cod e = 51492) 122 ML/MIN/1.73 eGFR NON- AMER. (test code = 12511) 105 ML/MIN/1.73 CALC BUN/CREAT (test code = 2235) 21 RATIO SODIUM (test code = 2231) 141 MEQ/L POTASSIUM (test code = 2228) 4.2 MEQ/L CHLORIDE (test code = 2215) 101 MEQ/L CARBON DIOXIDE (test code = 2206) 26 MEQ/L CALCIUM (test code = 2209) 9.7 MG/DL PROTEIN, TOTAL (test code = 2229) 7.5 G/DL ALBUMIN (test code = 2201) 4.6 G/DL CALC GLOBULIN (test code = 2240) 2.9 G/DL CALC A/G RATIO (test code = 2234) 1.6 RATIO BILIRUBIN, TOTAL (test code = 2207) 0.3 MG/DL ALKALINE PHOSPHATASE (test code = 2204) 108 U/L AST (test code = 2218) 39 U/L ALT (test code = 2219) 80 U/L CBC W/AUTO [id number] 00:00:00* Test Item Value Reference Range Interpretation Comme nts WBC (test code = 1001) 9.2 K/UL RBC (test code = 1002) 4.96 M/UL HEMOGLOBIN (test code = 1003) 14.7 G/DL HEMATOCRIT (test code = 1004) 42.6 % MCV (test code = 1005) 85.9 fL MCH (test code = 1006) 29.6 PG MCHC (test code = 1007) 34.5 G/DL RDW (test code = 1038) 12.4 % NEUTROPHILS (test code = 1008) 56.1 % LYMPHOCYTES (test code = 1010) 31.8 % MONOCYTES (test code = 1011) 9.8 % EOSINOPHILS (test code = 1012) 2.0 % BASOPHILS (test code = 1013) 0.3 % PLATELET COUNT (test code = 1015) 335 K/UL CBC W/AUTO [id number] 00:00:00* Test Item Value Reference Range Interpretation Comme nts WBC (test code = 1001) 9.2 K/UL RBC (test code = 1002) 4.96 M/UL HEMOGLOBIN (test code = 1003) 14.7 G/DL HEMATOCRIT (test code = 1004) 42.6 % MCV (test code = 1005) 85.9 fL MCH (test code = 1006) 29.6 PG MCHC (test code = 1007) 34.5 G/DL RDW (test code = 1038) 12.4 % NEUTROPHILS (test code = 1008) 56.1 % LYMPHOCYTES (test code = 1010) 31.8 % MONOCYTES (test code = 1011) 9.8 % EOSINOPHILS (test code = 1012) 2.0 % BASOPHILS (test code = 1013) 0.3 % PLATELET COUNT (test code = 1015) 335 K/UL CBC W/AUTO [id number] 00:00:00* Test Item Value Reference Range Interpretation Comme nts WBC (test code = 1001) 9.2 K/UL RBC (test code = 1002) 4.96 M/UL HEMOGLOBIN (test code = 1003) 14.7 G/DL HEMATOCRIT (test code = 1004) 42.6 % MCV (test code = 1005) 85.9 fL MCH (test code = 1006) 29.6 PG MCHC (test code = 1007) 34.5 G/DL RDW (test code = 1038) 12.4 % NEUTROPHILS (test code = 1008) 56.1 % LYMPHOCYTES (test code = 1010) 31.8 % MONOCYTES (test code = 1011) 9.8 % EOSINOPHILS (test code = 1012) 2.0 % BASOPHILS (test code = 1013) 0.3 % PLATELET COUNT (test code = 1015) 335 K/UL HEMOGLOBIN [id number] 00:00:00* Test Item Value Reference Range Interpretation Comme nts HEMOGLOBIN A1c (test code = 08672) 5.6 % HEMOGLOBIN [id number] 00:00:00* Test Item Value Reference Range Interpretation Comme nts HEMOGLOBIN A1c (test code = 12297) 5.6 % HEMOGLOBIN [id number] 00:00:00* Test Item Value Reference Range Interpretation Comme nts HEMOGLOBIN A1c (test code = 41351) 5.6 % LIPID [id number] 00:00:00* Test Item Value Reference Range Interpretation Comme nts CHOLESTEROL (test code = 2210) 263 MG/DL TRIGLYCERIDES (test code = 2232) 288 MG/DL HDL CHOLESTEROL (test code = 2220) 40 MG/DL CALC LDL CHOL (test code = 2237) 165 MG/DL RISK RATIO LDL/HDL (test cod e = 2238) 4.14 RATIO LIPID [id number] 00:00:00* Test Item Value Reference Range Interpretation Comme nts CHOLESTEROL (test code = 2210) 263 MG/DL TRIGLYCERIDES (test code = 2232) 288 MG/DL HDL CHOLESTEROL (test code = 2220) 40 MG/DL CALC LDL CHOL (test code = 2237) 165 MG/DL RISK RATIO LDL/HDL (test cod e = 2238) 4.14 RATIO COMPREHENSIVE METABOLIC [id number] 00:00:00* Test Item Value Reference Range Interpretation Comme nts GLUCOSE (test code = 2217) 78 MG/DL BUN (test code = 2208) 14 MG/DL CREATININE (test code = 2214) 0.66 MG/DL eGFR AMER. (test cod e = 01526) 122 ML/MIN/1.73 eGFR NON- AMER. (test code = 30278) 105 ML/MIN/1.73 CALC BUN/CREAT (test code = 2235) 21 RATIO SODIUM (test code = 2231) 141 MEQ/L POTASSIUM (test code = 2228) 4.2 MEQ/L CHLORIDE (test code = 2215) 101 MEQ/L CARBON DIOXIDE (test code = 2206) 26 MEQ/L CALCIUM (test code = 2209) 9.7 MG/DL PROTEIN, TOTAL (test code = 2229) 7.5 G/DL ALBUMIN (test code = 2201) 4.6 G/DL CALC GLOBULIN (test code = 2240) 2.9 G/DL CALC A/G RATIO (test code = 2234) 1.6 RATIO BILIRUBIN, TOTAL (test code = 2207) 0.3 MG/DL ALKALINE PHOSPHATASE (test code = 2204) 108 U/L AST (test code = 2218) 39 U/L ALT (test code = 2219) 80 U/L COMPREHENSIVE METABOLIC [id number] 00:00:00* Test Item Value Reference Range Interpretation Comme nts GLUCOSE (test code = 2217) 78 MG/DL BUN (test code = 2208) 14 MG/DL CREATININE (test code = 2214) 0.66 MG/DL eGFR AMER. (test cod e = 66472) 122 ML/MIN/1.73 eGFR NON- AMER. (test code = 79554) 105 ML/MIN/1.73 CALC BUN/CREAT (test code = 2235) 21 RATIO SODIUM (test code = 2231) 141 MEQ/L POTASSIUM (test code = 2228) 4.2 MEQ/L CHLORIDE (test code = 2215) 101 MEQ/L CARBON DIOXIDE (test code = 2206) 26 MEQ/L CALCIUM (test code = 2209) 9.7 MG/DL PROTEIN, TOTAL (test code = 2229) 7.5 G/DL ALBUMIN (test code = 2201) 4.6 G/DL CALC GLOBULIN (test code = 2240) 2.9 G/DL CALC A/G RATIO (test code = 2234) 1.6 RATIO BILIRUBIN, TOTAL (test code = 2207) 0.3 MG/DL ALKALINE PHOSPHATASE (test code = 2204) 108 U/L AST (test code = 2218) 39 U/L ALT (test code = 2219) 80 U/L CBC W/AUTO [id number] 00:00:00* Test Item Value Reference Range Interpretation Comme nts WBC (test code = 1001) 9.2 K/UL RBC (test code = 1002) 4.96 M/UL HEMOGLOBIN (test code = 1003) 14.7 G/DL HEMATOCRIT (test code = 1004) 42.6 % MCV (test code = 1005) 85.9 fL MCH (test code = 1006) 29.6 PG MCHC (test code = 1007) 34.5 G/DL RDW (test code = 1038) 12.4 % NEUTROPHILS (test code = 1008) 56.1 % LYMPHOCYTES (test code = 1010) 31.8 % MONOCYTES (test code = 1011) 9.8 % EOSINOPHILS (test code = 1012) 2.0 % BASOPHILS (test code = 1013) 0.3 % PLATELET COUNT (test code = 1015) 335 K/UL CBC W/AUTO [id number] 00:00:00* Test Item Value Reference Range Interpretation Comme nts WBC (test code = 1001) 9.2 K/UL RBC (test code = 1002) 4.96 M/UL HEMOGLOBIN (test code = 1003) 14.7 G/DL HEMATOCRIT (test code = 1004) 42.6 % MCV (test code = 1005) 85.9 fL MCH (test code = 1006) 29.6 PG MCHC (test code = 1007) 34.5 G/DL RDW (test code = 1038) 12.4 % NEUTROPHILS (test code = 1008) 56.1 % LYMPHOCYTES (test code = 1010) 31.8 % MONOCYTES (test code = 1011) 9.8 % EOSINOPHILS (test code = 1012) 2.0 % BASOPHILS (test code = 1013) 0.3 % PLATELET COUNT (test code = 1015) 335 K/UL CBC W/AUTO [id number] 00:00:00* Test Item Value Reference Range Interpretation Comme nts WBC (test code = 1001) 9.2 K/UL RBC (test code = 1002) 4.96 M/UL HEMOGLOBIN (test code = 1003) 14.7 G/DL HEMATOCRIT (test code = 1004) 42.6 % MCV (test code = 1005) 85.9 fL MCH (test code = 1006) 29.6 PG MCHC (test code = 1007) 34.5 G/DL RDW (test code = 1038) 12.4 % NEUTROPHILS (test code = 1008) 56.1 % LYMPHOCYTES (test code = 1010) 31.8 % MONOCYTES (test code = 1011) 9.8 % EOSINOPHILS (test code = 1012) 2.0 % BASOPHILS (test code = 1013) 0.3 % PLATELET COUNT (test code = 1015) 335 K/UL CBC W/AUTO [id number] 00:00:00* Test Item Value Reference Range Interpretation Comme nts WBC (test code = 1001) 9.2 K/UL RBC (test code = 1002) 4.96 M/UL HEMOGLOBIN (test code = 1003) 14.7 G/DL HEMATOCRIT (test code = 1004) 42.6 % MCV (test code = 1005) 85.9 fL MCH (test code = 1006) 29.6 PG MCHC (test code = 1007) 34.5 G/DL RDW (test code = 1038) 12.4 % NEUTROPHILS (test code = 1008) 56.1 % LYMPHOCYTES (test code = 1010) 31.8 % MONOCYTES (test code = 1011) 9.8 % EOSINOPHILS (test code = 1012) 2.0 % BASOPHILS (test code = 1013) 0.3 % PLATELET COUNT (test code = 1015) 335 K/UL HEMOGLOBIN [id number] 00:00:00* Test Item Value Reference Range Interpretation Comme nts HEMOGLOBIN A1c (test code = 51895) 5.6 % HEMOGLOBIN [id number] 00:00:00* Test Item Value Reference Range Interpretation Comme nts HEMOGLOBIN A1c (test code = 02692) 5.6 % HEMOGLOBIN [id number] 00:00:00* Test Item Value Reference Range Interpretation Comme nts HEMOGLOBIN A1c (test code = 59172) 5.6 % LIPID [id number] 00:00:00* Test Item Value Reference Range Interpretation Comme nts CHOLESTEROL (test code = 2210) 263 MG/DL TRIGLYCERIDES (test code = 2232) 288 MG/DL HDL CHOLESTEROL (test code = 2220) 40 MG/DL CALC LDL CHOL (test code = 2237) 165 MG/DL RISK RATIO LDL/HDL (test cod e = 2238) 4.14 RATIO LIPID [id number] 00:00:00* Test Item Value Reference Range Interpretation Comme nts CHOLESTEROL (test code = 2210) 263 MG/DL TRIGLYCERIDES (test code = 2232) 288 MG/DL HDL CHOLESTEROL (test code = 2220) 40 MG/DL CALC LDL CHOL (test code = 2237) 165 MG/DL RISK RATIO LDL/HDL (test cod e = 2238) 4.14 RATIO COMPREHENSIVE METABOLIC [id number] 00:00:00* Test Item Value Reference Range Interpretation Comme nts GLUCOSE (test code = 2217) 78 MG/DL BUN (test code = 2208) 14 MG/DL CREATININE (test code = 2214) 0.66 MG/DL eGFR AMER. (test cod e = 78234) 122 ML/MIN/1.73 eGFR NON- AMER. (test code = 99848) 105 ML/MIN/1.73 CALC BUN/CREAT (test code = 2235) 21 RATIO SODIUM (test code = 2231) 141 MEQ/L POTASSIUM (test code = 2228) 4.2 MEQ/L CHLORIDE (test code = 2215) 101 MEQ/L CARBON DIOXIDE (test code = 2206) 26 MEQ/L CALCIUM (test code = 2209) 9.7 MG/DL PROTEIN, TOTAL (test code = 2229) 7.5 G/DL ALBUMIN (test code = 2201) 4.6 G/DL CALC GLOBULIN (test code = 2240) 2.9 G/DL CALC A/G RATIO (test code = 2234) 1.6 RATIO BILIRUBIN, TOTAL (test code = 2207) 0.3 MG/DL ALKALINE PHOSPHATASE (test code = 2204) 108 U/L AST (test code = 2218) 39 U/L ALT (test code = 2219) 80 U/L COMPREHENSIVE METABOLIC [id number] 00:00:00* Test Item Value Reference Range Interpretation Comme nts GLUCOSE (test code = 2217) 78 MG/DL BUN (test code = 2208) 14 MG/DL CREATININE (test code = 2214) 0.66 MG/DL eGFR AMER. (test cod e = 86364) 122 ML/MIN/1.73 eGFR NON- AMER. (test code = 04124) 105 ML/MIN/1.73 CALC BUN/CREAT (test code = 2235) 21 RATIO SODIUM (test code = 2231) 141 MEQ/L POTASSIUM (test code = 2228) 4.2 MEQ/L CHLORIDE (test code = 2215) 101 MEQ/L CARBON DIOXIDE (test code = 2206) 26 MEQ/L CALCIUM (test code = 2209) 9.7 MG/DL PROTEIN, TOTAL (test code = 2229) 7.5 G/DL ALBUMIN (test code = 2201) 4.6 G/DL CALC GLOBULIN (test code = 2240) 2.9 G/DL CALC A/G RATIO (test code = 2234) 1.6 RATIO BILIRUBIN, TOTAL (test code = 2207) 0.3 MG/DL ALKALINE PHOSPHATASE (test code = 2204) 108 U/L AST (test code = 2218) 39 U/L ALT (test code = 2219) 80 U/L CBC W/AUTO [id number] 00:00:00* Test Item Value Reference Range Interpretation Comme nts WBC (test code = 1001) 9.2 K/UL RBC (test code = 1002) 4.96 M/UL HEMOGLOBIN (test code = 1003) 14.7 G/DL HEMATOCRIT (test code = 1004) 42.6 % MCV (test code = 1005) 85.9 fL MCH (test code = 1006) 29.6 PG MCHC (test code = 1007) 34.5 G/DL RDW (test code = 1038) 12.4 % NEUTROPHILS (test code = 1008) 56.1 % LYMPHOCYTES (test code = 1010) 31.8 % MONOCYTES (test code = 1011) 9.8 % EOSINOPHILS (test code = 1012) 2.0 % BASOPHILS (test code = 1013) 0.3 % PLATELET COUNT (test code = 1015) 335 K/UL HEMOGLOBIN [id number] 00:00:00* Test Item Value Reference Range Interpretation Comme nts HEMOGLOBIN A1c (test code = 4548-4) 5.7 %oftotalHgb Eduardo Schwartz [facility] (INCLUDES DIFF/PLT)2017-04-11 00:00:00* Test Item Value Reference Range Interpretation Comme nts WHITE BLOOD CELL COUNT (test code = 6690-2) 11.6 Thousand/uL RED BLOOD CELL COUNT (test code = 789-8) 4.74 Million/uL HEMOGLOBIN (test code = 718-7) 13.7 g/dL HEMATOCRIT (test code = 4544-3) 40.8 % MCV (test code = 787-2) 86.1 fL MCH (test code = 785-6) 28.9 pg MCHC (test code = 786-4) 33.6 g/dL RDW (test code = 788-0) 11.9 % PLATELET COUNT (test code = 777-3) 287 Thousand/uL MPV (test code = 776-5) 11.7 fL ABSOLUTE NEUTROPHILS (test code = 751-8) 7726 cells/uL ABSOLUTE BAND NEUTROPHILS (test code = 51716-1) DNR cells/uL ABSOLUTE METAMYELOCYTES (test code = 70152-7) DNR cells/uL ABSOLUTE MYELOCYTES (test code = 85124-5) DNR cells/uL ABSOLUTE PROMYELOCYTES (test code = 15249-5) DNR cells/uL ABSOLUTE LYMPHOCYTES (test code = 731-0) 2784 cells/uL ABSOLUTE MONOCYTES (test code = 742-7) 905 cells/uL ABSOLUTE EOSINOPHILS (test code = 711-2) 162 cells/uL ABSOLUTE BASOPHILS (test code = 704-7) 23 cells/uL ABSOLUTE BLASTS (test code = 08252-6) DNR cells/uL ABSOLUTE NUCLEATED RBC (test code = 54129-5) DNR cells/uL NEUTROPHILS (test code = 770-8) 66.6 % BAND NEUTROPHILS (test code = 764-1) DNR % METAMYELOCYTES (test code = 740-1) DNR % MYELOCYTES (test code = 749-2) DNR % PROMYELOCYTES (test code = 783-1) DNR % LYMPHOCYTES (test code = 736-9) 24.0 % REACTIVE LYMPHOCYTES (test code = 07013-2) DNR % MONOCYTES (test code = 5905-5) 7.8 % EOSINOPHILS (test code = 713-8) 1.4 % BASOPHILS (test code = 706-2) 0.2 % BLASTS (test code = 709-6) DNR % NUCLEATED RBC (test code = 65540-8) DNR /100WBC COMMENT(S) (test code = 8251-1) DNR Eduardo LoveCOMPREHENSIVE METABOLIC [id number] 00:00:00* Test Item Value Reference Range Interpretation Comme nts GLUCOSE (test code = 2345-7) 96 mg/dL UREA NITROGEN (BUN) (test code = 3094-0) 18 mg/dL CREATININE (test code = 2160-0) 0.76 mg/dL eGFR NON-AFR. GERMAN (test code = 93765-7) 94 mL/min/1.73m2 eGFR (test code = 97231-1) 109 mL/min/1.73m2 BUN/CREATININE RATIO (test code = 3097-3) NOT APPLICABLE (calc) SODIUM (test code = 2951-2) 137 mmol/L POTASSIUM (test code = 2823-3) 4.3 mmol/L CHLORIDE (test code = 2075-0) 104 mmol/L CARBON DIOXIDE (test code = 2027-9) 25 mmol/L CALCIUM (test code = 52621-7) 9.8 mg/dL PROTEIN, TOTAL (test code = 2885-2) 7.2 g/dL ALBUMIN (test code = 1751-7) 4.4 g/dL GLOBULIN (test code = 96648-3) 2.8 g/dL(calc) ALBUMIN/GLOBULIN RATIO (test code = 1759-0) 1.6 (calc) BILIRUBIN, TOTAL (test code = 1975-2) 0.4 mg/dL ALKALINE PHOSPHATASE (test code = 6768-6) 86 U/L AST (test code = 1920-8) 18 U/L ALT (test code = 1742-6) 29 U/L Eduardo LoveLIPID [id number] 00:00:00* Test Item Value Reference Range Interpretation Comme nts CHOLESTEROL, TOTAL (test cod e = 2093-3) 258 mg/dL HDL CHOLESTEROL (test code = 2085-9) 33 mg/dL TRIGLYCERIDES (test code = 2571-8) 321 mg/dL LDL-CHOLESTEROL (test code = 54705-7) 171 mg/dL(calc) CHOL/HDLC RATIO (test code = 9830-1) 7.8 (calc) NON HDL CHOLESTEROL (test code = 73783-9) 225 mg/dL(calc) Eduardo LoveVITAMIN D,25-OH,TOTAL,[id number] 00:00:00* Test Item Value Reference Range Interpretation Comme nts VITAMIN D,25-OH,TOTAL,IA (te st code = 1988-3) 12 ng/mL Eduardo LoveCBC (INCLUDES DIFF/PLT)2017-04-11 00:00:00* Test Item Value Reference Range Interpretation Comme nts WHITE BLOOD CELL COUNT (test code = 6690-2) 11.6 Thousand/uL RED BLOOD CELL COUNT (test code = 789-8) 4.74 Million/uL HEMOGLOBIN (test code = 718-7) 13.7 g/dL HEMATOCRIT (test code = 4544-3) 40.8 % MCV (test code = 787-2) 86.1 fL MCH (test code = 785-6) 28.9 pg MCHC (test code = 786-4) 33.6 g/dL RDW (test code = 788-0) 11.9 % PLATELET COUNT (test code = 777-3) 287 Thousand/uL MPV (test code = 776-5) 11.7 fL ABSOLUTE NEUTROPHILS (test code = 751-8) 7726 cells/uL ABSOLUTE BAND NEUTROPHILS (test code = 61824-0) DNR cells/uL ABSOLUTE METAMYELOCYTES (test code = 06690-0) DNR cells/uL ABSOLUTE MYELOCYTES (test code = 49431-2) DNR cells/uL ABSOLUTE PROMYELOCYTES (test code = 82542-1) DNR cells/uL ABSOLUTE LYMPHOCYTES (test code = 731-0) 2784 cells/uL ABSOLUTE MONOCYTES (test code = 742-7) 905 cells/uL ABSOLUTE EOSINOPHILS (test code = 711-2) 162 cells/uL ABSOLUTE BASOPHILS (test code = 704-7) 23 cells/uL ABSOLUTE BLASTS (test code = 58385-7) DNR cells/uL ABSOLUTE NUCLEATED RBC (test code = 19697-4) DNR cells/uL NEUTROPHILS (test code = 770-8) 66.6 % BAND NEUTROPHILS (test code = 764-1) DNR % METAMYELOCYTES (test code = 740-1) DNR % MYELOCYTES (test code = 749-2) DNR % PROMYELOCYTES (test code = 783-1) DNR % LYMPHOCYTES (test code = 736-9) 24.0 % REACTIVE LYMPHOCYTES (test code = 04467-6) DNR % MONOCYTES (test code = 5905-5) 7.8 % EOSINOPHILS (test code = 713-8) 1.4 % BASOPHILS (test code = 706-2) 0.2 % BLASTS (test code = 709-6) DNR % NUCLEATED RBC (test code = 17697-1) DNR /100WBC COMMENT(S) (test code = 8251-1) DNR COMPREHENSIVE METABOLIC [id number] 00:00:00* Test Item Value Reference Range Interpretation Comme nts GLUCOSE (test code = 2345-7) 96 mg/dL UREA NITROGEN (BUN) (test code = 3094-0) 18 mg/dL CREATININE (test code = 2160-0) 0.76 mg/dL eGFR NON-AFR. GERMAN (test code = 38475-2) 94 mL/min/1.73m2 eGFR (test code = 18552-5) 109 mL/min/1.73m2 BUN/CREATININE RATIO (test code = 3097-3) NOT APPLICABLE (calc) SODIUM (test code = 2951-2) 137 mmol/L POTASSIUM (test code = 2823-3) 4.3 mmol/L CHLORIDE (test code = 2075-0) 104 mmol/L CARBON DIOXIDE (test code = 2027-9) 25 mmol/L CALCIUM (test code = 94786-3) 9.8 mg/dL PROTEIN, TOTAL (test code = 2885-2) 7.2 g/dL ALBUMIN (test code = 1751-7) 4.4 g/dL GLOBULIN (test code = 52281-3) 2.8 g/dL(calc) ALBUMIN/GLOBULIN RATIO (test code = 1759-0) 1.6 (calc) BILIRUBIN, TOTAL (test code = 1975-2) 0.4 mg/dL ALKALINE PHOSPHATASE (test code = 6768-6) 86 U/L AST (test code = 1920-8) 18 U/L ALT (test code = 1742-6) 29 U/L LIPID [id number] 00:00:00* Test Item Value Reference Range Interpretation Comme [facility] CHOLESTEROL, TOTAL (test cod e = 2093-3) 258 mg/dL HDL CHOLESTEROL (test code = 2085-9) 33 mg/dL TRIGLYCERIDES (test code = 2571-8) 321 mg/dL LDL-CHOLESTEROL (test code = 15370-0) 171 mg/dL(calc) CHOL/HDLC RATIO (test code = 9830-1) 7.8 (calc) NON HDL CHOLESTEROL (test code = 51233-7) 225 mg/dL(calc) VITAMIN D,25-OH,TOTAL,[id number] 00:00:00* Test Item Value Reference Range Interpretation Comme [facility] VITAMIN D,25-OH,TOTAL,IA (te st code = 1989-3) 12 ng/mL HEMOGLOBIN [id number] 00:00:00* Test Item Value Reference Range Interpretation Comme [facility] HEMOGLOBIN A1c (test code = 4548-4) 5.7 %oftotalHgb CBC (INCLUDES DIFF/PLT)2017-04-11 00:00:00* Test Item Value Reference Range Interpretation Comme [facility] WHITE BLOOD CELL COUNT (test code = 6690-2) 11.6 Thousand/uL RED BLOOD CELL COUNT (test code = 789-8) 4.74 Million/uL HEMOGLOBIN (test code = 718-7) 13.7 g/dL HEMATOCRIT (test code = 4544-3) 40.8 % MCV (test code = 787-2) 86.1 fL MCH (test code = 785-6) 28.9 pg MCHC (test code = 786-4) 33.6 g/dL RDW (test code = 788-0) 11.9 % PLATELET COUNT (test code = 777-3) 287 Thousand/uL MPV (test code = 776-5) 11.7 fL ABSOLUTE NEUTROPHILS (test code = 751-8) 7726 cells/uL ABSOLUTE BAND NEUTROPHILS (test code = 91059-4) DNR cells/uL ABSOLUTE METAMYELOCYTES (test code = 57005-3) DNR cells/uL ABSOLUTE MYELOCYTES (test code = 04133-3) DNR cells/uL ABSOLUTE PROMYELOCYTES (test code = 70350-7) DNR cells/uL ABSOLUTE LYMPHOCYTES (test code = 731-0) 2784 cells/uL ABSOLUTE MONOCYTES (test code = 742-7) 905 cells/uL ABSOLUTE EOSINOPHILS (test code = 711-2) 162 cells/uL ABSOLUTE BASOPHILS (test code = 704-7) 23 cells/uL ABSOLUTE BLASTS (test code = 63448-7) DNR cells/uL ABSOLUTE NUCLEATED RBC (test code = 85364-9) DNR cells/uL NEUTROPHILS (test code = 770-8) 66.6 % BAND NEUTROPHILS (test code = 764-1) DNR % METAMYELOCYTES (test code = 740-1) DNR % MYELOCYTES (test code = 749-2) DNR % PROMYELOCYTES (test code = 783-1) DNR % LYMPHOCYTES (test code = 736-9) 24.0 % REACTIVE LYMPHOCYTES (test code = 31460-4) DNR % MONOCYTES (test code = 5905-5) 7.8 % EOSINOPHILS (test code = 713-8) 1.4 % BASOPHILS (test code = 706-2) 0.2 % BLASTS (test code = 709-6) DNR % NUCLEATED RBC (test code = 13902-1) DNR /100WBC COMMENT(S) (test code = 8251-1) DNR COMPREHENSIVE METABOLIC [id number] 00:00:00* Test Item Value Reference Range Interpretation Comme nts GLUCOSE (test code = 2345-7) 96 mg/dL UREA NITROGEN (BUN) (test code = 3094-0) 18 mg/dL CREATININE (test code = 2160-0) 0.76 mg/dL eGFR NON-AFR. GERMAN (test code = 07852-8) 94 mL/min/1.73m2 eGFR (test code = 86781-7) 109 mL/min/1.73m2 BUN/CREATININE RATIO (test code = 3097-3) NOT APPLICABLE (calc) SODIUM (test code = 2951-2) 137 mmol/L POTASSIUM (test code = 2823-3) 4.3 mmol/L CHLORIDE (test code = 2075-0) 104 mmol/L CARBON DIOXIDE (test code = 8-9) 25 mmol/L CALCIUM (test code = 41635-9) 9.8 mg/dL PROTEIN, TOTAL (test code = 2885-2) 7.2 g/dL ALBUMIN (test code = 1751-7) 4.4 g/dL GLOBULIN (test code = 89458-0) 2.8 g/dL(calc) ALBUMIN/GLOBULIN RATIO (test code = 1759-0) 1.6 (calc) BILIRUBIN, TOTAL (test code = 1975-2) 0.4 mg/dL ALKALINE PHOSPHATASE (test code = 6768-6) 86 U/L AST (test code = 1920-8) 18 U/L ALT (test code = 1742-6) 29 U/L LIPID [id number] 00:00:00* Test Item Value Reference Range Interpretation Comme nts CHOLESTEROL, TOTAL (test cod e = 2093-3) 258 mg/dL HDL CHOLESTEROL (test code = 2085-9) 33 mg/dL TRIGLYCERIDES (test code = 2571-8) 321 mg/dL LDL-CHOLESTEROL (test code = 07488-1) 171 mg/dL(calc) CHOL/HDLC RATIO (test code = 9830-1) 7.8 (calc) NON HDL CHOLESTEROL (test code = 46601-7) 225 mg/dL(calc) VITAMIN D,25-OH,TOTAL,[id number] 00:00:00* Test Item Value Reference Range Interpretation Comme [facility] VITAMIN D,25-OH,TOTAL,IA (te st code = 1988-3) 12 ng/mL HEMOGLOBIN [id number] 00:00:00* Test Item Value Reference Range Interpretation Comme [facility] HEMOGLOBIN A1c (test code = 4548-4) 5.7 %oftotalHgb CBC (INCLUDES DIFF/PLT)2017-04-11 00:00:00* Test Item Value Reference Range Interpretation Comme nts WHITE BLOOD CELL COUNT (test code = 6690-2) 11.6 Thousand/uL RED BLOOD CELL COUNT (test code = 789-8) 4.74 Million/uL HEMOGLOBIN (test code = 718-7) 13.7 g/dL HEMATOCRIT (test code = 4544-3) 40.8 % MCV (test code = 787-2) 86.1 fL MCH (test code = 785-6) 28.9 pg MCHC (test code = 786-4) 33.6 g/dL RDW (test code = 788-0) 11.9 % PLATELET COUNT (test code = 777-3) 287 Thousand/uL MPV (test code = 776-5) 11.7 fL ABSOLUTE NEUTROPHILS (test code = 751-8) 7726 cells/uL ABSOLUTE BAND NEUTROPHILS (test code = 20347-1) DNR cells/uL ABSOLUTE METAMYELOCYTES (test code = 41799-5) DNR cells/uL ABSOLUTE MYELOCYTES (test code = 07594-4) DNR cells/uL ABSOLUTE PROMYELOCYTES (test code = 52062-7) DNR cells/uL ABSOLUTE LYMPHOCYTES (test code = 731-0) 2784 cells/uL ABSOLUTE MONOCYTES (test code = 742-7) 905 cells/uL ABSOLUTE EOSINOPHILS (test code = 711-2) 162 cells/uL ABSOLUTE BASOPHILS (test code = 704-7) 23 cells/uL ABSOLUTE BLASTS (test code = 45162-9) DNR cells/uL ABSOLUTE NUCLEATED RBC (test code = 68855-2) DNR cells/uL NEUTROPHILS (test code = 770-8) 66.6 % BAND NEUTROPHILS (test code = 764-1) DNR % METAMYELOCYTES (test code = 740-1) DNR % MYELOCYTES (test code = 749-2) DNR % PROMYELOCYTES (test code = 783-1) DNR % LYMPHOCYTES (test code = 736-9) 24.0 % REACTIVE LYMPHOCYTES (test code = 01242-8) DNR % MONOCYTES (test code = 5905-5) 7.8 % EOSINOPHILS (test code = 713-8) 1.4 % BASOPHILS (test code = 706-2) 0.2 % BLASTS (test code = 709-6) DNR % NUCLEATED RBC (test code = 33884-1) DNR /100WBC COMMENT(S) (test code = 8251-1) DNR COMPREHENSIVE METABOLIC [id number] 00:00:00* Test Item Value Reference Range Interpretation Comme nts GLUCOSE (test code = 2345-7) 96 mg/dL UREA NITROGEN (BUN) (test code = 3094-0) 18 mg/dL CREATININE (test code = 2160-0) 0.76 mg/dL eGFR NON-AFR. GERMAN (test code = 34065-9) 94 mL/min/1.73m2 eGFR (test code = 09754-5) 109 mL/min/1.73m2 BUN/CREATININE RATIO (test code = 3097-3) NOT APPLICABLE (calc) SODIUM (test code = 2951-2) 137 mmol/L POTASSIUM (test code = 2823-3) 4.3 mmol/L CHLORIDE (test code = 2075-0) 104 mmol/L CARBON DIOXIDE (test code = 2027-9) 25 mmol/L CALCIUM (test code = 65556-8) 9.8 mg/dL PROTEIN, TOTAL (test code = 2885-2) 7.2 g/dL ALBUMIN (test code = 1751-7) 4.4 g/dL GLOBULIN (test code = 95687-3) 2.8 g/dL(calc) ALBUMIN/GLOBULIN RATIO (test code = 1759-0) 1.6 (calc) BILIRUBIN, TOTAL (test code = 1975-2) 0.4 mg/dL ALKALINE PHOSPHATASE (test code = 6768-6) 86 U/L AST (test code = 1920-8) 18 U/L ALT (test code = 1742-6) 29 U/L LIPID [id number] 00:00:00* Test Item Value Reference Range Interpretation Comme [facility] CHOLESTEROL, TOTAL (test cod e = 3-3) 258 mg/dL HDL CHOLESTEROL (test code = 5-9) 33 mg/dL TRIGLYCERIDES (test code = 2571-8) 321 mg/dL LDL-CHOLESTEROL (test code = 86237-7) 171 mg/dL(calc) CHOL/HDLC RATIO (test code = 9830-1) 7.8 (calc) NON HDL CHOLESTEROL (test code = 35327-6) 225 mg/dL(calc) VITAMIN D,25-OH,TOTAL,[id number] 00:00:00* Test Item Value Reference Range Interpretation Comme [facility] VITAMIN D,25-OH,TOTAL,IA (te st code = 1988-3) 12 ng/mL HEMOGLOBIN [id number] 00:00:00* Test Item Value Reference Range Interpretation Comme [facility] HEMOGLOBIN A1c (test code = 4548-4) 5.7 %oftotalHgb CBC (INCLUDES DIFF/PLT)2017-04-11 00:00:00* Test Item Value Reference Range Interpretation Comme [facility] WHITE BLOOD CELL COUNT (test code = 6690-2) 11.6 Thousand/uL RED BLOOD CELL COUNT (test code = 789-8) 4.74 Million/uL HEMOGLOBIN (test code = 718-7) 13.7 g/dL HEMATOCRIT (test code = 4544-3) 40.8 % MCV (test code = 787-2) 86.1 fL MCH (test code = 785-6) 28.9 pg MCHC (test code = 786-4) 33.6 g/dL RDW (test code = 788-0) 11.9 % PLATELET COUNT (test code = 777-3) 287 Thousand/uL MPV (test code = 776-5) 11.7 fL ABSOLUTE NEUTROPHILS (test code = 751-8) 7726 cells/uL ABSOLUTE BAND NEUTROPHILS (test code = 40363-9) DNR cells/uL ABSOLUTE METAMYELOCYTES (test code = 38450-5) DNR cells/uL ABSOLUTE MYELOCYTES (test code = 17960-3) DNR cells/uL ABSOLUTE PROMYELOCYTES (test code = 30358-3) DNR cells/uL ABSOLUTE LYMPHOCYTES (test code = 731-0) 2784 cells/uL ABSOLUTE MONOCYTES (test code = 742-7) 905 cells/uL ABSOLUTE EOSINOPHILS (test code = 711-2) 162 cells/uL ABSOLUTE BASOPHILS (test code = 704-7) 23 cells/uL ABSOLUTE BLASTS (test code = 00424-1) DNR cells/uL ABSOLUTE NUCLEATED RBC (test code = 94289-6) DNR cells/uL NEUTROPHILS (test code = 770-8) 66.6 % BAND NEUTROPHILS (test code = 764-1) DNR % METAMYELOCYTES (test code = 740-1) DNR % MYELOCYTES (test code = 749-2) DNR % PROMYELOCYTES (test code = 783-1) DNR % LYMPHOCYTES (test code = 736-9) 24.0 % REACTIVE LYMPHOCYTES (test code = 44101-6) DNR % MONOCYTES (test code = 5905-5) 7.8 % EOSINOPHILS (test code = 713-8) 1.4 % BASOPHILS (test code = 706-2) 0.2 % BLASTS (test code = 709-6) DNR % NUCLEATED RBC (test code = 43550-5) DNR /100WBC COMMENT(S) (test code = 8251-1) DNR COMPREHENSIVE METABOLIC [id number] 00:00:00* Test Item Value Reference Range Interpretation Comme nts GLUCOSE (test code = 2345-7) 96 mg/dL UREA NITROGEN (BUN) (test code = 3094-0) 18 mg/dL CREATININE (test code = 2160-0) 0.76 mg/dL eGFR NON-AFR. GERMAN (test code = 64016-8) 94 mL/min/1.73m2 eGFR (test code = 56754-7) 109 mL/min/1.73m2 BUN/CREATININE RATIO (test code = 3097-3) NOT APPLICABLE (calc) SODIUM (test code = 2951-2) 137 mmol/L POTASSIUM (test code = 2823-3) 4.3 mmol/L CHLORIDE (test code = 2075-0) 104 mmol/L CARBON DIOXIDE (test code = 8-9) 25 mmol/L CALCIUM (test code = 37856-8) 9.8 mg/dL PROTEIN, TOTAL (test code = 2885-2) 7.2 g/dL ALBUMIN (test code = 1751-7) 4.4 g/dL GLOBULIN (test code = 21165-0) 2.8 g/dL(calc) ALBUMIN/GLOBULIN RATIO (test code = 1759-0) 1.6 (calc) BILIRUBIN, TOTAL (test code = 1975-2) 0.4 mg/dL ALKALINE PHOSPHATASE (test code = 6768-6) 86 U/L AST (test code = 1920-8) 18 U/L ALT (test code = 1742-6) 29 U/L LIPID [id number] 00:00:00* Test Item Value Reference Range Interpretation Comme nts CHOLESTEROL, TOTAL (test cod e = 2093-3) 258 mg/dL HDL CHOLESTEROL (test code = 2085-9) 33 mg/dL TRIGLYCERIDES (test code = 2571-8) 321 mg/dL LDL-CHOLESTEROL (test code = 95798-6) 171 mg/dL(calc) CHOL/HDLC RATIO (test code = 9830-1) 7.8 (calc) NON HDL CHOLESTEROL (test code = 70498-6) 225 mg/dL(calc) VITAMIN D,25-OH,TOTAL,[id number] 00:00:00* Test Item Value Reference Range Interpretation Comme nts VITAMIN D,25-OH,TOTAL,IA (te st code = 1989-3) 12 ng/mL HEMOGLOBIN [id number] 00:00:00* Test Item Value Reference Range Interpretation Comme nts HEMOGLOBIN A1c (test code = 4548-4) 5.7 %oftotalb COMPREHENSIVE METABOLIC [id number] 00:00:00* Test Item Value Reference Range Interpretation Comme nts GLUCOSE (test code = 2217) 92 MG/DL BUN (test code = 2208) 17 MG/DL CREATININE (test code = 2214) 0.6 MG/DL eGFR AMER. (test cod e = 68348) 131 ML/MIN/1.73 eGFR NON- AMER. (test code = 83992) 109 ML/MIN/1.73 CALCULATED BUN/CREAT (test code = 2235) 28 RATIO SODIUM (test code = 2231) 138 MEQ/L POTASSIUM (test code = 2228) 4.4 MEQ/L CHLORIDE (test code = 2215) 104 MEQ/L CARBON DIOXIDE (test code = 2206) 21 MEQ/L CALCIUM (test code = 2209) 9.4 MG/DL PROTEIN, TOTAL (test code = 2229) 7.5 G/DL ALBUMIN (test code = 2201) 4.3 G/DL CALCULATED GLOBULIN (test code = 2240) 3.2 G/DL CALCULATED A/G RATIO (test code = 2234) 1.3 RATIO BILIRUBIN, TOTAL (test code = 2207) 0.4 MG/DL ALKALINE PHOSPHATASE (test code = 2204) 73 U/L SGOT (AST) (test code = 2218) 12 U/L SGPT (ALT) (test code = 2219) 17 U/L Eduardo Schwartz AustinLIPID [id number] 00:00:00* Test Item Value Reference Range Interpretation Comme nts CHOLESTEROL (test code = 2210) 242 MG/DL TRIGLYCERIDES (test code = 2232) 169 MG/DL HDL CHOLESTEROL (test code = 2220) 42 MG/DL CALCULATED LDL CHOL (test co de = 2237) 166 MG/DL RISK RATIO LDL/HDL (test cod e = 2238) 3.96 RATIO Eduardo [id number] 00:00:00* Test Item Value Reference Range Interpretation Comme nts TSH (test code = 2821) 1.4 UIU/ML Eduardo LoveCBC W/AUTO [id number] 00:00:00* Test Item Value Reference Range Interpretation Comme nts WBC (test code = 1001) 9.7 K/UL RBC (test code = 1002) 4.85 M/UL HEMOGLOBIN (test code = 1003) 14.2 G/DL HEMATOCRIT (test code = 1004) 43.9 % MCV (test code = 1005) 90.5 fL MCH (test code = 1006) 29.3 PG MCHC (test code = 1007) 32.3 G/DL RDW (test code = 1038) 13.1 % NEUTROPHILS (test code = 1008) 60 % LYMPHOCYTES (test code = 1010) 30 % MONOCYTES (test code = 1011) 7 % EOSINOPHILS (test code = 1012) 2 % PLATELET COUNT (test code = 1015) 315 K/UL Eduardo LoveCBC W/AUTO [id number] 00:00:00* Test Item Value Reference Range Interpretation Comme nts WBC (test code = 1001) 9.7 K/UL RBC (test code = 1002) 4.85 M/UL HEMOGLOBIN (test code = 1003) 14.2 G/DL HEMATOCRIT (test code = 1004) 43.9 % MCV (test code = 1005) 90.5 fL MCH (test code = 1006) 29.3 PG MCHC (test code = 1007) 32.3 G/DL RDW (test code = 1038) 13.1 % NEUTROPHILS (test code = 1008) 60 % LYMPHOCYTES (test code = 1010) 30 % MONOCYTES (test code = 1011) 7 % EOSINOPHILS (test code = 1012) 2 % BASOPHILS (test code = 1013) % PLATELET COUNT (test code = 1015) 315 K/UL COMPREHENSIVE METABOLIC [id number] 00:00:00* Test Item Value Reference Range Interpretation Comme nts GLUCOSE (test code = 2217) 92 MG/DL BUN (test code = 2208) 17 MG/DL CREATININE (test code = 2214) 0.6 MG/DL eGFR AMER. (test cod e = 31579) 131 ML/MIN/1.73 eGFR NON- AMER. (test code = 33120) 109 ML/MIN/1.73 CALCULATED BUN/CREAT (test code = 2235) 28 RATIO SODIUM (test code = 2231) 138 MEQ/L POTASSIUM (test code = 2228) 4.4 MEQ/L CHLORIDE (test code = 2215) 104 MEQ/L CARBON DIOXIDE (test code = 2206) 21 MEQ/L CALCIUM (test code = 2209) 9.4 MG/DL PROTEIN, TOTAL (test code = 2229) 7.5 G/DL ALBUMIN (test code = 2201) 4.3 G/DL CALCULATED GLOBULIN (test code = 2240) 3.2 G/DL CALCULATED A/G RATIO (test code = 2234) 1.3 RATIO BILIRUBIN, TOTAL (test code = 2207) 0.4 MG/DL ALKALINE PHOSPHATASE (test code = 2204) 73 U/L SGOT (AST) (test code = 2218) 12 U/L SGPT (ALT) (test code = 2219) 17 U/L COMPREHENSIVE METABOLIC [id number] 00:00:00* Test Item Value Reference Range Interpretation Comme nts GLUCOSE (test code = 2217) 92 MG/DL BUN (test code = 2208) 17 MG/DL CREATININE (test code = 2214) 0.6 MG/DL eGFR AMER. (test cod e = 03112) 131 ML/MIN/1.73 eGFR NON- AMER. (test code = 62528) 109 ML/MIN/1.73 CALCULATED BUN/CREAT (test code = 2235) 28 RATIO SODIUM (test code = 2231) 138 MEQ/L POTASSIUM (test code = 2228) 4.4 MEQ/L CHLORIDE (test code = 2215) 104 MEQ/L CARBON DIOXIDE (test code = 2206) 21 MEQ/L CALCIUM (test code = 2209) 9.4 MG/DL PROTEIN, TOTAL (test code = 2229) 7.5 G/DL ALBUMIN (test code = 2201) 4.3 G/DL CALCULATED GLOBULIN (test code = 2240) 3.2 G/DL CALCULATED A/G RATIO (test code = 2234) 1.3 RATIO BILIRUBIN, TOTAL (test code = 2207) 0.4 MG/DL ALKALINE PHOSPHATASE (test code = 2204) 73 U/L SGOT (AST) (test code = 2218) 12 U/L SGPT (ALT) (test code = 2219) 17 U/L LIPID [id number] 00:00:00* Test Item Value Reference Range Interpretation Comme nts CHOLESTEROL (test code = 2210) 242 MG/DL TRIGLYCERIDES (test code = 2232) 169 MG/DL HDL CHOLESTEROL (test code = 2220) 42 MG/DL CALCULATED LDL CHOL (test co de = 2237) 166 MG/DL RISK RATIO LDL/HDL (test cod e = 2238) 3.96 RATIO LIPID [id number] 00:00:00* Test Item Value Reference Range Interpretation Comme nts CHOLESTEROL (test code = 2210) 242 MG/DL TRIGLYCERIDES (test code = 2232) 169 MG/DL HDL CHOLESTEROL (test code = 2220) 42 MG/DL CALCULATED LDL CHOL (test co de = 2237) 166 MG/DL RISK RATIO LDL/HDL (test cod e = 2238) 3.96 RATIO [id number] 00:00:00* Test Item Value Reference Range Interpretation Comme nts TSH (test code = 2821) 1.4 UIU/ML [id number] 00:00:00* Test Item Value Reference Range Interpretation Comme nts TSH (test code = 2821) 1.4 UIU/ML [id number] 00:00:00* Test Item Value Reference Range Interpretation Comme nts TSH (test code = 2821) 1.4 UIU/ML CBC W/AUTO [id number] 00:00:00* Test Item Value Reference Range Interpretation Comme nts WBC (test code = 1001) 9.7 K/UL RBC (test code = 1002) 4.85 M/UL HEMOGLOBIN (test code = 1003) 14.2 G/DL HEMATOCRIT (test code = 1004) 43.9 % MCV (test code = 1005) 90.5 fL MCH (test code = 1006) 29.3 PG MCHC (test code = 1007) 32.3 G/DL RDW (test code = 1038) 13.1 % NEUTROPHILS (test code = 1008) 60 % LYMPHOCYTES (test code = 1010) 30 % MONOCYTES (test code = 1011) 7 % EOSINOPHILS (test code = 1012) 2 % BASOPHILS (test code = 1013) % PLATELET COUNT (test code = 1015) 315 K/UL CBC W/AUTO [id number] 00:00:00* Test Item Value Reference Range Interpretation Comme nts WBC (test code = 1001) 9.7 K/UL RBC (test code = 1002) 4.85 M/UL HEMOGLOBIN (test code = 1003) 14.2 G/DL HEMATOCRIT (test code = 1004) 43.9 % MCV (test code = 1005) 90.5 fL MCH (test code = 1006) 29.3 PG MCHC (test code = 1007) 32.3 G/DL RDW (test code = 1038) 13.1 % NEUTROPHILS (test code = 1008) 60 % LYMPHOCYTES (test code = 1010) 30 % MONOCYTES (test code = 1011) 7 % EOSINOPHILS (test code = 1012) 2 % BASOPHILS (test code = 1013) % PLATELET COUNT (test code = 1015) 315 K/UL CBC W/AUTO [id number] 00:00:00* Test Item Value Reference Range Interpretation Comme nts WBC (test code = 1001) 9.7 K/UL RBC (test code = 1002) 4.85 M/UL HEMOGLOBIN (test code = 1003) 14.2 G/DL HEMATOCRIT (test code = 1004) 43.9 % MCV (test code = 1005) 90.5 fL MCH (test code = 1006) 29.3 PG MCHC (test code = 1007) 32.3 G/DL RDW (test code = 1038) 13.1 % NEUTROPHILS (test code = 1008) 60 % LYMPHOCYTES (test code = 1010) 30 % MONOCYTES (test code = 1011) 7 % EOSINOPHILS (test code = 1012) 2 % BASOPHILS (test code = 1013) % PLATELET COUNT (test code = 1015) 315 K/UL COMPREHENSIVE METABOLIC [id number] 00:00:00* Test Item Value Reference Range Interpretation Comme nts GLUCOSE (test code = 2217) 92 MG/DL BUN (test code = 2208) 17 MG/DL CREATININE (test code = 2214) 0.6 MG/DL eGFR AMER. (test cod e = 63011) 131 ML/MIN/1.73 eGFR NON- AMER. (test code = 37382) 109 ML/MIN/1.73 CALCULATED BUN/CREAT (test code = 2235) 28 RATIO SODIUM (test code = 2231) 138 MEQ/L POTASSIUM (test code = 2228) 4.4 MEQ/L CHLORIDE (test code = 2215) 104 MEQ/L CARBON DIOXIDE (test code = 2206) 21 MEQ/L CALCIUM (test code = 2209) 9.4 MG/DL PROTEIN, TOTAL (test code = 2229) 7.5 G/DL ALBUMIN (test code = 2201) 4.3 G/DL CALCULATED GLOBULIN (test code = 2240) 3.2 G/DL CALCULATED A/G RATIO (test code = 2234) 1.3 RATIO BILIRUBIN, TOTAL (test code = 2207) 0.4 MG/DL ALKALINE PHOSPHATASE (test code = 2204) 73 U/L SGOT (AST) (test code = 2218) 12 U/L SGPT (ALT) (test code = 2219) 17 U/L COMPREHENSIVE METABOLIC [id number] 00:00:00* Test Item Value Reference Range Interpretation Comme nts GLUCOSE (test code = 2217) 92 MG/DL BUN (test code = 2208) 17 MG/DL CREATININE (test code = 2214) 0.6 MG/DL eGFR AMER. (test cod e = 93088) 131 ML/MIN/1.73 eGFR NON- AMER. (test code = 79701) 109 ML/MIN/1.73 CALCULATED BUN/CREAT (test code = 2235) 28 RATIO SODIUM (test code = 2231) 138 MEQ/L POTASSIUM (test code = 2228) 4.4 MEQ/L CHLORIDE (test code = 2215) 104 MEQ/L CARBON DIOXIDE (test code = 2206) 21 MEQ/L CALCIUM (test code = 2209) 9.4 MG/DL PROTEIN, TOTAL (test code = 2229) 7.5 G/DL ALBUMIN (test code = 2201) 4.3 G/DL CALCULATED GLOBULIN (test code = 2240) 3.2 G/DL CALCULATED A/G RATIO (test code = 2234) 1.3 RATIO BILIRUBIN, TOTAL (test code = 2207) 0.4 MG/DL ALKALINE PHOSPHATASE (test code = 2204) 73 U/L SGOT (AST) (test code = 2218) 12 U/L SGPT (ALT) (test code = 2219) 17 U/L LIPID [id number] 00:00:00* Test Item Value Reference Range Interpretation Comme nts CHOLESTEROL (test code = 2210) 242 MG/DL TRIGLYCERIDES (test code = 2232) 169 MG/DL HDL CHOLESTEROL (test code = 2220) 42 MG/DL CALCULATED LDL CHOL (test co de = 2237) 166 MG/DL RISK RATIO LDL/HDL (test cod e = 2238) 3.96 RATIO LIPID [id number] 00:00:00* Test Item Value Reference Range Interpretation Comme nts CHOLESTEROL (test code = 2210) 242 MG/DL TRIGLYCERIDES (test code = 2232) 169 MG/DL HDL CHOLESTEROL (test code = 2220) 42 MG/DL CALCULATED LDL CHOL (test co de = 2237) 166 MG/DL RISK RATIO LDL/HDL (test cod e = 2238) 3.96 RATIO [id number] 00:00:00* Test Item Value Reference Range Interpretation Comme nts TSH (test code = 2821) 1.4 UIU/ML [id number] 00:00:00* Test Item Value Reference Range Interpretation Comme nts TSH (test code = 2821) 1.4 UIU/ML [id number] 00:00:00* Test Item Value Reference Range Interpretation Comme nts TSH (test code = 2821) 1.4 UIU/ML CBC W/AUTO [id number] 00:00:00* Test Item Value Reference Range Interpretation Comme nts WBC (test code = 1001) 9.7 K/UL RBC (test code = 1002) 4.85 M/UL HEMOGLOBIN (test code = 1003) 14.2 G/DL HEMATOCRIT (test code = 1004) 43.9 % MCV (test code = 1005) 90.5 fL MCH (test code = 1006) 29.3 PG MCHC (test code = 1007) 32.3 G/DL RDW (test code = 1038) 13.1 % NEUTROPHILS (test code = 1008) 60 % LYMPHOCYTES (test code = 1010) 30 % MONOCYTES (test code = 1011) 7 % EOSINOPHILS (test code = 1012) 2 % BASOPHILS (test code = 1013) % PLATELET COUNT (test code = 1015) 315 K/UL CBC W/AUTO [id number] 00:00:00* Test Item Value Reference Range Interpretation Comme nts WBC (test code = 1001) 9.7 K/UL RBC (test code = 1002) 4.85 M/UL HEMOGLOBIN (test code = 1003) 14.2 G/DL HEMATOCRIT (test code = 1004) 43.9 % MCV (test code = 1005) 90.5 fL MCH (test code = 1006) 29.3 PG MCHC (test code = 1007) 32.3 G/DL RDW (test code = 1038) 13.1 % NEUTROPHILS (test code = 1008) 60 % LYMPHOCYTES (test code = 1010) 30 % MONOCYTES (test code = 1011) 7 % EOSINOPHILS (test code = 1012) 2 % BASOPHILS (test code = 1013) % PLATELET COUNT (test code = 1015) 315 K/UL CBC W/AUTO [id number] 00:00:00* Test Item Value Reference Range Interpretation Comme nts WBC (test code = 1001) 9.7 K/UL RBC (test code = 1002) 4.85 M/UL HEMOGLOBIN (test code = 1003) 14.2 G/DL HEMATOCRIT (test code = 1004) 43.9 % MCV (test code = 1005) 90.5 fL MCH (test code = 1006) 29.3 PG MCHC (test code = 1007) 32.3 G/DL RDW (test code = 1038) 13.1 % NEUTROPHILS (test code = 1008) 60 % LYMPHOCYTES (test code = 1010) 30 % MONOCYTES (test code = 1011) 7 % EOSINOPHILS (test code = 1012) 2 % BASOPHILS (test code = 1013) % PLATELET COUNT (test code = 1015) 315 K/UL COMPREHENSIVE METABOLIC [id number] 00:00:00* Test Item Value Reference Range Interpretation Comme nts GLUCOSE (test code = 2217) 92 MG/DL BUN (test code = 2208) 17 MG/DL CREATININE (test code = 2214) 0.6 MG/DL eGFR AMER. (test cod e = 11929) 131 ML/MIN/1.73 eGFR NON- AMER. (test code = 18662) 109 ML/MIN/1.73 CALCULATED BUN/CREAT (test code = 2235) 28 RATIO SODIUM (test code = 2231) 138 MEQ/L POTASSIUM (test code = 2228) 4.4 MEQ/L CHLORIDE (test code = 2215) 104 MEQ/L CARBON DIOXIDE (test code = 2206) 21 MEQ/L CALCIUM (test code = 2209) 9.4 MG/DL PROTEIN, TOTAL (test code = 2229) 7.5 G/DL ALBUMIN (test code = 2201) 4.3 G/DL CALCULATED GLOBULIN (test code = 2240) 3.2 G/DL CALCULATED A/G RATIO (test code = 2234) 1.3 RATIO BILIRUBIN, TOTAL (test code = 2207) 0.4 MG/DL ALKALINE PHOSPHATASE (test code = 2204) 73 U/L SGOT (AST) (test code = 2218) 12 U/L SGPT (ALT) (test code = 2219) 17 U/L COMPREHENSIVE METABOLIC [id number] 00:00:00* Test Item Value Reference Range Interpretation Comme nts GLUCOSE (test code = 2217) 92 MG/DL BUN (test code = 2208) 17 MG/DL CREATININE (test code = 2214) 0.6 MG/DL eGFR AMER. (test cod e = 09292) 131 ML/MIN/1.73 eGFR NON- AMER. (test code = 67498) 109 ML/MIN/1.73 CALCULATED BUN/CREAT (test code = 2235) 28 RATIO SODIUM (test code = 2231) 138 MEQ/L POTASSIUM (test code = 2228) 4.4 MEQ/L CHLORIDE (test code = 2215) 104 MEQ/L CARBON DIOXIDE (test code = 2206) 21 MEQ/L CALCIUM (test code = 2209) 9.4 MG/DL PROTEIN, TOTAL (test code = 2229) 7.5 G/DL ALBUMIN (test code = 2201) 4.3 G/DL CALCULATED GLOBULIN (test code = 2240) 3.2 G/DL CALCULATED A/G RATIO (test code = 2234) 1.3 RATIO BILIRUBIN, TOTAL (test code = 2207) 0.4 MG/DL ALKALINE PHOSPHATASE (test code = 2204) 73 U/L SGOT (AST) (test code = 2218) 12 U/L SGPT (ALT) (test code = 2219) 17 U/L LIPID [id number] 00:00:00* Test Item Value Reference Range Interpretation Comme nts CHOLESTEROL (test code = 2210) 242 MG/DL TRIGLYCERIDES (test code = 2232) 169 MG/DL HDL CHOLESTEROL (test code = 2220) 42 MG/DL CALCULATED LDL CHOL (test co de = 2237) 166 MG/DL RISK RATIO LDL/HDL (test cod e = 2238) 3.96 RATIO LIPID [id number] 00:00:00* Test Item Value Reference Range Interpretation Comme nts CHOLESTEROL (test code = 2210) 242 MG/DL TRIGLYCERIDES (test code = 2232) 169 MG/DL HDL CHOLESTEROL (test code = 2220) 42 MG/DL CALCULATED LDL CHOL (test co de = 2237) 166 MG/DL RISK RATIO LDL/HDL (test cod e = 2238) 3.96 RATIO [id number] 00:00:00* Test Item Value Reference Range Interpretation Comme nts TSH (test code = 2821) 1.4 UIU/ML [id number] 00:00:00* Test Item Value Reference Range Interpretation Comme nts TSH (test code = 2821) 1.4 UIU/ML [id number] 00:00:00* Test Item Value Reference Range Interpretation Comme nts TSH (test code = 2821) 1.4 UIU/ML CBC W/AUTO [id number] 00:00:00* Test Item Value Reference Range Interpretation Comme nts WBC (test code = 1001) 9.7 K/UL RBC (test code = 1002) 4.85 M/UL HEMOGLOBIN (test code = 1003) 14.2 G/DL HEMATOCRIT (test code = 1004) 43.9 % MCV (test code = 1005) 90.5 fL MCH (test code = 1006) 29.3 PG MCHC (test code = 1007) 32.3 G/DL RDW (test code = 1038) 13.1 % NEUTROPHILS (test code = 1008) 60 % LYMPHOCYTES (test code = 1010) 30 % MONOCYTES (test code = 1011) 7 % EOSINOPHILS (test code = 1012) 2 % BASOPHILS (test code = 1013) % PLATELET COUNT (test code = 1015) 315 K/UL CBC W/AUTO [id number] 00:00:00* Test Item Value Reference Range Interpretation Comme nts WBC (test code = 1001) 9.7 K/UL RBC (test code = 1002) 4.85 M/UL HEMOGLOBIN (test code = 1003) 14.2 G/DL HEMATOCRIT (test code = 1004) 43.9 % MCV (test code = 1005) 90.5 fL MCH (test code = 1006) 29.3 PG MCHC (test code = 1007) 32.3 G/DL RDW (test code = 1038) 13.1 % NEUTROPHILS (test code = 1008) 60 % LYMPHOCYTES (test code = 1010) 30 % MONOCYTES (test code = 1011) 7 % EOSINOPHILS (test code = 1012) 2 % BASOPHILS (test code = 1013) % PLATELET COUNT (test code = 1015) 315 K/UL CBC W/AUTO [id number] 00:00:00* Test Item Value Reference Range Interpretation Comme nts WBC (test code = 1001) 9.7 K/UL RBC (test code = 1002) 4.85 M/UL HEMOGLOBIN (test code = 1003) 14.2 G/DL HEMATOCRIT (test code = 1004) 43.9 % MCV (test code = 1005) 90.5 fL MCH (test code = 1006) 29.3 PG MCHC (test code = 1007) 32.3 G/DL RDW (test code = 1038) 13.1 % NEUTROPHILS (test code = 1008) 60 % LYMPHOCYTES (test code = 1010) 30 % MONOCYTES (test code = 1011) 7 % EOSINOPHILS (test code = 1012) 2 % BASOPHILS (test code = 1013) % PLATELET COUNT (test code = 1015) 315 K/UL COMPREHENSIVE METABOLIC [id number] 00:00:00* Test Item Value Reference Range Interpretation Comme nts GLUCOSE (test code = 2217) 92 MG/DL BUN (test code = 2208) 17 MG/DL CREATININE (test code = 2214) 0.6 MG/DL eGFR AMER. (test cod e = 42843) 131 ML/MIN/1.73 eGFR NON- AMER. (test code = 77192) 109 ML/MIN/1.73 CALCULATED BUN/CREAT (test code = 2235) 28 RATIO SODIUM (test code = 2231) 138 MEQ/L POTASSIUM (test code = 2228) 4.4 MEQ/L CHLORIDE (test code = 2215) 104 MEQ/L CARBON DIOXIDE (test code = 2206) 21 MEQ/L CALCIUM (test code = 2209) 9.4 MG/DL PROTEIN, TOTAL (test code = 2229) 7.5 G/DL ALBUMIN (test code = 2201) 4.3 G/DL CALCULATED GLOBULIN (test code = 2240) 3.2 G/DL CALCULATED A/G RATIO (test code = 2234) 1.3 RATIO BILIRUBIN, TOTAL (test code = 2207) 0.4 MG/DL ALKALINE PHOSPHATASE (test code = 2204) 73 U/L SGOT (AST) (test code = 2218) 12 U/L SGPT (ALT) (test code = 2219) 17 U/L CBC W/AUTO [id number] 00:00:00* Test Item Value Reference Range Interpretation Comme nts WBC (test code = 1001) 9.7 K/UL RBC (test code = 1002) 4.85 M/UL HEMOGLOBIN (test code = 1003) 14.2 G/DL HEMATOCRIT (test code = 1004) 43.9 % MCV (test code = 1005) 90.5 fL MCH (test code = 1006) 29.3 PG MCHC (test code = 1007) 32.3 G/DL RDW (test code = 1038) 13.1 % NEUTROPHILS (test code = 1008) 60 % LYMPHOCYTES (test code = 1010) 30 % MONOCYTES (test code = 1011) 7 % EOSINOPHILS (test code = 1012) 2 % BASOPHILS (test code = 1013) % PLATELET COUNT (test code = 1015) 315 K/UL COMPREHENSIVE METABOLIC [id number] 00:00:00* Test Item Value Reference Range Interpretation Comme nts GLUCOSE (test code = 2217) 92 MG/DL BUN (test code = 2208) 17 MG/DL CREATININE (test code = 2214) 0.6 MG/DL eGFR AMER. (test cod e = 95831) 131 ML/MIN/1.73 eGFR NON- AMER. (test code = 56077) 109 ML/MIN/1.73 CALCULATED BUN/CREAT (test code = 2235) 28 RATIO SODIUM (test code = 2231) 138 MEQ/L POTASSIUM (test code = 2228) 4.4 MEQ/L CHLORIDE (test code = 2215) 104 MEQ/L CARBON DIOXIDE (test code = 2206) 21 MEQ/L CALCIUM (test code = 2209) 9.4 MG/DL PROTEIN, TOTAL (test code = 2229) 7.5 G/DL ALBUMIN (test code = 2201) 4.3 G/DL CALCULATED GLOBULIN (test code = 2240) 3.2 G/DL CALCULATED A/G RATIO (test code = 2234) 1.3 RATIO BILIRUBIN, TOTAL (test code = 2207) 0.4 MG/DL ALKALINE PHOSPHATASE (test code = 2204) 73 U/L SGOT (AST) (test code = 2218) 12 U/L SGPT (ALT) (test code = 2219) 17 U/L LIPID [id number] 00:00:00* Test Item Value Reference Range Interpretation Comme nts CHOLESTEROL (test code = 2210) 242 MG/DL TRIGLYCERIDES (test code = 2232) 169 MG/DL HDL CHOLESTEROL (test code = 2220) 42 MG/DL CALCULATED LDL CHOL (test co de = 2237) 166 MG/DL RISK RATIO LDL/HDL (test cod e = 2238) 3.96 RATIO LIPID [id number] 00:00:00* Test Item Value Reference Range Interpretation Comme nts CHOLESTEROL (test code = 2210) 242 MG/DL TRIGLYCERIDES (test code = 2232) 169 MG/DL HDL CHOLESTEROL (test code = 2220) 42 MG/DL CALCULATED LDL CHOL (test co de = 2237) 166 MG/DL RISK RATIO LDL/HDL (test cod e = 2238) 3.96 RATIO [id number] 00:00:00* Test Item Value Reference Range Interpretation Comme nts TSH (test code = 2821) 1.4 UIU/ML [id number] 00:00:00* Test Item Value Reference Range Interpretation Comme nts TSH (test code = 2821) 1.4 UIU/ML [id number] 00:00:00* Test Item Value Reference Range Interpretation Comme nts TSH (test code = 2821) 1.4 UIU/ML CBC W/AUTO [id number] 00:00:00* Test Item Value Reference Range Interpretation Comme nts WBC (test code = 1001) 9.7 K/UL RBC (test code = 1002) 4.85 M/UL HEMOGLOBIN (test code = 1003) 14.2 G/DL HEMATOCRIT (test code = 1004) 43.9 % MCV (test code = 1005) 90.5 fL MCH (test code = 1006) 29.3 PG MCHC (test code = 1007) 32.3 G/DL RDW (test code = 1038) 13.1 % NEUTROPHILS (test code = 1008) 60 % LYMPHOCYTES (test code = 1010) 30 % MONOCYTES (test code = 1011) 7 % EOSINOPHILS (test code = 1012) 2 % BASOPHILS (test code = 1013) % PLATELET COUNT (test code = 1015) 315 K/UL Notes Date/Time Note Provider Source 2023-10-26 00:00:00 [id number] T00:00:00+ + +| Plan Activity | Plan Date |+ + +| Control portions , manage weight | 2017-08-08 || Discussed the risks involved in increasing weight and insulin resistance | |+ + +| CBC, CMP | 2018-07-12 || await results | || please schedule WWE | |+ + +| LIPIDS | 2018-07-12 || continue Atorvastin 40 mg, may adjust medications pending labs | || Increase Exercise to 3-5 times a week for at least 45 minutes High Fiber Low | || Calorie Diet Reduce Carbohydrates Increase Vegetables 5-6 small healthy meals a | || day | || Return for wellness exam at earliest convenience if have not been in for past | || year for this exam | || FU in 3 months | |+ + +| Exercise 45-60 minutes per day at least 4-5 days per week. | 2019-02-15 || AHA diet | |+ + +| Exercise 45-60 minutes per day at least 4-5 days per week. | 2019-02-15 |+ + +| UA | 2019-10-18 || [place] | || Pt educated on vaginal hygiene , to avoid scented soaps, and to abstain from | || sex while taking medications | || Pt prescribed diflucan x 2 doses q 3 days, clotrimazole x 7 days | || medication education given | || RTO in 2 weeks if no improvement after completing medication | |+ + +| CMP | 2019-11-20 || Await results | |+ + +| TSH | 2019-11-20 || Await results | |+ + +| CBC, CMP, Lipid panel, HgbA1c today | 2019-11-20 || Recommend healthy eating with foods from a variety of food groups. Encourage to | || eat more vegetables and appropriate portion sizes, and few sugary | || snacks/drinks/sodas | || RTC on annual exam | || Await diagnostic results | |+ + +| A1C, CMP, lipid | 2020-06-26 || -refill glipizide 10mg, Farxiga 5 mg | || | || ADA diet, reduce sugary beverages and candies | || CV risk reduction (BP, lipid control, nonsmoking, daily ASA) | || Schedule routine f/u for DM care 3 months | || Daily Foot Checks, Reminded of yearly eye and podiatry exams | || A1c goal <7.5% | |+ + +| lipid panel pending | 2020-06-26 || refill atorvastatin 40 mg | || recommend high fiber diet, like kale, spinach, spring mix. limit breads, | || pastas, rice, potatoes. recommend exercise 20-30 minutes daily | |+ + +| recommend stop metformin for 2 weeks, if abdominal pain continues, RTO may need | 2020-06-29 || to stop atorvastatin | || avoid fried, processed foods, increase fiber | |+ + +| vitamin d level | 2020-07-31 |+ + +| diet and exercise | 2020-11-11 |+ + +| preventative maintenance technician referral made | 2020-11-11 || ER precautions given | |+ + +| triamcinolone acetonide 0.1% 1 application on the skin | 2020-11-17 || recommend wearing UV protection clothing | || RTO if symptoms do not improve in 5-7 days | |+ + +| COVID booster today | 2021-04-15 |+ + +| Mammogram ordered | 2021-07-28 || Will contact with results | |+ + +| RTC on annual exam | 2021-07-28 || SBE | || If 40 or greater, schedule 1-2 year MMG as indicated | || If 50 or greater, schedule colonoscopy or give Heme card. | || Recommend Ca 2+ and Vitamin D if menopausal | || DEXA at 65 and greater | || Immunizations as age indicated | || Annual well adult with PCP as indicated | || STI labs as indicated | || Screening labs as indicated | || Await diagnostic results | |+ + +| labs: cmp, lipid, A1C | 2021-10-26 || -Refilled Farixga 5 mg an filled out PA form from insurance [employer] - Pt A1C is | || 7.1 on 5 mg dose | || -Refilled [id number] MG ER daily | || - refilled Atorvastatin 40 mg | || - RX Victoza if insurance [employer] no longer covers farxiga. Pt shall start at | || 0.6 x 1 week then increase to 1.2mg | || FU in 2 weeks after staring meedications | || ADA diet, reduce sugary beverages and candies | || CV risk reduction (BP, lipid control, nonsmoking, daily ASA) | || Schedule routine f/u for DM care 3 months | || Daily Foot Checks, Reminded of yearly eye and podiatry exams | || A1c goal <7.5% | |+ + +| Azithromycin and prednisone as rx | 2022-01-30 || RTO PRN | |+ + +| UA negative | 2022-07-01 || rx ibuprofen prn | || RTO in a week if pain persist | |+ + +| doppler left upper arm ordered | 2022-10-02 |+ + +| Pt educated on eating a well balanced diet and incorporating at least 30 min of | 2023-01-23 || aerobic activity daily | |+ + +| UA + trace leukocytes and 200 glucose | 2023-01-23 || Urine culture pending | || advised to wear cotton underwear and wipe front to back | || avoid tight non breathable clothes like spandex | || avoid moist clothing and soiled clothing | || avoid bubble baths and scented soaps | || drink plenty of water. | || | || RTO if symptoms worsen | |+ + +| no bleeding noted on exam | 2023-01-23 || RTC if bleeding returned | |+ + +| Auto-Add by COVID19 Screen Import | 2023-03-09 |+ + +| COVID + | 2023-03-09 || Pt to start quarantine and social distance for at least 5 days per [facility] | || continue to wear mask and wash hands | || Pt shall take Paxlovid and Bromfed-DM as prescribed | || Drink plenty of fluids and rest | || RTO of if no improvement in symptoms | || ER precautions for SOB, respiratory distress, chest pain, or LOC | |+ + +| Ibuprofen Prescribed TID x 10 days | 2023-03-30 || Pt rest. elevate legs, and apply ice. Pt can wear compression brace on knee | || workers comp form signed | || X ray of R hip and R knee | |+ + +| see plan above | 2023-03-30 |+ + +| see plan above | 2023-03-30 |+ + +| conor | 2023-03-30 |+ + +| Consume a healthy diet and exercise | 2023-04-12 |+ + +| Pt encouraged to wear supportive shoes and can use a shoe insert to decrease | 2023-04-12 || friction | || Pt encouraged to elevate feet a rest. | || no apparent s/s of infection. | || Mupirocin ointment sent empirically due to pt having diabetes | || pt to RTC if worsening | || educated pt to take care of feet and do daily foot exams | || avoid walking barefooted | |+ + +| flexiril prescribed. Medication side effects per pharmacy and verbal | 2023-07-17 || prescription given | || Educated pt to apply warm compress to area and use proper body mechanics when | || working and lifting . | || work letter given with 10 lb lifting restrictions | || RTC if no improvement | |+ + +| Educated pt to monitor BG closely | 2023-07-17 || Pt advised not to skip meals and if she does not eat to hold medication and | || reassess BG | || continue using oral glucose when BG drops | || RTO if worsening | |+ + +| Consume a healthy well balanced diet with exercise at least 30 min a day | 2023-07-27 |+ + +| informed pt to wear good compression socks at work and supportive shoes | 2023-07-27 || Pt shall elevate feet at rest. | || Pt can apply ice to foot and wrap foot to decrease edema | || RTC if no improvement | || DM foot exam normal | || Ibuprofen prescribed. Medication side effects per pharmacy and verbal | || prescription given | |+ + +| see above plan | 2023-07-27 |+ + +| Pt is cleared to perform duties at work per this examination | 2023-08-27 |+ + +| likely 2/2 an argument with son and being stressed | 2023-09-03 || EKG- | || ER precautions given | |+ + +| Labs: CBC ,CMP , HgBA1C , Lipids , HIV , VIt D | 2023-09-03 || Recommend yearly flu and Tdap every 10 years | || RTO pending results | || Advised continue with dental cleanings every 6 months and and yearly eye exams | |+ + +| A1C, CBC, CMP | 2023-09-03 |+ + +| Will treat presumptively for UTI based on symptoms | 2023-10-26 || RX macrobid x5d | || SE discussed, complete course of treatment | || increase water intake | || proper perineal hygiene | || schedule in person visit in one week if no improvement or sooner if needed | |+ + +[id number] of TreatmentLNCARE PLANTXTSFA|[id number] for patient [id number] Section NarrativeNARRATIVEFormatted C-CDA narrative textSFAStclary Del Cid [facility]2024-05-17T00:00:00 Eduardo Del Cid [facility]"
[2023-11-03] MEDS ORDERED: ONDANSETRON 4 MG/2 ML VIAL ONE (17:48)
[2023-11-03] MEDS ORDERED: NA CHLORIDE 0.9% 1,000 ML ONE (17:48)
[2023-11-03 18:06] LABS: Absolute Eosinophils 0.1 K/uL (0-0.5); Absolute Lymphocytes (CBC) 2.8 K/uL (0.7-4.9); Absolute Monocytes 1.1 K/uL (0.1-1.3); Absolute Neutrophil 10.1 K/uL (1.8-8.0); Basophils % 0.3 % (0-1.3); Hematocrit 42.7 % (36.0-45.0); Hemoglobin 14.3 g/dL (12.0-15.0); Lymphocytes % 19.6 % (15.3-44.8); MCH 29.1 pg (27.0-35.0); MCHC 33.5 g/dL (32.0-36.0); MPV 9.3 fL (7.6-11.3); Monocytes % 7.9 % (3.3-12.3); Neutrophils % 71.2 % (41.7-73.7); Nucleated Red Blood Cells % 0.2 % (0-0); Platelets 293 thou/uL (152-406); RBC Red Blood Cell Count 4.91 M/uL (3.86-4.86); Red Cell Distribution Width 12.7 % (12.1-15.2)
[2023-11-03 18:09] LABS: PTT, Activated Partial Thromb 28.4 SECONDS (24.3-36.9); Protime INR 1.09
[2023-11-03 18:21] LABS: Albumin 3.8 g/dL (3.4-5.0); Albumin/Globulin Ratio 1.1 (1.1-1.8); Anion Gap 9.5 mEq/L (5.0-15.0); Bilirubin Direct 0.2 mg/dL (0-0.2); Bilirubin Indirect, Calculated 0.4 mg/dL (0.2-0.8); Bilirubin Total 0.6 mg/dL (0.2-1.0); Globulin 3.4 g/dL (2.3-3.5); Potassium 3.5 mEq/L (3.5-5.1); Protein, Total 7.2 g/dL (6.4-8.2); Troponin High Sensitivity 3.2 pg/mL (<58.9)
--- NOTE | 2023-11-03 18:49 | RAD REPORT ---
EXAM DESCRIPTION: RAD - Chest Single View - 11/03/2023 6:35 pm CLINICAL HISTORY: syncope COMPARISON: Chest Pa And Lat (2 Views) dated 02/14/2017; CHEST SINGLE VIEW dated 07/14/2015; ABDOMEN 1 V IEW KUB dated 05/22/2013 FINDINGS: Lines: None. Lungs: No evidence of edema or pneumonia. Pleural: No significant pleural effusions or pneumothorax. Cardiac: The heart size is within normal limits. Mediastinum: Within normal limits. Bones: No acute fractures. Other: None IMPRESSION: No acute cardiopulmonary disease.
[2023-11-03 19:43] LABS: Sqamous Epithelial <5 /HPF (None Seen); Urine Bacteria <20 /HPF (<20); Urine Bilirubin NEGATIVE (Negative); Urine Blood Negative (Negative); Urine Clarity Extremely Turbid (Clear); Urine Color Light-Yellow (Yellow); Urine Culture Reflex Order NOT NEEDED; Urine Glucose 3+ (Negative); Urine Ketones NEGATIVE (Negative); Urine Microscopic Reflex YN ORDER UMIC; Urine Mucus Slight /HPF (None Seen); Urine Nitrite NEGATIVE (Negative); Urine Protein NEGATIVE (Negative); Urine RBC <5 /HPF (None Seen); Urine Urobilinogen Normal (Normal); Urine WBC <5 /HPF (<5)
--- NOTE | 2023-11-03 20:24 | ER ---
Nurse's Notes [facility] Name: Phoebe Hawk Age: 52 yrs Sex: Female : 1970 Arrival Date: 11/03/2023 Time: 17:12 Bed 10 Private MD: Diagnosis: Syncope Presentation: 11/02 17:22 Chief complaint: EMS states: called out for pt becoming over heated while working in a as6 house with no AC. Coronavirus screen: At this time, the client does not indicate any symptoms associated with coronavirus-19. Ebola Screen: No symptoms or risks identified at this time. Initial Sepsis Screen: Does the patient meet any 2 criteria? No. Patient's initial sepsis screen is negative. Does the patient have a suspected source of infection? No. Patient's initial sepsis screen is negative. Risk Assessment: Do you want to hurt yourself or someone else? Patient reports no desire to harm self or others. Onset of symptoms was November 03, 2023. 17:22 Acuity: CHACORTA 3 as6 17:22 Method Of Arrival: EMS: [facility] as6 Triage Assessment: 17:19 General: Appears in no apparent distress. Behavior is calm, cooperative. Pain: as6 Complains of pain in head Quality of pain is described as aching. EENT: No deficits noted. No signs and/or symptoms were reported regarding the EENT system. Neuro: Level of Consciousness is awake, alert, obeys commands, Oriented to person, place, time, situation, Reports headache. Cardiovascular: Capillary refill < 3 seconds Patient's skin is warm and dry. Respiratory: Respiratory effort is even, unlabored, Respiratory pattern is regular, symmetrical. GI: Reports nausea. : No deficits noted. No signs and/or symptoms were reported regarding the genitourinary system. Derm: Skin is intact, is healthy with good turgor. Musculoskeletal: Circulation, motion, and sensation intact. 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 - Infectious Disease History:: Denies. - Social history:: Smoking status: Patient denies any tobacco usage or history of. Screenin:27 [facility] ED Fall Risk Assessment (Adult) History of falling in the last 3 months, as6 including since admission No falls in past 3 months (0 pts) Confusion or Disorientation No (0 pts) Intoxicated or Sedated No (0 pts) Impaired Gait No (0 pts) Mobility Assist Device Used No (0 pt) Altered Elimination No (0 pt) Score/Fall Risk Level 0 - 2 = Low Risk Oriented to surroundings, Maintained a safe environment, Educated pt \T\ family on fall prevention, incl call for assistance when getting out of bed, Assessed \T\ reinforced patient's understanding of fall precautions. Abuse screen: Denies threats or abuse. Denies injuries from another. Nutritional screening: No deficits noted. Tuberculosis screening: No symptoms or risk factors identified. Assessment: 20:24 Reassessment: Patient appears in no apparent distress at this time. Patient and/or as6 family updated on plan of care and expected duration. Pain level reassessed. Patient is alert, oriented x 3, equal unlabored respirations, skin warm/dry/pink. Patient states feeling better. Vital Signs: 17:19 BP 124 / 84; Pulse 71; Resp 16 S; Temp 98(O); Pulse Ox 100% on R/A; Weight 67.59 kg as6 (R); Height 5 ft. 2 in. (R); Pain 6/10; 18:00 BP 123 / 69 LA Supine (auto/reg); Pulse 76; Resp 18; Pulse Ox 100% ; as6 18:02 BP 125 / 100 LA Sitting (auto/reg); Pulse 79; Resp 18 S; Pulse Ox 100% on R/A; as6 18:04 BP 132 / 88 LA Standing (auto/reg); Pulse 75; Resp 18 S; Pulse Ox 100% on R/A; as6 19:00 BP 127 / 82; Pulse 74; Resp 15; Pulse Ox 100% ; as6 20:29 BP 129 / 80; Pulse 75; Resp 16; Pulse Ox 100% ; as6 17:19 Body Mass Index 27.25 (67.59 kg, 157.48 cm) as6 17:19 Pain Scale: Adult as6 ED Course: 17:19 Patient arrived in ED. eb 17:19 Drake Simpson, BRIE is Primary Nurse. as6 17:19 Arm band placed on. as6 17:23 Triage completed. as6 17:25 Malathi De Anda FNP-C is [facility]. kb 17:25 Erick Cisneros MD is Attending Physician. kb 17:27 Bed in low position. Call light in reach. Side rails up X 1. as6 17:56 Inserted saline lock: 20 gauge in right antecubital area, using aseptic technique. as6 Blood collected. 17:57 CPK Sent. as6 18:02 Troponin High Sensitivity Sent. as6 18:02 Protime (+inr) Sent. as6 18:02 Ptt, Activated Sent. as6 18:02 Magnesium Sent. as6 18:02 Hepatic Function Sent. as6 18:02 CBC with Diff Sent. as6 18:02 Basic Metabolic Panel Sent. as6 18:36 Chest Single View XRAY In Process Unspecified. EDMS 20:24 Provided Education on: staying hydrated . as6 20:24 No provider procedures requiring assistance completed. as6 20:28 IV discontinued, intact, bleeding controlled, No redness/swelling at site. Pressure as6 dressing applied. Administered Medications: 17:57 Drug: Ondansetron IVP 4 mg IVP once; over 2 minutes Route: IVP; Site: right antecubital;as6 20:25 Follow up: Response: No adverse reaction as6 18:02 Drug: NS 0.9% IV 1000 ml IV at 1000 ml once; administer after orthostatics are obtained as6 Route: IV; Rate: 1000 ml; Site: right antecubital; 20:25 Follow up: Response: No adverse reaction; IV Status: Completed infusion; IV Intake: as6 1000ml Medication: 17:27 VIS not applicable for this client. as6 Intake: 20:25 IV: 1000ml; Total: 1000ml. as6 Outcome: 20:24 Discharge ordered by . kb 20:24 Discharged to home ambulatory, with significant other, as6 20:24 Condition: stable 20:29 Discharge instructions given to patient, significant other, Instructed on discharge as6 instructions, follow up and referral plans. Demonstrated understanding of instructions, follow-up care, 20:29 Patient left the ED. as6 Signatures: Dispatcher [employer] EDIA Malathi De Anda FNP-C FNP-Ckb Botello, Elizabeth eb Slaw[place], [place], RN RN as6
--- NOTE | 2023-11-03 20:25 | EDPHYS ---
Physician Documentation [facility] Name: Phoebe Hawk Age: 52 yrs Sex: Female : 1970 Arrival Date: 11/03/2023 Time: 17:12 Bed 10 Private MD: ED Physician Erick Cisneros HPI: 11/02 20:21 This 52 yrs old Female presents to ER via EMS with complaints of Heat Exposure.kb 20:21 Patient is a 52-year-old female who presents after syncopal episode. States she was kb pulling weeds most of the day then started having some dizziness and had a syncopal episode. states patient was standing next to the truck when she had a syncopal episode and leaned against the truck. Denies fall or hitting head. Patient reports nausea and headache upon arrival to the ER. Patient is awake, alert and oriented x 4.. PUPPY WALKER: 17:19 LMP N/A - Hysterectomy, Not as6 Historical: - Allergies: 17:22 No Known Allergies; as6 - PMHx: 17:22 Diabetes mellitus; as6 - PSHx: 17:22 Total abdominal hysterectomy; Cholecystectomy; as6 - Immunization history:: Adult Immunizations not up to date. - Infectious Disease History:: Denies. - Social history:: Smoking status: Patient denies any tobacco usage or history of. ROS: 20:21 Constitutional: As per HPI kb Exam: 20:21 Constitutional: This is a well developed, well nourished patient who is awake, alert, kb and in no acute distress. Head/Face: Normocephalic, atraumatic. ENT: Moist Mucous membranes Cardiovascular: Regular rate Respiratory: Respirations even and unlabored. No increased work of breathing. Talking in full sentences Abdomen/GI: Soft, non-tender. No distention Skin: Warm, dry with normal turgor. Normal color. MS/ Extremity: Pulses equal, no cyanosis. Neurovascular intact. Full, normal range of motion. Neuro: Awake and alert, GCS 15, oriented to person, place, time, and situation. Moves all extremities. Normal gait. 20:24 ECG was reviewed by the Attending Physician. kb Vital Signs: 17:19 BP 124 / 84; Pulse 71; Resp 16 S; Temp 98(O); Pulse Ox 100% on R/A; Weight 67.59 kg as6 (R); Height 5 ft. 2 in. (R); Pain 6/10; 18:00 BP 123 / 69 LA Supine (auto/reg); Pulse 76; Resp 18; Pulse Ox 100% ; as6 18:02 BP 125 / 100 LA Sitting (auto/reg); Pulse 79; Resp 18 S; Pulse Ox 100% on R/A; as6 18:04 BP 132 / 88 LA Standing (auto/reg); Pulse 75; Resp 18 S; Pulse Ox 100% on R/A; as6 19:00 BP 127 / 82; Pulse 74; Resp 15; Pulse Ox 100% ; as6 20:29 BP 129 / 80; Pulse 75; Resp 16; Pulse Ox 100% ; as6 17:19 Body Mass Index 27.25 (67.59 kg, 157.48 cm) as6 17:19 Pain Scale: Adult as6 MDM: 17:26 Patient medically screened. kb 20:22 Differential diagnosis: Abnormal electrolytes, syncope, heat injury, dehydration. Data kb reviewed: vital signs, nurses notes. Test considered but Not performed: CT: CT brain considered but patient has no neurodeficits, denies head injury and is feeling better after treatment. Historians other than the Patient: Spouse/Significant Other: Spouse. Counseling: I had a detailed discussion with the patient and/or guardian regarding the historical points, exam findings, and any diagnostic results supporting the discharge/admit diagnosis, lab results, the need for outpatient follow up, a family practitioner, to return to the emergency department if symptoms worsen or persist or if there are any questions or concerns that arise at home. Response to treatment: the patient's symptoms have resolved after treatment. 11/02 17:34 Order name: Basic Metabolic Panel; Complete Time: 18:57 kb 11/02 17:34 Order name: CBC with Diff; Complete Time: 18:10 kb 11/02 17:34 Order name: Hepatic Function; Complete Time: 18:57 kb 11/02 17:34 Order name: Magnesium; Complete Time: 18:57 kb 11/02 17:34 Order name: Protime (+inr); Complete Time: 18:10 kb 11/02 17:34 Order name: Ptt, Activated; Complete Time: 18:10 kb 11/02 17:34 Order name: Troponin High Sensitivity; Complete Time: 18:57 kb 11/02 17:34 Order name: Urinalysis w/ reflexes; Complete Time: 19:44 kb 11/02 17:34 Order name: CPK; Complete Time: 18:57 kb 11/02 17:34 Order name: Chest Single View XRAY; Complete Time: 18:57 kb 11/02 17:34 Order name: EKG; Complete Time: 17:35 kb 11/02 17:34 Order name: Cardiac monitoring; Complete Time: 18:26 kb 11/02 17:34 Order name: EKG - Nurse/Tech; Complete Time: 18:26 kb 11/02 17:34 Order name: IV Saline Lock; Complete Time: 18:02 kb 11/02 17:34 Order name: Labs collected and sent; Complete Time: 18:02 kb 11/02 17:34 Order name: NPO; Complete Time: 18:02 kb 11/02 17:34 Order name: O2 Per Protocol; Complete Time: 18:02 kb 11/02 17:34 Order name: O2 Sat Monitoring; Complete Time: 18:02 kb 11/02 17:34 Order name: Orthostatics; Complete Time: 18:02 kb EC:24 Rate is 71 beats/min. Rhythm is regular. QRS North is Normal. MS interval is normal at kb 156 msec. QRS interval is normal at 86 msec. QT interval is normal at 419 msec. Administered Medications: 17:57 Drug: Ondansetron IVP 4 mg IVP once; over 2 minutes Route: IVP; Site: right antecubital;as6 20:25 Follow up: Response: No adverse reaction as6 18:02 Drug: NS 0.9% IV 1000 ml IV at 1000 ml once; administer after orthostatics are obtained as6 Route: IV; Rate: 1000 ml; Site: right antecubital; 20:25 Follow up: Response: No adverse reaction; IV Status: Completed infusion; IV Intake: as6 1000ml Disposition Summary: 11/03/23 20:24 Discharge Ordered Notes: Location: Home kb Condition: Stable kb Diagnosis - Syncope kb Followup: kb - With: Emergency Department - When: As needed - Reason: Worsening of condition Followup: kb - With: Private Physician - When: 2 - 3 days - Reason: Recheck today's complaints, Continuance of care, Re-evaluation by your physician Discharge Instructions: - Discharge Summary Sheet kb - Syncope, [id number] kb - Preventing Heat Exhaustion, Adult kb Forms: - Medication Reconciliation Form kb - Antibiotic Education kb - Prescription Opioid Use kb - Patient Portal Instructions kb - Leadership Thank You Letter kb Signatures: Dispatcher [employer] Malathi Greene, JONAS-C Drake Minor RN RN as6
[2023-11-03 21:40] VITALS: TEMP 98; O2SAT 100
[2023-11-03 21:58] VITALS: BP 129/80
--- NOTE | 2023-11-06 14:22 | EKG ---
Test Date: 2023-11-03 Test Time: 18:18:16 [place]: MEASUREMENT RESULTS: Intervals: Rate: 71 AR: 156 QRSD: 86 QT: 386 QTc: 419 [place]: P: 62 AR: 156 QRS: 25 T: 18 INTERPRETIVE STATEMENTS: Normal sinus rhythm Normal ECG Compared to ECG 07/15/2015 00:05:07 No significant changes Electronically Signed On 11-06-23 14:14:22 CDT by Sesar Isaacs
== END 2023-11-03 20:29 | disposition home or self-care (01) ==
LOC: ER 17:12
DX: R55 Syncope and collapse (principal); R51.9 Headache, unspecified; R11.0 Nausea; E11.9 Type 2 diabetes mellitus without complications
CPT/HCPCS: 96361; 93005; 85025; 81001; 80048; 36415; 83735; 82550; 85610; 80076; 85730; 84484; 71045; 96374; 99284; J2405; J7030

== ENCOUNTER 2024-04-17 17:28 | Emergency (ER) | payer OTHER ==
[2024-04-17 18:18] LABS: Absolute Eosinophils 0.3 K/uL (0-0.5); Absolute Lymphocytes (CBC) 2.8 K/uL (0.7-4.9); Absolute Monocytes 0.7 K/uL (0.1-1.3); Absolute Neutrophil 4.4 K/uL (1.8-8.0); Basophils % 0.5 % (0-1.3); Eosinophils % 3.4 % (0-4.4); Hematocrit 44.8 % (36.0-45.0); Hemoglobin 15.3 g/dL (12.0-15.0); MCH 29.4 pg (27.0-35.0); MCHC 34.1 g/dL (32.0-36.0); MCV 86.3 fL (80-100); MPV 9.3 fL (7.6-11.3); Monocytes % 8.2 % (3.3-12.3); Neutrophils % 53.9 % (41.7-73.7); Nucleated Red Blood Cells % 0.1 % (0-0); Platelets 260 thou/uL (152-406); RBC Red Blood Cell Count 5.19 M/uL (3.86-4.86); Red Cell Distribution Width 12.7 % (12.1-15.2)
[2024-04-17 18:19] LABS: PT Prothrombin Time 10.3 SECONDS (9.4-12.5); Protime INR 0.92
[2024-04-17 18:31] LABS: ALT/SGPT 31 U/L (13-56); Albumin 3.7 g/dL (3.4-5.0); Alkaline Phosphatase 137 U/L (45-117); Anion Gap 7.4 mEq/L (5.0-15.0); BUN Blood Urea Nitrogen 21 mg/dL (7-18); Bicarbonate 25 mEq/L (21-32); Bilirubin Total 0.4 mg/dL (0.2-1.0); Globulin 3.7 g/dL (2.3-3.5); Glomerular Filtration Rate 79 ml/min (=/>90); Glucose Level 179 mg/dL (74-106); NT PRO-BNP 9 pg/mL (<125); Protein, Total 7.4 g/dL (6.4-8.2); Sodium Level 138 mEq/L (136-145); Troponin High Sensitivity 3.4 pg/mL (<58.9)
[2024-04-17 18:34] LABS: AST/SGOT 13 U/L (15-37); Bilirubin Direct < 0.2 mg/dL (0-0.2); Bilirubin Indirect, Calculated 0.2 mg/dL (0.2-0.8); Magnesium 2.2 mg/dL (1.6-2.4); Potassium 3.4 mEq/L (3.5-5.1)
[2024-04-17] MEDS ORDERED: NA CHLORIDE 0.9% 1,000 ML ONE (18:41)
--- NOTE | 2024-04-17 19:13 | RAD REPORT ---
EXAMINATION: ONE VIEW CHEST XR CLINICAL INDICATION: Female, 53 years old.,CHEST PAIN TECHNIQUE: Frontal chest projection is submitted. Examination is limited by patient positioning and t echnique. COMPARISON: 11/03/2023 FINDINGS: The lungs are well inflated and clear. No pneumothorax or sizable effusion. The heart is normal in s ize. Mediastinal contours are unremarkable. IMPRESSION: No acute intrathoracic abnormalities.
--- NOTE | 2024-04-17 19:26 | RAD REPORT ---
EXAM: CT Head Brain Wo Cont HISTORY: HEADACHE COMPARISON: 07/14/2015 TECHNIQUE: Multiple contiguous axial images were obtained for a CT of the brain without contrast. Sag ittal and coronal reformats were performed. One or more of the following dose reduction techniques were used: Automated exposure control, adjus tment of the mA and kV according to patient size, and iterative reconstruction. Unless otherwise specified, incidental findings do not require dedicated imaging follow-up. FINDINGS: No evidence of hydrocephalus, intracranial hemorrhage, or extra-axial fluid collection. The brain is normal in morphology. The calvarium is intact. The visualized paranasal sinuses and mastoid air cells are essentially clear . IMPRESSION: No evidence of acute intracranial abnormality.
--- NOTE | 2024-04-17 20:30 | ER ---
Nurse's Notes [facility] Name: Phoebe Hawk Age: 53 yrs Sex: Female : 1970 Arrival Date: 04/17/2024 Time: 17:28 Bed 6 Private MD: Diagnosis: Elevated blood-pressure reading, without diagnosis of hypertension;Headache Presentation: 04/17 17:37 Chief complaint: Patient states: this morning when I woke up with the right side of my tm6 head hurting, and now my whole head hurts. I also have a hard time breathing. I feel like my eyes and left side of my face has been tingling for two days. I feel like something hit me in my chest off and on all day. Coronavirus screen: Client denies travel out of the [place] in the last 14 days. Ebola Screen: Patient negative for fever greater than or equal to 101.5 degrees Fahrenheit, and additional compatible Ebola Virus Disease symptoms Patient denies exposure to infectious person. Patient denies travel to an Ebola-affected area in the 21 days before illness onset. No symptoms or risks identified at this time. Initial Sepsis Screen: Does the patient meet any 2 criteria? RR > 20 per min. Does the patient have a suspected source of infection? No. Patient's initial sepsis screen is negative. Risk Assessment: Do you want to hurt yourself or someone else? Patient reports no desire to harm self or others. Onset of symptoms was April 17, 2024. 17:37 Method Of Arrival: Ambulatory tm6 17:37 Acuity: CHACORTA 3 tm6 Triage Assessment: 17:42 General: Appears uncomfortable, Behavior is calm, cooperative. Pain: Complains of pain tm6 in face Pain currently is 7 out of 10 on a pain scale. Pain began this morning. EENT: No signs and/or symptoms were reported regarding the EENT system. Neuro: Level of Consciousness is awake, alert, obeys commands, Oriented to person, place, time, situation. Cardiovascular: Reports chest pain, since intermittent all day. Respiratory: Reports shortness of breath. GI: No signs and/or symptoms were reported involving the gastrointestinal system. Abdomen is flat, non-distended. : No signs and/or symptoms were reported regarding the genitourinary system. Derm: No signs and/or symptoms reported regarding the dermatologic system. Musculoskeletal: No signs and/or symptoms reported regarding the musculoskeletal system. GLOVE FINISHER: 18:07 LMP N/A - , Not mb9 Historical: - Allergies: 17:39 No Known Allergies; tm6 - PMHx: 17:39 diabetes mellitus; tm6 - PSHx: 17:39 Cholecystectomy; Total abdominal hysterectomy; tm6 - Immunization history:: Client reports receiving the 2nd dose of the Covid vaccine. - Infectious Disease History:: Denies. - Social history:: Smoking status: Patient denies any tobacco usage or history of. Patient/guardian denies using alcohol. Screenin:06 [facility] ED Fall Risk Assessment (Adult) History of falling in the last 3 months, mb9 including since admission No falls in past 3 months (0 pts) Confusion or Disorientation No (0 pts) Intoxicated or Sedated No (0 pts) Impaired Gait No (0 pts) Mobility Assist Device Used No (0 pt) Altered Elimination No (0 pt) Score/Fall Risk Level 0 - 2 = Low Risk Oriented to surroundings, Maintained a safe environment, Educated pt \T\ family on fall prevention, incl call for assistance when getting out of bed. Abuse screen: Denies threats or abuse. Nutritional screening: No deficits noted. Tuberculosis screening: No symptoms or risk factors identified. Assessment: 18:05 General: Appears uncomfortable, Behavior is cooperative. Pain: Complains of pain in mb9 head Pain does not radiate. Pain currently is 8 out of 10 on a pain scale. Quality of pain is described as sharp, shooting, Pain began suddenly, Is continuous. Neuro: Enriquez Agitation-Sedation Scale (RASS): 0 - Alert and Calm Level of Consciousness is awake, alert, obeys commands, Oriented to person, place, time, situation, Appropriate for age. Neuro: Reports headache. Cardiovascular: Heart tones S1 S2 present Patient's skin is warm and dry. Rhythm is regular. Cardiovascular: Reports palpitations. Respiratory: Airway is patent Respiratory effort is even, unlabored, Respiratory pattern is regular, symmetrical, Breath sounds are clear bilaterally. GI: Abdomen is round non-distended. : No signs and/or symptoms were reported regarding the genitourinary system. EENT: No signs and/or symptoms were reported regarding the EENT system. Derm: Skin is pink, warm \T\ dry. Musculoskeletal: Range of motion: intact in all extremities. 18:28 Cardiovascular: Rhythm is sinus rhythm. jb4 18:43 Reassessment: Patient appears in no apparent distress at this time. Patient and/or iw family updated on plan of care and expected duration. Pain level reassessed. IVF started. 19:20 Reassessment: Patient is alert, oriented x 3, equal unlabored respirations, skin jj7 warm/dry/pink. Patient denies pain at this time. General: Appears in no apparent distress. comfortable, Behavior is calm, cooperative, appropriate for age. Vital Signs: 17:36 BP 155 / 92; Pulse 75; Resp 22; Temp 97.9(TE); Pulse Ox 100% on R/A; MAP 111 mmHg; tm6 Weight 68.04 kg; Height 5 ft. 2 in. ; Pain 6/10; 18:08 BP 134 / 90; Pulse 73; Resp 16; Pulse Ox 100% on R/A; mb9 19:20 BP 118 / 84; Pulse 61; Resp 18; Pulse Ox 99% ; Pain 0/10; jj7 20:30 BP 121 / 80; Pulse 60; Resp 16; Temp 98.2; Pulse Ox 99% ; jj7 17:36 Body Mass Index 27.44 (68.04 kg, 157.48 cm) tm6 17:36 Pain Scale: Adult tm6 19:20 Pain Scale: Adult jj7 ED Course: 17:31 Patient arrived in ED. im 17:32 Geneva Motta PA-C is [facility]. sb4 17:32 Kit German MD is Attending Physician. sb4 17:39 Triage completed. tm6 17:39 Arm band placed on left wrist. tm6 18:04 Mary Noyola RN is Primary Nurse. mb9 18:04 Initial lab(s) drawn, by me, sent to lab. Inserted saline lock: 20 gauge in right mb9 antecubital area, using aseptic technique. Blood collected. Flushed with 10 mL NS. 18:06 Placed in gown. Bed in low position. Call light in reach. Side rails up X 1. Provided mb9 Education on: press call light if needing anything. Client placed on continuous cardiac and pulse oximetry monitoring. NIBP monitoring applied. 18:07 No provider procedures requiring assistance completed. mb9 18:07 LFT's Sent. mb9 18:07 CBC with Diff Sent. mb9 18:07 Basic Metabolic Panel Sent. mb9 18:07 Magnesium Sent. mb9 18:07 NT PRO-BNP Sent. mb9 18:07 PT-INR Sent. mb9 18:07 Troponin HS Sent. mb9 18:20 EKG done, by ED staff, reviewed by Kit German MD. mb9 18:30 XRAY Chest (1 view) In Process Unspecified. EDMS 18:38 Head Brain Wo Cont CT In Process Unspecified. EDMS 18:59 Report given to MARISSA and BRIE Almanzar. mb9 20:29 Sergey Montenegro DO is Referral Physician. sb4 20:43 IV discontinued, intact, bleeding controlled, No redness/swelling at site. Pressure jj7 dressing applied. Administered Medications: 18:43 Drug: NS 0.9% IV 1000 ml IV at 1 bolus Per protocol; to be given as a bolus over 60 iw minutes Route: IV; Rate: 1 bolus; Site: right antecubital; 20:43 Follow up: IV Status: Completed infusion jj7 19:29 Not Given (Hemodynamic Parameters): hydralazine5 mg IVP once jj7 Medication: 18:07 VIS not applicable for this client. mb9 Point of Care Testing: Blood Glucose: 17:42 Blood Glucose: 167 mg/dL; tm6 Ranges: Outcome: 20:30 Discharge ordered by MD. sb4 20:43 Discharged to home ambulatory, with family, jj7 20:43 Condition: improved 20:43 Discharge instructions given to patient, Instructed on discharge instructions, follow up and referral plans. Demonstrated understanding of instructions, follow-up care, 20:43 Patient left the ED. jj7 Signatures: Dispatcher [employer] Rose Marie Estrada RN Geoff Alcantara RN RN Manpreet Humphreys RN RN jjGeneva Rhodes, GINNA PARadha peraza4 Mary Noyola, RN RN mb9 Ivelisse Trujillo Tawney, RN RN tm6
--- NOTE | 2024-04-17 20:30 | EDPHYS ---
Physician Documentation [facility] Name: Phoebe Hawk Age: 53 yrs Sex: Female : 1970 Arrival Date: 04/17/2024 Time: 17:28 Bed 6 Private MD: ED Physician Kit German HPI: 04/17 17:57 This 53 yrs old Female presents to ER via Ambulatory with complaints of High sb4 Blood Pressure, Headache, Shortness Of Breath, Palpitations. 18:04 Patient reports headache that began this morning and has slowly gotten worse. States sb4 that she had her check her blood pressure at this morning and he told her it was high, but did not tell her what it was. Denies any prior diagnosis of hypertension. States that additionally, she has been feeling some intermittent chest pain as well as palpitations. Denies any cardiac history. States that she had a normal EKG and stress test a few years ago. 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 - Infectious Disease History:: Denies. - Social history:: Smoking status: Patient denies any tobacco usage or history of. Patient/guardian denies using alcohol. ROS: 18:04 Constitutional: Negative for fever, chills, and weight loss, sb4 18:04 Cardiovascular: Positive for chest pain, palpitations, 18:04 Respiratory: Positive for shortness of breath, 18:04 Neuro: Positive for headache, Exam: 18:06 Head/Face: Normocephalic, atraumatic. Eyes: Extra-ocular motions intact. Periorbital sb4 areas with no swelling, redness, or edema. ENT: Mucous membranes moist. Cardiovascular: Regular rate and rhythm with a normal S1 and S2. Respiratory: No increased work of breathing, no retractions or nasal flaring. Abdomen/GI: Soft, non-tender, no distension. Skin: Warm, dry with normal turgor. Normal color with no rashes, no lesions, and no evidence of cellulitis. MS/ Extremity: Pulses equal, no cyanosis. Neurovascular intact. Full, normal range of motion. Neuro: Awake and alert, GCS 15, oriented to person, place, time, and situation. Motor strength 5/5 in all extremities. Sensory grossly intact. 18:06 Constitutional: The patient appears alert, awake, uncomfortable, Vital Signs: 17:36 BP 155 / 92; Pulse 75; Resp 22; Temp 97.9(TE); Pulse Ox 100% on R/A; MAP 111 mmHg; tm6 Weight 68.04 kg; Height 5 ft. 2 in. ; Pain 6/10; 18:08 BP 134 / 90; Pulse 73; Resp 16; Pulse Ox 100% on R/A; mb9 19:20 BP 118 / 84; Pulse 61; Resp 18; Pulse Ox 99% ; Pain 0/10; jj7 20:30 BP 121 / 80; Pulse 60; Resp 16; Temp 98.2; Pulse Ox 99% ; jj7 17:36 Body Mass Index 27.44 (68.04 kg, 157.48 cm) tm6 17:36 Pain Scale: Adult tm6 19:20 Pain Scale: Adult jj7 MDM: 17:43 Medical Screening Exam initiated sb4 20:29 Data reviewed: vital signs, nurses notes, lab test result(s), EKG, radiologic studies, sb4 and as a result, I will discharge patient. Counseling: I had a detailed discussion with the patient and/or guardian regarding the historical points, exam findings, and any diagnostic results supporting the discharge/admit diagnosis, the presence of at least one elevated blood pressure reading (>120/80) during this emergency department visit, lab results, radiology results, the need for outpatient follow up, for definitive care, to return to the emergency department if symptoms worsen or persist or if there are any questions or concerns that arise at home. 04/17 17:53 Order name: Glucose, Ancillary Testing; Complete Time: 17:54 EDMS 04/17 17:55 Order name: Basic Metabolic Panel; Complete Time: 18:35 sb4 04/17 17:55 Order name: CBC with Diff; Complete Time: 18:37 sb4 04/17 17:55 Order name: LFT's; Complete Time: 18:35 sb4 04/17 17:55 Order name: Magnesium; Complete Time: 18:35 sb4 04/17 17:55 Order name: NT PRO-BNP; Complete Time: 18:35 sb4 04/17 17:55 Order name: PT-INR; Complete Time: 18:20 sb4 04/17 17:55 Order name: Troponin HS; Complete Time: 18:35 sb4 04/17 17:55 Order name: XRAY Chest (1 view); Complete Time: 19:15 sb4 04/17 17:55 Order name: Head Brain Wo Cont CT; Complete Time: 19:31 sb4 04/17 17:55 Order name: Cardiac monitoring; Complete Time: 18:07 sb4 04/17 17:55 Order name: EKG - Nurse/Tech; Complete Time: 18:08 sb4 04/17 17:55 Order name: IV Saline Lock; Complete Time: 18:07 sb4 04/17 17:55 Order name: Labs collected and sent; Complete Time: 18:07 sb4 04/17 17:55 Order name: O2 Per Protocol; Complete Time: 18:07 sb4 04/17 17:55 Order name: O2 Sat Monitoring; Complete Time: 18:07 sb4 EC:21 Rate is 71 beats/min. Rhythm is regular, Normal Sinus Rhythm. [place] interval is normal at sb4 152 msec. QRS interval is normal at 88 msec. QT interval is normal at 390 msec. No Q waves. T waves are Normal. No ST changes noted. Clinical impression: No evidence of ischemia. Interpreted by me. Reviewed by me. Administered Medications: 18:43 Drug: NS 0.9% IV 1000 ml IV at 1 bolus Per protocol; to be given as a bolus over 60 iw minutes Route: IV; Rate: 1 bolus; Site: right antecubital; 20:43 Follow up: IV Status: Completed infusion jj7 19:29 Not Given (Hemodynamic Parameters): hydralazine5 mg IVP once jj7 Point of Care Testing: Blood Glucose: 17:42 Blood Glucose: 167 mg/dL; tm6 Ranges: Critical Glucose Levels:Adult <50 mg/dl or >400 mg/dl <40 mg/dl or >180 mg/dl Disposition Summary: 04/17/24 20:30 Discharge Ordered Notes: Location: Home sb4 Problem: new sb4 Symptoms: have improved sb4 Condition: Stable sb4 Diagnosis - Elevated blood-pressure reading, without diagnosis of hypertension sb4 - Headache sb4 Followup: sb4 - With: Sergey Montenegro, DO - When: 1 week - Reason: Recheck today's complaints, Re-evaluation by your physician Discharge Instructions: - Discharge Summary Sheet sb4 - How to Take Your Blood Pressure, [id number] sb4 - Form - Blood Pressure Record Sheet sb4 - Managing Stress, Adult sb4 Forms: - Patient Portal Instructions sb4 - Leadership Thank You Letter sb4 Addendum: 04/21/2024 08:17 Co-signature as Attending Physician, Kit German MD I reviewed the patient's care r n provided by the Advanced Practice Provider and agree with the diagnosis and treatment plan. Signatures: Dispatcher [employer] EDRose Marie Ac, RN iKt Johnson MD MD rn Brown, Sophia, PA-C PARadha sb4 Efrain Majano RN RN tm6 Manpreet Vasquez RN jj7 Corrections: (The following items were deleted from the chart) 04/17 17:56 17:56 BASIC METABOLIC PANEL+C.LAB.BRZ ordered. EDMS EDMS 17:56 17:56 CBC+H.LAB.BRZ ordered. EDMS EDMS 17:56 17:56 HEPATIC FUNCTION+C.LAB.BRZ ordered. EDMS EDMS 17:56 17:56 MAGNESIUM+C.LAB.BRZ ordered. EDMS EDMS 17:56 17:56 PROBNP+C.LAB.BRZ ordered. EDMS EDMS 17:56 17:56 PROTIME (+INR)+COAG.LAB.BRZ ordered. EDMS EDMS 17:56 17:56 Troponin High Sensitivity+C.LAB.BRZ ordered. EDMS EDMS 17:56 17:56 Chest Single View+RAD.RAD.BRZ ordered. EDMS EDMS 17:56 17:56 Head Brain Wo Cont+CT.RAD.BRZ ordered. EDMS EDMS
[2024-04-17 21:40] VITALS: O2SAT 99
[2024-04-17 21:42] VITALS: BP 121/80; TEMP 98.2
--- NOTE | 2024-04-18 15:08 | EKG ---
Test Date: 2024-04-17 Test Time: 18:12:57 Vending Machine Refiller: DANIELA MEASUREMENT RESULTS: Intervals: Rate: 71 IA: 152 QRSD: 88 QT: 390 QTc: 423 [place]: P: 61 IA: 152 QRS: -22 T: 24 INTERPRETIVE STATEMENTS: Normal sinus rhythm with sinus arrhythmia Normal ECG Compared to ECG 11/03/2023 18:18:16 No significant changes Electronically Signed On 04-18-24 15:06:55 ENCYCLOPEDIA RESEARCH WORKER by Paul Solis
== END 2024-04-17 20:43 | disposition home or self-care (01) ==
LOC: ER 17:28
DX: R03.0 Elevated blood-pressure reading, without diagnosis of hypertension (principal); R51.9 Headache, unspecified
CPT/HCPCS: 96361; 93005; 85025; 80048; 36415; 83735; 85610; 82947; 80076; 84484; 83880; 70450; 71045; 96360; 99284; J7030